=== PATIENT | male | born 1975 | race Caucasian/White ===

== ENCOUNTER → 2017-09-09 13:04 | Outpatient (CLI) | payer MEDICAID, SELFPAY ==
--- NOTE | 2017-09-09 13:07 | ECHOCS_ITS ---
Reason For Study: CHF Procedure This was a 2D Doppler, Color Flow transthoracic echocardiogram. The exam was of poor technical quality due to body habitus. The study was technically difficult. Contrast injection was performed. Exam performed in department. Left Ventricle Mildly dilated left ventricle. Moderately severe segmental systolic dysfunction (see wall motion). The estimated ejection fraction is 30 %. Transmitral doppler flow suggestive of impaired relaxation of left ventricle. Infero-Basal: Akinetic. Basal inferoseptal: Akinetic. Basal anteroseptal: Hypokinetic. Mid-Anterior : Hypokinetic. Mid-Lateral : Hypokinetic. Mid-Posterior: Hypokinetic. Mid -Inferior: Akinetic. Mid-inferoseptal : Hypokinetic. Mid-anteroseptal : Hypokinetic. Anterior [place] : Hypokinetic. Inferior [place] : Hypokinetic. Lateral [place] : Akinetic. Septal [place] : Akinetic. Right Ventricle Normal RV size. Normal systolic function. Atria The left atrium is mildly enlarged. Normal right atrium. No doppler evidence for ASD. Positive agitated saline contrast study for a late faint right to left interatrial shunt. Mitral Valve There is no mitral annular calcification. Normal mitral valve. Trivial mitral valve insufficiency. Tricuspid Valve Normal tricuspid valve. Trivial tricuspid valve insufficiency. Right ventricular systolic pressure estimated to be 26 mmHg. Aortic Valve Trisinus/trileaflet aortic valve. Normal aortic valve. Pulmonic Valve The pulmonic valve is not well visualized. Trivial pulmonic valve insufficiency. Great Vessels Normal sized aortic root. Pericardium/Pleural No pericardial effusion. Medication 20 gauge I.V. with prn adaptor inserted into right arm. Diluted definity 2ml given slow IV push to enhance endocardial definition. Performed a rapid injection of agitated mix of 9 cc saline and 1cc air to assess for atrial septal defect. MMode/2D Measurements & Calculations LVIDd: 5.1 cm IVSd: 1.2 cm LVOT diam: 2.0 cm LVIDs: 4.1 cm LVPWd: 1.3 cm LVOT area: 3.2 cm2 FS: 19.2 % Ao root diam: 3.2 cm LAV(MOD-bp): 46.1 ml LVAd ap4: 41.1 cm2 LA dimension: 4.4 cm LAV(MOD-bp) Indexed: 20.4 ml/m2 EDV(MOD-sp4): 166.4 ml LAV(MOD-sp2): 44.4 ml EDV(sp4-el): 169.8 ml LAV(MOD-sp4): 45.9 ml LVAs ap4: 34.0 cm2 ESV(MOD-sp4): 119.2 ml ESV(sp4-el): 123.1 ml EF(MOD-sp4): 28.3 % EF(sp4-el): 27.5 % SV(MOD-sp4): 47.1 ml SV(sp4-el): 46.6 ml LA A4 area: 17.1 cm2 RA A4 area: 11.7 cm2 Time Measurements MV dec time: 0.22 sec Doppler Measurements & Calculations MV E max artemio: 58.2 cm/sec Lat Peak E' Artemio: 8.1 cm/sec Med Peak E' Artemio: 4.9 cm/sec MV A max artemio: 86.2 cm/sec E/E' lat: 7.2 E/E' med: 11.9 MV E/A: 0.68 MV V2 max: 95.8 cm/sec MV P1/2t max artemio: 62.1 cm/sec Ao V2 max: 109.5 cm/sec MV max P.7 mmHg MV P1/2t: 92.4 msec Ao max P.8 mmHg MV V2 mean: 47.9 cm/sec MV dec slope: 196.8 cm/sec2 Ao V2 mean: 75.1 cm/sec MV mean P.1 mmHg MVA(P1/2t): 2.4 cm2 Ao mean P.5 mmHg MV V2 VTI: 20.8 cm Ao V2 VTI: 18.3 cm MVA(VTI): 1.9 cm2 SHIVAM(I,D): 2.2 cm2 SHIVAM(V,D): 2.2 cm2 LV V1 max: 75.5 cm/sec SV(LVOT): 39.4 ml PA V2 max: 95.3 cm/sec LV V1 max P.3 mmHg LV V1 mean P.0 mmHg LV V1 mean: 46.5 cm/sec LV V1 VTI: 12.4 cm TR max artemio: 240.5 cm/sec TR max P.1 mmHg Interpretation Summary The study was technically difficult. Contrast injection was performed. Mildly dilated left ventricle. Moderately severe segmental systolic dysfunction (see wall motion). The estimated ejection fraction is 30 %. The left atrium is mildly enlarged. Trivial mitral valve insufficiency. Trivial tricuspid valve insufficiency. Trivial pulmonic valve insufficiency. Right ventricular systolic pressure estimated to be 26 mmHg. Positive agitated saline contrast study for a late faint right to left interatrial shunt. Ordering Physician: Arnol Galloway Referring Physician: Arnol Galloway Performed By: Vijay Wright RCS
== END ==
PROVIDERS: Family Provider Family Medicine; PCP Family Medicine; Visit Provider Internal Medicine Cardiovascular Disease
DX: I50.22 Chronic systolic (congestive) heart failure (principal)
CPT/HCPCS: 93306; Q9957; A4216; C8929

== ENCOUNTER 2024-01-28 10:00 | Outpatient (RCR) | payer MEDICARE, MEDICAID, SELFPAY ==
[2024-01-13 09:21] VITALS: BP 133/75; PULSE 68; RESP 18; TEMP 35.7; BMI 33.0
--- NOTE | 2024-01-13 10:11 | HP.PCM_ITS ---
History of Present Illness Date of Service: 01/13/24 Progress of Wound: Patient presents today for follow-up on a right hallux amputation and left heel wound in setting of diabetic neuropathy and peripheral arterial disease. Patient had right hallux amputation left heel wound debridement via outside podiatry at [facility]. Patient presented to my office 1 week prior for follow-up. Right hallux amputation was noted to be healed at that time and sutures were aseptically removed. Patient is heel weightbearing in surgical shoe on the right and nonweightbearing on the left assisted by walker. Patient denies any fever chills nausea vomiting chest pain calf pain shortness of breath. Patient has IV antibiotics via PICC line. Today is patient's last dose. No other complaints at current. [facility] Medical History Old myocardial infarct Peripheral vascular occlusive disease Obesity PUD (peptic ulcer disease) Obstructive sleep apnea Nicotine dependence Left bundle branch block (LBBB) Chronic systolic (congestive) heart failure Natalya gangrene Essential (primary) hypertension Hyperlipidemia Type 2 diabetes mellitus Atherosclerosis of coronary artery without angina pectoris Ischemic cardiomyopathy Paroxysmal ventricular tachycardia Home Medications ?Medication ?Instructions ?Recorded ?Last Taken ?Type aspirin 81 mg tablet,delayed 81 mg PO DAILY 11/03/19 Unknown History release (Adult Aspirin Regimen) insulin NPH isoph U-100 human 100 25 unit subcut BID 03/14/23 Unknown History unit/mL subcutaneous suspension insulin regular human 100 unit/mL 8 unit subcut TID 03/14/23 Unknown History injection solution atorvastatin 10 mg tablet 10 mg PO QHS #30 tabs 03/17/23 Unknown Rx carvedilol 3.125 mg tablet 3.125 mg PO BID #60 tabs 03/17/23 Unknown Rx lisinopril 2.5 mg tablet 2.5 mg PO DAILY #30 tabs 03/17/23 Unknown Rx ascorbic acid (vitamin C) 500 mg 500 mg PO DAILY 01/13/24 Unknown History tablet,extended release (C Complex) cholecalciferol (vitamin D3) 125 125 mcg PO DAILY 01/13/24 Unknown History mcg (5,000 unit) tablet (Vitamin D3) furosemide 20 mg tablet (Lasix) 20 mg PO DAILY 01/13/24 Unknown History hydralazine 10 mg tablet 10 mg PO TID 01/13/24 Unknown History losartan 25 mg tablet (Cozaar) 25 mg PO DAILY 01/13/24 Unknown History metoprolol tartrate 25 mg tablet 25 mg PO DAILY 01/13/24 Unknown History Allergy/AdvReac Type Severity Reaction Status Date / Time spironolactone AdvReac hyperkalemi Verified 03/14/23 10:24 a Family History Mother Heart disease 50 CVA (cerebral vascular accident) Father Heart disease 60 Diabetes CVA (cerebral vascular accident) Hypertension Sister Heart disease 48 Diabetes Grandfather CVA (cerebral vascular accident) Hypertension Grandmother CVA (cerebral vascular accident) Surgical History Hx of foot surgery History of left heart catheterization (09/25/15) History of right heart catheterization (02/2016) History of nasal septoplasty H/O coronary artery bypass surgery (03/19/16) History of ileostomy History of incision and drainage Biventricular ICD (implantable cardioverter-defibrillator) in place (08/16/16) Social History Smoking Status: Former smoker alcohol intake: never substance use type: does not use caffeine: Yes (monster 1 per day) Type: carbonated beverages Number of servings: 3 ROS Constitutional Constitutional: Denies body ache(s), change in weight or fever(s) Eyes Eyes: Denies acute decrease in peripheral vision, blindness or change in eye color ENT HEENT: Denies abnormal hearing, bleeding gums or change in voice Cardiovascular Cardiovascular: Denies abdominal bloating, abdominal edema or bluish discoloration of hand/feet Respiratory/Chest Respiratory/Chest: Denies change in mental status, change in phlegm color or difficulty clearing secretions Gastrointestinal Gastrointestinal: Denies anorexia, belching or bloating Genitourinary Genitourinary: Denies abdominal discomfort, anuria or burning urination Musculoskeletal Musculoskeletal: Denies arthralgias, atrophy or back pain Integumentary Integumentary: Denies bleeding lesions, change in hair or change in pigmentation Vital Signs Vital Signs Vital Signs: 01/13/24 09:21 Temperature 96.2 F L Temperature Source Temporal Pulse Rate 68 Respiratory Rate 18 Blood Pressure 133/75 H Blood Pressure Mean 94 Blood Pressure Source Monitor Blood Pressure Position Semi-Fowlers Blood Pressure Location Left Arm Weight Weight: 101.605 kg Body Mass Index (BMI) 33.0 Physical Exam Narrative Vascular: Dorsalis pedis posterior tibial pulses diminished bilateral lower extremity. +1 pitting edema noted to bilateral lower extremity focused on perimalleolar region. Atrophic skin changes noted such as skin thinning, taut, shiny appearance. Absent digital hair growth noted bilaterally. Neurologic: Light touch protective sensation absent to bilateral feet. Dermatologic: Right hallux amputation site healed. Left heel wound remains full-thickness down to level of subcutaneous tissue with periwound callus formation. No acute signs of infection. Wound demonstrates clean granular base postdebridement. Pre and postdebridement measurements documented nursing notes. No evidence of deep probing or undermining at this time. Scant serosanguineous drainage noted. Musculoskeletal: No wound forming deformity noted. Muscular strength full to bilateral lower extremity compartments. No evidence DVT of bilateral lower extremity. Const alert and oriented x3 Debridement Note Debridement Note Post-Debridement Measurements and Additional Note: Post-Debridement Measurements/Treatment - Nurse 1 - General Ulcer Assessment Start: 01/13/24 09:21 Freq: Status: Active Protocol: WC.LOWEXTy Activity Type Activity Date Activity User E-sign Co-sign Detail Recorded Client Recorded Date Recorded By Document 01/13/24 09:21 RB wound 01/13/24 09:39 RB 01/13/24 09:21 - Today's Visit Information Type of service Follow-up Visit (Physician/CASE MANAGER SPECIALIST ) Arrival Mode Wheelchair Transfer Assistance Manual Patient Identification Verified (Name & Yes ) Height and Weight Height 5 ft 9 in Weight 101.605 kg Weight in Pounds 224.0 lbs Body Mass Index (BMI) 33.0 BMI Classification Obese BSA - Michelle 2.17 Vital Signs Temperature (97.8 F-99.1 F) 96.2 F L Temperature Source Temporal Pulse Rate (60-100) 68 Pulse Location Monitor Respiratory Rate (12-18) 18 Respiratory rate source Observation Blood Pressure (90/60-120/80) 133/75 H Blood Pressure Mean 94 Source Monitor Position Semi-Fowlers Blood Pressure Location Left Arm Pain Scale: 0-10 Numeric Is Patient Pain Free? Yes Lower Extremity Assessment/ Foot Assessment/ Toe Nail Assessment Right -Posterior Tibial Palpable No -Posterior Tibial Doppler Monophasic -Dorsalis Pedis Palpable No -Dorsalis Pedis Doppler Monophasic -Extremity Color Normal -Hair Growth on Legs Yes -Hair Growth on Toes No -Temperature of Extremity Cool -Capillary Refill Less than 3 Seconds -Dependent Rubor No -Blanched when Elevated No -Lipodermatosclerosis No -Other Deformity No -Prior Foot Ulcer No -Charcot Joint No -Prior Amputation Yes -Thick Yes -Discolored Yes -Deformed Yes -Improper Length & Hygeine No Left -Popliteal Doppler Monophasic -Posterior Tibial Palpable No -Posterior Tibial Doppler Monophasic -Dorsalis Pedis Palpable No -Extremity Color Normal -Hair Growth on Legs Yes -Hair Growth on Toes No -Temperature of Extremity Cool -Capillary Refill Less than 3 Seconds -Dependent Rubor No -Blanched when Elevated No -Lipodermatosclerosis No -Other Deformity No -Prior Foot Ulcer No -Charcot Joint No -Prior Amputation No -Thick Yes -Discolored Yes -Deformed Yes -Improper Length & Hygeine No Neuropathy Assessment Feet - Top Side and Bottom <Entered> (a) Communication Assessment Preferred language [place] Biztalk Consultant Required No Able to Read Yes Able to Write Yes Communication Tools None Caregiver Communication Skills No Impairment Impairment Right Hearing Abillity Normal Left Hearing Abillity Normal Visual Assistive Devices None Teaching Assessment Preferences Verbal,Written, Demonstration Barriers to Learning Unable to Comprehend Readiness To Learn Good Willingness to Engage in Self Management Med Activies Readiness to Engage in Self Management Med Activities Anxiety Level Calm Cooperation Cooperative Perception Coherent Interest in Health Problem Asks Questions Education Importance Acknowledges Need Does Patient Smoke tobacco or other No substances Smoking Status Former smoker Is Patient Diabetic Yes Functional Assessment Recent Decline in Ability to Perform Transferring Culture/Congregational/Construction Operations Manager Cultural/Congregational Needs that may affect No Treatment Plan Would you allow our hospital cable testers helper to No meet you for the purpose of spiritual/ emotional support? Construction Operations Manager to contact place of judaism No Teaching: Wound Center *Welcome to the Wound Center -Person Taught Patient -Teaching Method Discussion -Response to teaching Verbalize understanding (a) 1 - - throughout WC - Nurse 1 - General Ulcer Measurement Start: 01/13/24 09:21 Freq: Status: Active Protocol: Activity Type Activity Date Activity User E-sign Co-sign Detail Recorded Client Recorded Date Recorded By Document 06/11/24 09:21 RB wound 01/13/24 09:39 RB Document 01/13/24 09:52 RB wound 01/13/24 09:53 RB 01/13/24 01/13/24 09:21 09:52 Wound Center Nurse 1 1. L heel -Combined with other wound No -Current Size (cm) - Length 0.8 -Current Size (cm) - Width 0.5 -Current Size (cm) - Depth 0.4 -Total Square Cm 0.40 -Photo Taken Yes -Tunneling No -Undermining/Tunneling No -Circular Undermining No -Exudate Amt Medium -Exudate Type Serosanguineous -Wound Margin Thickened -Granulation Amt Large (67-100%) -Granulation Quality [place] -Slough/Fibrin Yes -Necrosis Amt Medium (34-66%) -Necrotic Tissue Type Adherent Slough -Structure Exposed N/A -Texture (Julia-wound Skin Appearance) Callus -Moisture (Julia-wound Skin Appearance) Assessed,Dry/ Scaly -Color (Julia-wound Skin Appearance) Assessed -Temperature (Julia-wound Skin No Abnormality Appearance) (Pt Warm) -Tenderness on Palpation (Julia-wound No Skin Appearance) -Ulcer Cleansing Wound Cleanser -Foul Odor after Cleansing No -Anesthetic Used 5% Lidocaine Gel -Wound Comment(s) right great toe amputation 3 weeks ago incsion well approximated and covered with betadine Lower Limb Edema Present Yes Right Calf (cm) 33.6 Right Ankle (cm) 21.8 Left Calf (cm) 32.2 Left Ankle (cm) 21.2 WC - Nurse 2 - General Ulcer CM Notes Start: 01/13/24 09:21 Freq: Status: Active Protocol: Activity Type Activity Date Activity User E-sign Co-sign Detail Recorded Client Recorded Date Recorded By Document 01/13/24 09:59 [id number] 01/13/24 10:04 01/13/24 09:59 Wound Center Nurse 2 -Time 10:00 -Correct Patient Yes -Correct Side, Site, Position Yes -Correct Procedure Yes -Procedure Performed Yes -Type of Procedure Debridement -Clinical Debridement Subcutaneous -Tissue Removed Subcutaneous -Post Debridement (cm) - Length 2.1 -Post Debridement (cm) - Width 1.0 -Post Debridement (cm) - Depth 0.2 -Total Square (Post) (cm) 2.10 -Area of Debridement (cm) - Length 2.1 -Area of Debridement (cm) - Width 1.0 -Total Square (Area) (cm) 2.10 -Tunneling No -Undermining/Tunneling No -Circular Undermining No -Wound/Ulcer Outcome Not Healed -Ulcer Cleansing Rinsed/ Irrigated with Saline -Foul Odor after Cleansing No -Bioengineered Tissue No -Bleeding Controlled with Pressure -Treatment Response Procedure Tolerated Well -Offloading Yes -Type of Offloading Surgical Shoe -Debridement - Subq, 1st 20sq cm Yes Pain Scale: 0-10 Numeric Is Patient Pain Free? Yes Assessment/Plan Assessment/Plan (1) Type 2 diabetes mellitus with diabetic polyneuropathy: CODE(S): E11.42 - Type 2 diabetes mellitus with diabetic polyneuropathy QUALIFIERS: Diabetes mellitus residential insulin use: with residential use Qualified Code(s): E11.42 - Type 2 diabetes mellitus with diabetic polyneuropathy; Z79.4 - exterminator (current) use of insulin PLAN: Exam performed Right hallux amputation remains healed Left heel wound improving, devoid of infection. Patient full weightbearing on right, nonweightbearing on left -patient assisted with walker and a knee sling to maintain nonweightbearing on left Left heel wound was debrided excisionally down to including level of subcutaneous tissue of all nonviable tissue using a tissue nipper. No anesthesia due to neuropathy. Hemostasis obtained with light compression. Pre and postdebridement measurements documented nursing notes. Patient tolerated procedure well. Arterial and venous studies ordered Will plan for total contact casting after arterial and venous studies performed Will consider advanced wound care grafting to left heel pending any delays in healing Patient will follow-up in 1 week Patient having PICC line removed after today?no additional antibiotics recommend ed per my perspective at this time. (2) Non-pressure chronic ulcer of other part of left foot with fat layer exposed: CODE(S): L97.522 - Non-pressure chronic ulcer of other part of left foot with fat layer exposed
[2024-01-27 09:10] VITALS: BP 147/80; PULSE 82; RESP 18; TEMP 36.4; BMI 33.0
--- NOTE | 2024-01-27 10:34 | PN.PCM_ITS ---
History of Present Illness Date of Service: 01/27/24 Progress of Wound: Patient presents today for follow-up on a right hallux amputation and left heel wound in setting of diabetic neuropathy and peripheral arterial disease. Patient had right hallux amputation left heel wound debridement via outside podiatry at [facility][1]. Patient presented to my office 1 week prior for follow-up. Right hallux amputation was noted to be healed at that time and sutures were aseptically removed. Patient is heel weightbearing in surgical shoe on the right and nonweightbearing on the left assisted by walker. Patient denies any fever chills nausea vomiting chest pain calf pain shortness of breath. Patient has IV antibiotics via PICC line. Today is patient's last dose. No other complaints at current. Objective Data Objective Data Vital Signs: Vital Signs Temp Pulse Resp BP 97.5 F L 82 18 147/80 H 01/27/24 09:10 01/27/24 09:10 01/27/24 09:10 01/27/24 09:10 Weight: 101.605 kg Body Mass Index (BMI) 33.0 Physical Exam Narrative Vascular: Dorsalis pedis posterior tibial pulses diminished bilateral lower extremity. +1 pitting edema noted to bilateral lower extremity focused on perimalleolar region. Atrophic skin changes noted such as skin thinning, taut, shiny appearance. Absent digital hair growth noted bilaterally. Neurologic: Light touch protective sensation absent to bilateral feet. Dermatologic: Right hallux amputation site healed. Left heel wound remains full-thickness down to level of subcutaneous tissue with periwound callus formation. No acute signs of infection. Wound demonstrates clean granular base postdebridement. Pre and postdebridement measurements documented nursing notes. No evidence of deep probing or undermining at this time. Scant serosanguineous drainage noted. Musculoskeletal: No wound forming deformity noted. Muscular strength full to bilateral lower extremity compartments. No evidence DVT of bilateral lower extremity. Const alert and oriented x3 Debridement Note Debridement Note Post-Debridement Measurements and Additional Note: Post-Debridement Measurements/Treatment WC - Nurse 1 - General Ulcer Assessment Start: 01/13/24 09:21 Freq: Status: Active Protocol: RONNY.LOWEXT Activity Type Activity Date Activity User E-sign Co-sign Detail Recorded Client Recorded Date Recorded By Document 01/13/24 09:21 RB wound 01/13/24 09:39 RB Document 01/27/24 09:10 DL [email or web address] 01/27/24 09:17 DL 01/13/24 01/27/24 09:21 09:10 WC - Today's Visit Information Type of service Follow-up Visit Follow-up Visit (Physician/HSE ADVISOR (Physician/HSE ADVISOR ) ) Arrival Mode Wheelchair Ambulatory, Walker Transfer Assistance Manual None Patient Identification Verified (Name & Yes Yes ) Patient Requires Transmission-Based No Precautions Finger Stick Blood Sugar(mg/dl) (if not checked indicated): Blood Sugar Stated by Patient Height and Weight Height 5 ft 9 in Weight 101.605 kg Weight in Pounds 224.0 lbs Body Mass Index (BMI) 33.0 33.0 BMI Classification Obese Obese BSA - Michelle 2.17 Vital Signs Temperature (97.8 F-99.1 F) 96.2 F L 97.5 F L Temperature Source Temporal Temporal Pulse Rate (60-100) 68 82 Pulse Location Monitor Monitor Respiratory Rate (12-18) 18 18 Respiratory rate source Observation Observation Blood Pressure (90/60-120/80) 133/75 H 147/80 H Blood Pressure Mean (mm Hg) 94 102 Source Monitor Monitor Position Semi-Fowlers Blood Pressure Location Left Arm History Since Last Visit- (Skip if this is Patient's initial visit) Have you changed medications since your No last visit? Any new allergies or adverse reactions No Had a fall/change in ADL's that may No increase risk of falls Signs or symptoms of abuse and/or No neglect since last visit Have you been in the hospital since your No last visit? Has dressing in place as prescribed Yes Has compression in place as prescribed Yes Has offloadiing in place as prescribed Yes Experienced any changes in pain level or No management Left Footwear Regular Shoe Right Footwear Regular Shoe Pain Scale: 0-10 Numeric Is Patient Pain Free? Yes Yes Lower Extremity Assessment/ Foot Assessment/ Toe Nail Assessment Right -Posterior Tibial Palpable No -Posterior Tibial Doppler Monophasic -Dorsalis Pedis Palpable No -Dorsalis Pedis Doppler Monophasic -Extremity Color Normal -Hair Growth on Legs Yes -Hair Growth on Toes No -Temperature of Extremity Cool -Capillary Refill Less than 3 Seconds -Dependent Rubor No -Blanched when Elevated No -Lipodermatosclerosis No -Other Deformity No -Prior Foot Ulcer No -Charcot Joint No -Prior Amputation Yes -Thick Yes -Discolored Yes -Deformed Yes -Improper Length & Hygeine No Left -Popliteal Doppler Monophasic -Posterior Tibial Palpable No -Posterior Tibial Doppler Monophasic -Dorsalis Pedis Palpable No -Extremity Color Normal -Hair Growth on Legs Yes -Hair Growth on Toes No -Temperature of Extremity Cool -Capillary Refill Less than 3 Seconds -Dependent Rubor No -Blanched when Elevated No -Lipodermatosclerosis No -Other Deformity No -Prior Foot Ulcer No -Charcot Joint No -Prior Amputation No -Thick Yes -Discolored Yes -Deformed Yes -Improper Length & Hygeine No Neuropathy Assessment Feet - Top Side and Bottom <Entered> (a) Communication Assessment Preferred language Sinhala Senior Writer Required No Able to Read Yes Able to Write Yes Communication Tools None Caregiver Communication Skills No Impairment Impairment Right Hearing Abillity Normal Left Hearing Abillity Normal Visual Assistive Devices None Teaching Assessment Preferences Verbal,Written, Demonstration Barriers to Learning Unable to Comprehend Readiness To Learn Good Willingness to Engage in Self Management Med Activies Readiness to Engage in Self Management Med Activities Anxiety Level Calm Cooperation Cooperative Perception Coherent Interest in Health Problem Asks Questions Education Importance Acknowledges Need Does Patient Smoke tobacco or other No substances Smoking Status Former smoker Is Patient Diabetic Yes Functional Assessment Recent Decline in Ability to Perform Transferring Culture/Latter-Day/Feeder/Folder Cultural/Latter-Day Needs that may affect No Treatment Plan Would you allow our hospital control chemist to No meet you for the purpose of spiritual/ emotional support? Feeder/Folder to contact place of yarsani No Teaching: Wound Center *Welcome to the Wound Center -Person Taught Patient -Teaching Method Discussion -Response to teaching Verbalize understanding (a) 1 - - throughout WC - Nurse 1 - General Ulcer Measurement Start: 01/13/24 09:21 Freq: Status: Active Protocol: Activity Type Activity Date Activity User E-sign Co-sign Detail Recorded Client Recorded Date Recorded By Document 01/13/24 09:21 RB wound 01/13/24 09:39 RB Document 01/13/24 09:52 RB wound 01/13/24 09:53 RB Document 01/27/24 09:10 DL [email or web address] 01/27/24 09:17 DL 01/13/24 01/13/24 01/27/24 09:21 09:52 09:10 Wound Center Nurse 1 1. L heel -Combined with other wound No -Current Size (cm) - Length 0.8 0.7 -Current Size (cm) - Width 0.5 0.6 -Current Size (cm) - Depth 0.4 0.5 -Total Square Cm 0.40 0.42 -Photo Taken Yes Yes -Tunneling No -Undermining/Tunneling No -Circular Undermining No -Exudate Amt Medium Medium -Exudate Type Serosanguineous Serosanguineous -Wound Margin Thickened Thickened & Rolled Under -Granulation Amt Large (67-100%) None Present (0 %) -Granulation Quality [place] -Slough/Fibrin Yes -Necrosis Amt Medium (34-66%) Large (67-100%) -Necrotic Tissue Type Adherent Slough Adherent Slough -Structure Exposed N/A -Texture (Julia-wound Skin Appearance) Callus Scarring -Moisture (Julia-wound Skin Appearance) Assessed,Dry/ Dry/Scaly Scaly -Color (Julia-wound Skin Appearance) Assessed No Abnormality -Temperature (Julia-wound Skin No Abnormality No Abnormality Appearance) (Pt Warm) (Pt Warm) -Tenderness on Palpation (Julia-wound No Skin Appearance) -Ulcer Cleansing Wound Cleanser Soap and Water -Foul Odor after Cleansing No No -Anesthetic Used 5% Lidocaine 5% Lidocaine Gel Gel -Wound Comment(s) right great toe amputation 3 weeks ago incsion well approximated and covered with betadine Lower Limb Edema Present Yes Right Calf (cm) 33.6 Right Ankle (cm) 21.8 Left Calf (cm) 32.2 31.2 Left Ankle (cm) 21.2 21.5 WC - Nurse 2 - General Ulcer CM Notes Start: 01/13/24 09:21 Freq: Status: Active Protocol: Activity Type Activity Date Activity User E-sign Co-sign Detail Recorded Client Recorded Date Recorded By Document 01/13/24 09:59 JF [id number] 01/13/24 10:04 JF Document 01/27/24 09:34 JF 0000 01/27/24 09:36 JF 01/13/24 01/27/24 09:59 09:34 Wound Center Nurse 2 1. L heel -Time 10:00 09:35 -Correct Patient Yes Yes -Correct Side, Site, Position Yes Yes -Correct Procedure Yes Yes -Procedure Performed Yes Yes -Type of Procedure Debridement Debridement -Clinical Debridement Subcutaneous Subcutaneous -Tissue Removed Subcutaneous Subcutaneous -Post Debridement (cm) - Length 2.1 0.8 -Post Debridement (cm) - Width 1.0 0.6 -Post Debridement (cm) - Depth 0.2 0.4 -Total Square (Post) (cm) 2.10 0.48 -Area of Debridement (cm) - Length 2.1 0.8 -Area of Debridement (cm) - Width 1.0 0.6 -Total Square (Area) (cm) 2.10 0.48 -Tunneling No No -Undermining/Tunneling No No -Circular Undermining No No -Wound/Ulcer Outcome Not Healed Not Healed -Ulcer Cleansing Rinsed/ Rinsed/ Irrigated with Irrigated with Saline Saline -Foul Odor after Cleansing No No -Bioengineered Tissue No No -Bleeding Controlled with Pressure Pressure -Treatment Response Procedure Procedure Tolerated Well Tolerated Well -Offloading Yes No -Type of Offloading Surgical Shoe -Debridement - Subq, 1st 20sq cm Yes Yes Pain Scale: 0-10 Numeric Is Patient Pain Free? Yes Yes - Nurse 3 - General Ulcer D/C NN Start: 01/13/24 09:21 Freq: Status: Active Protocol: Activity Type Activity Date Activity User E-sign Co-sign Detail Recorded Client Recorded Date Recorded By Document 01/27/24 09:49 DL [email or web address] 01/27/24 09:51 DL 01/27/24 09:49 Wound Care Center Nurse 3 1. L heel -Ulcer Cleansing Rinsed/ Irrigated with Saline -Foul Odor after Cleansing No -Primary Dressing Applied Silvercel -Primary Dressing Covered/Secured with Dry Gauze & Roll Gauze, Secured with Tape -Silvercel 1 Left -Other tubigrip Treatment Response Procedure Tolerated Well Pain Scale: 0-10 Numeric Is Patient Pain Free? Yes - Visit Discharge Discharge Condition Stable Ambulatory Status Ambulatory Transportation Private Auto Assessment/Plan Assessment/Plan (1) Type 2 diabetes mellitus with diabetic polyneuropathy: CODE(S): E11.42 - Type 2 diabetes mellitus with diabetic polyneuropathy QUALIFIERS: Diabetes mellitus group home insulin use: with technician terminal and repeater use Qualified Code(s): E11.42 - Type 2 diabetes mellitus with diabetic polyneuropathy; Z79.4 - equipment operator intermodal yard (current) use of insulin PLAN: Exam performed Right hallux amputation remains healed Left heel wound improving, devoid of infection. Patient full weightbearing on right, nonweightbearing on left -patient assisted with walker and a knee sling to maintain nonweightbearing on left Left heel wound was debrided excisionally down to including level of subcutaneous tissue of all nonviable tissue using a tissue nipper. No anesthes ia due to neuropathy. Hemostasis obtained with light compression. Pre and postdebridement measurements documented nursing notes. Patient tolerated procedure well. Arterial and venous studies ordered - still pending Will plan for total contact casting after arterial and venous studies performed Will consider advanced wound care grafting to left heel pending any delays in healing Patient will follow-up in 1 week (2) Non-pressure chronic ulcer of other part of left foot with fat layer exposed: CODE(S): L97.522 - Non-pressure chronic ulcer of other part of left foot with fat layer exposed
--- NOTE | 2024-01-28 10:17 | ART_ITS ---
Reason For Study: PVD / Wound Procedure A bilateral lower extremity continuous wave Doppler with analog waveform analysis,segmental pressures,and ankle brachial indexes without exercise. Left Segmental Pressures Left brachial= 131mmHg. Left thigh = 121mmHg. Left calf = 90mmHg. Left dorsalis pedis artery = 92mmHg. Left digit = 61 mmHg. The left dorsalis pedis waveforms are monophasic. Unable to acquire LT INTERIOR BLOCK WIRER waveform/pressure due to wounds and bandages. Right Segmental Pressures Right brachial= 130mmHg. Right thigh = 159mmHg. Right calf = 100mmHg. Right posterior tibial artery = 98mmHg. Right dorsalis pedis artery = 82mmHg. Unable to acquire RT Great Toe pressure/waveform due to prior amputation. The right posterior tibial artery waveforms are biphasic. The right dorsalis pedis waveforms are monophasic. Indices The right ankle brachial index by the posterior tibial artery is 0.75. The right ankle brachial index by the dorsalis pedis is 0.63. The left ankle brachial index by the dorsalis pedis is 0.70. The left digital-brachial index is 0.47. VL/Lower Ext Art Exam w/o Exercis Interpretation Summary Biphasic and monophasic Doppler waveforms are noted at ankle level on the right . Monophasic Doppler waveforms are noted at ankle level on the left. Pulse-volume recordings appear diminished at ankle level bilaterally, and at digital level on the left. Pulse-volume recordings we re not determined at digital level on the right due to amputations. Resting ankle-brachial indices a re moderately diminished bilaterally. The right digital-brachial index was not determined due to amputations. The left digital-brachial index is moderately diminished. There is evidence of moderately severe arterial occlusive disease in the lower extremities bilaterally. Ordering Physician: Jc Truong Referring Physician: Moe Odonnell Performed By: Nabil Mondragon RVT and Student
--- NOTE | 2024-01-28 10:17 | VDLE_ITS ---
Reason For Study: BLE Edema RIGHT LEFT CFV is compressible, spontaneous, phasic, CFV is compressible, spontaneous, phasic, competent and demonstrates normal competent, and demonstrates normal augmentation. augmentation. FV is compressible, spontaneous, phasic, FV is compressible, spontaneous, phasic, competent and demonstrates normal competent and demonstrates normal augmentation. augmentation. POP V is compressible, spontaneous, phasic, POP V is compressible, spontaneous, phasic, competent and demonstrates normal competent and demonstrates normal augmentation. augmentation. T/P Trunk is compressible. T/P Trunk is compressible. PTV is compressible. PTV is compressible. RT PerV is compressible. LT PerV is compressible. SFJ is INCOMPETENT and measures 0.48 cm. SFJ is competent and measures 0.47 cm. GSV proximal thigh measures 0.31 x 0.35 cm. Pt has HX of CABG. GSV Prox thigh to mid calf GSV at knee measures 0.21 x 0.30 cm. appears to have been harvested. Competent at GSV is competent throughout. mid and distal calf. SSV proximal calf is competent and measures SSV proximal calf is competent and measures 0.46 x 0.54 cm. 0.35 x 0.39 cm. Procedure Exam performed in department. This is a venous duplex using B-mode, color flow and spectral Doppler. The exam was diagnostic. Patient was scanned in reverse Trendelenburg position during reflux assessment. VL/Venous Duplex US - Salbador Extrem Interpretation Summary Deep veins of the lower extremities are bilaterally patent and compressible seg mentally. There is no evidence of deep vein thrombosis on either side. Valvular competence appears in tact within the proximal deep venous systems bilaterally. The right sapheno-femoral junction is incompetent . The left sapheno-femoral junction is competent . The right great saphenous vein joradn ears patent and compressible segmentally. The right great saphenous vein appears segmentally co mpetent. The left great saphenous vein appears to be absent in the thigh and proximal calf, but p atent and competent more distally. Small saphenous veins are patent and competent bilaterally. Ordering Physician: Jc Trunog Referring Physician: Moe Odonnell Performed By: Nabil Mondragon RVT and Student
== END 2024-02-01 23:59 | disposition home or self-care (01) ==
LOC: WC 10:00
PROVIDERS: PCP Family Medicine; Referring Provider Podiatrist; Visit Provider Podiatrist
DX: E11.622 Type 2 diabetes mellitus with other skin ulcer (principal); L97.422 Non-pressure chronic ulcer of left heel and midfoot with fat layer exposed; I11.0 Hypertensive heart disease with heart failure; I50.22 Chronic systolic (congestive) heart failure; E11.51 Type 2 diabetes mellitus with diabetic peripheral angiopathy without gangrene; E11.42 Type 2 diabetes mellitus with diabetic polyneuropathy; Z79.4 Long term (current) use of insulin; Z79.82 Long term (current) use of aspirin; E78.5 Hyperlipidemia, unspecified; Z87.891 Personal history of nicotine dependence; I25.10 Atherosclerotic heart disease of native coronary artery without angina pectoris; Z89.421 Acquired absence of other right toe(s); Z79.899 Other long term (current) drug therapy; L84 Corns and callosities; R60.0 Localized edema
CPT/HCPCS: 11042; 93923; 93970; 99214; G0463

== ENCOUNTER 2024-03-19 21:20 | Inpatient (IN) | payer SELFPAY ==
[2024-03-19 21:21] VITALS: BP 110/80; PULSE 121; RESP 35; TEMP 37.9; O2SAT 95
--- NOTE | 2024-03-19 22:07 | EX.ED.DYSGE1 ---
HPI History of Present Illness Chief Complaint: General Illness Informant: patient and spouse/S.O. Onset/Context/Timing Onset: Today Context: Sudden Onset Timing: Continuous Quality: Shaking chills Location: Generalized Worsened by: Nothing Relieved by: Nothing Narrative Narrative: Patient presents with shaking chills. Began today. Patient states it began rather suddenly. states that whenever he he gets chills, he has an infection. Patient states he felt shaky all over. Patient states nothing makes it better and nothing makes it worse. Patient did not take his temperature. Patient has not taken any Tylenol or ibuprofen. Patient admits to some nausea and vomiting. Patient admits to some shortness of breath but denies any cough. Patient does do some dark urine. Patient also admits to a headache. [facility] Medical History Old myocardial infarct Peripheral vascular occlusive disease Obesity PUD (peptic ulcer disease) Obstructive sleep apnea Nicotine dependence Left bundle branch block (LBBB) Chronic systolic (congestive) heart failure Natalya gangrene Essential (primary) hypertension Hyperlipidemia Type 2 diabetes mellitus Atherosclerosis of coronary artery without angina pectoris Ischemic cardiomyopathy Paroxysmal ventricular tachycardia Home Medications ?Medication ?Instructions ?Recorded ?Last Taken ?Type aspirin 81 mg tablet,delayed 81 mg PO DAILY 11/03/19 Unknown History release (Adult Aspirin Regimen) insulin NPH isoph U-100 human 100 25 unit subcut BID 03/14/23 Unknown History unit/mL subcutaneous suspension insulin regular human 100 unit/mL 8 unit subcut TID 03/14/23 Unknown History injection solution atorvastatin 10 mg tablet 10 mg PO QHS #30 tabs 03/17/23 Unknown Rx carvedilol 3.125 mg tablet 3.125 mg PO BID #60 tabs 03/17/23 Unknown Rx lisinopril 2.5 mg tablet 2.5 mg PO DAILY #30 tabs 03/17/23 Unknown Rx ascorbic acid (vitamin C) 500 mg 500 mg PO DAILY 01/13/24 Unknown History tablet,extended release (C Complex) cholecalciferol (vitamin D3) 125 125 mcg PO DAILY 01/13/24 Unknown History mcg (5,000 unit) tablet (Vitamin D3) furosemide 20 mg tablet (Lasix) 20 mg PO DAILY 01/13/24 Unknown History hydralazine 10 mg tablet 10 mg PO TID 01/13/24 Unknown History losartan 25 mg tablet (Cozaar) 25 mg PO DAILY 01/13/24 Unknown History metoprolol tartrate 25 mg tablet 25 mg PO DAILY 01/13/24 Unknown History Allergy/AdvReac Type Severity Reaction Status Date / Time spironolactone AdvReac hyperkalemi Verified 03/19/24 21:21 a Family History Mother Heart disease 50 CVA (cerebral vascular accident) Father Heart disease 60 Diabetes CVA (cerebral vascular accident) Hypertension Sister Heart disease 48 Diabetes Grandfather CVA (cerebral vascular accident) Hypertension Grandmother CVA (cerebral vascular accident) Surgical History Hx of foot surgery History of left heart catheterization (09/25/15) History of right heart catheterization (02/2016) History of nasal septoplasty H/O coronary artery bypass surgery (03/19/16) History of ileostomy History of incision and drainage Biventricular ICD (implantable cardioverter-defibrillator) in place (08/16/16) Social History Smoking Status: Former smoker alcohol intake: never substance use type: does not use caffeine: Yes (monster 1 per day) Type: carbonated beverages Number of servings: 3 ROS ROS ED Constitutional Constitutional ED: Reports chills and subjective; Denies fever(s) Eyes Eyes: Denies blurry vision or change in vision ENT ENT ED: Denies rhinorrhea or sore throat Cardiovascular Cardiovascular: Denies chest pain or palpitations Respiratory/Chest Respiratory/Chest: Reports dyspnea; Denies cough Gastrointestinal Gastrointestinal: Reports nausea and vomiting Genitourinary Genitourinary ED: Denies dysuria or hematuria Musculoskeletal Musculoskeletal: Denies back pain or neck pain Integumentary Denies abscess or rash Neurologic Neurologic: Reports headache(s); Denies weakness Allergic/Immunologic Allergic/Immunologic ED: Denies mouth swelling or urticaria EXAM Physical Exam Const Vital Signs: 03/19/24 21:21 03/19/24 22:23 03/19/24 22:28 Temperature 100.3 F H 100.3 F H Temperature Source Oral Oral Pulse Rate 121 H 112 H Respiratory Rate 35 H 18 Respiratory Pattern Tachypnea Blood Pressure 110/80 110/68 Blood Pressure Mean 90 82 Pulse Ox 95 93 Oxygen Delivery Method Room Air Nasal Cannula Oxygen Flow Rate (L/min) 2 03/19/24 23:00 03/20/24 00:00 03/20/24 00:42 Temperature 100.0 F H 98.7 F 98.5 F Temperature Source Oral Oral Pulse Rate 106 H 105 H 107 H Respiratory Rate 22 H 32 H 49 H Respiratory Pattern Blood Pressure 94/52 L 99/62 114/72 Blood Pressure Mean 66 74 86 Pulse Ox 95 96 96 Oxygen Delivery Method Nasal Cannula Nasal Cannula Oxygen Flow Rate (L/min) 2 2 Positive well nourished and well developed General Appearance ED: well developed and NAD HEENT Reports moist mucous membranes Neck supple and no JVD Resp normal respiratory effort Auscultation: diminished lung sounds diffuse Cardio regular rhythm Rate: tachycardic GI non-tender and non-distended Palpation: soft Extremity General Extremety ED: Negative for edema or tenderness General Extremity: Negative for edema Neuro oriented x3, CN's II-XII intact bilaterally and no sensory deficits noted Sensorium / Orientation: alert Motor Exam: strength 5/5 throughout Psych mental status grossly normal MDM MDM MDM Narrative Medical decision making narrative: Differential diagnosis includes pneumonia, sepsis, viral illness, urinary tract infection, gastroenteritis, DKA, and dehydration. CBC will be obtained to assess for leukocytosis and anemia. Comprehensive metabolic profile will be obtained to assess for hepatic function, renal function, and electrolyte abnormality. Urinalysis will be obtained to assess for urinary tract infection and hematuria. Blood culture will be obtained to assess for sepsis. Serum lactate will be obtained to assess for sepsis. Chest x-ray will be obtained to assess for pneumonia or pneumothorax. Lab Data Attestation: I reviewed the patient's lab results. Lab results narrative: CBC was reviewed. There is a leukocytosis of 17.8. There is an anemia with a hemoglobin 9.3 and hematocrit 28.7. This is decreased from previous result. Platelets were slightly elevated at 456. PT with INR and PTT were reviewed. Pro time was 18.4 and INR is 1.5. PTT was mildly elevated at 42.6. Comprehensive metabolic profile was reviewed. BUN was slightly elevated at 21 and creatinine was 1.42. Serum lactate was reviewed and was elevated at 2.7. Total bilirubin was slightly elevated at 1.1. Alkaline phosphatase was slightly elevated to 32. Urinalysis was reviewed. There is no evidence of urinary tract infection or hematuria. COVID-19 PCR was reviewed and was negative. Influenza PCR was reviewed and was negative for influenza A and influenza B. RSV PCR was reviewed and was negative. Labs: Laboratory Results - last 24 hr 03/19/24 03/19/24 22:55 23:00 WBC 17.8 H RBC 3.31 L Hgb 9.3 L Hct 28.7 L MCV 86.7 MCH 28.1 MCHC 32.4 RDW Std Deviation 47.2 H RDW Coeff of Fariba 15.0 H Plt Count 456 H MPV 9.6 Immature Gran % (Auto) 0.700 Neut % (Auto) 90.0 H Lymph % (Auto) 4.0 L [place] % (Auto) 4.9 Eos % (Auto) 0.1 Baso % (Auto) 0.3 Absolute Neuts (auto) 16.0 H Absolute Lymphs (auto) 0.71 L Nucleated RBC % 0 PT 18.4 H INR 1.5 APTT 42.6 H Sodium 133 L Potassium 3.9 Chloride 102 Carbon Dioxide 22.0 Anion Gap 9 BUN 21 H Creatinine 1.42 H Estim Creat Clear Calc 72.28 Est GFR (MDRD) Af Amer 69 Est GFR (MDRD) Non-Af 57 L BUN/Creatinine Ratio 14.8 Glucose 212 H Lactic Acid 2.7 H* Calcium 8.5 Total Bilirubin 1.10 H AST 53 H ALT 61 Alkaline Phosphatase 232 H Total Protein 7.9 Albumin 1.8 L Globulin 6.1 H Albumin/Globulin Ratio 0.3 L Urine Color [place] Urine Clarity Clear Urine pH 6.0 Ur Specific [place] 1.025 Urine Protein 100 H Urine Glucose (UA) Normal Urine Ketones Negative Urine Occult Blood 10 H Urine Nitrite Negative Urine Bilirubin 1 H Urine Urobilinogen 8 H Ur Leukocyte Esterase 25 H Urine RBC 0 SEEN Urine WBC 0-5 SEEN Ur Squamous Epith Cells 0 SEEN Urine Bacteria 2+ Urine Mucus 0 SEEN Radiography Chest X-Ray - ED: 2 View, Read by ED Physician, Read by Radiologist and Right Infiltrate Diagnostic Testing: Clinical Impression(s) from Imaging Studies Chest X-Ray 03/19/24 23:25 IMPRESSION: 1. Postop changes of prior CABG. 2. Borderline cardiomegaly without evidence of rosalio congestive failure. 3. Diffuse interstitial infiltrate/pneumonia at the RIGHT lung base. Sequelae of an atypical viral pneumonia is a consideration. No consolidation or effusion. Electronically Signed: Cedric Mendoza MD at 23:46 EDT , [place] and lateral chest x-ray was obtained. There are 2 views. On my independent interpretation, lung donahue show a right lower lobe infiltrate there is borderline cardiomegaly. Bony thorax is normal. Radiologist also interpreted the x-ray and agrees. EKG Initial EKG: Attestation: I personally reviewed and interpreted this EKG as follows: Interpretation: Sinus Tachycardia (123) and LBBB Comments: EKG was obtained. On my independent interpretation, it showed sinus tachycardia with a rate of 123. MO interval was normal at 128 ms. QRS interval is prolonged at 160 ms. QTc interval is 550 ms. [place] is normal. There is a left bundle branch block pattern noted. There are nonspecific ST-T wave changes. Management Discussion w/another healthcare provider: Hospitalist Additional Tests and Interventions Additional Tests or Interventions: Because of the anemia, stool for occult blood was obtained. Treatment and Re-Evaluation :: Patient was given IV fluids and Tylenol. Patient was feeling better on reevaluation. Patient was advised of his findings. Patient was advised of the need for admission to the hospital. Patient is agreeable with this. Patient was started on Rocephin and Zithromax. Case was discussed with the hospitalist. He will admit the patient to PCU. Patient understood and was agreeable with the plan. All questions were answered. Discharge Plan Triage Chief Complaint: General Illness ED Provider: Jasemet Armas Dx/Rx/DC Orders Clinical Impression: Pneumonia, Lactic acidosis, Sepsis, Diabetes mellitus, Left bundle branch block (LBBB) Prescriptions: No Action aspirin [Adult Aspirin Regimen] 81 mg tablet,delayed release (DR/EC) 81 mg PO DAILY insulin regular human 100 unit/mL solution 8 unit subcut TID insulin NPH isoph U-100 human 100 unit/mL suspension 25 unit subcut BID carvedilol 3.125 mg tablet 3.125 mg PO BID Qty: 60 3RF Rx Instructions: must administer with a meal/food lisinopril 2.5 mg tablet 2.5 mg PO DAILY Qty: 30 3RF atorvastatin 10 mg tablet 10 mg PO QHS Qty: 30 3RF furosemide [Lasix] 20 mg tablet 20 mg PO DAILY hydralazine 10 mg tablet 10 mg PO TID losartan [Cozaar] 25 mg tablet 25 mg PO DAILY metoprolol tartrate 25 mg tablet 25 mg PO DAILY ascorbic acid (vitamin C) [C Complex] 500 mg tablet extended release 500 mg PO DAILY cholecalciferol (vitamin D3) [Vitamin D3] 125 mcg (5,000 unit) tablet 125 mcg PO DAILY Primary Care Provider: Moe Odonnell Referrals: Moe Odonnell MD [Primary Care Provider] - Print Language: [place] Disposition Disposition: Acute Care Hospital [facility]
[2024-03-19 22:23] VITALS: BP 110/68; PULSE 112; RESP 18; TEMP 37.9; O2SAT 93
[2024-03-19 22:25] VITALS: BMI 29.5
--- NOTE | 2024-03-19 22:31 | EKG12_ITS ---
Test Reason : DYSRHYTHMIA Blood Pressure : / mmHG Vent. Rate : 123 BPM Atrial Rate : 123 BPM P-R Int : 128 ms QRS Dur : 160 ms QT Int : 354 ms P-R-T Axes : 079 056 238 degrees QTc Int : 506 ms Sinus tachycardia Possible Left atrial enlargement Left bundle branch block Abnormal ECG Confirmed by Yasir Manjarrez ([id number]), image editor JANNET SMITH ([id number]) on 03/22/2024 9:55:28 AM Referred By: [facility] Confirmed By:Yasir Manjarrez
[2024-03-19] MEDS: Acetaminophen 500 MG Tablet 1000 MG PO (22:51)
[2024-03-19] MEDS: 0.9% Normal Saline (1000mL) 1,000 ML 1000 ML IV (22:53)
[2024-03-19 23:00] VITALS: BP 94/52; PULSE 106; RESP 22; TEMP 37.8; O2SAT 95
[2024-03-19 23:07] LABS: Absolute Lymphocyte Count 0.71 X10^3/uL (0.83-4.51); Basophil# 0.05 X10^3/uL; Basophil% 0.3 % (0-1); Eosinophil# 0.02 X10^3/uL; Eosinophils% 0.1 % (0-5); Hematocrit 28.7 % (40-54); Hemoglobin 9.3 g/dL (13.0-16.5); Lymphocyte # 0.71 X10^3/ul (0.83-4.51); Mean Corp Hgb Conc 32.4 g/dL (32-36); Mean Corpuscular Hgb 28.1 pg (27.0-32.0); Mean Corpuscular Volume 86.7 fL (80-94); Mean Platelet Vol. 9.6 fl (6.2-12.0); Monocyte# 0.88 X10^3/uL; Monocyte% 4.9 % (0-10); NRBC Flagged by Analyzer 0 % (0-5); Neutrophil # 16.03 X10^3/uL (2.7-7.7); Platelet Count 456 K/mm3 (150-450); RBC Distribution Width SD 47.2 fl (35.1-43.9); Red Blood Count 3.31 M/mm3 (4.6-6.2); White Blood Count 17.8 K/mm3 (4.4-11.0)
[2024-03-19 23:12] LABS: Mucous, Urine 0 SEEN /hpf (<or=2+); Red Blood Cells-Urine 0 SEEN /hpf (0-5); Squamous Epithelial Cells - UA 0 SEEN /hpf (0-5)
[2024-03-19 23:16] LABS: Color, Urine Amber (Yellow); Glucose, Dipstick Normal (Normal); Ketone-Dipstick Negative (Negative); Leukocyte Esterase-Dipstick 25 /ul (Negative); Nitrite-Dipstick Negative (Negative); Occult Blood-Urine 10 /ul (Negative); Protein-Dipstick 100 mg/dl (Negative); Specific Gravity, Urine 1.025 (1.002-1.030); Urine Clarity Clear (Clear); Urine Urobilinogen 8 mg/dl (Normal)
[2024-03-19 23:18] LABS: Urine Bilirubin Dipstick 1 mg/dL (Negative)
[2024-03-19 23:23] LABS: International Normalized Ratio 1.5; Prothrombin Time (Protime)PT. 18.4 SECONDS (11.7-14.9)
[2024-03-19 23:24] LABS: Bacteria 2+ /hpf (None Seen); White Blood Cells 0-5 SEEN /hpf (0-5)
[2024-03-19 23:24] LABS: ALB/GLOB Ratio 0.3 RATIO (0.9-2.4); AST(SGOT) 53 U/L (15-37); Alanine Aminotransfer ALT/SGPT 61 U/L (16-61); Albumin, Serum 1.8 g/dL (3.2-5.0); Alkaline Phosphatase 232 U/L (45-117); Anion Gap 9 (5-15); BUN 21 mg/dL (7-18); BUN/Creat Ratio 14.8 RATIO (10-20); Calcium,Total 8.5 mg/dL (8.5-10.1); Chloride 102 mmol/L (98-107); Creatinine, Serum 1.42 mg/dL (0.70-1.30); EST Glomerular Filtration Rate 57 mL/min (>60); Est Glom Filt Rate - Afr Amer 69 mL/min (>60); Estimated Creatinine Clearance 72.28 ml/min; Globulin 6.1 g/dL (2.2-4.2); Glucose 212 mg/dL (74-106); Partial Thromboplast Time 42.6 Seconds (24.1-36.2); Potassium 3.9 mmol/L (3.5-5.1); Protein, Total 7.9 g/dL (6.4-8.2); Sodium Level 133 mmol/L (136-145)
--- NOTE | 2024-03-19 23:25 | RAD_ITS ---
INDICATION: Fever EXAMINATION/TECHNIQUE: X-RAY - XR Chest 2 Views COMPARISON: 06/02/2015 FINDINGS: LIFE-SUPPORT AND LINES: 1. Median sternotomy wires and vascular clips are present. There are monitoring leads projecting over the chest on LEFT. 2. No pneumothorax. HEART AND VESSELS: Cardiac silhouette is upper limit of normal, no congestive failure. LUNGS AND PLEURAL SPACES: Asymmetric interstitial prominence at the RIGHT lung base consistent with interstitial infiltrate. No airspace consolidation. No effusion. No pulmonary mass is noted. MEDIASTINUM AND HILAR REGIONS: No masses adenopathy noted. No areas of calcification. Visualized upper airway is normal in position. BONY ELEMENTS: No acute bony changes noted. RAD/Chest PA and Lateral IMPRESSION: 1. Postop changes of prior CABG. 2. Borderline cardiomegaly without evidence of rosalio congestive failure. 3. Diffuse interstitial infiltrate/pneumonia at the RIGHT lung base. Sequelae of an atypical viral pneumonia is a consideration. No consolidation or effusion. Electronically Signed: Cedric Mendoza MD at 23:46 EDT ,
[2024-03-19 23:34] LABS: Lactic Acid 2.7 mmol/L (0.4-1.9)
[2024-03-20] VITALS (22 sets, daily range): BP systolic 93–119; BP diastolic 47–105; PULSE 76–107; RESP 22–49; TEMP 36.4–37.1; O2SAT 93–100; BMI 29.2
[2024-03-20] MEDS: Azithromycin 500 MG in Dextrose 5%-Water (250mL Bag) 250 ML 250 MG IV (00:20)
[2024-03-20] MEDS: Ceftriaxone 2 GM in 0.9% Normal Saline (50mL MB+) 50 ML IV (00:20)
--- NOTE | 2024-03-20 00:52 | HP.PCM.HOS_ITS ---
[facility] - General General Date of Admission: 03/20/24 Date of Service: 03/20/24 Chief Complaint: Nausea, Vomiting, SOB and Shaking Chills. [facility] Narrative HARRISON GARCIA, is a 48 M with a past medical history of essential hypertension, hyperlipidemia, tobacco abuse, overweight; with BMI of 29.5 this admission, JAIDEN, DM-2; of unknown control, diabetic neuropathy, history of Left DFU, PVD, CAD; s/p OH and CABG x 3 (2016), chronic systolic CHF, ischemic cardiomyopathy, history of Biventricular AICD (2017), LBBB, history of Natalya's gangrene, history of nasal septoplasty, history of ileostomy; s/p revision, history of foot surgery and PUD who presents to [facility] ER complaining of nausea, vomiting, SOB and shaking chills. Mr. Garcia reports his symptoms began approximately 1 day prior to admission with the abrupt onset of shaking chills along with fatigue and malaise. He did not take his temperature at home but he was noted to be febrile at 101.3 ?F shortly after arrival. He denied taking any Tylenol, ibuprofen or other eyql-vwz-boyhwxo agents. He admits to shortness of breath, nausea and vomiting with bilious emesis along with tension type headache and darkened urine. He states nothing seems to make his symptoms better or worse but he does admit to similar episodes in the past that are indicative of severe infection so he decided to come in for further evaluation and treatment. In the ER he was noted to have x-ray evidence of Right lower lobe infiltrate consistent with a suspected aspiration pneumonia complicated by clinical signs of sepsis with leukocytosis of 17.8 K, lactic acidosis of 2.7 mmol/L, tachypnea of 35 breaths/min, tachycardia at 121 bpm and fever to 100.3 degrees Fahrenheit all present on admission along with acute respiratory insufficiency and he was then admitted to the PCU for treatment under the sepsis protocol for stay that is expected to extend beyond 2 midnights. [facility] Medical History Old myocardial infarct Peripheral vascular occlusive disease Obesity PUD (peptic ulcer disease) Obstructive sleep apnea Nicotine dependence Left bundle branch block (LBBB) Chronic systolic (congestive) heart failure Natalya gangrene Essential (primary) hypertension Hyperlipidemia Type 2 diabetes mellitus Atherosclerosis of coronary artery without angina pectoris Ischemic cardiomyopathy Paroxysmal ventricular tachycardia Home Medications ?Medication ?Instructions ?Recorded ?Last Taken ?Type aspirin 81 mg tablet,delayed 81 mg PO DAILY 11/03/19 Unknown History release (Adult Aspirin Regimen) insulin NPH isoph U-100 human 100 25 unit subcut BID 03/14/23 Unknown History unit/mL subcutaneous suspension insulin regular human 100 unit/mL 8 unit subcut TID 03/14/23 Unknown History injection solution atorvastatin 10 mg tablet 10 mg PO QHS #30 tabs 03/17/23 Unknown Rx carvedilol 3.125 mg tablet 3.125 mg PO BID #60 tabs 03/17/23 Unknown Rx lisinopril 2.5 mg tablet 2.5 mg PO DAILY #30 tabs 03/17/23 Unknown Rx ascorbic acid (vitamin C) 500 mg 500 mg PO DAILY 01/13/24 Unknown History tablet,extended release (C Complex) cholecalciferol (vitamin D3) 125 125 mcg PO DAILY 01/13/24 Unknown History mcg (5,000 unit) tablet (Vitamin D3) furosemide 20 mg tablet (Lasix) 20 mg PO DAILY 01/13/24 Unknown History hydralazine 10 mg tablet 10 mg PO TID 01/13/24 Unknown History losartan 25 mg tablet (Cozaar) 25 mg PO DAILY 01/13/24 Unknown History metoprolol tartrate 25 mg tablet 25 mg PO DAILY 01/13/24 Unknown History Allergy/AdvReac Type Severity Reaction Status Date / Time spironolactone AdvReac hyperkalemi Verified 03/19/24 21:21 a Family History Mother Heart disease 50 CVA (cerebral vascular accident) Father Heart disease 60 Diabetes CVA (cerebral vascular accident) Hypertension Sister Heart disease 48 Diabetes Grandfather CVA (cerebral vascular accident) Hypertension Grandmother CVA (cerebral vascular accident) Surgical History Hx of foot surgery History of left heart catheterization (09/25/15) History of right heart catheterization (02/2016) History of nasal septoplasty H/O coronary artery bypass surgery (03/19/16) History of ileostomy History of incision and drainage Biventricular ICD (implantable cardioverter-defibrillator) in place (08/16/16) Social History Smoking Status: Former smoker alcohol intake: never substance use type: does not use caffeine: Yes (monster 1 per day) Type: carbonated beverages Number of servings: 3 ROS ROS Narrative Review of systems: General: Patient has fever and chills but denies weight loss. HENT: Patient admits to generalized headache but he denies stuffy nose, denies sore throat EYES: Denies changes in vision or discharge from eyes. Resp: Patient admits to shortness of breath but denies cough. Cardiac: Denies chest pain, palpitations or heart racing. GI: Patient admits to nausea and bilious emesis but he denies abdominal pain, denies changes in bowel. : Patient admits to darkening of urine as per HPI. Extremity: Denies swelling Musculoskeletal: Feels somewhat generally weak and unwell but he denies arthralgias or myalgias. Neuro: Patient admits to headache but he denies paresthesias or focal neurologic deficits. Heme: Denies any bleeding or bruising Skin: Denies rashes Psychiatric: No complaints voiced related uncontrolled depression or anxiety. Endocrine: No polyuria, polydipsia or polyphagia. The rest of the 14 point ROS was negative except for positives in HPI. Vital Signs Vital Signs Vital Signs: 03/19/24 21:21 03/19/24 22:23 03/19/24 22:28 Temperature 100.3 F H 100.3 F H Temperature Source Oral Oral Pulse Rate 121 H 112 H Respiratory Rate 35 H 18 Respiratory Pattern Tachypnea Blood Pressure 110/80 110/68 Blood Pressure Mean 90 82 Pulse Ox 95 93 Oxygen Delivery Method Room Air Nasal Cannula Oxygen Flow Rate (L/min) 2 03/19/24 23:00 03/20/24 00:00 03/20/24 00:42 Temperature 100.0 F H 98.7 F 98.5 F Temperature Source Oral Oral Pulse Rate 106 H 105 H 107 H Respiratory Rate 22 H 32 H 49 H Respiratory Pattern Blood Pressure 94/52 L 99/62 114/72 Blood Pressure Mean 66 74 86 Pulse Ox 95 96 96 Oxygen Delivery Method Nasal Cannula Nasal Cannula Oxygen Flow Rate (L/min) 2 2 Weight Weight: 199 lb 8.293 oz Body Mass Index (BMI) 29.5 Physical Exam Const alert, oriented x3, no apparent distress and average body habitus Constitutional Narrative: Patient appears acutely ill. General Appearance: cooperative HEENT normocephalic, head/scalp atraumatic, hearing grossly normal bilaterally and moist oral mucous membranes Eyes PERRL and EOMs intact bilaterally Neck no lymphadenopathy and supple Resp Resp Narrative: Diminished breath sounds throughout Right >> Left. Cardio regular rate and regular rhythm GI normal to inspection, nondistended, normoactive bowel sounds, soft to palpation, non-tender and non-distended Extremity normal to inspection, full ROM and no clubbing, cyanosis or edema Skin Skin Narrative: Patient has no evidence of rash, abscess or jaundice. Neuro oriented x3, CN's II-XII intact bilaterally, moves all extremities and no focal motor deficits Sensorium / Orientation: awake, alert, oriented to person, oriented to place and oriented to time Speech: speech normal Psych affect normal Results Medical Records Data Attestation: I reviewed the patient's medical records Lab / Micro Data Attestation: I reviewed the patient's lab results. 03/19/24 22:55 03/19/24 22:55 Labs: Laboratory Results - last 24 hr 03/19/24 22:55: WBC 17.8 H, RBC 3.31 L, Hgb 9.3 L, Hct 28.7 L, MCV 86.7, MCH 28.1, MCHC 32.4, RDW Std Deviation 47.2 H, RDW Coeff of Fariba 15.0 H, Plt Count 456 H, MPV 9.6, Immature Gran % (Auto) 0.700, Neut % (Auto) 90.0 H, Lymph % (Auto) 4.0 L, Keith % (Auto) 4.9, Eos % (Auto) 0.1, Baso % (Auto) 0.3, Absolute Neuts (auto) 16.0 H, Absolute Lymphs (auto) 0.71 L, Nucleated RBC % 0, PT 18.4 H , INR 1.5, APTT 42.6 H, Sodium 133 L, Potassium 3.9, Chloride 102, Carbon Dioxide 22.0, Anion Gap 9, BUN 21 H, Creatinine 1.42 H, Estim Creat Clear Calc 72.28, Est GFR (MDRD) Af Amer 69, Est GFR (MDRD) Non-Af 57 L, BUN/Creatinine Ratio 14.8, Glucose 212 H, Lactic Acid 2.7 H*, Calcium 8.5, Total Bilirubin 1.10 H, AST 53 H, ALT 61, Alkaline Phosphatase 232 H, Total Protein 7.9, Albumin 1.8 L, Globulin 6.1 H, Albumin/Globulin Ratio 0.3 L 03/19/24 23:00: Urine Color [place], Urine Clarity Clear, Urine pH 6.0, Ur Specific [place] 1.025, Urine Protein 100 H, Urine Glucose (UA) Normal, Urine Ketones Negative, Urine Occult Blood 10 H, Urine Nitrite Negative, Urine Bilirubin 1 H, Urine Urobilinogen 8 H, Ur Leukocyte Esterase 25 H, Urine RBC 0 SEEN, Urine WBC 0-5 SEEN, Ur Squamous Epith Cells 0 SEEN, Urine Bacteria 2+, Urine Mucus 0 SEEN Micro: Microbiology 03/19/24 23:05 Mucosa - Nose SARS-CoV-2, Influenza & RSV (PCR) - Final Imaging Radiology Impression Chest X-Ray 03/19/24 23:25 IMPRESSION: 1. Postop changes of prior CABG. 2. Borderline cardiomegaly without evidence of rosalio congestive failure. 3. Diffuse interstitial infiltrate/pneumonia at the RIGHT lung base. Sequelae of an atypical viral pneumonia is a consideration. No consolidation or effusion. Electronically Signed: Cedric Mendoza MD at 23:46 EDT , Assessment & Plan Assessment/Plan (1) Sepsis: QUALIFIERS: Sepsis acute organ dysfunction status: with acute organ dysfunction Sepsis type: sepsis due to unspecified organism Severe sepsis acute organ dysfunction type: unspecified Severe sepsis shock status: w ithout septic shock Qualified Code(s): A41.9 - Sepsis, unspecified organism; R65.20 - Severe sepsis without septic shock (2) Pneumonia: QUALIFIERS: Laterality: right Lung location: lower lobe of lung Pneumonia type: due to unspecified organism Qualified Code(s): J18.9 - Pneumonia, unspecified organism (3) Lactic acidosis: (4) Respiratory insufficiency: (5) Nicotine dependence: QUALIFIERS: Nicotine product type: cigarettes Substance use status: in remission Qualified Code(s): F17.211 - Nicotine dependence, cigarettes, in remission (6) Type 2 diabetes mellitus with diabetic polyneuropathy: QUALIFIERS: Diabetes mellitus intermediate insulin use: with intermediate use Qualified Code(s): E11.42 - Type 2 diabetes mellitus with diabetic polyneuropathy; 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 Right lower lobe infiltrate consistent with a suspected aspiration pneumonia complicated by clinical signs of sepsis with leukocytosis of 17.8 K, lactic acidosis of 2.7 mmol/L, tachypnea of 35 breaths/min, tachycardia at 121 bpm and fever to 100.3 degrees Fahrenheit all present on admission - Admit to PCU for treatment under the sepsis protocol. Continue broad-spectrum antibiotics including agents to cover anaerobes and await culture and sensitivity data. Give Tylenol as needed [id number] (level 1-5/10) pain or fever. Give morphine IV as needed for severe (level 6-10/10) pain. 2. Acute respiratory insufficiency due to #1 - Wean supplemental oxygen as previous. 3. Tobacco abuse complicating #1 & #2- Tobacco cessation will be strongly encouraged with Nicotine patch offered to control cravings. 4. Essential hypertension - Hold scheduled antihypertensives until infection outlined #1 has been neutralized. Give IV hydralazine as needed for systolic blood pressure greater than 160 mmHg. 5. Hyperlipidemia - Resume statin. 6. Overweight; with BMI of 29.5 this admission plus JAIDEN - Weight loss will be recommended. Check TSH. Continue nocturnal CPAP. 7. DM-2; of unknown control with diabetic neuropathy - NPO for now. Check FSBS q. 6 hours plus SSI. Check HgbA1c. 8. History of Left DFU - Noted. 9. PVD - Stable. 10. CAD; s/p OH and CABG x 3 (2015) - Stable. 11. Chronic systolic CHF - Stable. 12. Ischemic cardiomyopathy - Noted. 13. History of Biventricular AICD (2017) - Noted. 14. LBBB - Noted. 15. History of Natalya's gangrene - Noted. 16. History of nasal septoplasty - Stable. 17. History of ileostomy; s/p revision - Noted. 18. History of foot surgery - Noted. 19. GI prophylaxis / known history of PUD - Patient on IV Protonix for nausea and vomiting. 20. DVT prophylaxis - Lovenox 40 mg sq daily plus SCD's. Total time: Approximately 75 minutes. Sepsis Attestation Sepsis Alert: Yes Sepsis Attestation: Agree w/Sepsis Date exam was performed: 03/20/24 Time exam was performed: 01:20 Possible Source of Sepsis: Pulmonary Sepsis Organ Dysfunction Criteria Present: Lactic Acid > 2 mmol/L Fluid Resuscitation Fluid resuscitation indicated?: Yes Fluid Resuscitation ordered: 30 ml/kg fluid bolus ordered Amount of fluid ordered: 3 Sepsis Note Date exam was performed: 03/20/24 Time exam was performed: 05:15 Sepsis Attestation: Sepsis re-evaluation was performed Response to fluids: Fluid responsive hypotension Charges/Coding Visit Charges Inpatient E&M: 02838 Init Hosp L3
[2024-03-20] MEDS: 0.9% Normal Saline (1000mL) 1,000 ML 999 ML IV ×3 (02:35→04:38)
[2024-03-20 02:36] LABS: Lactic Acid 1.7 mmol/L (0.4-1.9)
[2024-03-20 03:02] LABS: Reflex Lactate? Y
[2024-03-20 03:06] LABS: Base Excess -6 mmol/L (-2 to +2); Bicarbonate 18.3 mmol/L (22-26); Blood Gas Specimen Type ART; Mode Not entered; O2 Delivery Device Cannula; PO2 97 mmHG (75-100); SITE R Brach; SO2 98 % (95-99); Total Carbon Dioxide 19 mmol/L; pCO2 26.5 mmHg (35-45); pH 7.45 (7.35-7.45)
[2024-03-20 03:13] LABS: Bedside Glucose 241 mg/dL (74-106)
[2024-03-20] MEDS: Vancomycin HCl 2,000 MG in 0.9% Normal Saline (500mL Bag) 500 ML 250 MG IV (03:41)
[2024-03-20 04:07] LABS: Lactic Acid 1.9 mmol/L (0.4-1.9)
--- NOTE | 2024-03-20 04:23 | PCM.RX.CS ---
Consult Antibiotic Management Pharmacy has been consulted to manage selected antibiotic: Vancomycin Type of Intervention Type of Consult: New start Suspected Infection Suspected Infection: Sepsis and Pneumonia Labs Labs: Sodium 133 mmol/L (136-145) L 03/19/24 22:55 Potassium 3.9 mmol/L (3.5-5.1) 03/19/24 22:55 Chloride 102 mmol/L (98-107) 03/19/24 22:55 Carbon Dioxide 22.0 mmol/L (21.0-32.0) 03/19/24 22:55 Anion Gap 9 (5-15) 03/19/24 22:55 BUN 21 mg/dL (7-18) H 03/19/24 22:55 Creatinine 1.42 mg/dL (0.70-1.30) H 03/19/24 22:55 Est GFR (MDRD) Af Amer 69 mL/min (>60) 03/19/24 22:55 Est GFR (MDRD) Non-Af 57 mL/min (>60) L 03/19/24 22:55 BUN/Creatinine Ratio 14.8 RATIO (10-20) 03/19/24 22:55 Glucose 212 mg/dL (74-106) H 03/19/24 22:55 Microbiology Microbiology: Microbiology 03/20/24 00:40 Stool Stool Occult Blood (ELINA) - Final 03/19/24 23:05 Mucosa - Nose SARS-CoV-2, Influenza & RSV (PCR) - Final Dosing Weight Weight used for dosin.7 kg Estimated Creatinine Clearance Estimated Creatinine Clearance: 72 Goal Trough Goal Trough: 15-20 mcg/mL Pharmacy Plan for Drug Dosing Pharmacy Plan for Drug Dosing: Pharmacy Service will continue to monitor and adjust dosing as required. Follow-Up Labs Follow-Up Labs: Trough: Vancomycin Date/Time Labs Ordered Labs to be done on [date and time ordered]: 03/21/24 @1500
[2024-03-20] MEDS: Piperacil/Tazobactam 3.375 GM in 0.9% Normal Saline (50mL MB+) 50 ML IV ×3 (05:26→22:07)
--- NOTE | 2024-03-20 06:15 | RAD_ITS ---
STUDY: X-RAY CHEST REASON FOR EXAM: Male, 48 years old. Right lower lobe pneumonia TECHNIQUE: Frontal view of the chest COMPARISON: 03/19/2024 FINDINGS: There is mild patchy airspace opacity right lower lobe which is improved when compared with the prior exam. The lungs are otherwise clear. There are no pleural effusions. There is no pneumothorax. The heart is stable in size. Again noted are sternotomy wires. The visualized osseous structures are within normal limits. RAD/Chest 1 View (Portable) IMPRESSION: Mild patchy airspace opacities in the right lower lobe which are improved when compared with the prior exam. Electronically Signed: Jim Do MD at 7:38 EDT ,
[2024-03-20 08:39] LABS: Bedside Glucose 175 mg/dL (74-106)
--- NOTE | 2024-03-20 09:05 | CASEMGMT ---
SALIMA MARTINES Assessment: Face to Face with pt for initial transition planning/care coordination assessment. SALIMA MARTINES introduced self and role at [facility], pt voices understanding and consents to assessment. Pt is A&O x4 and answers all questions appropriately at this time. Care providers, pharmacy, and demographics verified/updated. Strata: 2 Admitting Dx: RLL PNA with sepsis and Resp. Insuffiency. PCP: [facility]ists: Denies Preferred Pharmacy: [facility] Insurance: Pt states has MCR A and B. Prescription Benefit: yes LNOK: [place] Living Arrangements: Pt lives with and sons in a mobile home with 3 steps to enter. ADLs: Pt states I at home with ADLs, needs some assistance with IADLs. Transportation: Pt reports drives him places. DME: [facility]/SNF: Denies using HHC, states previously went to [facility]. Pt would like to return home at time of DC. Pt provided with a verbal list of local DME companies, would like to use [employer] if requires oxygen at time of DC. Hospitalist reports will not DC tomorrow if still requiring O2. Pt states no concerns with going home at time of dc. Pt states no further concerns/needs. CM to follow. Advised pt to ask CM if any further question/concerns/needs arise, voices understanding. Pt Goal: Home Plan: Home, follow for O2 needs. Zeferino BORREGO CM
--- NOTE | 2024-03-20 09:24 | CASEMGMT ---
SW met with patient as he is listed as self pay. Patient was sleeping, but did wake up and willing to talk with SW. Patient appeared unkempt. Patient stated he is on disability for a heart condition. Patient also said he has Medicare A and B and he is not sure why it is not coming up in the system. Patient lives with his soon to be ex- and two sons 9 and 15. SW will continue to follow and assist with d/c needs as needed. Ema Rosario TILE DESIGNER MAITE
[2024-03-20] MEDS: Insulin Lispro 100 UNIT/ML INSULN.PEN SC ×3 (10:24→17:21)
[2024-03-20] MEDS: Aspirin E.C. 81 MG Tablet PO (10:24)
[2024-03-20] MEDS: Insulin NPH Human 100 UNITS/ML PEN 15 UNITS SC ×2 (10:25→17:21)
[2024-03-20] MEDS: Enoxaparin 40 MG/0.4 ML Syringe SC (10:26)
[2024-03-20] MEDS: Lactobacillis Acidophilus 1 CAP PO ×4 (10:26→22:16)
[2024-03-20] MEDS: guaiFENesin 1,200 MG Tablet 1200 MG PO ×2 (10:26→22:16)
[2024-03-20] MEDS: Ascorbic Acid 500 MG Tablet PO (10:27)
[2024-03-20] MEDS: Cholecalciferol (Vit D3) 125 MCG CAPSULE (5,000 UNITS) PO (10:27)
[2024-03-20 12:13] LABS: Bedside Glucose 249 mg/dL (74-106)
[2024-03-20] MEDS: 0.9% Normal Saline (1000mL) 1,000 ML 150 ML IV (12:21)
[2024-03-20] MEDS: Vancomycin HCl 1,250 MG in 0.9% Normal Saline (250mL Bag) 250 ML 167 MG IV (16:30)
--- NOTE | 2024-03-20 16:30 | PCM.HOSP.N ---
Hospitalist Note Patient was seen and examined today, his blood pressure has been low this morning, I elected to place him on IV fluids. Patient's pulse ox is low when he is asleep, he is currently on 2 L via nasal cannula. I will continue the patient's present antibiotics, blood culture grew out gram-positive cocci in clumps-it is unknown whether this is a contaminant. It appears in the past patient has had methicillin sensitive Staph aureus bacteremia, his ICD leads and pulse generator were removed in December of this year. Patient's fluid administration will be decreased due to his past history of decreased EF of 25% on an echocardiogram obtained in December of this year.
[2024-03-20 16:49] LABS: Bedside Glucose 210 mg/dL (74-106)
--- NOTE | 2024-03-20 18:48 | NURSING ---
Reviewed charting with Jolanta Calderón RN
[2024-03-20] MEDS: 0.9% Normal Saline (1000mL) 1,000 ML 75 ML IV (22:05)
[2024-03-20] MEDS: 0.9% Saline Lock 10 ML Syringe IV (22:13)
[2024-03-20] MEDS: Atorvastatin Calcium 10 MG Tablet PO (22:16)
[2024-03-20 22:41] LABS: Bedside Glucose 141 mg/dL (74-106)
[2024-03-21] VITALS (23 sets, daily range): BP systolic 100–129; BP diastolic 61–87; PULSE 86–105; RESP 22–32; TEMP 36.4–37.1; O2SAT 89–100
[2024-03-21] MEDS: 0.9% Saline Lock 10 ML Syringe IV ×5 (03:49→18:52)
[2024-03-21] MEDS: Vancomycin HCl 1,250 MG in 0.9% Normal Saline (250mL Bag) 250 ML 167 MG IV ×2 (03:50→16:10)
[2024-03-21] MEDS: Piperacil/Tazobactam 3.375 GM in 0.9% Normal Saline (50mL MB+) 50 ML IV ×3 (05:56→21:40)
[2024-03-21 08:23] LABS: Absolute Lymphocyte Count 1.34 X10^3/uL (0.83-4.51); Absolute Neutrophil Count 10.7 X10^3/uL (2.0-7.7); Basophil# 0.08 X10^3/uL; Basophil% 0.6 % (0-1); Eosinophil# 0.12 X10^3/uL; Eosinophils% 0.9 % (0-5); Hematocrit 25.5 % (40-54); Lymphocyte # 1.34 X10^3/ul (0.83-4.51); Lymphocyte % 10.4 % (19-41); Mean Corp Hgb Conc 31.4 g/dL (32-36); Mean Corpuscular Volume 89.2 fL (80-94); Mean Platelet Vol. 9.6 fl (6.2-12.0); Monocyte# 0.66 X10^3/uL; Monocyte% 5.1 % (0-10); NRBC Flagged by Analyzer 0 % (0-5); Neutrophil # 10.65 X10^3/uL (2.7-7.7); Neutrophil % 82.5 % (47-70); Platelet Count 428 K/mm3 (150-450); RBC Distribution Width CV 15.4 % (11.6-14.6); RBC Distribution Width SD 50.3 fl (35.1-43.9); Red Blood Count 2.86 M/mm3 (4.6-6.2); White Blood Count 12.9 K/mm3 (4.4-11.0)
[2024-03-21 08:43] LABS: Anion Gap 7 (5-15); BUN 19 mg/dL (7-18); BUN/Creat Ratio 17.3 RATIO (10-20); Calcium,Total 8.1 mg/dL (8.5-10.1); Chloride 112 mmol/L (98-107); EST Glomerular Filtration Rate 76 mL/min (>60); Est Glom Filt Rate - Afr Amer 92 mL/min (>60); Estimated Creatinine Clearance 92.93 ml/min; Glucose 131 mg/dL (74-106); Potassium 3.7 mmol/L (3.5-5.1); Sodium Level 136 mmol/L (136-145)
[2024-03-21] MEDS: Enoxaparin 40 MG/0.4 ML Syringe SC (08:45)
[2024-03-21 09:16] LABS: Bedside Glucose 122 mg/dL (74-106)
[2024-03-21] MEDS: Cholecalciferol (Vit D3) 125 MCG CAPSULE (5,000 UNITS) PO (11:42)
[2024-03-21] MEDS: guaiFENesin 1,200 MG Tablet 1200 MG PO ×2 (11:42→21:41)
[2024-03-21] MEDS: Aspirin E.C. 81 MG Tablet PO (11:42)
[2024-03-21] MEDS: Lactobacillis Acidophilus 1 CAP PO ×4 (11:42→21:40)
[2024-03-21] MEDS: Ascorbic Acid 500 MG Tablet PO (11:42)
[2024-03-21] MEDS: Insulin NPH Human 100 UNITS/ML PEN 15 UNITS SC ×2 (11:44→17:01)
[2024-03-21] MEDS: Acetaminophen 500 MG Tablet 1000 MG PO (11:48)
[2024-03-21] MEDS: 0.9% Normal Saline (1000mL) 1,000 ML 75 ML IV (11:52)
[2024-03-21 12:04] LABS: Bedside Glucose 162 mg/dL (74-106)
[2024-03-21] MEDS: Insulin Lispro 100 UNIT/ML INSULN.PEN SC ×2 (12:24→17:00)
--- NOTE | 2024-03-21 15:59 | PCM.RX.CS ---
Consult Antibiotic Management Pharmacy has been consulted to manage selected antibiotic: Vancomycin Type of Intervention Type of Consult: Follow-up Suspected Infection Suspected Infection: Sepsis and Pneumonia Prior Doses of Antibiotics Prior Doses of Antibiotics Received/Current Regimen: Vancomycin 1250 mg Q12H, last dose given 03/21/24 @ 0350 Labs Labs: Sodium 136 mmol/L (136-145) 03/21/24 08:10 Potassium 3.7 mmol/L (3.5-5.1) 03/21/24 08:10 Chloride 112 mmol/L (98-107) H 03/21/24 08:10 Carbon Dioxide 17.0 mmol/L (21.0-32.0) L 03/21/24 08:10 Anion Gap 7 (5-15) 03/21/24 08:10 BUN 19 mg/dL (7-18) H 03/21/24 08:10 Creatinine 1.10 mg/dL (0.70-1.30) 03/21/24 08:10 Est GFR (MDRD) Af Amer 92 mL/min (>60) 03/21/24 08:10 Est GFR (MDRD) Non-Af 76 mL/min (>60) 03/21/24 08:10 BUN/Creatinine Ratio 17.3 RATIO (10-20) 03/21/24 08:10 Glucose 131 mg/dL (74-106) H 03/21/24 08:10 Vancomycin Trough 19.0 ug/mL (5.0-15.0) H 03/21/24 14:58 Microbiology Microbiology: Microbiology 03/19/24 22:55 Blood Culture (Wb) - Left Forearm Bacteria Detection (PCR) - Final Staphylococcus aureus 03/19/24 22:55 Blood Culture (Wb) - Left Forearm Blood Culture - Preliminary Staphylococcus aureus 03/20/24 02:00 Blood Culture (Wb) - Right Hand Blood Culture - Preliminary 03/19/24 23:00 Urine, Clean Catch Legionella Antigen - Final 03/19/24 23:00 Urine, Clean Catch Streptococcus pneumoniae Antigen (M - Final 03/20/24 00:40 Stool Stool Occult Blood (ELINA) - Final 03/19/24 23:05 Mucosa - Nose SARS-CoV-2, Influenza & RSV (PCR) - Final Dosing Weight Weight used for dosin kg Estimated Creatinine Clearance Estimated Creatinine Clearance: ~72 Goal Trough Goal Trough: 15-20 mcg/mL Pharmacy Plan for Drug Dosing Pharmacy Plan for Drug Dosing: Vancomycin trough drawn 11 hours after previous dose = 19.0, continue current dosing, trough in 2 days. Pharmacy Service will continue to monitor and adjust dosing as required. Follow-Up Labs Follow-Up Labs: Trough: Vancomycin Date/Time Labs Ordered Labs to be done on [date and time ordered]: 03/23/24 @ 1500
--- NOTE | 2024-03-21 16:39 | PN.HOSP_ITS ---
Reason for Visit Reason for Visit: Diagnoses Sepsis, unspecified organism (03/20/24) Type 2 diabetes mellitus with diabetic polyneuropathy (03/20/24) Acidosis, unspecified (03/20/24) Nicotine dependence, unspecified, uncomplicated (03/20/24) Nicotine dependence, cigarettes, in remission (03/20/24) Pneumonia, unspecified organism (03/20/24) Other abnormalities of breathing (03/20/24) Severe sepsis without septic shock (03/20/24) long-term (current) use of insulin (03/20/24) Presence of aortocoronary bypass graft (03/20/24) Presence of automatic (implantable) cardiac defibrillator (03/20/24) Subjective Subjective Patient was seen and examined today, I did not remove the dressing from his left foot, I ask him who is taking care of his wound as an outpatient-he states he does not go to the wound clinic any longer due to problems with his insurance paying for the wound clinic. The wound care nurse will see the patient tomorrow and evaluate the wound, he may need to be seen by podiatry. Patient's blood culture preliminary result showed gram-positive cocci in clusters, since the patient has had MSSA bacteremia before, I strongly suspect he may have it again. I will have the patient undergo an echocardiogram tomorrow and to have infectious diseases see the patient. Objective Data Objective Data Vital Signs: Vital Signs Temp Pulse Resp BP Pulse Ox O2 Del Method O2 Flow Rate 98.8 F 95 30 H 104/67 100 Nasal Cannula 2 03/21/24 12:00 03/21/24 12:00 03/21/24 12:03/21/24 12:03/21/24 12:00 03/21/24 12:00 03/21/24 12:05 FiO2 2 03/20/24 05:25 Oxygen Flow Rate (L/min) 2 Oxygen Delivery Method Nasal Cannula Weight: 89.7 kg Body Mass Index (BMI) 29.2 Intake & Output: Intake and Output for Last 24 Hours 03/19/24 03/20/24 03/21/24 23:59 23:59 23:59 Intake Total 6970.0 / 6970.0 2024 Balance 6970.0 / 6970.0 2024 Lab / Micro Data 03/21/24 08:10 03/21/24 08:10 Labs: Laboratory Results - last 24 hr 03/20/24 16:32: POC Glucose 210 H 03/20/24 22:21: POC Glucose 141 H 03/21/24 08:10: WBC 12.9 H, RBC 2.86 L, Hgb 8.0 L, Hct 25.5 L, MCV 89.2, MCH 28.0, MCHC 31.4 L, RDW Std Deviation 50.3 H, RDW Coeff of Fariba 15.4 H, Plt Count 428, MPV 9.6, Immature Gran % (Auto) 0.500, Neut % (Auto) 82.5 H, Lymph % (Auto) 10.4 L, [place] % (Auto) 5.1, Eos % (Auto) 0.9, Baso % (Auto) 0.6, Absolute Neuts (auto) 10.7 H, Absolute Lymphs (auto) 1.34, Nucleated RBC % 0, Sodium 136, Potassium 3.7, Chloride 112 H, Carbon Dioxide 17.0 L, Anion Gap 7, BUN 19 H, Creatinine 1.10, Estim Creat Clear Calc 92.93, Est GFR (MDRD) Af Amer 92, Est GFR (MDRD) Non-Af 76, BUN/Creatinine Ratio 17.3, Glucose 131 H, Calcium 8.1 L 03/21/24 08:33: POC Glucose 122 H 03/21/24 11:40: POC Glucose 162 H 03/21/24 14:58: Vancomycin Trough 19.0 H Micro: Microbiology 03/19/24 22:55 Blood Culture (Wb) - Left Forearm Bacteria Detection (PCR) - Final Staphylococcus aureus 03/19/24 22:55 Blood Culture (Wb) - Left Forearm Blood Culture - Preliminary Staphylococcus aureus 03/20/24 02:00 Blood Culture (Wb) - Right Hand Blood Culture - Preliminary 03/19/24 23:00 Urine, Clean Catch Legionella Antigen - Final 03/19/24 23:00 Urine, Clean Catch Streptococcus pneumoniae Antigen (M - Final 03/20/24 00:40 Stool Stool Occult Blood (ELINA) - Final 03/19/24 23:05 Mucosa - Nose SARS-CoV-2, Influenza & RSV (PCR) - Final Physical Exam Const alert, oriented x3 and no apparent distress Constitutional Narrative: Patient appears much older than stated age General Appearance: cooperative and well developed Orientation / Consciousness: awake, oriented to person, oriented to place and oriented to time HEENT normocephalic, head/scalp atraumatic and moist oral mucous membranes Eyes PERRL, EOMs intact bilaterally and conjunctivae normal Neck supple, no JVD, thyroid normal and no carotid bruits General: trachea midline Resp normal respiratory effort, no retractions, no use of accessory muscles and clear to auscultation bilaterally Auscultation: Negative for rales, rhonchi or wheezes Cardio regular rate, regular rhythm, S1 normal heart sound, S2 normal heart sound, no murmurs, no rub and no gallops GI normal to inspection, nondistended, normoactive bowel sounds, soft to palpation, non-tender and non-distended Extremity Extremity Narrative: Patient has some lower leg pitting edema noted, left foot has a surgical dressing in place, this is not removed to inspect the area. Skin no rashes or lesions noted General Skin Exam: no breakdown Neuro oriented x3, CN's II-XII intact bilaterally, moves all extremities, no focal motor deficits and no sensory deficits noted Sensorium / Orientation: awake and alert Speech: speech normal Psych affect normal Assessment & Plan Assessment/Plan (1) Sepsis: QUALIFIERS: Sepsis type: sepsis due to unspecified organism S epsis acute organ dysfunction status: with acute organ dysfunction Severe sepsis acute organ dysfunction type: unspecified Severe sepsis shock status: w ithout septic shock Qualified Code(s): A41.9 - Sepsis, unspecified organism; R65.20 - Severe sepsis without septic shock PLAN: Plan 1. Sepsis-suspect secondary to staph bacteremia from pneumonia, will continue on present antibiotic coverage and have infectious disease to see the patient, echocardiogram will be ordered on the patient #2 hypoxia secondary to community-acquired pneumonia-pulse ox will be monitored #3 type 2 diabetes with diabetic neuropathy-blood sugars will be monitored, sliding scale insulin will be administered #4 ischemic cardiomyopathy-patient at one time had an ICD in place, this was removed in January of this year due to persistent bacteremia with MSSA. Patient's cardiac medications are being held due to relatively low blood pressure, I have decided to restart the patient's losartan. Patient was noncompliant with his outpatient medications-he told nursing he could not afford several of his medications. #5 hyperlipidemia-patient is currently on Lipitor #6 noncompliance with medical regimen-complicates care, management, recovery, and prognosis Total clinical time spent by myself addressing the patient's medical issues, reviewing all of his data, and collaborating with patient's care team: 35 minutes Charges/Coding Visit Charges Inpatient E&M: 52840 Subs Hosp L2
--- NOTE | 2024-03-21 16:47 | ECHOCS_ITS ---
Reason For Study: Endocarditis Procedure This was a 2D Doppler, Color Flow transthoracic echocardiogram. The study was technically difficult. Contrast injection was performed. Exam performed portable in patient room. Left Ventricle Mildly dilated left ventricle. The estimated ejection fraction is 15 %. There is evidence of diastolic dysfunction. There is severe global hypokinesis of the left ventricle. Right Ventricle Normal RV size. Normal systolic function. Atria The left atrium is moderately enlarged. The right atrium is mildly enlarged. No doppler evidence for ASD.
[2024-03-21 17:24] LABS: Bedside Glucose 173 mg/dL (74-106)
[2024-03-21 19:33] LABS: Magnesium 1.7 mg/dL (1.6-2.6)
[2024-03-21] MEDS: Atorvastatin Calcium 10 MG Tablet PO (21:41)
[2024-03-22] VITALS (14 sets, daily range): BP systolic 90–135; BP diastolic 48–85; PULSE 88–98; RESP 18–40; TEMP 36.6–37.1; O2SAT 97–100
[2024-03-22] MEDS: Vancomycin Trough/Random Due 1 LAB MC (04:30)
[2024-03-22] MEDS: Vancomycin HCl 1,250 MG in 0.9% Normal Saline (250mL Bag) 250 ML 167 MG IV ×2 (04:30→16:40)
[2024-03-22 06:05] LABS: Absolute Lymphocyte Count 1.29 X10^3/uL (0.83-4.51); Absolute Neutrophil Count 7.5 X10^3/uL (2.0-7.7); Basophil# 0.05 X10^3/uL; Basophil% 0.5 % (0-1); Eosinophil# 0.19 X10^3/uL; Hematocrit 22.6 % (40-54); Hemoglobin 6.9 g/dL (13.0-16.5); Lymphocyte # 1.29 X10^3/ul (0.83-4.51); Lymphocyte % 13.6 % (19-41); Mean Corp Hgb Conc 30.5 g/dL (32-36); Mean Corpuscular Hgb 28.2 pg (27.0-32.0); Mean Corpuscular Volume 92.2 fL (80-94); Mean Platelet Vol. 9.8 fl (6.2-12.0); Monocyte# 0.46 X10^3/uL; Monocyte% 4.8 % (0-10); NRBC Flagged by Analyzer 0.2 % (0-5); Neutrophil # 7.47 X10^3/uL (2.7-7.7); Neutrophil % 78.6 % (47-70); Platelet Count 408 K/mm3 (150-450); RBC Distribution Width CV 15.8 % (11.6-14.6); RBC Distribution Width SD 52.6 fl (35.1-43.9); Red Blood Count 2.45 M/mm3 (4.6-6.2); White Blood Count 9.5 K/mm3 (4.4-11.0)
[2024-03-22] MEDS: Piperacil/Tazobactam 3.375 GM in 0.9% Normal Saline (50mL MB+) 50 ML IV (06:19)
[2024-03-22 06:55] LABS: Anion Gap 6 (5-15); BUN 18 mg/dL (7-18); BUN/Creat Ratio 22.7 RATIO (10-20); Calcium,Total 6.4 mg/dL (8.5-10.1); Chloride 118 mmol/L (98-107); Creatinine, Serum 0.79 mg/dL (0.70-1.30); EST Glomerular Filtration Rate 112 mL/min (>60); Est Glom Filt Rate - Afr Amer 135 mL/min (>60); Glucose 98 mg/dL (74-106); Potassium 2.9 mmol/L (3.5-5.1); Sodium Level 140 mmol/L (136-145)
[2024-03-22] MEDS: Aspirin E.C. 81 MG Tablet PO (07:29)
[2024-03-22] MEDS: Lactobacillis Acidophilus 1 CAP PO ×3 (07:29→22:26)
[2024-03-22] MEDS: Enoxaparin 40 MG/0.4 ML Syringe SC (07:29)
[2024-03-22] MEDS: guaiFENesin 1,200 MG Tablet 1200 MG PO ×2 (07:30→22:26)
[2024-03-22] MEDS: Cholecalciferol (Vit D3) 125 MCG CAPSULE (5,000 UNITS) PO (07:30)
[2024-03-22] MEDS: Ascorbic Acid 500 MG Tablet PO (07:30)
[2024-03-22 08:01] LABS: Bedside Glucose 100 mg/dL (74-106)
--- NOTE | 2024-03-22 08:44 | PN.HOSP_ITS ---
Reason for Visit Reason for Visit: Diagnoses Sepsis, unspecified organism (03/20/24) Type 2 diabetes mellitus with diabetic polyneuropathy (03/20/24) Acidosis, unspecified (03/20/24) Nicotine dependence, unspecified, uncomplicated (03/20/24) Nicotine dependence, cigarettes, in remission (03/20/24) Pneumonia, unspecified organism (03/20/24) Other abnormalities of breathing (03/20/24) Severe sepsis without septic shock (03/20/24) [facility] (current) use of insulin (03/20/24) Presence of aortocoronary bypass graft (03/20/24) Presence of automatic (implantable) cardiac defibrillator (03/20/24) Subjective Subjective Patient with no acute events overnight per self and per nursing report. He does report feeling improved with less dyspnea since his initial presentation. Discussed worsened anemia with plan for evaluation of iron deficiency and PRBC administration to which as patient is amenable. Discussed his initial guaiac is negative but plan repeat to be cautious. Reviewed plan of care including concern for heel ulcer given macerated state with further evaluation and ongoing antibiotic therapy for pneumonia, elevated bilirubin and LFTs as well as electrolyte disturbances to which patient notes understanding. Patient denies fevers, chills, nausea, emesis, abdominal pain, chest pain. Objective Data Objective Data Vital Signs: Vital Signs Temp Pulse Resp BP Pulse Ox O2 Del Method O2 Flow Rate 98.7 F 89 18 104/69 97 Nasal Cannula 2 03/22/24 07:27 03/22/24 07:27 03/22/24 07:27 03/22/24 07:27 03/22/24 07:27 03/22/24 07:27 03/22/24 07:27 FiO2 2 03/20/24 05:25 Oxygen Flow Rate (L/min) 2 Oxygen Delivery Method Nasal Cannula Weight: 197 lb 12.074 oz Body Mass Index (BMI) 29.2 Intake & Output: Intake and Output for Last 24 Hours 03/20/24 03/21/24 03/22/24 23:59 23:59 23:59 Intake Total 6970.0 / 6970.0 3173.75 / 3173.75 325 / 325 Output Total 300 / 300 Balance 6970.0 / 6970.0 2873.75 / 2873.75 325 / 325 Lab / Micro Data 03/22/24 05:11 03/22/24 05:11 Labs: Laboratory Results - last 24 hr 03/20/24 02:00: Lactic Acid 1.7 03/21/24 08:10: Magnesium 1.7 03/21/24 08:33: POC Glucose 122 H 03/21/24 11:40: POC Glucose 162 H 03/21/24 14:58: Vancomycin Trough 19.0 H 03/21/24 16:59: POC Glucose 173 H 03/22/24 05:11: WBC 9.5, RBC 2.45 L, Hgb 6.9 L, Hct 22.6 L, MCV 92.2, MCH 28.2, MCHC 30.5 L, RDW Std Deviation 52.6 H, RDW Coeff of Fariba 15.8 H, Plt Count 408, MPV 9.8, Immature Gran % (Auto) 0.500, Neut % (Auto) 78.6 H, Lymph % (Auto) 13.6 L, [place] % (Auto) 4.8, Eos % (Auto) 2.0, Baso % (Auto) 0.5, Absolute Neuts (auto) 7.5, Absolute Lymphs (auto) 1.29, Nucleated RBC % 0.2, Sodium 140, Potassium 2.9 L, Chloride 118 H, Carbon Dioxide 16.0 L, Anion Gap 6, BUN 18, Creatinine 0.79, Estim Creat Clear Calc 129.40, Est GFR (MDRD) Af Amer 135, Est GFR (MDRD) Non-Af 112, BUN/Creatinine Ratio 22.7 H, Glucose 98, Calcium 6.4 L* 03/22/24 07:26: POC Glucose 100 Micro: Microbiology 03/20/24 02:00 Blood Culture (Wb) - Right Hand Blood Culture - Preliminary Staphylococcus aureus 03/19/24 22:55 Blood Culture (Wb) - Left Forearm Bacteria Detection (PCR) - Final Staphylococcus aureus 03/19/24 22:55 Blood Culture (Wb) - Left Forearm Blood Culture - Preliminary Staphylococcus aureus 03/19/24 23:00 Urine, Clean Catch Legionella Antigen - Final 03/19/24 23:00 Urine, Clean Catch Streptococcus pneumoniae Antigen (M - Final 03/20/24 00:40 Stool Stool Occult Blood (ELINA) - Final 03/19/24 23:05 Mucosa - Nose SARS-CoV-2, Influenza & RSV (PCR) - Final Physical Exam Narrative Physical Examination: General: Awake, alert, oriented x 3 and cooperative, laying in the PCU bed, fatigued, notes dyspnea is lessened, feeling somewhat improved. Skin: Normal color, normal turgor, no icterus, no cyanosis except occasional stage ecchymoses, significant left heel ulcer with significant region of macerated appearing tissue, undermining with no overt purulent drainage or periwound erythema but concern for possible osteomyelitis. HEENT: AT/NC, EOMI, PERRLA, MMM. Lungs: Diminished, greater bases, right greater than left, mildly increased respiratory rate but no distress, occasional rhonchi. Heart: Regular rate and rhythm; no gallop, rub audible. Abdomen: Soft, obese, NTTP, ND, normal BS. Extremities: No cyanosis, no marked clubbing, see skin Neurological: Patient awake, alert, oriented as no, cognitive function intact; pupils equally reactive to light and accommodation, cranial nerves gross normal, moving all 4 extremities, no focal deficits, strength moderately to severely globally decreased secondary to acute presentation. Psychiatric: Affect appears fatigued, no acute evidence of depressive or anxiety feelings. Assessment & Plan Assessment/Plan (1) MSSA bacteremia: (2) Pneumonia: QUALIFIERS: Pneumonia type: due to unspecified organism L aterality: right Lung location: lower lobe of lung Qualified Code(s): J18.9 - Pneumonia, unspecified organism (3) Non-pressure chronic ulcer of other part of left foot with fat layer exposed: PLAN: Plan The patient is a 48 y/o M w/ PMHx: HTN, HLD, Tobacco use, Obesity, JAIDEN, Diabetes mellitus type II with chronic neuropathy, Chronic L Diabetic foot wound w/ recent osteomyelitis with associated MSSA bacteremia and endocarditis 12/2023, HFrEF/Ischemic cardiomyopathy s/p biventricular AICD 2017 not compatible with MRI, CAD s/p IN/CABG x 3 2015, Hx Natalya's gangrene, GERD w/ PUD who presents to the [facility] ED on 03/22/24 with nausea, emesis, dyspnea, chills prompting ED evaluation. #1. 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, technically unable to label as acute sepsis (leukocytosis, lactic acidosis, tachypnea, tachycardia, fever with total bilirubin elevated 1.4 but still not consistent with sepsis given no end-organ damage associated with infectious presentation) thus ruled out:Admission 03/19/2024 blood cultures with Staphylococcus aureus with repeat 03/20/2024 blood culture 1 positive, Legionella and streptococcal antigens negative, SARS COVID/influenza/RSV negative, initially maintained on IV vancomycin and Zosyn, given culture results ID following and transition to IV vancomycin/cefazolin as well as oral Flagyl, continue PRN albuterol, encourage HOB, IS parameters, repeat blood culture requested, GUERLINE ordered, he will/wound culture/MRSA wound requested, plain from the left foot ordered, podiatry consulted as noted. #2. Chronic Diabetic L heel ulcer, possible Osteomyelitis: Wound RN consulted, ongoing dressing changes, plain film L heel pending per ID, given appearance with macerated tissue and suspected undermining Podiatry consultation requested and pending, offloading, currently maintained on IV vancomycin/cefazolin and oral Flagyl per ID direction. #3. Acute normocytic anemia, worsening, appears new chronicity with history of prior PUD of note: Admission hemoglobin 9.3, prior to this hemoglobin 01/13/2024 had been 13.4 which appears his baseline primarily, decreased 03/21/2020 4-8.0 and now 03/22/2024 hemoglobin 6.9, 2 unit PRBC ordered, iron panel obtained with iron 27, TIBC 97, iron saturation 27.8, ferritin 1417 more consistent with AOCD, guaiac obtained 03/20/2024 noted to be negative at that time, holding lovenox in the interim, place on PPI to be cautious. Repeat guiac requested to be thorough. Will cautiously continue baby aspirin, metoprolol as BP allows, statin therapy, low-dose lisinopril #4. Hyperbilirubinemia, Transaminitis, acute on chronic: Unclear specific etiology, 03/19/2024 T. bili 1.10, AST/LT 53/61, alk phos 232->03/22/2024 CMP with total bilirubin 1.40, D bilirubin 0.32, AST/LT 166/126, alk phos 145, will obtain liver ultrasound and hepatitis panel to be cautious. #5. Hypokalemia: Admission K+ 2.9, magnesium level requested, supplementation given, repeat level in AM. #6. Hypocalcemia, improved with corrected: Calcium 6.4, previous albumin significantly low however this is from 03/19/2024 and 1.8 at that time, corrected 8.16, will supplement with calcium gluconate and repeat CMP in a.m., hepatic profile requested now for albumin level. #7. HFrEF/Ischemic Cardiomyopathy: s/p biventricular AICD [facility], 03/21/2024 echocardiogram pending as noted above, prior ECHO 12/04/23 with LV normal size, LV systolic function severely decreased, EF 25?5%, regional wall motion abnormalities present, grade 1 LV diastolic dysfunction, RV not well-visualized, on limited views right ventricle grossly normal in size and systolic function, no significant valvular abnormalities. As noted planned 2 u PRBC administration, monitor for overload, will administer 20 mg IV x 1. Will cautiously continue baby aspirin, metoprolol, low-dose losartan, Lasix and hydralazine with BP parameters given initial presentation with lower normal BP. Case management consulted for assistance with medication cost. #8. CAD: Status post CABG x 3, given guaiac stool negative, cautiously continue baby aspirin, metoprolol, low-dose losartan. #9. Diabetes mellitus type II with chronic neuropathy: Hold oral home regimen, continue home insulin regimen as well as ISS scheduled with meals, ADA diet, accu checks w/ ISS. Encourage medication compliance. #10. Hypertension: Patient from records has been noncompliant with hypertensive regimen reporting that he does not believe he needs it although he is on some of this regimen secondary to underlying heart failure and CAD, will attempt to resume low-dose metoprolol and low-dose losartan as well as low-dose Lasix but continue to monitor blood pressure with hold parameters as needed. Will hold resumption of oral hydralazine. #11. Hyperlipidemia: We will continue patient on statin therapy. #12. GERD with history of peptic ulcer disease: Given presentation as noted above transition to IV Protonix. #13. Tobacco Abuse: Encouraged cessation, inpatient consultation per RT, NR if desired. #14. JAIDEN: noncompliant with PAP therapy. #15. DVT prophylaxis: Lovenox. Charges/Coding Visit Charges Inpatient E&M: 35897 Subs Hosp L3
[2024-03-22 09:14] LABS: AST(SGOT) 166 U/L (15-37); Alanine Aminotransfer ALT/SGPT 126 U/L (16-61); Albumin, Serum 1.2 g/dL (3.2-5.0); Alkaline Phosphatase 145 U/L (45-117); Bilirubin, Direct 0.32 mg/dL (0.00-0.30); Ferritin 1417 ng/mL (26-388); Iron 27 ug/dL (65-175); Iron Binding Capacity,Total 97 ug/dL (250-450); Magnesium 1.6 mg/dL (1.6-2.6); PERCENT IRON SATURATION 27.8 % (15.0-55.0); Protein, Total 5.2 g/dL (6.4-8.2)
[2024-03-22] MEDS: Calcium Gluconate IV 1 GM in 0.9% Normal Saline (100mL Bag) 100 ML IV (09:23)
[2024-03-22] MEDS: Potassium Chloride Oral Tablet 20 MEQ 60 MEQ PO (10:02)
[2024-03-22] MEDS: Pantoprazole Sodium 40 MG in 0.9% Normal Saline (100mL MB+) 100 ML 330 MG IV ×2 (10:33→22:21)
[2024-03-22 12:14] LABS: Bedside Glucose 138 mg/dL (74-106)
--- NOTE | 2024-03-22 12:59 | CT_ITS ---
EXAM: CT Foot W/O Contrast Injection LEFT HISTORY: Osteomyelitis Calcaneus TECHNIQUE: Routine protocol CT abdomen and pelvis. IV Contrast: None.. Oral contrast: None. RADIATION DOSAGE (If Supplied By Facility): CTDIvol = ( 15.35 ) mGy, DLP = ( 468.90 ) mGycm Individualized dose optimization techniques were used for this CT. COMPARISON: X-rays left foot earlier same day. LIMITATIONS: None. FINDINGS: Bones are osteopenic. Diffusely mottled appearance of the calcaneus with a lytic defect mid body with indistinct cortical margins and fragmentation, extends to the subtalar joint. There are numerous tiny densities within the subtalar joint. Smaller cortical defect and irregular lucency extends more posteriorly and plantar calcaneus. Overlying soft tissue swelling with a large soft tissue defect presumed ulcer at the plantar aspect with a fairly linear tract extending to the cortical defect. Abscess difficult to exclude without IV contrast. Ill-defined lucency in the adjacent talus medial/inferior aspect. Old fracture deformity of the fifth metatarsal. Arterial calcifications. No air in the soft tissues. CT/Extremity Lower without Contra IMPRESSION: Cortical disruption of the calcaneus is consistent with osteomyelitis. Fragmentation with extension into the subtalar joint question prior fracture versus fragmentation related to infection. Ill-defined lucency in the adjacent talus suggests secondary involvement. MRI may be helpful for further assessment. Electronically Signed: Ayleen Jeff MD at 20:06 EDT ,
[2024-03-22] MEDS: Cefazolin 2 GM in 0.9% Normal Saline (100mL Bag) 100 ML IV ×2 (13:36→22:21)
--- NOTE | 2024-03-22 13:42 | CON.PCM.ID_ITS ---
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 BiV-ICD extracted, but LV lead was capped and retained (not MRI compatitible per EP at [facility]). Now again with MSSA bacteremia per pcr with L foot as suspected source (vs possible pneumonia). Will repeat bcx, order GUERLINE, check heel wound cx, and get L foot xray. May need L foot CT. Will consult podiatry. DULCE MARIA resolved. Will narrow abx to vanc/cefazolin/flagyl for now. 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 Had L hallux partial amputation. Found to have endocarditis, and had device and partial lead extraction. Discharged with picc and 6 weeks iv cefazolin. Followed up with wound care, foot has been ok, some swelling, no pain, no drainage. Admitted here on vanc/zosyn, now bcx (+) mSSA per pcr. Feeling ok, temps better. Full ROS performed and neg except as noted above. No joint pain or back pain. [facility] Medical History Old myocardial infarct Peripheral vascular occlusive disease Obesity PUD (peptic ulcer disease) Obstructive sleep apnea Nicotine dependence Left bundle branch block (LBBB) Chronic systolic (congestive) heart failure Natalya gangrene Essential (primary) hypertension Hyperlipidemia Type 2 diabetes mellitus Atherosclerosis of coronary artery without angina pectoris Ischemic cardiomyopathy Paroxysmal ventricular tachycardia Home Medications ?Medication ?Instructions ?Recorded ?Last Taken ?Type aspirin 81 mg tablet,delayed 81 mg PO DAILY 11/03/19 Unknown History release (Adult Aspirin Regimen) insulin NPH isoph U-100 human 100 25 unit subcut BID blood sugar 03/14/23 Unknown History unit/mL subcutaneous suspension insulin regular human 100 unit/mL 8 unit subcut TID 03/14/23 Unknown History injection solution atorvastatin 10 mg tablet 10 mg PO QHS #30 tabs 03/17/23 Unknown Rx carvedilol 3.125 mg tablet 3.125 mg PO BID #60 tabs 03/17/23 Unknown Rx lisinopril 2.5 mg tablet 2.5 mg PO DAILY #30 tabs 03/17/23 Unknown Rx ascorbic acid (vitamin C) 500 mg 500 mg PO DAILY 01/13/24 Unknown History tablet,extended release (C Complex) cholecalciferol (vitamin D3) 125 125 mcg PO DAILY 01/13/24 Unknown History mcg (5,000 unit) tablet (Vitamin D3) furosemide 20 mg tablet (Lasix) 20 mg PO DAILY 01/13/24 Unknown History hydralazine 10 mg tablet 10 mg PO TID 01/13/24 Unknown History losartan 25 mg tablet (Cozaar) 25 mg PO DAILY 01/13/24 Unknown History metoprolol tartrate 25 mg tablet 25 mg PO DAILY 01/13/24 Unknown History Allergy/AdvReac Type Severity Reaction Status Date / Time spironolactone AdvReac hyperkalemi Verified 03/19/24 21:21 a Family History Mother Heart disease 50 CVA (cerebral vascular accident) Father Heart disease 60 Diabetes CVA (cerebral vascular accident) Hypertension Sister Heart disease 48 Diabetes Grandfather CVA (cerebral vascular accident) Hypertension Grandmother CVA (cerebral vascular accident) Surgical History (Updated 03/21/24 @ 07:27 by Renée Ramírez) Hx of foot surgery History of left heart catheterization (09/25/15) History of right heart catheterization (02/2016) History of nasal septoplasty H/O coronary artery bypass surgery (03/19/16) History of ileostomy History of incision and drainage Biventricular ICD (implantable cardioverter-defibrillator) in place (08/16/16) Social History Smoking Status: Former smoker alcohol intake: never substance use type: does not use caffeine: Yes (monster 1 per day) Type: carbonated beverages Number of servings: 3 Physical Exam Const alert, oriented x3 and no apparent distress General Appearance: cooperative HEENT normocephalic and head/scalp atraumatic Eyes PERRL and EOMs intact bilaterally Neck supple and No nodes Resp normal air movement and clear to auscultation bilaterally Cardio regular rate, regular rhythm and no murmurs GI soft to palpation, non-tender and non-distended Extremity General Extremity: edema Skin Skin Narrative: L heel with some maceration/slough Neuro CN's II-XII intact bilaterally Lab / Micro Data Attestation: I reviewed the patient's lab results. 03/22/24 05:11 03/22/24 05:11 Labs: Laboratory Results - last 24 hr 03/20/24 02:00: Lactic Acid 1.7 03/21/24 08:10: Magnesium 1.7 03/21/24 14:58: Vancomycin Trough 19.0 H 03/21/24 16:59: POC Glucose 173 H 03/22/24 05:11: WBC 9.5, RBC 2.45 L, Hgb 6.9 L, Hct 22.6 L, MCV 92.2, MCH 28.2, MCHC 30.5 L, RDW Std Deviation 52.6 H, RDW Coeff of Fariba 15.8 H, Plt Count 408, MPV 9.8, Immature Gran % (Auto) 0.500, Neut % (Auto) 78.6 H, Lymph % (Auto) 13.6 L, Bradford % (Auto) 4.8, Eos % (Auto) 2.0, Baso % (Auto) 0.5, Absolute Neuts (auto) 7.5, Absolute Lymphs (auto) 1.29, Nucleated RBC % 0.2, Sodium 140, Potassium 2.9 L, Chloride 118 H, Carbon Dioxide 16.0 L, Anion Gap 6, BUN 18, Creatinine 0.79, Estim Creat Clear Calc 129.40, Est GFR (MDRD) Af Amer 135, Est GFR (MDRD) Non-Af 112, BUN/Creatinine Ratio 22.7 H, Glucose 98, Calcium 6.4 L*, Magnesium 1.6, I kayla 27 L, TIBC 97 L, Iron Saturation 27.8, Ferritin 1417 H, Total Bilirubin 1.40 H, Direct Bilirubin 0.32 H, AST 166 H, ALT 126 H, Alkaline Phosphatase 145 H, T otal Protein 5.2 L, Albumin 1.2 L, Globulin 4.0 03/22/24 07:26: POC Glucose 100 03/22/24 09:05: Blood Type O NEGATIVE, Antibody Screen NEGATIVE, Crossmatch See Detail 03/22/24 11:56: POC Glucose 138 H Micro: Microbiology 03/19/24 22:55 Blood Culture (Wb) - Left Forearm Bacteria Detection (PCR) - Final Staphylococcus aureus 03/19/24 22:55 Blood Culture (Wb) - Left Forearm Blood Culture - Final Staphylococcus aureus 03/20/24 02:00 Blood Culture (Wb) - Right Hand Blood Culture - Preliminary Staphylococcus aureus
--- NOTE | 2024-03-22 14:05 | RAD_ITS ---
INDICATION: L heel ulcer EXAMINATION/TECHNIQUE: X-RAY - LEFT XR Foot Min 3 Views 3 VIEWS COMPARISON: Left foot CT same date FINDINGS: SOFT TISSUES: Focal skin defect in the plantar aspect of the hindfoot deep to the calcaneus. No gas formations. No radiopaque foreign body. BONES/JOINTS: No acute fracture. Chronic appearing deformity fifth metatarsal. End spaces anatomically maintained. Destructive loss of cortex of the posterior calcaneus involving the plantar aspect with large lucency in the body of the posterior calcaneus. RAD/Foot min 3 Views IMPRESSION: Findings consistent with hindfoot skin ulceration and adjacent osteomyelitis of the posterior calcaneus. Electronically Signed: Zen Davila MD at 18:22 EDT ,
[2024-03-22] MEDS: metroNIDAZOLE 500 MG Tablet PO ×2 (14:40→22:27)
--- NOTE | 2024-03-22 15:14 | WOUNDNOTE ---
wound photo: left heel
[2024-03-22 15:17] LABS: M R Staph aureus DNA By PCR Negative (Negative); Specimen Processing Control PASS; Staph aureus DNA By PCR POSITIVE (Negative)
[2024-03-22 15:18] LABS: Probe Check PASS
[2024-03-22 16:24] LABS: Hematocrit 33.7 % (40-54); Hemoglobin 10.4 g/dL (13.0-16.5)
[2024-03-22] MEDS: Furosemide 20 MG/2 ML VIAL IV (17:19)
[2024-03-22] MEDS: Magnesium Sulfate 2 GM in Dextrose 5%-Water (100mL Bag) 100 ML IV (17:19)
--- NOTE | 2024-03-22 17:57 | CON.PCM_ITS ---
Assessment & Plan Assessment/Plan (1) 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 of bone: (2) MSSA bacteremia: (3) Sepsis: QUALIFIERS: Sepsis acute organ dysfunction status: with acute organ dysfunction Sepsis type: sepsis due to unspecified organism Severe sepsis acute organ dysfunction type: unspecified Severe sepsis shock status: w ithout septic shock Qualified Code(s): A41.9 - Sepsis, unspecified organism; R65.20 - Severe sepsis without septic shock (4) Type 2 diabetes mellitus with diabetic polyneuropathy: QUALIFIERS: Diabetes mellitus prison insulin use: with director long term care use Qualified Code(s): E11.42 - Type 2 diabetes mellitus with diabetic polyneuropathy; Z79.4 - equipment operator intermodal yard (current) use of insulin (5) Type 2 diabetes mellitus with foot ulcer: (6) Nicotine dependence: QUALIFIERS: Nicotine product type: cigarettes Substance use status: in remission Qualified Code(s): F17.211 - Nicotine dependence, cigarettes, in remission PLAN: Plan Patient seen and evaluated h/o Left foot Osteo at [facility] with MSSA bacteremia with endocarditis 12/03/23. Now repeat MSSA bacteremia Left foot: There is an ulceration plantar central calcaneus with surrounding tissue maceration with some serosanguineous drainage. Previous malodor noted to the ulcerative site. No purulent drainage noted. There is exposure of bone of the calcaneus noted and ulceration does probe to bone. No visible abscess or palpable fluctuance noted. There is lower extremity soft tissue swelling about the hindfoot and ankle. WBC currently 9.5, Hbg 6.9; Hct 22.6; Albumin 1.2; Alk phos 145; AST 166; ALT 126. Blood cultures positive for staph aureus Staph aureus protein A PCR positive; MRSA PCR negative Currently on IV Vanco/cefazolin/Flagyl Radiographs obtained of the left foot 03/22/24 demonstrate soft tissue defect plantar heel in the area of concern with erosive changes of the plantar aspect of the calcaneus superior to the ulceration and posterior calcaneus near insertion of the Achilles tendon consistent with osteomyelitis. CT obtained for further evaluation and demonstrates ulceration plantar heel with direct tract to the Calcaneus aligning with erosive change seen on radiograph. Aslo noted is diffuse osteomyelitis of the Calcaneus with extension into the subtalar joint and possible extension into the Talus. Foot dressed with Betadine and dry sterile dressing. Change daily. Medicine currently following for medical management, they are greatly appreciated Infectious disease currently following for antibiotic management Vascular surgery consulted for likely calcaneal osteomyelitis with possible BKA of the left lower extremity. Wound nurse following for assistance in dressing changes. Discussed with patient at bedside today the nature of his condition with the exposed bone of the calcaneus and likely osteomyelitis seen on radiograph. Discussed with patient I will order CT for further evaluation and pending results that he may need to undergo BKA. Patient is understanding of the nature of his condition and the severity of his infection in addition to risk of continued health complications and possible loss of life. He is understanding that he may require BKA of the left lower extremity. Podiatry will follow and discuss CT results with patient. Jr. Marycruz [facility] [phone] HPI Consult Data Date of Consult: 03/23/24 HPI Narrative Reason for Consultation: Left heel ulceration HPI Narrative: HARRISON GARCIA, is a 48 M who presents with PMHx of DM type II with peripheral polyneuropathy, JAIDEN, HTN, hyperlipidemia, tobacco abuse, PVD, CAD s/p WI and CABG x 3 (2015), chronic systolic CHF, ischemic cardiomyopathy, and left heel ulceration presents to [facility] ER with nausea, vomiting, shortness of breath, chills and rigors. Upon presentation to the ED he was noted to be febrile 101.3 ?F. In the ED he did undergo chest x-ray with right lower lobe infiltrate consistent with suspected aspiration pneumonia. WBC 17.8, lactic acidosis 2.7. He is also noted to have maceration on the left heel which she was treated for previously at [facility] for osteomyelitis 12/03/2023. At that time records from [facility] state MSSA endocarditis secondary to left foot osteo and BiV-ICD was removed. While here at [facility] he was seen in consultation by infectious disease for his MSSA bacteremia with possible source of infection of left heel versus pneumonia. Podiatry was consulted for further evaluation of left heel ulceration. [facility] Medical History Old myocardial infarct Peripheral vascular occlusive disease Obesity PUD (peptic ulcer disease) Obstructive sleep apnea Nicotine dependence Left bundle branch block (LBBB) Chronic systolic (congestive) heart failure Natalya gangrene Essential (primary) hypertension Hyperlipidemia Type 2 diabetes mellitus Atherosclerosis of coronary artery without angina pectoris Ischemic cardiomyopathy Paroxysmal ventricular tachycardia Home Medications ?Medication ?Instructions ?Recorded ?Last Taken ?Type aspirin 81 mg tablet,delayed 81 mg PO DAILY 11/03/19 Unknown History release (Adult Aspirin Regimen) insulin NPH isoph U-100 human 100 25 unit subcut BID blood sugar 03/14/23 Unknown History unit/mL subcutaneous suspension insulin regular human 100 unit/mL 8 unit subcut TID 03/14/23 Unknown History injection solution atorvastatin 10 mg tablet 10 mg PO QHS #30 tabs 03/17/23 Unknown Rx carvedilol 3.125 mg tablet 3.125 mg PO BID #60 tabs 03/17/23 Unknown Rx lisinopril 2.5 mg tablet 2.5 mg PO DAILY #30 tabs 03/17/23 Unknown Rx ascorbic acid (vitamin C) 500 mg 500 mg PO DAILY 01/13/24 Unknown History tablet,extended release (C Complex) cholecalciferol (vitamin D3) 125 125 mcg PO DAILY 01/13/24 Unknown History mcg (5,000 unit) tablet (Vitamin D3) furosemide 20 mg tablet (Lasix) 20 mg PO DAILY 01/13/24 Unknown History hydralazine 10 mg tablet 10 mg PO TID 01/13/24 Unknown History losartan 25 mg tablet (Cozaar) 25 mg PO DAILY 01/13/24 Unknown History metoprolol tartrate 25 mg tablet 25 mg PO DAILY 01/13/24 Unknown History Allergy/AdvReac Type Severity Reaction Status Date / Time spironolactone AdvReac hyperkalemi Verified 03/19/24 21:21 a Family History Mother Heart disease 50 CVA (cerebral vascular accident) Father Heart disease 60 Diabetes CVA (cerebral vascular accident) Hypertension Sister Heart disease 48 Diabetes Grandfather CVA (cerebral vascular accident) Hypertension Grandmother CVA (cerebral vascular accident) Surgical History (Updated 03/21/24 @ 07:27 by Renée Ramírez) Hx of foot surgery History of left heart catheterization (09/25/15) History of right heart catheterization (02/2016) History of nasal septoplasty H/O coronary artery bypass surgery (03/19/16) History of ileostomy History of incision and drainage Biventricular ICD (implantable cardioverter-defibrillator) in place (08/16/16) Social History Smoking Status: Former smoker alcohol intake: never substance use type: does not use caffeine: Yes (monster 1 per day) Type: carbonated beverages Number of servings: 3 ROS Constitutional Constitutional: Reports chills; Denies fever(s) or headache(s) Eyes Eyes: Denies diplopia, erythema or loss of vision ENT HEENT: Denies dysphagia, rhinorrhea or sore throat Cardiovascular Cardiovascular: Denies chest pain, claudication or palpitations Respiratory/Chest Respiratory/Chest: Reports dyspnea and shortness of breath at rest; Denies cough Gastrointestinal Gastrointestinal: Reports nausea and vomiting; Denies abdominal pain, constipation or diarrhea Genitourinary Genitourinary: Denies dysuria, urinary hesitancy or urinary urgency Musculoskeletal Musculoskeletal: Denies joint pain, joint stiffness or joint swelling Integumentary Integumentary: Denies jaundice, lesions, pruritus or rash Neurologic Neurologic: Denies dizziness, numbness or seizures Psychiatric Psychiatric: Denies anxiety or depression Endocrine Endocrinology: Denies palpitations, polyphagia or polyuria Hematologic/Lymphatic Hematologic/Lymphatic: Denies easy bleeding or easy bruising Allergic/Immunologic Allergic/Immunologic: Denies wheezing Physical Exam Const alert, oriented x3 and no apparent distress General Appearance: cooperative HEENT normocephalic Eyes General Eye: normal appearance of both eyes Neck General: normal visual inspection Lymph Lymphatic: no lymphadenopathy noted and no lymphedema noted Resp Resp Narrative: Breath sounds are diminished bilateral lung Cardio regular rate and regular rhythm Extremity Extremity Narrative: Left lower extremity: Vascular: DP and PT pulses palpable with adequate capillary fill time to digits less than 5 seconds. Dermatologic: There is an ulceration plantar central calcaneus with surrounding tissue maceration with some serosanguineous drainage. Previous malodor noted to the ulcerative site. No purulent drainage noted. There is exposure of bone of the calcaneus noted and ulceration does probe to bone. No visible abscess or palpable fluctuance noted. There is lower extremity soft tissue swelling about the hindfoot and ankle. Musculoskeletal: Muscle strength is 5/5 and age-appropriate. Neurologic: Protective sensation to the foot is diminished consistent with diabetic peripheral polyneuropathy. Light sensation is also diminished. Gross sensation is intact. Skin no rashes or lesions noted, skin turgor normal and no jaundice Neuro moves all extremities Lab / Micro Data 03/23/24 04:45 03/23/24 04:45 Labs: Laboratory Results - last 24 hr 03/20/24 02:00: Lactic Acid 1.7 03/21/24 08:10: Magnesium 1.7 03/22/24 05:11: WBC 9.5, RBC 2.45 L, Hgb 6.9 L, Hct 22.6 L, MCV 92.2, MCH 28.2, MCHC 30.5 L, RDW Std Deviation 52.6 H, RDW Coeff of Fariba 15.8 H, Plt Count 408, MPV 9.8, Immature Gran % (Auto) 0.500, Neut % (Auto) 78.6 H, Lymph % (Auto) 13.6 L, Iron % (Auto) 4.8, Eos % (Auto) 2.0, Baso % (Auto) 0.5, Absolute Neuts (auto) 7.5, Absolute Lymphs (auto) 1.29, Nucleated RBC % 0.2, Sodium 140, Potassium 2.9 L, Chloride 118 H, Carbon Dioxide 16.0 L, Anion Gap 6, BUN 18, Creatinine 0.79, Estim Creat Clear Calc 129.40, Est GFR (MDRD) Af Amer 135, Est GFR (MDRD) Non-Af 112, BUN/Creatinine Ratio 22.7 H, Glucose 98, Calcium 6.4 L*, Magnesium 1.6, I kayla 27 L, TIBC 97 L, Iron Saturation 27.8, Ferritin 1417 H, Total Bilirubin 1.40 H, Direct Bilirubin 0.32 H, AST 166 H, ALT 126 H, Alkaline Phosphatase 145 H, T otal Protein 5.2 L, Albumin 1.2 L, Globulin 4.0 03/22/24 07:26: POC Glucose 100 03/22/24 09:05: Blood Type O NEGATIVE, Antibody Screen NEGATIVE, Crossmatch See Detail 03/22/24 11:56: POC Glucose 138 H 03/22/24 13:05: S.aureus Protein A PCR POSITIVE H, MRSA (PCR) Negative 03/22/24 15:20: Hgb 10.4 L, Hct 33.7 L Micro: Microbiology 03/22/24 13:10 Stool Stool Occult Blood (ELINA) - Final 03/19/24 22:55 Blood Culture (Wb) - Left Forearm Bacteria Detection (PCR) - Final Staphylococcus aureus 03/19/24 22:55 Blood Culture (Wb) - Left Forearm Blood Culture - Final Staphylococcus aureus 03/20/24 02:00 Blood Culture (Wb) - Right Hand Blood Culture - Preliminary Staphylococcus aureus
[2024-03-22] MEDS: Atorvastatin Calcium 10 MG Tablet PO (22:26)
[2024-03-23] VITALS (16 sets, daily range): BP systolic 86–131; BP diastolic 42–82; PULSE 65–93; RESP 18–39; TEMP 36.1–36.8; O2SAT 95–100
[2024-03-23] MEDS: Vancomycin HCl 1,250 MG in 0.9% Normal Saline (250mL Bag) 250 ML 167 MG IV (03:29)
[2024-03-23] MEDS: Cefazolin 2 GM in 0.9% Normal Saline (100mL Bag) 100 ML IV ×3 (05:27→20:59)
--- NOTE | 2024-03-23 06:00 | US_ITS ---
STUDY: ABDOMINAL ULTRASOUND - RIGHT UPPER QUADRANT REASON FOR VISIT: Male, 48 years old Elevated LFTs, bili TECHNIQUE: Ultrasound evaluation of the right upper quadrant was performed with real-time and static resendiz-scale imaging. TECHNICAL QUALITY: Adequate. COMPARISON: None. FINDINGS: Liver: The liver measures cm. There is normal echogenicity of the liver. The bile ducts are within normal limits. There is hepatic color flow. The direction of portal flow is hepatopetal. There is no demonstrated mass lesion. Gallbladder: Normal distended gallbladder. The gallbladder wall measures mm. There is a negative sonographic Cordero''s sign. There is no pericholecystic fluid. There are no gallstones. Common Bile Duct (C.B.D.): The common bile duct measures mm. Pancreas: Normal size of the head, body and tail of the pancreas. There is normal echogenicity of the pancreas. There is no demonstrated pancreatic mass or cyst. Right Kidney: Normal size of the right kidney. The right kidney measures cm. Normal renal cortex. The right cortex measures cm. There is no demonstrated renal mass or cyst. There is no right hydronephrosis. US/Liver IMPRESSION: Normal right upper quadrant ultrasound examination. Electronically Signed: Mazin Arnett MD at 16:00 EDT ,
[2024-03-23 06:34] LABS: Absolute Lymphocyte Count 1.81 X10^3/uL (0.83-4.51); Absolute Neutrophil Count 9.9 X10^3/uL (2.0-7.7); Basophil% 0.8 % (0-1); Eosinophil# 0.18 X10^3/uL; Eosinophils% 1.4 % (0-5); Hematocrit 31.3 % (40-54); Hemoglobin 9.9 g/dL (13.0-16.5); Lymphocyte # 1.81 X10^3/ul (0.83-4.51); Lymphocyte % 14.1 % (19-41); Mean Corp Hgb Conc 31.6 g/dL (32-36); Mean Corpuscular Hgb 28.3 pg (27.0-32.0); Mean Corpuscular Volume 89.4 fL (80-94); Monocyte# 0.75 X10^3/uL; Monocyte% 5.8 % (0-10); NRBC Flagged by Analyzer 0.8 % (0-5); Neutrophil # 9.91 X10^3/uL (2.7-7.7); Neutrophil % 77.2 % (47-70); Platelet Count 479 K/mm3 (150-450); RBC Distribution Width CV 16.3 % (11.6-14.6); RBC Distribution Width SD 51.8 fl (35.1-43.9); White Blood Count 12.8 K/mm3 (4.4-11.0)
[2024-03-23 06:58] LABS: ALB/GLOB Ratio 0.3 RATIO (0.9-2.4); AST(SGOT) 103 U/L (15-37); Alanine Aminotransfer ALT/SGPT 132 U/L (16-61); Albumin, Serum 1.6 g/dL (3.2-5.0); Alkaline Phosphatase 202 U/L (45-117); Anion Gap 7 (5-15); BUN 20 mg/dL (7-18); BUN/Creat Ratio 17.9 RATIO (10-20); Calcium,Total 8.2 mg/dL (8.5-10.1); Chloride 113 mmol/L (98-107); Creatinine, Serum 1.12 mg/dL (0.70-1.30); EST Glomerular Filtration Rate 75 mL/min (>60); Est Glom Filt Rate - Afr Amer 91 mL/min (>60); Estimated Creatinine Clearance 91.27 ml/min; Globulin 5.5 g/dL (2.2-4.2); Glucose 170 mg/dL (74-106); Potassium 4.4 mmol/L (3.5-5.1); Protein, Total 7.1 g/dL (6.4-8.2); Sodium Level 138 mmol/L (136-145)
--- NOTE | 2024-03-23 07:25 | PCM.PN.HOSP ---
Reason for Visit Reason for Visit: Diagnoses Sepsis, unspecified organism (03/20/24) Methicillin susceptible Staphylococcus aureus infection as the cause of diseases classified elsewhere (03/20/24) Type 2 diabetes mellitus with diabetic polyneuropathy (03/20/24) Acidosis, unspecified (03/20/24) Nicotine dependence, unspecified, uncomplicated (03/20/24) Nicotine dependence, cigarettes, in remission (03/20/24) Pneumonia, unspecified organism (03/20/24) Non-pressure chronic ulcer of other part of left foot with fat layer exposed (03/20/24) Other abnormalities of breathing (03/20/24) Severe sepsis without septic shock (03/20/24) Bacteremia (03/20/24) exterminator termite (current) use of insulin (03/20/24) Presence of aortocoronary bypass graft (03/20/24) Presence of automatic (implantable) cardiac defibrillator (03/20/24) Subjective Subjective Patient overnight with increased fatigue but no significant complaints and states he still feels as though his breathing is improving although transiently during the day he did complain of some mild dyspnea but improved with aerosol treatment. Unfortunately imaging and assessment of diabetic ulceration with need for intervention and per discussion over the day with podiatry given these findings necessity for BKA to which patient understands. Discussed that likely this diabetic wound is the source of his pneumonia as well as his recent issues with endocarditis. Patient does report some aching and dull throbbing to the foot. Patient denies fevers, chills, nausea, emesis, abdominal pain, chest pain. Objective Data Objective Data Vital Signs: Vital Signs Temp Pulse Resp BP Pulse Ox O2 Del Method O2 Flow Rate 97.0 F L 93 18 109/63 96 Nasal Cannula 2 03/23/24 05:30 03/23/24 05:30 03/23/24 05:30 03/23/24 05:30 03/23/24 05:30 03/23/24 05:30 03/23/24 05:30 FiO2 2 03/20/24 05:25 Oxygen Flow Rate (L/min) 2 Oxygen Delivery Method Nasal Cannula Weight: 197 lb 12.074 oz Body Mass Index (BMI) 29.2 Intake & Output: Intake and Output for Last 24 Hours 03/21/24 03/22/24 03/23/24 23:59 23:59 23:59 Intake Total 3173.75 / 3173.75 1306 / 1306 385 / 385 Output Total 300 / 300 300 / 300 Balance 2873.75 / 2873.75 1006 / 1006 385 / 385 Lab / Micro Data 03/23/24 04:45 03/23/24 04:45 Labs: Laboratory Results - last 24 hr 03/20/24 02:00: Lactic Acid 1.7 03/22/24 05:11: Magnesium 1.6, Iron 27 L, TIBC 97 L, Iron Saturation 27.8, Ferritin 1417 H, Total Bilirubin 1.40 H, Direct Bilirubin 0.32 H, AST 166 H, ALT 126 H, Alkaline Phosphatase 145 H, Total Protein 5.2 L, Albumin 1.2 L, Globulin 4.0 03/22/24 07:26: POC Glucose 100 03/22/24 09:05: Blood Type O NEGATIVE, Antibody Screen NEGATIVE, Crossmatch See Detail 03/22/24 11:56: POC Glucose 138 H 03/22/24 13:05: S.aureus Protein A PCR POSITIVE H, MRSA (PCR) Negative 03/22/24 15:20: Hgb 10.4 L, Hct 33.7 L 03/23/24 04:45: WBC 12.8 H, RBC 3.50 L, Hgb 9.9 L, Hct 31.3 L, MCV 89.4, MCH 28.3, MCHC 31.6 L, RDW Std Deviation 51.8 H, RDW Coeff of Fariba 16.3 H, Plt Count 479 H, MPV 10.0, Immature Gran % (Auto) 0.700, Neut % (Auto) 77.2 H, Lymph % (Auto) 14.1 L, [place] % (Auto) 5.8, Eos % (Auto) 1.4, Baso % (Auto) 0.8, Absolute Neuts (auto) 9.9 H, Absolute Lymphs (auto) 1.81, Nucleated RBC % 0.8, Sodium 138, Potassium 4.4, Chloride 113 H, Carbon Dioxide 18.0 L, Anion Gap 7, BUN 20 H, Creatinine 1.12, Estim Creat Clear Calc 91.27, Est GFR (MDRD) Af Amer 91, Est GFR (MDRD) Non-Af 75, BUN/Creatinine Ratio 17.9, Glucose 170 H, Calcium 8.2 L, Total Bilirubin 0.70, AST 103 H, ALT 132 H, Alkaline Phosphatase 202 H, Total Protein 7.1, Albumin 1.6 L, Globulin 5.5 H, Albumin/Globulin Ratio 0.3 L Micro: Microbiology 03/22/24 13:10 Stool Stool Occult Blood (ELINA) - Final 03/19/24 22:55 Blood Culture (Wb) - Left Forearm Bacteria Detection (PCR) - Final Staphylococcus aureus 03/19/24 22:55 Blood Culture (Wb) - Left Forearm Blood Culture - Final Staphylococcus aureus 03/20/24 02:00 Blood Culture (Wb) - Right Hand Blood Culture - Preliminary Staphylococcus aureus 03/19/24 23:00 Urine, Clean Catch Legionella Antigen - Final 03/19/24 23:00 Urine, Clean Catch Streptococcus pneumoniae Antigen (M - Final 03/20/24 00:40 Stool Stool Occult Blood (ELINA) - Final 03/19/24 23:05 Mucosa - Nose SARS-CoV-2, Influenza & RSV (PCR) - Final Radiography Diagnostic Testing: Radiology Impression Lower Extremity CT 03/22/24 12:59 IMPRESSION: Cortical disruption of the calcaneus is consistent with osteomyelitis. Fragmentation with extension into the subtalar joint question prior fracture versus fragmentation related to infection. Ill-defined lucency in the adjacent talus suggests secondary involvement. MRI may be helpful for further assessment. Electronically Signed: Ayleen Jeff MD at 20:06 EDT Reading Location ID and State: [address] [place] [address] Tel , Service support , ADDENDUM: 03/22/24 2220 IMPRESSION: undefined Physical Exam Narrative Physical Examination: General: Awake, alert, oriented x 3 and cooperative, laying on his side in PCU bed, fatigued and mildly disheveled appearing but in no acute distress. Skin: Normal color, normal turgor, no icterus, no cyanosis except occasional stage ecchymoses, significant left heel ulcer with significant region of macerated appearing tissue, undermining with no overt purulent drainage or periwound erythema with imaging consistent with osteomyelitis. HEENT: AT/NC, EOMI, PERRLA, moderately dry MM. Lungs: Diminished, greater bases, right greater than left, mildly increased respiratory rate but no distress, occasional rhonchi. Heart: Regular rate and rhythm; no gallop, rub audible. Abdomen: Soft, obese, NTTP, ND, mildly hyperactive BS. Extremities: No cyanosis, no marked clubbing, see skin Neurological: Patient awake, alert, oriented as no, cognitive function intact; pupils equally reactive to light and accommodation, cranial nerves gross normal, moving all 4 extremities, no focal deficits, strength moderately to severely globally decreased secondary to acute presentation. Psychiatric: Affect appears fatigued, ill-appearing, no acute evidence of depressive or anxiety feelings. Assessment & Plan Assessment/Plan (1) MSSA bacteremia: (2) Pneumonia: QUALIFIERS: Laterality: right Lung location: lower lobe of lung Pneumonia type: due to unspecified organism Qualified Code(s): J18.9 - Pneumonia, unspecified organism (3) Non-pressure chronic ulcer of other part of left foot with fat layer exposed: PLAN: Plan The patient is a 48 y/o M w/ PMHx: HTN, HLD, Tobacco use, Obesity, JAIDEN, Diabetes mellitus type II with chronic neuropathy, Chronic L Diabetic foot wound w/ recent osteomyelitis with associated MSSA bacteremia and endocarditis 12/2023, HFrEF/Ischemic cardiomyopathy s/p biventricular AICD 2017 not compatible with MRI, CAD s/p IN/CABG x 3 2015, Hx Natalya's gangrene, GERD w/ PUD who presents to the [facility] ED on 03/22/24 with nausea, emesis, dyspnea, chills prompting ED evaluation. #1. 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, technically unable to label as acute sepsis (leukocytosis, lactic acidosis, tachypnea, tachycardia, fever with total bilirubin elevated 1.4 but still not consistent with sepsis given no end-organ damage associated with infectious presentation) thus ruled out: Admission 03/19/2024 blood cultures with Staphylococcus aureus with repeat 03/20/2024 blood culture 1 positive, Legionella and streptococcal antigens negative, SARS COVID/influenza/RSV negative, initially maintained on IV vancomycin and Zosyn-->ID transition 03/22/24 to vancomycin/cefazolin as well as oral Flagyl given concurrent #2 as noted, continue PRN albuterol, encourage HOB, IS parameters, TTE without vegetations, follow-up 03/23/24 GUERLINE with EF 15%, trivial MVI, no definitive vegetation seen, left heel wound culture with Staphylococcus aureus, podiatry consulted and following as noted below with transition of intervention care to Plastic Surgery Dr. Rawls for possible BKA, awaiting family and patient decision and poor reconstructive candidate. #2. Left foot ulcerated plantar central calcaneus with tissue maceration with acute osteomyelitis: Wound RN consulted, ongoing dressing changes, given appearance with macerated tissue and suspected undermining Podiatry consultation obtained, CT left lower extremity with cortical disruption the calcaneus consistent with os mellitus with fragmentation with extension to the subtalar joint, ill-defined lucency in the adjacent talus suggesting secondary involvement, maintain offloading, currently maintained on IV vancomycin/cefazolin and oral Flagyl per ID direction, given poor reconstructive candidate decision for below the knee amputation with plastic surgery Dr. Rawls per podiatry recommendation with plan for family talk with surgery 03/24/2024 with likely definitive surgical needs following this. Once we assure bacteremia is resolved patient will require PICC line placement at ID discretion. #3. Acute normocytic anemia, worsening, appears new chronicity with history of prior PUD of note: Admission hemoglobin 9.3, prior to this hemoglobin 01/13/2024 had been 13.4 which appears his baseline primarily, decreased 03/21/2020 4-8.0 and now 03/22/2024 hemoglobin 6.9, 2 unit PRBC ordered, iron panel obtained with iron 27, TIBC 97, iron saturation 27.8, ferritin 1417 more consistent with AOCD, guaiac obtained 03/20/2024 noted to be negative at that time, place on PPI to be cautious. Repeat guiac requested to be thorough and again negative. Will cautiously continue baby aspirin, metoprolol as BP allows, statin therapy, low-dose lisinopril. If 03/24/24 Hgb remains stable plan to restart DVT prophylaxis. 03/23/24 Hgb 9.9. #4. Hyperbilirubinemia, Transaminitis, acute on chronic: Unclear specific etiology, 03/19/2024 T. bili 1.10, AST/LT 53/61, alk phos 232->03/22/2024 CMP with total bilirubin 1.40, D bilirubin 0.32, AST/LT 166/126, alk phos 145-->03/23/24 T. bili 0.70, AST/LT 103/132, alk phos 202, liver ultrasound with normal appearing liver and gallbladder, hepatitis panel ordered. #5. Hypokalemia: Admission K+ 2.9, magnesium level requested, supplementation given, 03/23/2024 potassium 4.4, resolved. #6. Hypocalcemia, improved with corrected: Calcium 6.4, previous albumin significantly low however this is from 03/19/2024 and 1.8 at that time, corrected 8.16, will supplement with calcium gluconate, 03/23/2024 calcium 8.2 although again previous corrected was low normal. #7. HFrEF/Ischemic Cardiomyopathy: s/p biventricular AICD [facility], 03/21/2024 echocardiogram pending as noted above, prior ECHO 12/04/23 with LV normal size, LV systolic function severely decreased, EF 25?5%, regional wall motion abnormalities present, grade 1 LV diastolic dysfunction, RV not well-visualized, on limited views right ventricle grossly normal in size and systolic function, no significant valvular abnormalities. As noted planned 2 u PRBC administration, monitor for overload, will administer 20 mg IV x 1. Will cautiously continue baby aspirin, metoprolol, low-dose losartan, Lasix and hydralazine with BP parameters given initial presentation with lower normal BP. Case management consulted for assistance with medication cost. Given operative intervention needs and notably low EF will request cardiology consultation for pre-operative clearance proactively. #8. CAD: Status post CABG x 3, given guaiac stool negative, cautiously continue baby aspirin, metoprolol, low-dose losartan. #9. Diabetes mellitus type II with chronic neuropathy: Hold oral home regimen, continue home insulin regimen as well as ISS scheduled with meals, ADA diet, accu checks w/ ISS. 03/23/2024 hgbA1c 6.1%. Encourage medication compliance. #10. Hypertension: Patient from records has been noncompliant with hypertensive regimen reporting that he does not believe he needs it although he is on some of this regimen secondary to underlying heart failure and CAD, will attempt to resume low-dose metoprolol and low-dose losartan as well as low-dose Lasix but continue to monitor blood pressure with hold parameters as needed. Will hold resumption of oral hydralazine. #11. Hyperlipidemia: We will continue patient on statin therapy. #12. GERD with history of peptic ulcer disease: PPI. #13. Tobacco Abuse: Encouraged cessation, inpatient consultation per RT, NR if desired. #14. JAIDEN: noncompliant with PAP therapy. #15. DVT prophylaxis: Initially placed on Lovenox however with worsened anemia this was temporarily held pending further anemia evaluation, if hemoglobin again remained stable 03/24/2024 would restart but will need to hold for operative intervention when timeline is known. Charges/Coding Visit Charges Inpatient E&M: 38706 Subs Hosp L3
--- NOTE | 2024-03-23 08:00 | ECHOTEE_ITS ---
Reason For Study: Endocarditis Medication GUERLINE probe 6VT-D (SN [id number]) passed without difficulty. No complications were noted. Cetacaine Topical Kaycee given X3 orally. Versed 1 mg given slow IVP. Fentanyl 50 mcg given slow IVP. Left Ventricle The estimated ejection fraction is 15 %. Mitral Valve There is no vegetation seen on the mitral valve. No significant mitral valve stenosis. Trivial mitral valve insufficiency. Tricuspid Valve No vegetations identified. There is no tricuspid stenosis. Mild tricuspid valve insufficiency. Aortic Valve Trisinus/trileaflet aortic valve. There is no aortic valvular vegetation. There is no aortic stenosis. No aortic valve insufficiency. Pulmonic Valve The pulmonic valve is not well visualized. ECHO/Echo Transesophageal (GUERLINE) Interpretation Summary The estimated ejection fraction is 15 %. Trivial mitral valve insufficiency. No definite vegetations seen Ordering Physician: Sarkis Durham Referring Physician: Moe Odonnell Performed By: Maryan Rojas, JOHNSON, RVT
--- NOTE | 2024-03-23 08:17 | EX.PCM.CON.S ---
Assessment & Plan Assessment/Plan (1) 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 of bone: (2) Type 2 diabetes mellitus with foot ulcer: PLAN: Plan His arterial study and physical exam findings were reviewed with Dr. Gordon. Expect that he has sufficient perfusion to expect to heal L BKA, though his diabetic status still puts him at risk of delayed healing despite adequate inflow. As Dr. Gordon is out of town, will consult plastic surgery Dr. Rawls for his consideration instead. All of this was discussed with the patient and his questions/concerns were addressed. HPI Consult Data Date of Consult: 03/23/24 HPI Narrative HPI Narrative: HARRISON GARCIA, is a 48 M who presented to the [facility] ER with nausea, vomiting, shortness of breath, chills, and fever. Found to be septic with evidence for right lower lobe infiltrate and was admitted for IV antibiotics and further management. Was also found to have left heel wound which probes to bone and XR suggestive of osteomyelitis. He had recent CT which also is consistent with osteomyelitis. He was seen by podiatry who given these results has recommended consideration of L BKA. He reports this heel wound has been present at least 6 months. It appears in December he was treated at [facility] for MSSA sepsis and endocarditis (requiring remocal of his BiV-ICD) related to L heel calcaneal osteo which was treated with a course of IV antibiotics. Following this, he briefly followed with the wound healing center in January and it seemed the wound was making positive progress but then he was lost to follow-up reportedly due to lack of adequate insurance coverage of wound care visits. He denies any prior vascular surgical interventions. He did have an arterial study in January which showed L RASHARD 0.7 and monophasic waveforms by DP; PT was not assessed due to wound bandages per study report. He is diabetic with last A1c 6.5 in December. He is a smoker. His medical history is otherwise significant for significant coronary artery disease status post CABG (2015), ischemic cardiomyopathy status post ICD insertion and removal as noted above, CHF. [facility] Medical History Old myocardial infarct Peripheral vascular occlusive disease Obesity PUD (peptic ulcer disease) Obstructive sleep apnea Nicotine dependence Left bundle branch block (LBBB) Chronic systolic (congestive) heart failure Natalya gangrene Essential (primary) hypertension Hyperlipidemia Type 2 diabetes mellitus Atherosclerosis of coronary artery without angina pectoris Ischemic cardiomyopathy Paroxysmal ventricular tachycardia Home Medications ?Medication ?Instructions ?Recorded ?Last Taken ?Type aspirin 81 mg tablet,delayed 81 mg PO DAILY 11/03/19 Unknown History release (Adult Aspirin Regimen) insulin NPH isoph U-100 human 100 25 unit subcut BID blood sugar 03/14/23 Unknown History unit/mL subcutaneous suspension insulin regular human 100 unit/mL 8 unit subcut TID 03/14/23 Unknown History injection solution atorvastatin 10 mg tablet 10 mg PO QHS #30 tabs 03/17/23 Unknown Rx carvedilol 3.125 mg tablet 3.125 mg PO BID #60 tabs 03/17/23 Unknown Rx lisinopril 2.5 mg tablet 2.5 mg PO DAILY #30 tabs 03/17/23 Unknown Rx ascorbic acid (vitamin C) 500 mg 500 mg PO DAILY 01/13/24 Unknown History tablet,extended release (C Complex) cholecalciferol (vitamin D3) 125 125 mcg PO DAILY 01/13/24 Unknown History mcg (5,000 unit) tablet (Vitamin D3) furosemide 20 mg tablet (Lasix) 20 mg PO DAILY 01/13/24 Unknown History hydralazine 10 mg tablet 10 mg PO TID 01/13/24 Unknown History losartan 25 mg tablet (Cozaar) 25 mg PO DAILY 01/13/24 Unknown History metoprolol tartrate 25 mg tablet 25 mg PO DAILY 01/13/24 Unknown History Allergy/AdvReac Type Severity Reaction Status Date / Time spironolactone AdvReac hyperkalemi Verified 03/19/24 21:21 a Family History Mother Heart disease 50 CVA (cerebral vascular accident) Father Heart disease 60 Diabetes CVA (cerebral vascular accident) Hypertension Sister Heart disease 48 Diabetes Grandfather CVA (cerebral vascular accident) Hypertension Grandmother CVA (cerebral vascular accident) Surgical History (Updated 03/21/24 @ 07:27 by Renée Ramírez) Hx of foot surgery History of left heart catheterization (09/25/15) History of right heart catheterization (02/2016) History of nasal septoplasty H/O coronary artery bypass surgery (03/19/16) History of ileostomy History of incision and drainage Biventricular ICD (implantable cardioverter-defibrillator) in place (08/16/16) Social History Smoking Status: Former smoker alcohol intake: never substance use type: does not use caffeine: Yes (monster 1 per day) Type: carbonated beverages Number of servings: 3 Physical Exam Const alert and oriented x3 General Appearance: cooperative HEENT head/scalp atraumatic, hearing grossly normal bilaterally, external ears normal and external nose normal Eyes General Eye: normal appearance of both eyes Neck General: normal visual inspection and trachea midline Resp normal respiratory effort, no retractions and no use of accessory muscles Effort and Inspection: able to speak in complete sentences Cardio regular rate and regular rhythm Extremity Extremity Narrative: L foot with dressings C/D/I. L popliteal pulse palpable with multiphasic doppler signal. Skin Wounds: wounds noted Wound Narrative: L heel wound, dressings not disturbed, pictures in chart reviewed Neuro oriented x3, CN's II-XII intact bilaterally, moves all extremities and no focal motor deficits Speech: speech normal Psych mental status grossly normal Appearance: grossly normal Attitude: calm Speech: normal speech Mood & Affect: euthymic mood Lab / Micro Data 03/23/24 04:45 03/23/24 04:45 Labs: Laboratory Results - last 24 hr 03/22/24 05:11: Magnesium 1.6, Iron 27 L, TIBC 97 L, Iron Saturation 27.8, Ferritin 1417 H, Total Bilirubin 1.40 H, Direct Bilirubin 0.32 H, AST 166 H, ALT 126 H, Alkaline Phosphatase 145 H, Total Protein 5.2 L, Albumin 1.2 L, Globulin 4.0 03/22/24 09:05: Blood Type O NEGATIVE, Antibody Screen NEGATIVE, Crossmatch See Detail 03/22/24 11:56: POC Glucose 138 H 03/22/24 13:05: S.aureus Protein A PCR POSITIVE H, MRSA (PCR) Negative 03/22/24 15:20: Hgb 10.4 L, Hct 33.7 L 03/23/24 04:45: WBC 12.8 H, RBC 3.50 L, Hgb 9.9 L, Hct 31.3 L, MCV 89.4, MCH 28.3, MCHC 31.6 L, RDW Std Deviation 51.8 H, RDW Coeff of Fariba 16.3 H, Plt Count 479 H, MPV 10.0, Immature Gran % (Auto) 0.700, Neut % (Auto) 77.2 H, Lymph % (Auto) 14.1 L, [place] % (Auto) 5.8, Eos % (Auto) 1.4, Baso % (Auto) 0.8, Absolute Neuts (auto) 9.9 H, Absolute Lymphs (auto) 1.81, Nucleated RBC % 0.8, Sodium 138, Potassium 4.4, Chloride 113 H, Carbon Dioxide 18.0 L, Anion Gap 7, BUN 20 H, Creatinine 1.12, Estim Creat Clear Calc 91.27, Est GFR (MDRD) Af Amer 91, Est GFR (MDRD) Non-Af 75, BUN/Creatinine Ratio 17.9, Glucose 170 H, Calcium 8.2 L, Total Bilirubin 0.70, AST 103 H, ALT 132 H, Alkaline Phosphatase 202 H, Total Protein 7.1, Albumin 1.6 L, Globulin 5.5 H, Albumin/Globulin Ratio 0.3 L Micro: Microbiology 03/22/24 13:05 Wound - Heel, Left Wound Culture - Preliminary Staphylococcus aureus 03/22/24 13:10 Stool Stool Occult Blood (ELINA) - Final 03/19/24 22:55 Blood Culture (Wb) - Left Forearm Bacteria Detection (PCR) - Final Staphylococcus aureus 03/19/24 22:55 Blood Culture (Wb) - Left Forearm Blood Culture - Final Staphylococcus aureus 03/20/24 02:00 Blood Culture (Wb) - Right Hand Blood Culture - Preliminary Staphylococcus aureus Imaging Radiology Impression Lower Extremity CT 03/22/24 12:59 IMPRESSION: Cortical disruption of the calcaneus is consistent with osteomyelitis. Fragmentation with extension into the subtalar joint question prior fracture versus fragmentation related to infection. Ill-defined lucency in the adjacent talus suggests secondary involvement. MRI may be helpful for further assessment. Electronically Signed: Ayleen Jeff MD at 20:06 EDT , ADDENDUM: 03/22/242219 IMPRESSION: undefined Charges/Coding Visit Charges Office Visits / Consults: 20419 IP Consult L2
[2024-03-23 08:24] LABS: Bedside Glucose 133 mg/dL (74-106)
--- NOTE | 2024-03-23 10:31 | EX.PCM.CON.S ---
Assessment & Plan Assessment/Plan (1) 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 of bone: PLAN: There is osteomyelitis diffusely in the left calcaneus (I reviewed imaging). The patient is a poor reconstructive candidate (need for multiple surgeries, DM, low protein, poor cardiovascular health). I will further discuss with vascular (need for angiogram, ect, to estimate what level of amputation he heal). I talked to him briefly today about reconstruction v. below knee amputation, BKA (I was consulted to perform a BKA). I do not think he is a good reconstructive candidate. He is going to bring his family by tomorrow for a meeting about his condition and possible need for BKA. I will discuss everything with him further once I have a definitive plan from the other surgical services. Continue wound care and IV antibiotics for now No need for acute surgical intervention as the wound is open/draining and no signs of ascending infection. If he should deteriorate in the mean time, please call me or another surgical team immediately. I talked to him for a little while about targeted muscle reinnervation and about wound healing problems from a BKA in a diabetic. We will talk more. I have ordered a pre-albumin and a fresh A1C. PLAN: Plan HPI Consult Data Date of Consult: 03/23/24 HPI Narrative Reason for Consultation: Left Lower Extremity Limb Salvage v Amputation HPI Narrative: HARRISON GARCIA is a 48 M who presents with PMHx of DM type II with peripheral polyneuropathy, JAIDEN, HTN, hyperlipidemia, tobacco abuse, PVD, CAD s/p AR and CABG x 3 (2015), chronic systolic CHF, ischemic cardiomyopathy, and left heel ulceration presents to [facility] ER with nausea, vomiting, shortness of breath, chills and rigors (admitted here at [facility] 2 days ago on 20 Mar 2024). He was noted to be febrile 101.3 ?F. In the ED he did undergo chest x-ray with right lower lobe infiltrate consistent with suspected aspiration pneumonia. WBC 17.8, lactic acidosis 2.7. He is currently on nasal cannula for oxygen. Of note, he also noted to have a diabetic foot wound on the left heel which she was treated previously at [facility] for osteomyelitis in December 2023. 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 While here at [facility] he was seen in consultation by infectious disease for his MSSA bacteremia with possible source of infection of left heel versus pneumonia. Podiatry was consulted for further evaluation of left heel ulceration. I spoke to the materials planner in person and he feels like the extent of the osteomyelitis (maybe even into the talus, definitely throughout the calcaneus) is a contraindication at this point to any further limb salvage (recommending BKA). As for imaging, plane films obtained of the left foot 03/22/24 demonstrated soft tissue defect plantar heel in the area of concern with erosive changes of the plantar aspect of the calcaneus superior to the ulceration and posterior calcaneus near insertion of the Achilles tendon consistent with osteomyelitis. The subsequent CT obtained for further evaluation and demonstrates ulceration plantar heel with direct tract to the Calcaneus aligning with erosive change seen on the radiograph. Aslo noted is diffuse osteomyelitis of the Calcaneus with extension into the subtalar joint and possible extension into the Talus. WBC currently 12K, Hgb 6.9; Hct 22.6; Albumin 1.2; Alk phos 145; AST 166; ALT 126. He has improved with IV antibiotics and supportive care for his pneumonia. Today on the floor, he denies any pain in his leg. Still some SOB. He is still vaping (quit smoking but now just nicotine vapes) A1c was 6.5 in December 2023 Of note, has remote Hx of Fornier's gangrene with a wound and with subsequent colostomy/diversion (which has since been reversed). He cannot obtain an MRI (hardware). He has had ABIs this year which demonstrated 0.7 at the left foot. He is with two children (he and is are currently). [facility] Medical History Old myocardial infarct Peripheral vascular occlusive disease Obesity PUD (peptic ulcer disease) Obstructive sleep apnea Nicotine dependence Left bundle branch block (LBBB) Chronic systolic (congestive) heart failure Natalya gangrene Essential (primary) hypertension Hyperlipidemia Type 2 diabetes mellitus Atherosclerosis of coronary artery without angina pectoris Ischemic cardiomyopathy Paroxysmal ventricular tachycardia Home Medications ?Medication ?Instructions ?Recorded ?Last Taken ?Type aspirin 81 mg tablet,delayed 81 mg PO DAILY 11/03/19 Unknown History release (Adult Aspirin Regimen) insulin NPH isoph U-100 human 100 25 unit subcut BID blood sugar 03/14/23 Unknown History unit/mL subcutaneous suspension insulin regular human 100 unit/mL 8 unit subcut TID 03/14/23 Unknown History injection solution atorvastatin 10 mg tablet 10 mg PO QHS #30 tabs 03/17/23 Unknown Rx carvedilol 3.125 mg tablet 3.125 mg PO BID #60 tabs 03/17/23 Unknown Rx lisinopril 2.5 mg tablet 2.5 mg PO DAILY #30 tabs 03/17/23 Unknown Rx ascorbic acid (vitamin C) 500 mg 500 mg PO DAILY 01/13/24 Unknown History tablet,extended release (C Complex) cholecalciferol (vitamin D3) 125 125 mcg PO DAILY 01/13/24 Unknown History mcg (5,000 unit) tablet (Vitamin D3) furosemide 20 mg tablet (Lasix) 20 mg PO DAILY 01/13/24 Unknown History hydralazine 10 mg tablet 10 mg PO TID 01/13/24 Unknown History losartan 25 mg tablet (Cozaar) 25 mg PO DAILY 01/13/24 Unknown History metoprolol tartrate 25 mg tablet 25 mg PO DAILY 01/13/24 Unknown History Allergy/AdvReac Type Severity Reaction Status Date / Time spironolactone AdvReac hyperkalemi Verified 03/19/24 21:21 a Family History Mother Heart disease 50 CVA (cerebral vascular accident) Father Heart disease 60 Diabetes CVA (cerebral vascular accident) Hypertension Sister Heart disease 48 Diabetes Grandfather CVA (cerebral vascular accident) Hypertension Grandmother CVA (cerebral vascular accident) Surgical History Hx of foot surgery History of left heart catheterization (09/25/15) History of right heart catheterization (02/2016) History of nasal septoplasty H/O coronary artery bypass surgery (03/19/16) History of ileostomy History of incision and drainage Biventricular ICD (implantable cardioverter-defibrillator) in place (08/16/16) Social History Smoking Status: Former smoker alcohol intake: never substance use type: does not use caffeine: Yes (monster 1 per day) Type: carbonated beverages Number of servings: 3 Physical Exam Narrative Patient with a diabetic foot ulcer, 3 x 2 cm on the plantar surface of the left posterior foot. There is minimal purulent drainage. No induration. No streaking erythema or crepitus in the foot or leg. The wound probes 6 cm proximally to soft, mushy bone. Const alert and oriented x3 HEENT normocephalic Eyes EOMs intact bilaterally Neck full ROM Resp Auscultation: rhonchi Cardio Rate: regular rate GI GI Narrative: Large ventral hernia (with old stoma scar on right abdomen). Inspection: abdominal distention Extremity Extremity Narrative: I could not palpate any foot pulses. I could palpate a left popliteal pulse (1+) and left femoral (2+) Nos sensation to light touch today on the bilateral foot up to about the mid calf. Lab / Micro Data 03/23/24 04:45 03/23/24 04:45 Labs: Laboratory Results - last 24 hr 03/22/24 09:05: Antibody Screen NEGATIVE, Crossmatch See Detail 03/22/24 11:56: POC Glucose 138 H 03/22/24 13:05: S.aureus Protein A PCR POSITIVE H, MRSA (PCR) Negative 03/22/24 15:20: Hgb 10.4 L, Hct 33.7 L 03/23/24 04:45: WBC 12.8 H, RBC 3.50 L, Hgb 9.9 L, Hct 31.3 L, MCV 89.4, MCH 28.3, MCHC 31.6 L, RDW Std Deviation 51.8 H, RDW Coeff of Fariba 16.3 H, Plt Count 479 H, MPV 10.0, Immature Gran % (Auto) 0.700, Neut % (Auto) 77.2 H, Lymph % (Auto) 14.1 L, [place] % (Auto) 5.8, Eos % (Auto) 1.4, Baso % (Auto) 0.8, Absolute Neuts (auto) 9.9 H, Absolute Lymphs (auto) 1.81, Nucleated RBC % 0.8, Sodium 138, Potassium 4.4, Chloride 113 H, Carbon Dioxide 18.0 L, Anion Gap 7, BUN 20 H, Creatinine 1.12, Estim Creat Clear Calc 91.27, Est GFR (MDRD) Af Amer 91, Est GFR (MDRD) Non-Af 75, BUN/Creatinine Ratio 17.9, Glucose 170 H, Calcium 8.2 L, Total Bilirubin 0.70, AST 103 H, ALT 132 H, Alkaline Phosphatase 202 H, Total Protein 7.1, Albumin 1.6 L, Globulin 5.5 H, Albumin/Globulin Ratio 0.3 L 03/23/24 08:01: POC Glucose 133 H Micro: Microbiology 03/20/24 02:00 Blood Culture (Wb) - Right Hand Blood Culture - Final Staphylococcus aureus 03/22/24 13:05 Wound - Heel, Left Wound Culture - Preliminary Staphylococcus aureus 03/22/24 13:10 Stool Stool Occult Blood (ELINA) - Final 03/19/24 22:55 Blood Culture (Wb) - Left Forearm Bacteria Detection (PCR) - Final Staphylococcus aureus 03/19/24 22:55 Blood Culture (Wb) - Left Forearm Blood Culture - Final Staphylococcus aureus Imaging Radiology Impression Lower Extremity CT 03/22/24 12:59 IMPRESSION: Cortical disruption of the calcaneus is consistent with osteomyelitis. Fragmentation with extension into the subtalar joint question prior fracture versus fragmentation related to infection. Ill-defined lucency in the adjacent talus suggests secondary involvement. MRI may be helpful for further assessment. Electronically Signed: Ayleen Jeff MD at 20:06 EDT , ADDENDUM: 03/22/24 2220 IMPRESSION: undefined Charges/Coding Visit Charges Office Visits / Consults: [id number] IP Consult L5
--- NOTE | 2024-03-23 10:44 | PN.ID_ITS ---
Physical Exam Narrative Feeling ok, no fever, no n/v/d. Foot mild soreness Const alert and no apparent distress General Appearance: cooperative Resp normal air movement and clear to auscultation bilaterally Cardio regular rate and regular rhythm GI soft to palpation, non-tender and non-distended Extremity General Extremity: edema Skin Skin Narrative: L foot wrapped ID ID: Route of nutrition/ use of supplements: [] Nutritional Intake: [] IV Site: [] Peraza Catheter: [] Assessment & Plan Assessment/Plan (1) Sepsis: QUALIFIERS: Sepsis type: sepsis due to unspecified organism Sepsis acute organ dysfunction status: with acute organ dysfunction Severe sepsis acute organ dysfunction type: unspecified Severe sepsis shock status: [facility] septic shock Qualified Code(s): A41.9 - Sepsis, unspecified organism; R65.20 - Severe sepsis without septic shock PLAN: Reviewed [facility] records; admitted 12/03/23 with MSSA endocarditis from L foot osteo. BiV-ICD extracted, but LV lead was capped and retained (not MRI compatitible per EP at [facility]). Now again with MSSA bacteremia per pcr with L foot as suspected source (vs possible pneumonia). Will repeat bcx. Staph aureus seen on heel wound cx. Echo report pending, will need GUERLINE if not done. Seen by podiatry and had L foot CT. DULCE MARIA resolved. Cont vanc/cefazolin/flagyl. Will follow (2) Type 2 diabetes mellitus with diabetic polyneuropathy: QUALIFIERS: Diabetes mellitus group home insulin use: with medical terminologist use Qualified Code(s): E11.42 - Type 2 diabetes mellitus with diabetic polyneuropathy; Z79.4 - terminal operator (current) use of insulin (3) MSSA bacteremia:
[2024-03-23] MEDS: 0.9% Saline Lock 10 ML Syringe IV ×2 (13:18→21:03)
[2024-03-23 13:24] LABS: Bedside Glucose 146 mg/dL (74-106)
[2024-03-23] MEDS: Lactobacillis Acidophilus 1 CAP PO ×3 (14:45→20:54)
[2024-03-23] MEDS: metroNIDAZOLE 500 MG Tablet PO ×2 (14:45→20:54)
[2024-03-23] MEDS: Furosemide 20 MG Tablet PO (14:45)
--- NOTE | 2024-03-23 15:33 | CASEMGMT ---
Social Work Per the admitting language teacher, pt does not have a living will nor health care POA and pt declined further information regarding advance directives at that time. Due to pt's refusal, SW did not revisit this topic with pt at this time. BARBRA Chew
[2024-03-23 15:47] LABS: Vancomycin, Trough Level 25.2 ug/mL (5.0-15.0)
--- NOTE | 2024-03-23 16:08 | PCM.RX.CS ---
Consult Antibiotic Management Pharmacy has been consulted to manage selected antibiotic: Vancomycin Type of Intervention Type of Consult: Follow-up Suspected Infection Suspected Infection: Sepsis Prior Doses of Antibiotics Prior Doses of Antibiotics Received/Current Regimen: 03/20/24/ @ 1630 03/21/24 @ 0350 03/22/24 @ 0430 03/22/24@ 1640 03/23/24 @ 0329 Labs Labs: Sodium 138 mmol/L (136-145) 03/23/24 04:45 Potassium 4.4 mmol/L (3.5-5.1) 03/23/24 04:45 Chloride 113 mmol/L (98-107) H 03/23/24 04:45 Carbon Dioxide 18.0 mmol/L (21.0-32.0) L 03/23/24 04:45 Anion Gap 7 (5-15) 03/23/24 04:45 BUN 20 mg/dL (7-18) H 03/23/24 04:45 Creatinine 1.12 mg/dL (0.70-1.30) 03/23/24 04:45 Est GFR (MDRD) Af Amer 91 mL/min (>60) 03/23/24 04:45 Est GFR (MDRD) Non-Af 75 mL/min (>60) 03/23/24 04:45 BUN/Creatinine Ratio 17.9 RATIO (10-20) 03/23/24 04:45 Glucose 170 mg/dL (74-106) H 03/23/24 04:45 Vancomycin Trough 25.2 ug/mL (5.0-15.0) H 03/23/24 15:00 Microbiology Microbiology: Microbiology 03/22/24 13:05 Wound - Heel, Left Gram Stain - Final 03/22/24 13:05 Wound - Heel, Left Wound Culture - Preliminary Staphylococcus aureus 03/20/24 02:00 Blood Culture (Wb) - Right Hand Blood Culture - Final Staphylococcus aureus 03/22/24 13:10 Stool Stool Occult Blood (ELINA) - Final 03/19/24 22:55 Blood Culture (Wb) - Left Forearm Bacteria Detection (PCR) - Final Staphylococcus aureus 03/19/24 22:55 Blood Culture (Wb) - Left Forearm Blood Culture - Final Staphylococcus aureus 03/19/24 23:00 Urine, Clean Catch Legionella Antigen - Final 03/19/24 23:00 Urine, Clean Catch Streptococcus pneumoniae Antigen (M - Final 03/20/24 00:40 Stool Stool Occult Blood (ELINA) - Final 03/19/24 23:05 Mucosa - Nose SARS-CoV-2, Influenza & RSV (PCR) - Final Dosing Weight Weight used for dosin.7 kg Estimated Creatinine Clearance Estimated Creatinine Clearance: 91 Pharmacy Plan for Drug Dosing Pharmacy Plan for Drug Dosing: Hold Vancomycin next dose. draw a random Vancomycin level @ 0600 on 03/24/24 Pharmacy Service will continue to monitor and adjust dosing as required. Date/Time Labs Ordered Labs to be done on [date and time ordered]: 03/27/24 @ 0600 Random Level
--- NOTE | 2024-03-23 16:14 | PN_ITS ---
Subjective Subjective Patient seen resting in bed this afternoon. States general soreness to the left foot. He states he is remaining nonweightbearing to the left foot. No further complaints. Objective Data Objective Data Vital Signs: Vital Signs Temp Pulse Resp BP Pulse Ox O2 Del Method O2 Flow Rate 98.1 F 91 33 H 116/71 98 Nasal Cannula 2 03/23/24 14:00 03/23/24 14:00 03/23/24 14:00 03/23/24 14:00 03/23/24 14:00 03/23/24 14:00 03/23/24 14:00 FiO2 2 03/20/24 05:25 Oxygen Flow Rate (L/min) 2 Oxygen Delivery Method Nasal Cannula Weight: 89.7 kg Body Mass Index (BMI) 29.2 Intake & Output: Intake and Output for Last 24 Hours 03/21/24 03/22/24 03/23/24 23:59 23:59 23:59 Intake Total 3173.75 / 3173.75 1306 / 1306 495 / 495 Output Total 300 / 300 300 / 300 Balance 2873.75 / 2873.75 1006 / 1006 495 / 495 Lab / Micro Data 03/23/24 04:45 03/23/24 04:45 Labs: Laboratory Results - last 24 hr 03/22/24 15:20: Hgb 10.4 L, Hct 33.7 L 03/23/24 04:45: WBC 12.8 H, RBC 3.50 L, Hgb 9.9 L, Hct 31.3 L, MCV 89.4, MCH 28.3, MCHC 31.6 L, RDW Std Deviation 51.8 H, RDW Coeff of Fariba 16.3 H, Plt Count 479 H, MPV 10.0, Immature Gran % (Auto) 0.700, Neut % (Auto) 77.2 H, Lymph % (Auto) 14.1 L, [place] % (Auto) 5.8, Eos % (Auto) 1.4, Baso % (Auto) 0.8, Absolute Neuts (auto) 9.9 H, Absolute Lymphs (auto) 1.81, Nucleated RBC % 0.8, Sodium 138, Potassium 4.4, Chloride 113 H, Carbon Dioxide 18.0 L, Anion Gap 7, BUN 20 H , Creatinine 1.12, Estim Creat Clear Calc 91.27, Est GFR (MDRD) Af Amer 91, Est GFR (MDRD) Non-Af 75, BUN/Creatinine Ratio 17.9, Glucose 170 H, Calcium 8.2 L, Total Bilirubin 0.70, AST 103 H, ALT 132 H, Alkaline Phosphatase 202 H, Total Protein 7.1, Albumin 1.6 L, Globulin 5.5 H, Albumin/Globulin Ratio 0.3 L 03/23/24 08:01: POC Glucose 133 H 03/23/24 12:56: POC Glucose 146 H 03/23/24 15:00: Vancomycin Trough 25.2 H Micro: Microbiology 03/22/24 13:05 Wound - Heel, Left Gram Stain - Final 03/22/24 13:05 Wound - Heel, Left Wound Culture - Preliminary Staphylococcus aureus 03/20/24 02:00 Blood Culture (Wb) - Right Hand Blood Culture - Final Staphylococcus aureus 03/22/24 13:10 Stool Stool Occult Blood (ELINA) - Final 03/19/24 22:55 Blood Culture (Wb) - Left Forearm Bacteria Detection (PCR) - Final Staphylococcus aureus 03/19/24 22:55 Blood Culture (Wb) - Left Forearm Blood Culture - Final Staphylococcus aureus 03/19/24 23:00 Urine, Clean Catch Legionella Antigen - Final 03/19/24 23:00 Urine, Clean Catch Streptococcus pneumoniae Antigen (M - Final 03/20/24 00:40 Stool Stool Occult Blood (ELINA) - Final 03/19/24 23:05 Mucosa - Nose SARS-CoV-2, Influenza & RSV (PCR) - Final Radiography Diagnostic Testing: Radiology Impression Echocardiogram 03/21/24 16:47 Interpretation Summary The estimated ejection fraction is 15 %. There is evidence of diastolic dysfunction. There is severe global hypokinesis of the left ventricle. The left atrium is moderately enlarged. The right atrium is mildly enlarged. Mild (1+) mitral valve insufficiency. Ordering Physician: Yosef Santillan Performed By: Brodwolf, Vijay, RCS Lower Extremity CT 03/22/24 12:59 IMPRESSION: Cortical disruption of the calcaneus is consistent with osteomyelitis. Fragmentation with extension into the subtalar joint question prior fracture versus fragmentation related to infection. Ill-defined lucency in the adjacent talus suggests secondary involvement. MRI may be helpful for further assessment. Electronically Signed: Ayleen Jeff MD at 20:06 EDT , ADDENDUM: 03/22/240 IMPRESSION: undefined Liver Ultrasound 03/23/24 06:00 IMPRESSION: Normal right upper quadrant ultrasound examination. Electronically Signed: Mazin Arnett MD at 16:00 EDT , Transesophageal Echocardiogram 03/23/24 08:00 Interpretation Summary The estimated ejection fraction is 15 %. Trivial mitral valve insufficiency. No definite vegetations seen Ordering Physician: Sarkis Durham Referring Physician: Moe Odonnell Performed By: Maryan Rojas, RONDACS, RVT Physical Exam Const alert, oriented x3 and no apparent distress General Appearance: cooperative HEENT normocephalic Eyes General Eye: normal appearance of both eyes Neck General: normal visual inspection Lymph Lymphatic: no lymphadenopathy noted and no lymphedema noted Resp Resp Narrative: Breath sounds are diminished bilateral lung Cardio regular rate and regular rhythm Extremity Extremity Narrative: Left lower extremity: Vascular: DP and PT pulses palpable with adequate capillary fill time to digits less than 5 seconds. Dermatologic: There is an ulceration plantar central calcaneus with surrounding tissue maceration with some serosanguineous drainage. Malodor noted to the ulcerative site. No purulent drainage noted. There is exposure of bone of the calcaneus noted and ulceration does probe to bone. No visible abscess or palpable fluctuance noted. There is lower extremity soft tissue swelling about the hindfoot and ankle. Musculoskeletal: Muscle strength is 5/5 and age-appropriate. Neurologic: Protective sensation to the foot is diminished consistent with diabetic peripheral polyneuropathy. Light sensation is also diminished. Gross sensation is intact. Skin no rashes or lesions noted, skin turgor normal and no jaundice Neuro moves all extremities Assessment & Plan Assessment/Plan (1) 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 of bone: (2) MSSA bacteremia: (3) Sepsis: QUALIFIERS: Sepsis acute organ dysfunction status: with acute organ dysfunction Sepsis type: sepsis due to unspecified organism Severe sepsis acute organ dysfunction type: unspecified Severe sepsis shock status: w ithout septic shock Qualified Code(s): A41.9 - Sepsis, unspecified organism; R65.20 - Severe sepsis without septic shock (4) Type 2 diabetes mellitus with diabetic polyneuropathy: QUALIFIERS: Diabetes mellitus predatory animal exterminator insulin use: with predatory animal exterminator use Qualified Code(s): E11.42 - Type 2 diabetes mellitus with diabetic polyneuropathy; Z79.4 - terminal carman (current) use of insulin (5) Type 2 diabetes mellitus with foot ulcer: (6) Nicotine dependence: QUALIFIERS: Nicotine product type: cigarettes Substance use status: in remission Qualified Code(s): F17.211 - Nicotine dependence, cigarettes, in remission PLAN: Plan Patient seen and evaluated h/o Left foot Osteo at [facility] with MSSA bacteremia with endocarditis 12/03/23. Now repeat MSSA bacteremia Left foot: There is an ulceration plantar central calcaneus with surrounding tissue maceration with some serosanguineous drainage. Previous malodor noted to the ulcerative site. No purulent drainage noted. There is exposure of bone of the calcaneus noted and ulceration does probe to bone. No visible abscess or palpable fluctuance noted. There is lower extremity soft tissue swelling about the hindfoot and ankle. WBC currently 12.8, Hbg 9.9; Hct 31.3; Albumin 1.2; Alk phos 145; AST 166; ALT 126. Blood cultures positive for staph aureus Staph aureus protein A PCR positive; MRSA PCR negative Currently on IV Vanco/cefazolin/Flagyl Radiographs obtained of the left foot 03/22/24 demonstrate soft tissue defect plantar heel in the area of concern with erosive changes of the plantar aspect of the calcaneus superior to the ulceration and posterior calcaneus near insertion of the Achilles tendon consistent with osteomyelitis. CT obtained for further evaluation and demonstrates ulceration plantar heel with direct tract to the Calcaneus aligning with erosive change seen on radiograph. Also noted is diffuse osteomyelitis of the Calcaneus with extension into the subtalar joint and extension into the Talus. Foot dressed with Betadine and dry sterile dressing. Change daily. Medicine currently following for medical management, they are greatly appreciated Infectious disease currently following for antibiotic management Vascular surgery seen patient and he has sufficient blood flow for healing of a BKA. Plastic surgery consulted for discussion of BKA with patient as foot is not salvageable. Wound nurse following for assistance in dressing changes. Discussed with patient at bedside the nature of his condition with the exposed bone of the calcaneus and confirmed osteomyelitis seen on radiograph. Discussed that CT was ordered for further evaluation which demonstrates osteomyelitis of the calcaneus with involvement of the subtalar joint and extension into the talus. Discussed with patient in detail the results of his CT scan and discussed with him from podiatric standpoint his foot is nonsalvageable and I am recommending BKA of the left lower extremity. Patient is understanding of the nature of his condition and the severity of his infection. He is understanding that his foot is not salvageable. He understands risks of continued health complications and possible loss of life from infection. He is understanding that he will require BKA of the left lower extremity. Podiatry to sign off. Please do not hesitate to reconsult for any other foot or ankle concerns. Jr. Marycruz ChenP.M. [facility] [phone]
[2024-03-23] MEDS: Albuterol 2.5 MG/3 ML VIAL.NEB. INHALATION (16:33)
[2024-03-23 16:54] LABS: Bedside Glucose 120 mg/dL (74-106)
[2024-03-23 17:17] LABS: Hemoglobin A1c 6.1 % (3.8-5.6)
[2024-03-23] MEDS: Insulin NPH Human 100 UNITS/ML PEN 15 UNITS SC (17:35)
[2024-03-23] MEDS: Insulin Lispro 100 UNIT/ML INSULN.PEN SC (17:35)
[2024-03-23] MEDS: Pantoprazole Sodium 40 MG Tablet PO (20:54)
[2024-03-23] MEDS: Atorvastatin Calcium 10 MG Tablet PO (20:54)
[2024-03-23] MEDS: guaiFENesin 1,200 MG Tablet 1200 MG PO (20:54)
[2024-03-23 21:22] LABS: Bedside Glucose 135 mg/dL (74-106)
[2024-03-24] VITALS (9 sets, daily range): BP systolic 98–115; BP diastolic 68–73; PULSE 78–85; RESP 18–35; TEMP 36.4–36.7; O2SAT 94–100
[2024-03-24] MEDS: 0.9% Saline Lock 10 ML Syringe IV ×2 (05:27→19:43)
[2024-03-24] MEDS: Cefazolin 2 GM in 0.9% Normal Saline (100mL Bag) 100 ML IV ×3 (05:27→22:51)
[2024-03-24] MEDS: metroNIDAZOLE 500 MG Tablet PO ×3 (05:27→22:47)
[2024-03-24 06:16] LABS: Absolute Lymphocyte Count 1.72 X10^3/uL (0.83-4.51); Absolute Neutrophil Count 8.6 X10^3/uL (2.0-7.7); Basophil# 0.09 X10^3/uL; Basophil% 0.8 % (0-1); Eosinophil# 0.22 X10^3/uL; Eosinophils% 1.9 % (0-5); Hematocrit 34.1 % (40-54); Hemoglobin 10.5 g/dL (13.0-16.5); Lymphocyte # 1.72 X10^3/ul (0.83-4.51); Mean Corp Hgb Conc 30.8 g/dL (32-36); Mean Corpuscular Hgb 28.4 pg (27.0-32.0); Mean Corpuscular Volume 92.2 fL (80-94); Mean Platelet Vol. 9.7 fl (6.2-12.0); Monocyte# 0.77 X10^3/uL; Monocyte% 6.7 % (0-10); NRBC Flagged by Analyzer 0.5 % (0-5); Neutrophil # 8.59 X10^3/uL (2.7-7.7); Neutrophil % 75.1 % (47-70); Platelet Count 422 K/mm3 (150-450); RBC Distribution Width CV 16.7 % (11.6-14.6); RBC Distribution Width SD 54.3 fl (35.1-43.9); White Blood Count 11.5 K/mm3 (4.4-11.0)
--- NOTE | 2024-03-24 06:44 | PN.HOSP_ITS ---
Reason for Visit Reason for Visit: Diagnoses Sepsis, unspecified organism (03/20/24) Methicillin susceptible Staphylococcus aureus infection as the cause of diseases classified elsewhere (03/20/24) Type 2 diabetes mellitus with diabetic polyneuropathy (03/20/24) Type 2 diabetes mellitus with foot ulcer (03/20/24) Acidosis, unspecified (03/20/24) Nicotine dependence, unspecified, uncomplicated (03/20/24) Nicotine dependence, cigarettes, in remission (03/20/24) Pneumonia, unspecified organism (03/20/24) Non-pressure chronic ulcer of other part of unspecified foot with unspecified severity (03/20/24) Non-pressure chronic ulcer of other part of left foot with fat layer exposed (03/20/24) 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 of bone (03/20/24) Other abnormalities of breathing (03/20/24) Severe sepsis without septic shock (03/20/24) Bacteremia (03/20/24) longterm (current) use of insulin (03/20/24) Presence of aortocoronary bypass graft (03/20/24) Presence of automatic (implantable) cardiac defibrillator (03/20/24) Subjective Subjective Patient with no acute events overnight per self and per nursing report. He did state some mild dyspnea sensation in the evening the day prior prompting nurses to replace oxygen however currently he has been weaned off and appears more comfortable. Discussed at length again decision for left lower extremity reconstructive versus BKA and agreed with surgery that he would be a poor candidate for any reconstructive concept which is likely to heal poorly thus encouraged patient to consider BKA. Patient notes coughing has subsided and denies any fevers or chills. Patient denies nausea, emesis, abdominal pain, chest pain or dyspnea. Objective Data Objective Data Vital Signs: Vital Signs Temp Pulse Resp BP Pulse Ox O2 Del Method O2 Flow Rate 98.1 F 85 31 H 104/72 98 Room Air 2 03/24/24 05:22 03/24/24 05:22 03/24/24 05:22 03/24/24 05:22 03/24/24 05:51 03/24/24 05:51 03/23/24 23:00 FiO2 2 03/20/24 05:25 Oxygen Flow Rate (L/min) 2 Oxygen Delivery Method Room Air Weight: 197 lb 12.074 oz Body Mass Index (BMI) 29.2 Intake & Output: Intake and Output for Last 24 Hours 03/22/24 03/23/24 03/24/24 23:59 23:59 23:59 Intake Total 1306 / 1306 1025 / 1025 Output Total 300 / 300 500 / 500 350 / 350 Balance 1006 / 1006 525 / 525 -350 / -350 Lab / Micro Data 03/24/24 06:06 03/24/24 06:06 Labs: Laboratory Results - last 24 hr 03/23/24 04:45: Sodium 138, Potassium 4.4, Chloride 113 H, Carbon Dioxide 18.0 L , Anion Gap 7, BUN 20 H, Creatinine 1.12, Estim Creat Clear Calc 91.27, Est GFR (MDRD) Af Amer 91, Est GFR (MDRD) Non-Af 75, BUN/Creatinine Ratio 17.9, Glucose 170 H, Hemoglobin A1c 6.1 H, Calcium 8.2 L, Total Bilirubin 0.70, AST 103 H, ALT 132 H, Alkaline Phosphatase 202 H, Total Protein 7.1, Albumin 1.6 L, Globulin 5.5 H, Albumin/Globulin Ratio 0.3 L 03/23/24 08:01: POC Glucose 133 H 03/23/24 12:56: POC Glucose 146 H 03/23/24 15:00: Vancomycin Trough 25.2 H 03/23/24 16:33: POC Glucose 120 H 03/23/24 20:57: POC Glucose 135 H 03/24/24 06:06: WBC 11.5 H, RBC 3.70 L, Hgb 10.5 L, Hct 34.1 L, MCV 92.2, MCH 28.4, MCHC 30.8 L, RDW Std Deviation 54.3 H, RDW Coeff of Fariba 16.7 H, Plt Count 422, MPV 9.7, Immature Gran % (Auto) 0.500, Neut % (Auto) 75.1 H, Lymph % (Auto) 15.0 L, Ripley % (Auto) 6.7, Eos % (Auto) 1.9, Baso % (Auto) 0.8, Absolute Neuts (auto) 8.6 H, Absolute Lymphs (auto) 1.72, Nucleated RBC % 0.5 Micro: Microbiology 03/22/24 13:05 Wound - Heel, Left Gram Stain - Final 03/22/24 13:05 Wound - Heel, Left Wound Culture - Preliminary Staphylococcus aureus 03/20/24 02:00 Blood Culture (Wb) - Right Hand Blood Culture - Final Staphylococcus aureus 03/22/24 13:10 Stool Stool Occult Blood (ELINA) - Final 03/19/24 22:55 Blood Culture (Wb) - Left Forearm Bacteria Detection (PCR) - Final Staphylococcus aureus 03/19/24 22:55 Blood Culture (Wb) - Left Forearm Blood Culture - Final Staphylococcus aureus 03/19/24 23:00 Urine, Clean Catch Legionella Antigen - Final 03/19/24 23:00 Urine, Clean Catch Streptococcus pneumoniae Antigen (M - Final 03/20/24 00:40 Stool Stool Occult Blood (ELINA) - Final 03/19/24 23:05 Mucosa - Nose SARS-CoV-2, Influenza & RSV (PCR) - Final Radiography Diagnostic Testing: Radiology Impression Echocardiogram 03/21/24 16:47 Interpretation Summary The estimated ejection fraction is 15 %. There is evidence of diastolic dysfunction. There is severe global hypokinesis of the left ventricle. The left atrium is moderately enlarged. The right atrium is mildly enlarged. Mild (1+) mitral valve insufficiency. Ordering Physician: Yosef Santillan Performed By: Vijay Wright RCS Lower Extremity CT 03/22/24 12:59 IMPRESSION: Cortical disruption of the calcaneus is consistent with osteomyelitis. Fragmentation with extension into the subtalar joint question prior fracture versus fragmentation related to infection. Ill-defined lucency in the adjacent talus suggests secondary involvement. MRI may be helpful for further assessment. Electronically Signed: Ayleen Jeff MD at 20:06 EDT , ADDENDUM: 03/22/24 2220 IMPRESSION: undefined ADDENDUM: 03/23/24 1721 IMPRESSION: undefined Foot X-Ray 03/22/24 14:05 IMPRESSION: Findings consistent with hindfoot skin ulceration and adjacent osteomyelitis of the posterior calcaneus. Electronically Signed: Zen Davila MD at 18:22 EDT , Liver Ultrasound 03/23/24 06:00 IMPRESSION: Normal right upper quadrant ultrasound examination. Electronically Signed: Mazin Arnett MD at 16:00 EDT , Transesophageal Echocardiogram 03/23/24 08:00 Interpretation Summary The estimated ejection fraction is 15 %. Trivial mitral valve insufficiency. No definite vegetations seen Ordering Physician: Sarkis Durham Referring Physician: Moe Odonnell Performed By: Maryan Rojas, JOHNSON, RVT Physical Exam Narrative Physical Examination: General: Awake, alert, oriented x 3 and cooperative, laying on his side in PCU bed, less fatigued than day prior, more interactive. Skin: Normal color, normal turgor, no icterus, no cyanosis except occasional stage ecchymoses, significant left heel ulcer with significant region of macerated appearing tissue, undermining with no overt purulent drainage or periwound erythema with imaging consistent with osteomyelitis per initial evaluation and ongoing Wound RN evaluation, currently dressing in place with no drainage, also noted small petechiae on the hands, elbow creases and somewhat on the thigh, not raised or markedly blanching. HEENT: AT/NC, EOMI, PERRLA, MMM. Lungs: Diminished, greater bases, right greater than left, improved since day prior, no current rhonchi, no wheezing or rales, improved effort. Heart: Regular rate and rhythm; no gallop, rub audible. Abdomen: Soft, obese, NTTP, ND, normal BS. Extremities: No cyanosis, no marked clubbing, see skin. Neurological: Patient awake, alert, oriented as no, cognitive function intact; pupils equally reactive to light and accommodation, cranial nerves gross normal, moving all 4 extremities, no focal deficits, strength moderately to severely globally decreased secondary to acute presentation. Psychiatric: Affect appears more interactive, less fatigue, no acute evidence of depressive or anxiety feelings. 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 #1. 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, technically unable to label as acute sepsis (leukocytosis, lactic acidosis, tachypnea, tachycardia, fever with total bilirubin elevated 1.4 but still not consistent with sepsis given no end-organ damage associated with infectious presentation) thus ruled out: Admission 03/19/2024 blood cultures with Staphylococcus aureus with repeat 03/20/2024 blood culture 1 positive, Legionella and streptococcal antigens negative, SARS COVID/influenza/RSV negative, initially maintained on IV vancomycin and Zosyn-->ID transition 03/22/24 to vancomycin/cefazolin as well as oral Flagyl given concurrent #2 as noted, continue PRN albuterol, encourage HOB, IS parameters, TTE without vegetations, follow-up 03/23/24 GUERLINE with EF 15%, trivial MVI, no definitive vegetation seen, left heel wound culture with Staphylococcus aureus, podiatry consulted and following as noted below with transition of intervention care to Plastic Surgery Dr. Rawls for possible BKA. 03/24/24 encouraged consideration of BKA given likelihood of a poor outcome with reconstructive attempts. 03/24/24 awaiting Cardiology consultation for pre- operative assessment. #2. Left foot ulcerated plantar central calcaneus with tissue maceration with acute osteomyelitis: Wound RN consulted, ongoing dressing changes, given appearance with macerated tissue and suspected undermining Podiatry consultation obtained, CT left lower extremity with cortical disruption the calcaneus consistent with os mellitus with fragmentation with extension to the subtalar joint, ill-defined lucency in the adjacent talus suggesting secondary involvement, maintain offloading, currently maintained on IV vancomycin/cefazolin and oral Flagyl per ID direction, given poor reconstructive candidate decision for below the knee amputation with plastic surgery Dr. Rawls consultation per podiatry recommendation as noted w/ recommended BKA, patient still deciding. Once we assure bacteremia is resolved patient will require PICC line placement at ID discretion. #3. Acute normocytic anemia, worsening, appears new chronicity with history of prior PUD of note: Admission hemoglobin 9.3, prior to this hemoglobin 01/13/2024 had been 13.4 which appears his baseline primarily, decreased 03/21/2020 4-8.0 and now 03/22/2024 hemoglobin 6.9, 2 unit PRBC ordered, iron panel obtained with iron 27, TIBC 97, iron saturation 27.8, ferritin 1417 more consistent with AOCD, guaiac obtained 03/20/2024 noted to be negative at that time, place on PPI to be cautious. Repeat guiac requested to be thorough and again negative. Will cautiously continue baby aspirin, metoprolol as BP allows, statin therapy, low- dose lisinopril. If 03/24/24 Hgb remains stable plan to restart DVT prophylaxis. 03/24/24 Hgb 10.5, stable. #4. Hyperbilirubinemia, Transaminitis, acute on chronic: Unclear specific etiology, 03/19/2024 T. bili 1.10, AST/LT 53/61, alk phos 232->03/22/2024 CMP with total bilirubin 1.40, D bilirubin 0.32, AST/LT 166/126, alk phos 145-->03/23/24 T. bili 0.70, AST/LT 103/132, alk phos 202-->03/24/24 T. bili 0.70, AST/ALT 80/77, alk phos 176, liver ultrasound with normal appearing liver and gallbladder, hepatitis panel ordered. #5. Petechial rash, unclear etiology: Patient with onset over the last 48 hours petechial rash to the hands, upper thighs as well as some irritation in the antecubital fossa although suspect this is in part secondary to tight blood pressure assessments in that region, possibly related to medication including antibiotic therapy, nonpainful, nonblanching and lessening in appearance 03/24/2024 compared to prior, continue to monitor but will certainly take any input for antibiotic change from ID per their discretion. #6. Hypokalemia: Admission K+ 2.9, magnesium level requested, supplementation given, 03/24/2024 potassium 4.3, resolved. #7. Hypocalcemia, improved with corrected: Calcium 6.4, previous albumin significantly low however this is from 03/19/2024 and 1.8 at that time, corrected 8.16, will supplement with calcium gluconate, 03/24/2024 calcium 8.4 although again previous corrected was low normal. #8. HFrEF/Ischemic Cardiomyopathy: s/p biventricular AICD [facility], 03/21/2024 echocardiogram pending as noted above, prior ECHO 12/04/23 with LV normal size, LV systolic function severely decreased, EF 25?5%, regional wall motion abnormalities present, grade 1 LV diastolic dysfunction, RV not well-visualized, on limited views right ventricle grossly normal in size and systolic function, no significant valvular abnormalities. As noted planned 2 u PRBC administration, monitor for overload, will administer 20 mg IV x 1. Will cautiously continue baby aspirin, metoprolol, low-dose losartan, Lasix and hydralazine with BP parameters given initial presentation with lower normal BP. Case management consulted for assistance with medication cost. Given operative intervention needs and notably low EF will request cardiology consultation for pre-operative clearance proactively. #9. CAD: Status post CABG x 3, given guaiac stool negative, cautiously continue baby aspirin, metoprolol, low-dose losartan. #10. Diabetes mellitus type II with chronic neuropathy: Hold oral home regimen, continue home insulin regimen as well as ISS scheduled with meals, ADA diet, accu checks w/ ISS. 03/23/2024 hgbA1c 6.1%. Encourage medication compliance. #11. Hypertension: Patient from records has been noncompliant with hypertensive regimen reporting that he does not believe he needs it although he is on some of this regimen secondary to underlying heart failure and CAD, will attempt to resume low-dose metoprolol and low-dose losartan as well as low-dose Lasix but continue to monitor blood pressure with hold parameters as needed. Will hold resumption of oral hydralazine. #12. Hyperlipidemia: We will continue patient on statin therapy. #13. GERD with history of peptic ulcer disease: PPI. #14. Tobacco Abuse: Encouraged cessation, inpatient consultation per RT, NR if desired. #15. JAIDEN: Noncompliant with PAP therapy, using oxygen q HS instead. #16. DVT prophylaxis: Initially placed on Lovenox however with worsened anemia this was temporarily held pending further anemia evaluation however given 03/24/2024 Hgb stable will restart chemoprophylactic lovenox. Charges/Coding Visit Charges Inpatient E&M: 83251 Subs Hosp L2
[2024-03-24 06:49] LABS: ALB/GLOB Ratio 0.3 RATIO (0.9-2.4); AST(SGOT) 80 U/L (15-37); Alanine Aminotransfer ALT/SGPT 77 U/L (16-61); Albumin, Serum 1.5 g/dL (3.2-5.0); Alkaline Phosphatase 176 U/L (45-117); Anion Gap 6 (5-15); BUN 18 mg/dL (7-18); BUN/Creat Ratio 17.5 RATIO (10-20); Calcium,Total 8.4 mg/dL (8.5-10.1); Chloride 113 mmol/L (98-107); Creatinine, Serum 1.03 mg/dL (0.70-1.30); EST Glomerular Filtration Rate 82 mL/min (>60); Est Glom Filt Rate - Afr Amer 100 mL/min (>60); Estimated Creatinine Clearance 99.25 ml/min; Globulin 5.7 g/dL (2.2-4.2); Glucose 104 mg/dL (74-106); Potassium 4.3 mmol/L (3.5-5.1); Protein, Total 7.2 g/dL (6.4-8.2); Sodium Level 137 mmol/L (136-145); Vancomycin, Random Level 15.9 ug/mL (0.0-15.0)
--- NOTE | 2024-03-24 07:30 | PCM.RX.CS ---
Consult Antibiotic Management Pharmacy has been consulted to manage selected antibiotic: Vancomycin Type of Intervention Type of Consult: Follow-up Suspected Infection Suspected Infection: Sepsis and Bacteremia Prior Doses of Antibiotics Prior Doses of Antibiotics Received/Current Regimen: currently no scheduled dose but the most recent dose before it was held due to a high trough was 1250mg IV q12h Labs Labs: Sodium 137 mmol/L (136-145) 03/24/24 06:06 Potassium 4.3 mmol/L (3.5-5.1) 03/24/24 06:06 Chloride 113 mmol/L (98-107) H 03/24/24 06:06 Carbon Dioxide 18.0 mmol/L (21.0-32.0) L 03/24/24 06:06 Anion Gap 6 (5-15) 03/24/24 06:06 BUN 18 mg/dL (7-18) 03/24/24 06:06 Creatinine 1.03 mg/dL (0.70-1.30) 03/24/24 06:06 Est GFR (MDRD) Af Amer 100 mL/min (>60) 03/24/24 06:06 Est GFR (MDRD) Non-Af 82 mL/min (>60) 03/24/24 06:06 BUN/Creatinine Ratio 17.5 RATIO (10-20) 03/24/24 06:06 Glucose 104 mg/dL (74-106) 03/24/24 06:06 Vancomycin Trough 25.2 ug/mL (5.0-15.0) H 03/23/24 15:00 Random Vancomycin 15.9 ug/mL (0.0-15.0) H 03/24/24 06:06 Microbiology Microbiology: Microbiology 03/22/24 13:05 Wound - Heel, Left Gram Stain - Final 03/22/24 13:05 Wound - Heel, Left Wound Culture - Preliminary Staphylococcus aureus 03/20/24 02:00 Blood Culture (Wb) - Right Hand Blood Culture - Final Staphylococcus aureus 03/22/24 13:10 Stool Stool Occult Blood (ELINA) - Final 03/19/24 22:55 Blood Culture (Wb) - Left Forearm Bacteria Detection (PCR) - Final Staphylococcus aureus 03/19/24 22:55 Blood Culture (Wb) - Left Forearm Blood Culture - Final Staphylococcus aureus 03/19/24 23:00 Urine, Clean Catch Legionella Antigen - Final 03/19/24 23:00 Urine, Clean Catch Streptococcus pneumoniae Antigen (M - Final 03/20/24 00:40 Stool Stool Occult Blood (ELINA) - Final 03/19/24 23:05 Mucosa - Nose SARS-CoV-2, Influenza & RSV (PCR) - Final Dosing Weight Weight used for dosin.7 kg Estimated Creatinine Clearance Estimated Creatinine Clearance: 99 ml/min Goal Trough Goal Trough: 15-20 mcg/mL Pharmacy Plan for Drug Dosing Pharmacy Plan for Drug Dosing: The vanc random level drawn at 06:06 today was 15.9. Can resume dosing since it is back below 20. Will resume at a newly calculated dose of 750mg q12h. Check a trough before the 4th dose. Pharmacy Service will continue to monitor and adjust dosing as required. Follow-Up Labs Follow-Up Labs: Trough: Vancomycin Date/Time Labs Ordered Labs to be done on [date and time ordered]: 03/25/24 19:30
[2024-03-24] MEDS: Vancomycin HCl 750 MG in 0.9% Normal Saline (250mL Bag) 250 ML 250 MG IV ×2 (09:02→19:43)
[2024-03-24] MEDS: guaiFENesin 1,200 MG Tablet 1200 MG PO ×2 (09:16→22:47)
[2024-03-24] MEDS: Furosemide 20 MG Tablet PO (09:16)
[2024-03-24] MEDS: Aspirin E.C. 81 MG Tablet PO (09:16)
[2024-03-24] MEDS: Lactobacillis Acidophilus 1 CAP PO ×4 (09:17→22:47)
[2024-03-24] MEDS: Ascorbic Acid 500 MG Tablet PO (09:17)
[2024-03-24] MEDS: Pantoprazole Sodium 40 MG Tablet PO ×2 (09:17→22:47)
[2024-03-24] MEDS: Cholecalciferol (Vit D3) 125 MCG CAPSULE (5,000 UNITS) PO (09:17)
[2024-03-24] MEDS: Insulin Lispro 100 UNIT/ML INSULN.PEN SC ×3 (09:20→17:34)
[2024-03-24] MEDS: Losartan Potassium 25 MG Tablet PO (09:29)
[2024-03-24] MEDS: Metoprolol Tartrate 25 MG Tablet PO (09:29)
--- NOTE | 2024-03-24 10:20 | CASEMGMT ---
JOAQUIM spoke with Anyi at [facility]. Patient was with them December 22 to January 13. Anyi said she verified his Medicare and it did term on 01-31. She was going to ask her billing office to see if they could tell why it was termed. JOAQUIM met with patient. SW explained that his Medicare did end 01-31. Patient said his premiums automatically come out of his Social Security checks. SW provided patient with a paper listing Medicare's number and wrote down fro him to ask why his insurance was canceled and what he needs to do to re-instate it. Patient verbalized understanding. SW will check back and if patient is having difficulties with this SW can assist patient with phone call. Ema Rosario RN [facility]
--- NOTE | 2024-03-24 10:55 | CASEMGMT ---
JOAQUIM spoke with Nurse Practitioner Carmelita Berry who works with Dr Rawls. Per Carmelita Rawls would like to meet with patient and his so both can hear the conversation regarding a below the knee amputation. Carmelita spoke with patient and he said his works until 4p so even if she could be on the phone for conversation that would be fine. JOAQUIM called patient's Zenobia and left her a voice mail requesting a return call. Ema ARORA
[2024-03-24 11:52] LABS: Bedside Glucose 167 mg/dL (74-106)
--- NOTE | 2024-03-24 13:40 | PCM.PN.ID ---
Physical Exam Narrative Feeling better, no fever, no n/v/d, BKA planned Const alert and no apparent distress Resp normal air movement and clear to auscultation bilaterally Cardio regular rate and regular rhythm Heart Sounds: click and murmur GI soft to palpation, non-tender and non-distended Skin Skin Narrative: L foot wrapped ID ID: Route of nutrition/ use of supplements: [] Nutritional Intake: [] IV Site: [] Peraza Catheter: [] Assessment & Plan Assessment/Plan (1) Sepsis: QUALIFIERS: Sepsis type: sepsis due to unspecified organism Sepsis acute organ dysfunction status: with acute organ dysfunction Severe sepsis acute organ dysfunction type: unspecified Severe sepsis shock status: without septic shock Qualified Code(s): A41.9 - Sepsis, unspecified organism; R65.20 - Severe sepsis without septic shock PLAN: Reviewed [facility] records; admitted 12/03/23 with MSSA endocarditis from L foot osteo. BiV-ICD extracted, but LV lead was capped and retained (not MRI compatitible per EP at [facility]). Now again with MSSA bacteremia per pcr with L foot as suspected source (vs possible pneumonia). Pending repeat bcx. MSSA and CoNS seen on heel wound cx. GUERLINE showed no veg. Seen by podiatry and had L foot CT. DULCE MARIA resolved. BKA planned. Cont vanc/cefazolin/flagyl. Will follow (2) Type 2 diabetes mellitus with diabetic polyneuropathy: QUALIFIERS: Diabetes mellitus remote computer terminal operator insulin use: with remote computer terminal operator use Qualified Code(s): E11.42 - Type 2 diabetes mellitus with diabetic polyneuropathy; Z79.4 - remote computer terminal operator (current) use of insulin (3) MSSA bacteremia:
[2024-03-24] MEDS: Insulin NPH Human 100 UNITS/ML PEN 15 UNITS SC ×2 (13:41→17:35)
[2024-03-24] MEDS: Menthol/Lanolin/Calamine/Znox 113 GM Tube 1 APPLIC TOPICAL (13:42)
--- NOTE | 2024-03-24 13:45 | PCM.PN.SRG ---
Subjective Subjective Patient resting in bed, states he has minimal discomfort. Objective Data Objective Data Vital Signs: Vital Signs Temp Pulse Resp BP Pulse Ox O2 Del Method O2 Flow Rate 97.8 F 84 18 111/72 95 Room Air 2 03/24/24 09:08 03/24/24 09:29 03/24/24 09:08 03/24/24 09:29 03/24/24 09:08 03/24/24 11:18 03/23/24 23:00 FiO2 2 03/20/24 05:25 Oxygen Flow Rate (L/min) 2 Oxygen Delivery Method Room Air Weight: 197 lb 12.074 oz Body Mass Index (BMI) 29.2 Intake & Output: Intake and Output for Last 24 Hours 03/22/24 03/23/24 03/24/24 23:59 23:59 23:59 Intake Total 1306 / 1306 1025 / 1025 375 / 375 Output Total 300 / 300 500 / 500 350 / 350 Balance 1006 / 1006 525 / 525 25 / 25 Lab / Micro Data Attestation: I reviewed the patient's lab results. 03/25/24 06:14 03/25/24 06:14 Labs: Laboratory Results - last 24 hr 03/23/24 04:45: Hemoglobin A1c 6.1 H 03/23/24 15:00: Vancomycin Trough 25.2 H 03/23/24 16:33: POC Glucose 120 H 03/23/24 20:57: POC Glucose 135 H 03/24/24 06:06: WBC 11.5 H, RBC 3.70 L, Hgb 10.5 L, Hct 34.1 L, MCV 92.2, MCH 28.4, MCHC 30.8 L, RDW Std Deviation 54.3 H, RDW Coeff of Fariba 16.7 H, Plt Count 422, MPV 9.7, Immature Gran % (Auto) 0.500, Neut % (Auto) 75.1 H, Lymph % (Auto) 15.0 L, [place] % (Auto) 6.7, Eos % (Auto) 1.9, Baso % (Auto) 0.8, Absolute Neuts (auto) 8.6 H, Absolute Lymphs (auto) 1.72, Nucleated RBC % 0.5, Sodium 137, Potassium 4.3, Chloride 113 H, Carbon Dioxide 18.0 L, Anion Gap 6, BUN 18, Creatinine 1.03, Estim Creat Clear Calc 99.25, Est GFR (MDRD) Af Amer 100, Est GFR (MDRD) Non-Af 82, BUN/Creatinine Ratio 17.5, Glucose 104, Calcium 8.4 L, Total Bilirubin 0.70, AST 80 H, ALT 77 H, Alkaline Phosphatase 176 H, Total Protein 7.2, Albumin 1.5 L, Globulin 5.7 H, Albumin/Globulin Ratio 0.3 L, Random Vancomycin 15.9 H 03/24/24 11:33: POC Glucose 167 H Micro: Microbiology 03/22/24 13:05 Wound - Heel, Left Gram Stain - Final 03/22/24 13:05 Wound - Heel, Left Wound Culture - Final Staphylococcus aureus Coag Negative Staph 03/20/24 02:00 Blood Culture (Wb) - Right Hand Blood Culture - Final Staphylococcus aureus 03/22/24 13:10 Stool Stool Occult Blood (ELINA) - Final 03/19/24 22:55 Blood Culture (Wb) - Left Forearm Bacteria Detection (PCR) - Final Staphylococcus aureus 03/19/24 22:55 Blood Culture (Wb) - Left Forearm Blood Culture - Final Staphylococcus aureus 03/19/24 23:00 Urine, Clean Catch Legionella Antigen - Final 03/19/24 23:00 Urine, Clean Catch Streptococcus pneumoniae Antigen (M - Final 03/20/24 00:40 Stool Stool Occult Blood (ELINA) - Final 03/19/24 23:05 Mucosa - Nose SARS-CoV-2, Influenza & RSV (PCR) - Final Radiography Diagnostic Testing: Radiology Impression Echocardiogram 03/21/24 16:47 Interpretation Summary The estimated ejection fraction is 15 %. There is evidence of diastolic dysfunction. There is severe global hypokinesis of the left ventricle. The left atrium is moderately enlarged. The right atrium is mildly enlarged. Mild (1+) mitral valve insufficiency. Ordering Physician: Yosef Santillan Performed By: Brodwolf, Vijay, RCS Lower Extremity CT 03/22/24 12:59 IMPRESSION: Cortical disruption of the calcaneus is consistent with osteomyelitis. Fragmentation with extension into the subtalar joint question prior fracture versus fragmentation related to infection. Ill-defined lucency in the adjacent talus suggests secondary involvement. MRI may be helpful for further assessment. Electronically Signed: Ayleen Jeff MD at 20:06 EDT , ADDENDUM: 03/22/24 2220 IMPRESSION: undefined ADDENDUM: 03/23/24 1721 IMPRESSION: undefined Foot X-Ray 03/22/24 14:05 IMPRESSION: Findings consistent with hindfoot skin ulceration and adjacent osteomyelitis of the posterior calcaneus. Electronically Signed: Zen Davila MD at 18:22 EDT , Liver Ultrasound 03/23/24 06:00 IMPRESSION: Normal right upper quadrant ultrasound examination. Electronically Signed: Mazin Arnett MD at 16:00 EDT , ADDENDUM: 03/24/24 1236 IMPRESSION: Hepatomegaly. Fatty infiltration of the liver. Multiple gallstones with diffuse gallbladder wall thickening. Moderate amount of right pleural effusion. Electronically Signed: Mazin Arnett MD at 12:29 EDT , Transesophageal Echocardiogram 03/23/24 08:00 Interpretation Summary The estimated ejection fraction is 15 %. Trivial mitral valve insufficiency. No definite vegetations seen Ordering Physician: Sarkis Durham Referring Physician: Moe Odonnell Performed By: Maryan Rojas, JOHNSON, RVT Physical Exam Const alert and no apparent distress General Appearance: cooperative Resp Effort and Inspection: able to speak in complete sentences and tachypneic Cardio regular rate Extremity Extremity Narrative: Left plantar foot ulcer less macerated today. Assessment & Plan Assessment/Plan (1) Type 2 diabetes mellitus with foot ulcer: (2) 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 of bone: PLAN: Plan X-ray and CT of left foot consistent with diffuse osteomyelitis of his left calcaneus. Lower Arterial study from 01/28/24 show the left RASHARD by dorsalis pedis is 0.70, Left digital-brachial index is 0.47. Monophasic Doppler waveforms are noted at the ankle level on the left. Vascular states that they suspect he has sufficient perfusion to heal a left BKA, although with his diabetic status, it puts him as risk of delayed healing despite adequate inflow. It has been discussed with patient about a possibility of BKA. He would like to have his involved with this discussion. She works until 4 pm and may need to have the discussion over the phone. I discussed with case management and social work about arranging a meeting for Dr. Rawls to discuss with the patient and his family later today (or tomorrow if not able to be done today) the probability of a BKA tentatively next week. They stated they would arrange a family meeting with Dr. Rawls. ID managing antibiotics of Vancomycin, Cefazolin and Flagyl for positive wound cultures from 03/22/24 of MSSA and Coag Negative Staph. Will continue closely monitor patient.
--- NOTE | 2024-03-24 14:16 | CON.PCM.CA_ITS ---
Assessment & Plan Assessment/Plan (1) Preoperative cardiovascular examination: PLAN: No further cardiac workup required prior to left below-knee amputation. Patient would be considered low to moderate risk for perioperative cardiac complications. Explained this to the patient in detail. (2) LV dysfunction: PLAN: Metoprolol could be switched to metoprolol succinate 25 mg p.o. daily. Continue losartan. Continue aspirin and statin. (3) H/O coronary artery bypass surgery: (4) Atherosclerosis of coronary artery without angina pectoris: QUALIFIERS: Coronary Disease-Associated Artery/Lesion type: torres martinez artery [place] vs. transplanted heart: torres martinez heart Qualified Code(s): I25.10 - Atherosclerotic heart disease of torres martinez coronary artery without angina pectoris HPI Consult Data Date of Consult: 03/24/24 HPI Narrative Reason for Consultation: Preoperative evaluation HPI Narrative: HARRISON GARCIA, is a 48 M with history of ischemic cardiomyopathy with EF this admission of 15%, status post CABG in 2015 (BERNAL to LAD, SVG to RPDA, SVG to ramus), history of medication noncompliance admitted with sepsis, bacteremia with left foot osteomyelitis being suspected source. In December 2023 patient was admitted with bacteremia and had a vegetation on his right atrial lead. His RV, RA leads were removed. His LV lead was epicardial and was capped. Patient is being considered for left BKA and cardiology consult was requested for preoperative evaluation. From a cardiac standpoint patient has remained stable. He has not had ischemic workup after his bypass surgery to his knowledge. Prior to bypass surgery he had chest pain which he has not had since bypass surgery. He states he walks within his trailer and also used to walk about a block and a half to drop his child at the [employer] stop. He denies any chest pain or shortness of breath at that time. [facility] Medical History Old myocardial infarct Peripheral vascular occlusive disease Obesity PUD (peptic ulcer disease) Obstructive sleep apnea Nicotine dependence Left bundle branch block (LBBB) Chronic systolic (congestive) heart failure Natalya gangrene Essential (primary) hypertension Hyperlipidemia Type 2 diabetes mellitus Atherosclerosis of coronary artery without angina pectoris Ischemic cardiomyopathy Paroxysmal ventricular tachycardia Home Medications ?Medication ?Instructions ?Recorded ?Last Taken ?Type aspirin 81 mg tablet,delayed 81 mg PO DAILY 11/03/19 Unknown History release (Adult Aspirin Regimen) insulin NPH isoph U-100 human 100 25 unit subcut BID blood sugar 03/14/23 Unknown History unit/mL subcutaneous suspension insulin regular human 100 unit/mL 8 unit subcut TID 03/14/23 Unknown History injection solution atorvastatin 10 mg tablet 10 mg PO QHS #30 tabs 03/17/23 Unknown Rx carvedilol 3.125 mg tablet 3.125 mg PO BID #60 tabs 03/17/23 Unknown Rx lisinopril 2.5 mg tablet 2.5 mg PO DAILY #30 tabs 03/17/23 Unknown Rx ascorbic acid (vitamin C) 500 mg 500 mg PO DAILY 01/13/24 Unknown History tablet,extended release (C Complex) cholecalciferol (vitamin D3) 125 125 mcg PO DAILY 01/13/24 Unknown History mcg (5,000 unit) tablet (Vitamin D3) furosemide 20 mg tablet (Lasix) 20 mg PO DAILY 01/13/24 Unknown History hydralazine 10 mg tablet 10 mg PO TID 01/13/24 Unknown History losartan 25 mg tablet (Cozaar) 25 mg PO DAILY 01/13/24 Unknown History metoprolol tartrate 25 mg tablet 25 mg PO DAILY 01/13/24 Unknown History Allergy/AdvReac Type Severity Reaction Status Date / Time spironolactone AdvReac hyperkalemi Verified 03/19/24 21:21 a Family History Mother Heart disease 50 CVA (cerebral vascular accident) Father Heart disease 60 Diabetes CVA (cerebral vascular accident) Hypertension Sister Heart disease 48 Diabetes Grandfather CVA (cerebral vascular accident) Hypertension Grandmother CVA (cerebral vascular accident) Surgical History Hx of foot surgery History of left heart catheterization (09/25/15) History of right heart catheterization (02/2016) History of nasal septoplasty H/O coronary artery bypass surgery (03/19/16) History of ileostomy History of incision and drainage Biventricular ICD (implantable cardioverter-defibrillator) in place (08/16/16) Social History Smoking Status: Former smoker alcohol intake: never substance use type: does not use caffeine: Yes (monster 1 per day) Type: carbonated beverages Number of servings: 3 Physical Exam Const alert HEENT normocephalic Eyes no scleral icterus Resp normal respiratory effort and clear to auscultation bilaterally Cardio regular rate Extremity Extremity Narrative: 1+ bilateral pitting edema Psych mental status grossly normal Risk Stratification Risk Stratification Applicable: No Charges/Coding Visit Charges Inpatient E&M: 76085 Init Hosp L2 Objective Data Vital Signs: Vital Signs Temp Pulse Resp BP Pulse Ox O2 Del Method O2 Flow Rate 97.7 F L 78 24 H 98/68 94 Room Air 2 03/24/24 13:46 03/24/24 13:46 03/24/24 13:46 03/24/24 13:46 03/24/24 13:57 03/24/24 13:57 03/23/24 23:00 FiO2 2 03/20/24 05:25 Oxygen Flow Rate (L/min) 2 Oxygen Delivery Method Room Air Weight: 197 lb 12.074 oz Body Mass Index (BMI) 29.2 Intake & Output: Intake and Output for Last 24 Hours 03/22/24 03/23/24 03/24/24 23:59 23:59 23:59 Intake Total 1306 / 1306 1025 / 1025 1225 / 1225 Output Total 300 / 300 500 / 500 1450 / 1450 Balance 1006 / 1006 525 / 525 -225 / -225 Lab / Micro Data 03/24/24 06:06 03/24/24 06:06 Labs: Laboratory Results - last 24 hr 03/23/24 04:45: Hemoglobin A1c 6.1 H 03/23/24 15:00: Vancomycin Trough 25.2 H 03/23/24 16:33: POC Glucose 120 H 03/23/24 20:57: POC Glucose 135 H 03/24/24 06:06: WBC 11.5 H, RBC 3.70 L, Hgb 10.5 L, Hct 34.1 L, MCV 92.2, MCH 28.4, MCHC 30.8 L, RDW Std Deviation 54.3 H, RDW Coeff of Fariba 16.7 H, Plt Count 422, MPV 9.7, Immature Gran % (Auto) 0.500, Neut % (Auto) 75.1 H, Lymph % (Auto) 15.0 L, [place] % (Auto) 6.7, Eos % (Auto) 1.9, Baso % (Auto) 0.8, Absolute Neuts (auto) 8.6 H, Absolute Lymphs (auto) 1.72, Nucleated RBC % 0.5, Sodium 137, Potassium 4.3, Chloride 113 H, Carbon Dioxide 18.0 L, Anion Gap 6, BUN 18, Creatinine 1.03, Estim Creat Clear Calc 99.25, Est GFR (MDRD) Af Amer 100, Est GFR (MDRD) Non-Af 82, BUN/Creatinine Ratio 17.5, Glucose 104, Calcium 8.4 L, Total Bilirubin 0.70, AST 80 H, ALT 77 H, Alkaline Phosphatase 176 H, Total Protein 7.2, Albumin 1.5 L, Globulin 5.7 H, Albumin/Globulin Ratio 0.3 L, Random Vancomycin 15.9 H 03/24/24 11:33: POC Glucose 167 H Micro: Microbiology 03/22/24 13:05 Wound - Heel, Left Gram Stain - Final 03/22/24 13:05 Wound - Heel, Left Wound Culture - Final Staphylococcus aureus Coag Negative Staph Cardiology Labs/Tests 03/23/24 04:45: Hemoglobin A1c 6.1 H 03/24/24 06:06: WBC 11.5 H, RBC 3.70 L, Hgb 10.5 L, Hct 34.1 L, MCV 92.2, MCH 28.4, MCHC 30.8 L, Plt Count 422, MPV 9.7, Immature Gran % (Auto) 0.500, Neut % (Auto) 75.1 H, Lymph % (Auto) 15.0 L, [place] % (Auto) 6.7, Eos % (Auto) 1.9, Baso % (Auto) 0.8, Absolute Neuts (auto) 8.6 H, Nucleated RBC % 0.5, Sodium 137, Potassium 4.3, Chloride 113 H, Carbon Dioxide 18.0 L, Anion Gap 6, BUN 18, Creatinine 1.03, Est GFR (MDRD) Af Amer 100, Est GFR (MDRD) Non-Af 82, BUN/Creatinine Ratio 17.5, Glucose 104, Calcium 8.4 L, Total Bilirubin 0.70 Rhythm: EKG: ECHO: Stress Test: Cardiac Cath: PCI: CT Surgery: Holter monitor: EPS: PPM: CXR: Chest CT Scan: Radiography Diagnostic Testing: Radiology Impression Echocardiogram 03/21/24 16:47 Interpretation Summary The estimated ejection fraction is 15 %. There is evidence of diastolic dysfunction. There is severe global hypokinesis of the left ventricle. The left atrium is moderately enlarged. The right atrium is mildly enlarged. Mild (1+) mitral valve insufficiency. Ordering Physician: Yosef Santillan Performed By: Vijay Wright RCS Lower Extremity CT 03/22/24 12:59 IMPRESSION: Cortical disruption of the calcaneus is consistent with osteomyelitis. Fragmentation with extension into the subtalar joint question prior fracture versus fragmentation related to infection. Ill-defined lucency in the adjacent talus suggests secondary involvement. MRI may be helpful for further assessment. Electronically Signed: Ayleen Jeff MD at 20:06 EDT , ADDENDUM: 03/22/24 2220 IMPRESSION: undefined ADDENDUM: 03/23/24 1721 IMPRESSION: undefined Foot X-Ray 03/22/24 14:05 IMPRESSION: Findings consistent with hindfoot skin ulceration and adjacent osteomyelitis of the posterior calcaneus. Electronically Signed: Zen Davila MD at 18:22 EDT , Liver Ultrasound 03/23/24 06:00 IMPRESSION: Normal right upper quadrant ultrasound examination. Electronically Signed: Mazin Arnett MD at 16:00 EDT , ADDENDUM: 03/24/24 1236 IMPRESSION: Hepatomegaly. Fatty infiltration of the liver. Multiple gallstones with diffuse gallbladder wall thickening. Moderate amount of right pleural effusion. Electronically Signed: Mazin Arnett MD at 12:29 EDT Reading Location ID and State: [facility] / [place] , Service support , Transesophageal Echocardiogram 03/23/24 08:00 Interpretation Summary The estimated ejection fraction is 15 %. Trivial mitral valve insufficiency. No definite vegetations seen Ordering Physician: Sarkis Durham Referring Physician: Moe Odonnell Performed By: Maryan Rojas, JOHNSON, RVT
[2024-03-24 14:17] LABS: Hepatitis B Surface Antibody Non-Reactive; Hepatitis B Surface Antigen Non-Reactive (Nonreactive); Hepatitis C Antibody Non-Reactive (Nonreactive)
--- NOTE | 2024-03-24 14:20 | CASEMGMT ---
SW was able to get through to Social Security. Apparently Social Security has been trying to communicate with patient for a disability review since July of last year. However, patient has not responded. Patient was sent a letter on December 14 that notified him his Social Security will be terminated. In order to do an expedited reinstatement he would have had to make contact with Social Security within 60 days of receiving the letter. The gentleman from [employer] e-mailed two documents that patient will need to complete and send to the local Social Security office. will assist patient with documents and check with patient's to see if she would be willing to get documents and drop them off at Social Security. Ema Rosario [employer] [place]
--- NOTE | 2024-03-24 14:31 | CASEMGMT ---
SW went to patient's room and he said he tried to call Medicare, but it was just busy. SW had patient try again while SW was in patient's room. Patient did get through and was told his Medicare was cancelled because Social Security is saying he is no longer entitled to disability. Patient will have to follow up with Social Security. Patient did not want to call Social Security at that time. SW will place a call to Social Security to see if there is anyway SW can assist patient with re-instating his disability. Ema Rosario [employer] [place]
--- NOTE | 2024-03-24 16:44 | CASEMGMT ---
JOAQUIM called patient's eZnobia. Zenobia stated she and patient are still living together, but their marriage is over. Zenobia said she cannot be patient's caregiver anymore. Zenobia is willing to talk with the doctor regarding his care as he is still the father of his children. Zenobia wants to make it clear she cannot care for patient anymore. JOAQUIM will notify physician. Ema ARORA
[2024-03-24 17:59] LABS: Bedside Glucose 175 mg/dL (74-106)
[2024-03-24] MEDS: Atorvastatin Calcium 10 MG Tablet PO (22:47)
[2024-03-24 23:13] LABS: Bedside Glucose 96 mg/dL (74-106)
[2024-03-25] VITALS (8 sets, daily range): BP systolic 94–125; BP diastolic 55–79; PULSE 75–94; RESP 20–36; TEMP 36.4–36.6; O2SAT 95–100
[2024-03-25 05:07] LABS: Prealbumin 5 mg/dL (12-34)
[2024-03-25] MEDS: 0.9% Saline Lock 10 ML Syringe IV ×2 (05:49→20:36)
[2024-03-25] MEDS: Enoxaparin 40 MG/0.4 ML Syringe SC (05:49)
[2024-03-25] MEDS: Cefazolin 2 GM in 0.9% Normal Saline (100mL Bag) 100 ML IV ×2 (05:49→22:06)
[2024-03-25] MEDS: metroNIDAZOLE 500 MG Tablet PO ×3 (05:49→22:06)
--- NOTE | 2024-03-25 06:25 | PCM.PN.HOSP ---
Reason for Visit Reason for Visit: Diagnoses Sepsis, unspecified organism (03/20/24) Methicillin susceptible Staphylococcus aureus infection as the cause of diseases classified elsewhere (03/20/24) Type 2 diabetes mellitus with diabetic polyneuropathy (03/20/24) Type 2 diabetes mellitus with foot ulcer (03/20/24) Acidosis, unspecified (03/20/24) Nicotine dependence, unspecified, uncomplicated (03/20/24) Nicotine dependence, cigarettes, in remission (03/20/24) Atherosclerotic heart disease of [place] coronary artery without angina pectoris (03/20/24) Heart disease, unspecified (03/20/24) Pneumonia, unspecified organism (03/20/24) Non-pressure chronic ulcer of other part of unspecified foot with unspecified severity (03/20/24) Non-pressure chronic ulcer of other part of left foot with fat layer exposed (03/20/24) 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 of bone (03/20/24) Other abnormalities of breathing (03/20/24) Severe sepsis without septic shock (03/20/24) Bacteremia (03/20/24) Encounter for preprocedural cardiovascular examination (03/20/24) director long term care (current) use of insulin (03/20/24) Presence of aortocoronary bypass graft (03/20/24) Presence of automatic (implantable) cardiac defibrillator (03/20/24) Subjective Subjective Patient with no acute events overnight per self and per nursing report. Patient notes she is breathing with greater ease and no coughing. Patient notes intermittent discomfort to the left lower extremity but this vacillates. No further increase of petechial rash which was discussed day prior with infectious disease in case possibility of medication but felt less likely with ongoing evaluation to which patient is amenable. Discussed again plan of care for upcoming vascular evaluation and definitive left lower extremity BKA to which patient is amenable. Patient denies fevers, chills, nausea, emesis, abdominal pain, chest pain or dyspnea. Objective Data Objective Data Vital Signs: Vital Signs Temp Pulse Resp BP Pulse Ox O2 Del Method O2 Flow Rate 97.8 F 83 24 H 115/73 96 Room Air 2 03/24/24 22:50 03/24/24 22:50 03/24/24 22:50 03/24/24 22:50 03/24/24 22:50 03/25/24 00:15 03/23/24 23:00 FiO2 2 03/20/24 05:25 Oxygen Flow Rate (L/min) 2 Oxygen Delivery Method Room Air Weight: 197 lb 12.074 oz Body Mass Index (BMI) 29.2 Intake & Output: Intake and Output for Last 24 Hours 03/23/24 03/24/24 03/25/24 23:59 23:59 23:59 Intake Total 1025 / 1025 2085 / 2085 Output Total 500 / 500 2575 / 2575 Balance 525 / 525 -490 / -490 Lab / Micro Data 03/25/24 06:14 03/25/24 06:14 Labs: Laboratory Results - last 24 hr 03/23/24 04:45: Prealbumin 5 L 03/24/24 06:06: Sodium 137, Potassium 4.3, Chloride 113 H, Carbon Dioxide 18.0 L, Anion Gap 6, BUN 18, Creatinine 1.03, Estim Creat Clear Calc 99.25, Est GFR (MDRD) Af Amer 100, Est GFR (MDRD) Non-Af 82, BUN/Creatinine Ratio 17.5, Glucose 104, Calcium 8.4 L, Total Bilirubin 0.70, AST 80 H, ALT 77 H, Alkaline Phosphatase 176 H, Total Protein 7.2, Albumin 1.5 L, Globulin 5.7 H, Albumin/Globulin Ratio 0.3 L, Random Vancomycin 15.9 H, Hep Bs Antigen Non-Reactive, Hep Bs Antibody Non-Reactive, Hepatitis C Antibody Non-Reactive 03/24/24 11:33: POC Glucose 167 H 03/24/24 17:33: POC Glucose 175 H 03/24/24 22:50: POC Glucose 96 Micro: Microbiology 03/22/24 13:17 Blood Culture (Wb) - Anticubital Right Blood Culture - Preliminary No growth in 48 hours. 03/22/24 13:05 Wound - Heel, Left Gram Stain - Final 03/22/24 13:05 Wound - Heel, Left Wound Culture - Final Staphylococcus aureus Coag Negative Staph 03/20/24 02:00 Blood Culture (Wb) - Right Hand Blood Culture - Final Staphylococcus aureus 03/22/24 13:10 Stool Stool Occult Blood (ELINA) - Final 03/19/24 22:55 Blood Culture (Wb) - Left Forearm Bacteria Detection (PCR) - Final Staphylococcus aureus 03/19/24 22:55 Blood Culture (Wb) - Left Forearm Blood Culture - Final Staphylococcus aureus 03/19/24 23:00 Urine, Clean Catch Legionella Antigen - Final 03/19/24 23:00 Urine, Clean Catch Streptococcus pneumoniae Antigen (M - Final 03/20/24 00:40 Stool Stool Occult Blood (ELINA) - Final 03/19/24 23:05 Mucosa - Nose SARS-CoV-2, Influenza & RSV (PCR) - Final Radiography Diagnostic Testing: Radiology Impression Liver Ultrasound 03/23/24 06:00 IMPRESSION: Normal right upper quadrant ultrasound examination. Electronically Signed: Mazin Arnett MD at 16:00 EDT , ADDENDUM: 03/24/24 1236 IMPRESSION: Hepatomegaly. Fatty infiltration of the liver. Multiple gallstones with diffuse gallbladder wall thickening. Moderate amount of right pleural effusion. Electronically Signed: Mazin Arnett MD at 12:29 EDT , Physical Exam Narrative Physical Examination: General: Awake, alert, oriented x 3 and cooperative, laying on his side in PCU bed, seated upright in bed, no acute distress. Skin: Normal color, normal turgor, no icterus, no cyanosis except occasional stage ecchymoses, significant left heel ulcer with significant region of macerated appearing tissue, undermining with no overt purulent drainage or periwound erythema with imaging consistent with osteomyelitis per initial evaluation and ongoing Wound RN evaluation, currently dressing in place with no drainage, also noted small petechiae on the hands, elbow creases as well as now on the backs of each arm, small amount on the right upper thigh but this is less with the rest including the torso clear. HEENT: AT/NC, EOMI, PERRLA, MMM. Lungs: Diminished, greater bases, right greater than left, appropriate effort, no current rhonchi, no wheezing or rales, improved effort. Heart: Regular rate and rhythm; no gallop, rub audible. Abdomen: Soft, obese, NTTP, ND, normal BS. Extremities: No cyanosis, no marked clubbing, see skin. Neurological: Patient awake, alert, oriented as no, cognitive function intact; pupils equally reactive to light and accommodation, cranial nerves gross normal, moving all 4 extremities, no focal deficits, strength moderately to severely globally decreased secondary to acute presentation. Psychiatric: Affect appears normal, no acute evidence of depressive or anxiety feelings. Assessment & Plan Assessment/Plan (1) MSSA bacteremia: (2) Pneumonia: QUALIFIERS: Laterality: right Lung location: lower lobe of lung Pneumonia type: due to unspecified organism Qualified Code(s): J18.9 - Pneumonia, unspecified organism (3) Non-pressure chronic ulcer of other part of left foot with fat layer exposed: PLAN: Plan The patient is a 48 y/o M w/ PMHx: HTN, HLD, Tobacco use, Obesity, JAIDEN, Diabetes mellitus type II with chronic neuropathy, Chronic L Diabetic foot wound w/ recent osteomyelitis with associated MSSA bacteremia and endocarditis 12/2023, HFrEF/Ischemic cardiomyopathy s/p biventricular AICD 2017 not compatible with MRI, CAD s/p LA/CABG x 3 2015, Hx Natalya's gangrene, GERD w/ PUD who presents to the [facility] ED on 03/22/24 with nausea, emesis, dyspnea, chills prompting ED evaluation. #1. 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, ws initially labeled as acute sepsis (leukocytosis, lactic acidosis, tachypnea, tachycardia, fever with total bilirubin elevated 1.4 but still not consistent with sepsis given no end-organ damage associated with infectious presentation), thus ruled out: Admission 03/19/2024 blood cultures with Staphylococcus aureus with repeat 03/20/2024 blood culture 1 positive, Legionella and streptococcal antigens negative, SARS COVID/influenza/RSV negative, initially maintained on IV vancomycin and Zosyn-->ID transition 03/22/24 to vancomycin/cefazolin as well as oral Flagyl given concurrent #2 as noted, continue PRN albuterol, encourage HOB, IS parameters, TTE without vegetations, follow-up 03/23/24 GUERLINE with EF 15%, trivial MVI, no definitive vegetation seen, left heel wound culture with Staphylococcus aureus, podiatry consulted and following as noted below with transition of intervention care to Plastic Surgery Dr. Rawls for possible BKA. Most recent repeat 03/22/2024 blood cultures now fortunately negative. 03/25/2024 PICC line placement requested. Definitive intervention as noted #2 as likely source for bacteremia and pneumonia. #2. Left foot ulcerated plantar central calcaneus with tissue maceration with acute osteomyelitis: Wound RN consulted, ongoing dressing changes, given appearance with macerated tissue and suspected undermining Podiatry consultation obtained, CT left lower extremity with cortical disruption the calcaneus consistent with os mellitus with fragmentation with extension to the subtalar joint, ill-defined lucency in the adjacent talus suggesting secondary involvement, maintain offloading, currently maintained on IV vancomycin/cefazolin and oral Flagyl per ID direction, given poor reconstructive candidate decision for below the knee amputation with plastic surgery Dr. Rawls consultation per podiatry recommendation as noted w/ recommended BKA. Discussed case with patient and plastic surgery with plan for upcoming evaluation possibly 03/29/[address] Gordon for lower extremity angiogram with runoff consideration prior to potential left BKA 03/31/2024. Most recent repeat blood culture 03/22/2024 with no growth, reviewed with infectious disease and given this we will place PICC line 03/25/2024. #3. Acute normocytic anemia, worsening, appears new chronicity with history of prior PUD of note: Admission hemoglobin 9.3, prior to this hemoglobin 01/13/2024 had been 13.4 which appears his baseline primarily, decreased 03/21/2020 4-8.0 and now 03/22/2024 hemoglobin 6.9, 2 unit PRBC ordered, iron panel obtained with iron 27, TIBC 97, iron saturation 27.8, ferritin 1417 more consistent with AOCD, guaiac obtained 03/20/2024 noted to be negative at that time, place on PPI to be cautious. Repeat guiac requested to be thorough and again negative. Will cautiously continue baby aspirin, metoprolol as BP allows, statin therapy, low-dose lisinopril. 03/25/2024 hemoglobin 10.1, stable. 03/25/2024 resumed chemoprophylaxis with Lovenox given stable hemoglobin. #4. Hyperbilirubinemia, Transaminitis, acute on chronic: Unclear specific etiology, 03/19/2024 T. bili 1.10, AST/LT 53/61, alk phos 232->03/22/2024 CMP with total bilirubin 1.40, D bilirubin 0.32, AST/LT 166/126, alk phos 145-->03/23/24 T. bili 0.70, AST/LT 103/132, alk phos 202--> 03/25/24 total bilirubin 0.30, AST/LT 43/39, alk phos 1 6, liver ultrasound with normal appearing liver and gallbladder, hepatitis panel ordered. #5. Petechial rash, unclear etiology: Patient with onset over the last 48 hours petechial rash to the hands, upper thighs as well as some irritation in the antecubital fossa although suspect this is in part secondary to tight blood pressure assessments in that region, possibly related to medication including antibiotic therapy, nonpainful, nonblanching and lessening in appearance 03/24/2024 compared to prior. Per review with infectious disease felt not typical of a drug rash with continued stable renal function and platelets, pending ANCA labs. #6. Hypokalemia: Admission K+ 2.9, magnesium level requested, supplementation given, 03/25/24 potassium 3.7. #7. Hypocalcemia, improved with corrected: Calcium 6.4, previous albumin significantly low however this is from 03/19/2024 and 1.8 at that time, corrected 8.16, will supplement with calcium gluconate, 03/25/2024 calcium 7.9, again corrected elevated above this. #8. HFrEF/Ischemic Cardiomyopathy: s/p biventricular AICD [facility], 03/21/2024 echocardiogram pending as noted above, prior ECHO 12/04/23 with LV normal size, LV systolic function severely decreased, EF 25?5%, regional wall motion abnormalities present, grade 1 LV diastolic dysfunction, RV not well-visualized, on limited views right ventricle grossly normal in size and systolic function, no significant valvular abnormalities. As noted planned 2 u PRBC administration, monitor for overload, will administer 20 mg IV x 1. Will cautiously continue baby aspirin, metoprolol, low-dose losartan, Lasix and hydralazine with BP parameters given initial presentation with lower normal BP. Case management consulted for assistance with medication cost. Cardiology evaluation 03/24/2024 with cardiac clearance for progression to OR for vascular intervention potential as well as planned left lower extremity BKA. #9. CAD: Status post CABG x 3, given guaiac stool negative, cautiously continue baby aspirin, metoprolol, low-dose losartan. #10. Diabetes mellitus type II with chronic neuropathy: Hold oral home regimen, continue home insulin regimen as well as ISS scheduled with meals, ADA diet, accu checks w/ ISS. 03/23/2024 hgbA1c 6.1%. Encourage medication compliance. #11. Hypertension: Patient from records has been noncompliant with hypertensive regimen reporting that he does not believe he needs it although he is on some of this regimen secondary to underlying heart failure and CAD, will attempt to resume low-dose metoprolol and low-dose losartan as well as low-dose Lasix but continue to monitor blood pressure with hold parameters as needed. Will hold resumption of oral hydralazine. #12. Hyperlipidemia: We will continue patient on statin therapy. #13. GERD with history of peptic ulcer disease: PPI. #14. Tobacco Abuse: Encouraged cessation, inpatient consultation per RT, NR if desired. #15. JAIDEN: Noncompliant with PAP therapy, using oxygen q HS instead. #16. DVT prophylaxis: Initially placed on Lovenox however with worsened anemia this was temporarily held pending further anemia evaluation however given 03/24/2024 Hgb stable, resumed chemoprophylactic Lovenox 03/25/2024. Charges/Coding Visit Charges Inpatient E&M: 81349 Subs Hosp L3
[2024-03-25 07:11] LABS: Absolute Lymphocyte Count 1.99 X10^3/uL (0.83-4.51); Absolute Neutrophil Count 9.3 X10^3/uL (2.0-7.7); Basophil# 0.09 X10^3/uL; Basophil% 0.7 % (0-1); Eosinophil# 0.34 X10^3/uL; Eosinophils% 2.7 % (0-5); Hematocrit 32.7 % (40-54); Hemoglobin 10.1 g/dL (13.0-16.5); Lymphocyte # 1.99 X10^3/ul (0.83-4.51); Lymphocyte % 15.6 % (19-41); Mean Corp Hgb Conc 30.9 g/dL (32-36); Mean Corpuscular Hgb 28.1 pg (27.0-32.0); Mean Corpuscular Volume 91.1 fL (80-94); Mean Platelet Vol. 10.1 fl (6.2-12.0); Monocyte# 0.92 X10^3/uL; Monocyte% 7.2 % (0-10); NRBC Flagged by Analyzer 0.4 % (0-5); Neutrophil # 9.33 X10^3/uL (2.7-7.7); Platelet Count 429 K/mm3 (150-450); RBC Distribution Width CV 17.2 % (11.6-14.6); RBC Distribution Width SD 53.1 fl (35.1-43.9); Red Blood Count 3.59 M/mm3 (4.6-6.2); White Blood Count 12.8 K/mm3 (4.4-11.0)
[2024-03-25 07:39] LABS: ALB/GLOB Ratio 0.3 RATIO (0.9-2.4); AST(SGOT) 43 U/L (15-37); Alanine Aminotransfer ALT/SGPT 39 U/L (16-61); Albumin, Serum 1.5 g/dL (3.2-5.0); Alkaline Phosphatase 160 U/L (45-117); Anion Gap 6 (5-15); BUN 16 mg/dL (7-18); BUN/Creat Ratio 17.3 RATIO (10-20); Calcium,Total 7.9 mg/dL (8.5-10.1); Chloride 113 mmol/L (98-107); Creatinine, Serum 0.93 mg/dL (0.70-1.30); EST Glomerular Filtration Rate 93 mL/min (>60); Est Glom Filt Rate - Afr Amer 113 mL/min (>60); Estimated Creatinine Clearance 109.92 ml/min; Globulin 5.4 g/dL (2.2-4.2); Glucose 102 mg/dL (74-106); Potassium 3.7 mmol/L (3.5-5.1); Protein, Total 6.9 g/dL (6.4-8.2); Sodium Level 138 mmol/L (136-145)
[2024-03-25] MEDS: Vancomycin HCl 750 MG in 0.9% Normal Saline (250mL Bag) 250 ML 250 MG IV ×2 (08:36→20:34)
[2024-03-25] MEDS: Ascorbic Acid 500 MG Tablet PO (08:42)
[2024-03-25] MEDS: Aspirin E.C. 81 MG Tablet PO (08:42)
[2024-03-25] MEDS: Furosemide 20 MG Tablet PO (08:42)
[2024-03-25] MEDS: Lactobacillis Acidophilus 1 CAP PO ×4 (08:42→22:05)
[2024-03-25] MEDS: Cholecalciferol (Vit D3) 125 MCG CAPSULE (5,000 UNITS) PO (08:42)
[2024-03-25] MEDS: Pantoprazole Sodium 40 MG Tablet PO ×2 (08:42→22:07)
[2024-03-25] MEDS: guaiFENesin 1,200 MG Tablet 1200 MG PO ×2 (08:42→22:06)
[2024-03-25] MEDS: Losartan Potassium 25 MG Tablet PO (08:43)
[2024-03-25] MEDS: Metoprolol Tartrate 25 MG Tablet PO (08:43)
[2024-03-25] MEDS: Insulin Lispro 100 UNIT/ML INSULN.PEN SC ×2 (08:44→17:30)
--- NOTE | 2024-03-25 11:00 | PN.ID_ITS ---
Physical Exam Narrative Feeling ok, no fever, no n/v/d. New rash, denies itching. Const alert and no apparent distress General Appearance: cooperative Resp normal air movement and clear to auscultation bilaterally Cardio regular rate and regular rhythm GI soft to palpation, non-tender and non-distended Skin Skin Narrative: New petechiae mostly over BUE, non tender, nonblanching, nonpruritic ID ID: Route of nutrition/ use of supplements: [] Nutritional Intake: [] IV Site: [] Peraza Catheter: [] Assessment & Plan Assessment/Plan (1) Sepsis: QUALIFIERS: Sepsis type: sepsis due to unspecified organism Sepsis acute organ dysfunction status: with acute organ dysfunction Severe sepsis acute organ dysfunction type: unspecified Severe sepsis shock status: without septic shock Qualified Code(s): A41.9 - Sepsis, unspecified organism; R65.20 - Severe sepsis without septic shock PLAN: Reviewed [facility] records; admitted 12/03/23 with MSSA endocarditis from L foot osteo. BiV-ICD extracted, but LV lead was capped and retained (not MRI compatitible per EP at [facility]). Now again with MSSA bacteremia per pcr with L foot as suspected source (vs possible pneumonia). Repeat bcx remains neg since 03/22. MSSA and CoNS seen on heel wound cx. GUERLINE showed no veg. Seen by podiatry and had L foot CT. DULCE MARIA resolved. BKA planned. Cont vanc/cefazolin/flagyl. New petechial rash on arms. No sign of change in renal function or thrombocytopenia. Not typical drug rash. Will check ANCA and monitor. Will follow (2) Type 2 diabetes mellitus with diabetic polyneuropathy: QUALIFIERS: Diabetes mellitus terminal operator insulin use: with residential use Qualified Code(s): E11.42 - Type 2 diabetes mellitus with diabetic polyneuropathy; Z79.4 - buttermaker helper (current) use of insulin (3) MSSA bacteremia:
--- NOTE | 2024-03-25 12:10 | CPS ---
RT called by nurse stating that the patient was requesting a breathing treatment. Tx taken to room and patient states he did not ask for a tx and he refused it. Tx not given.
[2024-03-25 12:53] LABS: Bedside Glucose 94 mg/dL (74-106)
[2024-03-25] MEDS: Menthol/Lanolin/Calamine/Znox 113 GM Tube 1 APPLIC TOPICAL ×2 (14:50→22:05)
--- NOTE | 2024-03-25 15:10 | CASEMGMT ---
SW assisted patient by completing forms that were emailed to SW from [employer]. SW went over papers with patient and explained the purpose. Patient signed the form. Patient said his will not take the papers to the Social Security office. SW will mail papers to the Social Security office. Lucretia from [employer] said she will re-visit patient since he no longer gets Social Security disability. Ema Rosario [employer]
[2024-03-25 17:15] LABS: Bedside Glucose 171 mg/dL (74-106)
[2024-03-25] MEDS: Insulin NPH Human 100 UNITS/ML PEN 15 UNITS SC (17:30)
--- NOTE | 2024-03-25 17:41 | PN_ITS ---
Progress Note I saw and examined the patient today and talked to him. He reports that he is feeling much better from a respiratory standpoint and able to breathe better. He says overall he feels less sick. He has had some time to think about the below-knee amputation and why we are recommending it (diffuse osteomyelitis throughout the foot into the ankle joint), and he is willing to proceed, but would like me to call his and discussed it with her (reports that she works until 4:30 so I need to call after 4:30). They are unfortunately going through divorce right now and she does not want to come to the hospital, but he would still like her updated. I will give her a call. I talked him about my concern for his vascular status and his ability to heal a BKA, and I wanted vascular to see if they needed to do any interventions to help him heal. He was in agreement with this as well. Physical Exam Narrative Persistent diabetic foot ulcer, 3 x 2 cm on the plantar surface of the left posterior foot. There is minimal serous drainage today. No induration. No streaking erythema or crepitus in the foot or leg. The wound probes 6 cm proximally to soft, mushy bone. Const alert and oriented x3 HEENT normocephalic Eyes EOMs intact bilaterally Neck full ROM Resp Auscultation: rhonchi Cardio Rate: regular rate GI GI Narrative: Large ventral hernia (with old stoma scar on right abdomen). Inspection: abdominal distention Extremity Extremity Narrative: I could not palpate any foot pulses. I had trouble feeling popliteal pulse today. I actually do not think I felt one. No sensation to light touch today on the bilateral foot up to about the mid calf. Assessment & Plan Assessment/Plan (1) Atherosclerosis of lower extremity with ulceration: PLAN: I talked to Dr. Gricelda Ware and Dr. Sarkis Durham today, the milling machine tender and the infectious disease physicians, respectively, who are also following Mr. Andrade. All three of us were in agreement that he is stabilized, and is no longer bacteremic from his wound or from the pneumonia. There is no acute infection at this point of his foot, rather there is a chronic infection with diffuse osteomyelitis throughout the calcaneus extending into the talus. Dr. Ware and Dr. Durham agree that it is safe to wait at this point for an amputation until vascular is involved and performs an angiogram to see if there is any possibility of improving blood flow for healing a BKA incision line. I would like the angiogram since there were abnormal ABIs earlier this summer, and I am concerned about his pulse exam (no palpable popliteal pulse). If he can be optimized from an inflow standpoint before I do the BKA, that would be ideal. I also talked the patient again today about targeted muscle reinnervation/RPNI, which are techniques to prevent neuroma formation and phantom limb pain. He was in agreement with this and would like this done if possible. I talked to vascular surgery about the angiogram, and he is being added to their schedule for Friday, 31 March 2024. I will make my definitive surgical plan shortly after that. If he decompensates or there is concern for ascending infection in the meantime, I could perform a temporizing guillotine amputation (I discussed this with the primary team), but I do not think this wound at the current time will cause him such imminent distress. Visit Charges Inpatient E&M: 96576 Subs Hosp L2
[2024-03-25 20:05] LABS: Vancomycin, Trough Level 16.1 ug/mL (5.0-15.0)
--- NOTE | 2024-03-25 20:17 | PCM.RX.CS ---
Consult Antibiotic Management Pharmacy has been consulted to manage selected antibiotic: Vancomycin Type of Intervention Type of Consult: Follow-up Suspected Infection Suspected Infection: Bacteremia Prior Doses of Antibiotics Prior Doses of Antibiotics Received/Current Regimen: Vancomycin 750 mg Q12H, last dose administered 03/25/24 @ 0836 Labs Labs: Sodium 138 mmol/L (136-145) 03/25/24 06:14 Potassium 3.7 mmol/L (3.5-5.1) 03/25/24 06:14 Chloride 113 mmol/L (98-107) H 03/25/24 06:14 Carbon Dioxide 19.0 mmol/L (21.0-32.0) L 03/25/24 06:14 Anion Gap 6 (5-15) 03/25/24 06:14 BUN 16 mg/dL (7-18) 03/25/24 06:14 Creatinine 0.93 mg/dL (0.70-1.30) 03/25/24 06:14 Est GFR (MDRD) Af Amer 113 mL/min (>60) 03/25/24 06:14 Est GFR (MDRD) Non-Af 93 mL/min (>60) 03/25/24 06:14 BUN/Creatinine Ratio 17.3 RATIO (10-20) 03/25/24 06:14 Glucose 102 mg/dL (74-106) 03/25/24 06:14 Vancomycin Trough 16.1 ug/mL (5.0-15.0) H 03/25/24 19:30 Random Vancomycin 15.9 ug/mL (0.0-15.0) H 03/24/24 06:06 Microbiology Microbiology: Microbiology 03/22/24 13:17 Blood Culture (Wb) - Anticubital Right Blood Culture - Preliminary No growth in 48 hours. 03/22/24 13:05 Wound - Heel, Left Gram Stain - Final 03/22/24 13:05 Wound - Heel, Left Wound Culture - Final Staphylococcus aureus Coag Negative Staph 03/20/24 02:00 Blood Culture (Wb) - Right Hand Blood Culture - Final Staphylococcus aureus 03/22/24 13:10 Stool Stool Occult Blood (ELINA) - Final 03/19/24 22:55 Blood Culture (Wb) - Left Forearm Bacteria Detection (PCR) - Final Staphylococcus aureus 03/19/24 22:55 Blood Culture (Wb) - Left Forearm Blood Culture - Final Staphylococcus aureus 03/19/24 23:00 Urine, Clean Catch Legionella Antigen - Final 03/19/24 23:00 Urine, Clean Catch Streptococcus pneumoniae Antigen (M - Final 03/20/24 00:40 Stool Stool Occult Blood (ELINA) - Final 03/19/24 23:05 Mucosa - Nose SARS-CoV-2, Influenza & RSV (PCR) - Final Dosing Weight Weight used for dosin kg Estimated Creatinine Clearance Estimated Creatinine Clearance: ~110 Goal Trough Goal Trough: 15-20 mcg/mL Pharmacy Plan for Drug Dosing Pharmacy Plan for Drug Dosing: Vancomycin trough = 16.1, continue vancomycin 750 mg Q12H, trough in 2 days. Pharmacy Service will continue to monitor and adjust dosing as required. Follow-Up Labs Follow-Up Labs: Trough: Vancomycin Date/Time Labs Ordered Labs to be done on [date and time ordered]: 03/27/24 @ 1930
[2024-03-25] MEDS: Vancomycin Trough/Random Due 1 LAB MC (20:37)
[2024-03-25] MEDS: Atorvastatin Calcium 10 MG Tablet PO (22:07)
[2024-03-26] VITALS (8 sets, daily range): BP systolic 97–127; BP diastolic 69–87; PULSE 80–91; RESP 18–28; TEMP 36.2–36.8; O2SAT 94–99
[2024-03-26] MEDS: Cefazolin 2 GM in 0.9% Normal Saline (100mL Bag) 100 ML IV ×3 (06:02→20:46)
[2024-03-26] MEDS: metroNIDAZOLE 500 MG Tablet PO ×3 (06:05→20:47)
[2024-03-26] MEDS: Enoxaparin 40 MG/0.4 ML Syringe SC (06:07)
--- NOTE | 2024-03-26 06:20 | PCM.PN.HOSP ---
Reason for Visit Reason for Visit: Diagnoses Sepsis, unspecified organism (03/20/24) Methicillin susceptible Staphylococcus aureus infection as the cause of diseases classified elsewhere (03/20/24) Type 2 diabetes mellitus with diabetic polyneuropathy (03/20/24) Type 2 diabetes mellitus with foot ulcer (03/20/24) Acidosis, unspecified (03/20/24) Nicotine dependence, unspecified, uncomplicated (03/20/24) Nicotine dependence, cigarettes, in remission (03/20/24) Atherosclerotic heart disease of [place] coronary artery without angina pectoris (03/20/24) Heart disease, unspecified (03/20/24) Atherosclerosis of [place] arteries of other extremities with ulceration (03/20/24) Pneumonia, unspecified organism (03/20/24) Non-pressure chronic ulcer of other part of unspecified foot with unspecified severity (03/20/24) Non-pressure chronic ulcer of other part of left foot with fat layer exposed (03/20/24) 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 of bone (03/20/24) Other abnormalities of breathing (03/20/24) Severe sepsis without septic shock (03/20/24) Bacteremia (03/20/24) Encounter for preprocedural cardiovascular examination (03/20/24) intermediate project manager (current) use of insulin (03/20/24) Presence of aortocoronary bypass graft (03/20/24) Presence of automatic (implantable) cardiac defibrillator (03/20/24) Subjective Subjective Patient overnight per his report no acute events however per discussion with nursing overnight staff they noted runs intermittently of very short bursts of ventricular tachycardia while patient was sleeping completely asymptomatic. Patient denies any marked pain to the extremities and following lengthy discussion agrees that upper extremity petechial rash does appear improved. Patient understands ongoing plan is for operative intervention with vascular surgery and plastic surgery this upcoming week to which she remains amenable. Patient denies fevers, chills, nausea, emesis, abdominal pain, chest pain or dyspnea. Objective Data Objective Data Vital Signs: Vital Signs Temp Pulse Resp BP Pulse Ox O2 Del Method O2 Flow Rate 98.2 F 88 24 H 105/69 97 Room Air 8 03/26/24 04:00 03/26/24 04:00 03/26/24 04:00 03/26/24 04:00 03/26/24 04:00 03/26/24 04:00 03/25/24 05:05 FiO2 2 03/20/24 05:25 Oxygen Flow Rate (L/min) 8 Oxygen Delivery Method Room Air Weight: 197 lb 12.074 oz Body Mass Index (BMI) 29.2 Intake & Output: Intake and Output for Last 24 Hours 03/24/24 03/25/24 03/26/24 23:59 23:59 23:59 Intake Total 2085 / 2085 1760 / 1880 120 / 120 Output Total 2575 / 2575 1500 / 1500 0 / 0 Balance -490 / -490 260 / 380 120 / 120 Lab / Micro Data 03/26/24 06:39 03/26/24 06:39 Labs: Laboratory Results - last 24 hr 03/25/24 06:14: WBC 12.8 H, RBC 3.59 L, Hgb 10.1 L, Hct 32.7 L, MCV 91.1, MCH 28.1, MCHC 30.9 L, RDW Std Deviation 53.1 H, RDW Coeff of Fariba 17.2 H, Plt Count 429, MPV 10.1, Immature Gran % (Auto) 0.800, Neut % (Auto) 73.0 H, Lymph % (Auto) 15.6 L, [place] % (Auto) 7.2, Eos % (Auto) 2.7, Baso % (Auto) 0.7, Absolute Neuts (auto) 9.3 H, Absolute Lymphs (auto) 1.99, Nucleated RBC % 0.4, Sodium 138, Potassium 3.7, Chloride 113 H, Carbon Dioxide 19.0 L, Anion Gap 6, BUN 16, Creatinine 0.93, Estim Creat Clear Calc 109.92, Est GFR (MDRD) Af Amer 113, Est GFR (MDRD) Non-Af 93, BUN/Creatinine Ratio 17.3, Glucose 102, Calcium 7.9 L, Total Bilirubin 0.30, AST 43 H, ALT 39, Alkaline Phosphatase 160 H, Total Protein 6.9, Albumin 1.5 L, Globulin 5.4 H, Albumin/Globulin Ratio 0.3 L 03/25/24 12:36: POC Glucose 94 03/25/24 16:57: POC Glucose 171 H 03/25/24 19:30: Vancomycin Trough 16.1 H Micro: Microbiology 03/22/24 13:17 Blood Culture (Wb) - Anticubital Right Blood Culture - Preliminary No growth in 48 hours. 03/22/24 13:05 Wound - Heel, Left Gram Stain - Final 03/22/24 13:05 Wound - Heel, Left Wound Culture - Final Staphylococcus aureus Coag Negative Staph 03/20/24 02:00 Blood Culture (Wb) - Right Hand Blood Culture - Final Staphylococcus aureus 03/22/24 13:10 Stool Stool Occult Blood (ELINA) - Final 03/19/24 22:55 Blood Culture (Wb) - Left Forearm Bacteria Detection (PCR) - Final Staphylococcus aureus 03/19/24 22:55 Blood Culture (Wb) - Left Forearm Blood Culture - Final Staphylococcus aureus 03/19/24 23:00 Urine, Clean Catch Legionella Antigen - Final 03/19/24 23:00 Urine, Clean Catch Streptococcus pneumoniae Antigen (M - Final 03/20/24 00:40 Stool Stool Occult Blood (ELINA) - Final 03/19/24 23:05 Mucosa - Nose SARS-CoV-2, Influenza & RSV (PCR) - Final Physical Exam Narrative Physical Examination: General: Awake, alert, oriented x 3 and cooperative, laying in the PCU bed, no complaints, denies any current pain. Skin: Normal color, normal turgor, no icterus, no cyanosis except occasional stage ecchymoses, significant left heel ulcer with significant region of macerated appearing tissue, undermining with no overt purulent drainage or periwound erythema with imaging consistent with osteomyelitis per initial evaluation and ongoing Wound RN evaluation, currently dressing in place with no drainage, petechia to the hands and the posterior aspects of each arm improved, some desquamation but less bright in appearance, torso remains clear. HEENT: AT/NC, EOMI, PERRLA, MMM. Lungs: Diminished, greater bases, right greater than left, appropriate effort, no current rhonchi, no wheezing or rales, improved effort. Heart: Regular rate and rhythm; no gallop, rub audible. Abdomen: Soft, obese, NTTP, ND, normal BS. Extremities: No cyanosis, no marked clubbing, see skin. Neurological: Patient awake, alert, oriented as no, cognitive function intact; pupils equally reactive to light and accommodation, cranial nerves gross normal, moving all 4 extremities, no focal deficits, strength moderately to severely globally decreased secondary to acute presentation. Psychiatric: Affect appears fatigued otherwise normal, no acute evidence of depressive or anxiety feelings. Assessment & Plan Assessment/Plan (1) MSSA bacteremia: (2) Pneumonia: QUALIFIERS: Laterality: right Lung location: lower lobe of lung Pneumonia type: due to unspecified organism Qualified Code(s): J18.9 - Pneumonia, unspecified organism (3) Non-pressure chronic ulcer of other part of left foot with fat layer exposed: PLAN: Plan The patient is a 48 y/o M w/ PMHx: HTN, HLD, Tobacco use, Obesity, JAIDEN, Diabetes mellitus type II with chronic neuropathy, Chronic L Diabetic foot wound w/ recent osteomyelitis with associated MSSA bacteremia and endocarditis 12/2023, HFrEF/Ischemic cardiomyopathy s/p biventricular AICD 2016 not compatible with MRI, CAD s/p MO/CABG x 3 2015, Hx Natalya's gangrene, GERD w/ PUD who presents to the [facility] ED on 03/22/24 with nausea, emesis, dyspnea, chills prompting ED evaluation. #1. 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, ws initially labeled as acute sepsis (leukocytosis, lactic acidosis, tachypnea, tachycardia, fever with total bilirubin elevated 1.4 but still not consistent with sepsis given no end-organ damage associated with infectious presentation), thus ruled out: Admission 03/19/2024 blood cultures with Staphylococcus aureus with repeat 03/20/2024 blood culture 1 positive, Legionella and streptococcal antigens negative, SARS COVID/influenza/RSV negative, initially maintained on IV vancomycin and Zosyn-->ID transition 03/22/24 to vancomycin/cefazolin as well as oral Flagyl given concurrent #2 as noted, continue PRN albuterol, encourage HOB, IS parameters, TTE without vegetations, follow-up 03/23/24 GUERLINE with EF 15%, trivial MVI, no definitive vegetation seen, left heel wound culture with Staphylococcus aureus, podiatry consulted and following as noted below with transition of intervention care to Plastic Surgery Dr. Rawls for possible BKA. Most recent repeat 03/22/2024 blood cultures negative. 03/25/2024 PICC line successful. Definitive intervention as noted #2 as likely source for bacteremia and pneumonia. #2. Left foot ulcerated plantar central calcaneus with tissue maceration with acute osteomyelitis: Wound RN consulted, ongoing dressing changes, given appearance with macerated tissue and suspected undermining Podiatry consultation obtained, CT left lower extremity with cortical disruption the calcaneus consistent with os mellitus with fragmentation with extension to the subtalar joint, ill-defined lucency in the adjacent talus suggesting secondary involvement, maintain offloading, currently maintained on IV vancomycin/cefazolin and oral Flagyl per ID direction, given poor reconstructive candidate decision for below the knee amputation with plastic surgery Dr. Rawls consultation per podiatry recommendation as noted w/ recommended BKA. Discussed case with patient and plastic surgery with plan for upcoming evaluation possibly 03/29/[address] Gordon for lower extremity angiogram with runoff consideration prior to potential left BKA 03/31/2024. Most recent repeat blood culture 03/22/2024 with no growth, reviewed with infectious disease. 03/25/24 PICC line successful. #3. Acute normocytic anemia, worsening, appears new chronicity with history of prior PUD of note: Admission hemoglobin 9.3, prior to this hemoglobin 01/13/2024 had been 13.4 which appears his baseline primarily, decreased 03/21/2020 4-8.0 and now 03/22/2024 hemoglobin 6.9, 2 unit PRBC ordered, iron panel obtained with iron 27, TIBC 97, iron saturation 27.8, ferritin 1417 more consistent with AOCD, guaiac obtained 03/20/2024 noted to be negative at that time, place on PPI to be cautious. Repeat guiac requested to be thorough and again negative. Will cautiously continue baby aspirin, metoprolol as BP allows, statin therapy, low-dose lisinopril. 03/26/2024 hemoglobin 10.0, stable. 03/25/2024 resumed chemoprophylaxis with Lovenox given stable hemoglobin. #4. Hyperbilirubinemia, Transaminitis, acute on chronic: Unclear specific etiology, 03/19/2024 T. bili 1.10, AST/LT 53/61, alk phos 232->03/22/2024 CMP with total bilirubin 1.40, D bilirubin 0.32, AST/LT 166/126, alk phos 145-->03/23/24 T. bili 0.70, AST/LT 103/132, alk phos 202--> 03/25/24 total bilirubin 0.30, AST/LT 43/39, alk phos 1 6, liver ultrasound with normal appearing liver and gallbladder, hepatitis panel ordered. #5. Petechial rash, unclear etiology: Patient with onset over the last 48 hours petechial rash to the hands, upper thighs as well as some irritation in the antecubital fossa although suspect this is in part secondary to tight blood pressure assessments in that region, possibly related to medication including antibiotic therapy, nonpainful, nonblanching and lessening in appearance 03/24/2024 compared to prior. Per review with infectious disease felt not typical of a drug rash with continued stable renal function and platelets, pending ANCA labs. 03/26/2024 improved appearance of upper extremities. #6. PSVT: 03/25/2024 overnight patient with episodes of short bursts of VT , BP on the lower normal side thus unable to initiate any increase in metoprolol regimen at this time but once improves will consider, magnesium 2.1, potassium 3.9, continue to monitor. Cardiology has been consulted therefore if any concerns arise will reinvolve them. #7. Hypokalemia: Admission K+ 2.9, magnesium level requested, supplementation given, 03/26/2024 potassium 3.9. #8. Hypocalcemia, improved with corrected: Calcium 6.4, previous albumin significantly low however this is from 03/19/2024 and 1.8 at that time, corrected 8.16, will supplement with calcium gluconate, 03/26/2024 calcium 8.1, again corrected elevated above this. #9. HFrEF/Ischemic Cardiomyopathy: s/p biventricular AICD [facility], 03/21/2024 echocardiogram pending as noted above, prior ECHO 12/04/23 with LV normal size, LV systolic function severely decreased, EF 25?5%, regional wall motion abnormalities present, grade 1 LV diastolic dysfunction, RV not well-visualized, on limited views right ventricle grossly normal in size and systolic function, no significant valvular abnormalities. As noted planned 2 u PRBC administration, monitor for overload, will administer 20 mg IV x 1. Will cautiously continue baby aspirin, metoprolol, low-dose losartan, Lasix and hydralazine with BP parameters given initial presentation with lower normal BP. Case management consulted for assistance with medication cost. Cardiology evaluation 03/24/2024 with cardiac clearance for progression to OR for vascular intervention potential as well as planned left lower extremity BKA. #10. CAD: Status post CABG x 3, given guaiac stool negative, cautiously continue baby aspirin, metoprolol, low-dose losartan. #11. Diabetes mellitus type II with chronic neuropathy: Hold oral home regimen, continue home insulin regimen as well as ISS scheduled with meals, ADA diet, accu checks w/ ISS. 03/23/2024 hgbA1c 6.1%. Encourage medication compliance. #12. Hypertension: Patient from records has been noncompliant with hypertensive regimen reporting that he does not believe he needs it although he is on some of this regimen secondary to underlying heart failure and CAD, will continue low-dose metoprolol and losartan as well as low-dose Lasix as BP allows but has been on the low end. Holding oral home hydralazine regimen. #13. Hyperlipidemia: We will continue patient on statin therapy. #14. GERD with history of peptic ulcer disease: PPI. #15. Tobacco Abuse: Encouraged cessation, inpatient consultation per RT, NR if desired. #16. JAIDEN: Noncompliant with PAP therapy, using oxygen q HS instead. #17. DVT prophylaxis: Lovenox. Initially held secondary to concern for anemia, hemoglobin stable as noted. Charges/Coding Visit Charges Inpatient E&M: 64687 Init Hosp L2
[2024-03-26 07:22] LABS: Absolute Lymphocyte Count 1.77 X10^3/uL (0.83-4.51); Absolute Neutrophil Count 7.7 X10^3/uL (2.0-7.7); Basophil# 0.13 X10^3/uL; Basophil% 1.2 % (0-1); Eosinophil# 0.22 X10^3/uL; Eosinophils% 2.1 % (0-5); Hematocrit 34.2 % (40-54); Lymphocyte # 1.77 X10^3/ul (0.83-4.51); Lymphocyte % 16.6 % (19-41); Mean Corp Hgb Conc 29.2 g/dL (32-36); Mean Corpuscular Hgb 29.2 pg (27.0-32.0); Mean Corpuscular Volume 99.7 fL (80-94); Mean Platelet Vol. 10.3 fl (6.2-12.0); Monocyte# 0.71 X10^3/uL; Monocyte% 6.7 % (0-10); NRBC Flagged by Analyzer 0 % (0-5); Neutrophil # 7.73 X10^3/uL (2.7-7.7); Neutrophil % 72.4 % (47-70); Platelet Count 334 K/mm3 (150-450); RBC Distribution Width CV 18.2 % (11.6-14.6); RBC Distribution Width SD 60.6 fl (35.1-43.9); Red Blood Count 3.43 M/mm3 (4.6-6.2); White Blood Count 10.7 K/mm3 (4.4-11.0)
--- NOTE | 2024-03-26 07:34 | PN.SURG_ITS ---
Subjective Subjective Patient was seen resting in bed this morning. He reports he feels okay. He is not having much discomfort in his foot. When asked about how he feels about potential BKA he states he understands it needs to be done. He denies having any further questions about that this morning. We discussed further vascular evaluation to confirm optimized inflow to reduce risk for delayed healing as much as possible, he acknowledges understanding of this and is willing to proceed. Any questions/concerns were addressed to his satisfaction. Objective Data Objective Data Vital Signs: Vital Signs Temp Pulse Resp BP Pulse Ox O2 Del Method O2 Flow Rate 98.2 F 82 24 H 97/72 96 Room Air 8 03/26/24 05:30 03/26/24 05:30 03/26/24 05:30 03/26/24 05:30 03/26/24 05:30 03/26/24 05:30 03/25/24 05:05 FiO2 2 03/20/24 05:25 Oxygen Flow Rate (L/min) 8 Oxygen Delivery Method Room Air Weight: 197 lb 12.074 oz Body Mass Index (BMI) 29.2 Intake & Output: Intake and Output for Last 24 Hours 03/24/24 03/25/24 03/26/24 23:59 23:59 23:59 Intake Total 2085 / 2085 1760 / 1880 290 / 290 Output Total 2575 / 2575 1500 / 1500 500 / 500 Balance -490 / -490 260 / 380 -210 / -210 Lab / Micro Data 03/25/24 06:14 03/25/24 06:14 Labs: Laboratory Results - last 24 hr 03/25/24 06:14: Sodium 138, Potassium 3.7, Chloride 113 H, Carbon Dioxide 19.0 L , Anion Gap 6, BUN 16, Creatinine 0.93, Estim Creat Clear Calc 109.92, Est GFR (MDRD) Af Amer 113, Est GFR (MDRD) Non-Af 93, BUN/Creatinine Ratio 17.3, Glucose 102, Calcium 7.9 L, Total Bilirubin 0.30, AST 43 H, ALT 39, Alkaline Phosphatase 160 H, Total Protein 6.9, Albumin 1.5 L, Globulin 5.4 H, Albumin/Globulin Ratio 0.3 L 03/25/24 12:36: POC Glucose 94 03/25/24 16:57: POC Glucose 171 H 03/25/24 19:30: Vancomycin Trough 16.1 H Micro: Microbiology 03/22/24 13:17 Blood Culture (Wb) - Anticubital Right Blood Culture - Preliminary No growth in 48 hours. 03/22/24 13:05 Wound - Heel, Left Gram Stain - Final 03/22/24 13:05 Wound - Heel, Left Wound Culture - Final Staphylococcus aureus Coag Negative Staph 03/20/24 02:00 Blood Culture (Wb) - Right Hand Blood Culture - Final Staphylococcus aureus 03/22/24 13:10 Stool Stool Occult Blood (ELINA) - Final 03/19/24 22:55 Blood Culture (Wb) - Left Forearm Bacteria Detection (PCR) - Final Staphylococcus aureus 03/19/24 22:55 Blood Culture (Wb) - Left Forearm Blood Culture - Final Staphylococcus aureus 03/19/24 23:00 Urine, Clean Catch Legionella Antigen - Final 03/19/24 23:00 Urine, Clean Catch Streptococcus pneumoniae Antigen (M - Final 03/20/24 00:40 Stool Stool Occult Blood (ELINA) - Final 03/19/24 23:05 Mucosa - Nose SARS-CoV-2, Influenza & RSV (PCR) - Final Physical Exam Const alert and oriented x3 General Appearance: cooperative HEENT head/scalp atraumatic, hearing grossly normal bilaterally, external ears normal and external nose normal Eyes General Eye: normal appearance of both eyes Neck General: normal visual inspection and trachea midline Resp normal respiratory effort, no retractions and no use of accessory muscles Effort and Inspection: able to speak in complete sentences Cardio regular rate and regular rhythm Peripheral Pulses: femoral pulses present Extremity Extremity Narrative: L foot with dressings C/D/I. L popliteal with multiphasic doppler signal. Skin Wounds: wounds noted Wound Narrative: L heel wound, dressings not disturbed, pictures in chart reviewed Neuro oriented x3, CN's II-XII intact bilaterally, moves all extremities and no focal motor deficits Speech: speech normal Psych mental status grossly normal Appearance: grossly normal Attitude: calm Speech: normal speech Mood & Affect: euthymic mood Assessment & Plan Assessment/Plan (1) 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 of bone: (2) Type 2 diabetes mellitus with foot ulcer: (3) Atherosclerosis of lower extremity with ulceration: PLAN: Plan Patient was discussed with plastic surgery. Given his significant vascular risk factors, will proceed with angiogram to further assess inflow and intervene as indicated to optimize prior to planned BKA. I discussed angiogram procedure details including risks, benefits, and recovery with the patient. He is agreeable to proceed. Plan is for angiogram in the director of cath lab on 03/31 tentatively around 1400. Okay to continue ASA 81mg daily. I also discussed with patient again that his diabetes and smoking can complicate healing; he is encouraged towards smoking cessation and good glycemic control will be important as well. Charges/Coding Visit Charges Inpatient E&M: 07484 Subs Hosp L2
[2024-03-26 08:21] LABS: ALB/GLOB Ratio 0.3 RATIO (0.9-2.4); AST(SGOT) 26 U/L (15-37); Alanine Aminotransfer ALT/SGPT 24 U/L (16-61); Albumin, Serum 1.5 g/dL (3.2-5.0); Alkaline Phosphatase 154 U/L (45-117); Anion Gap 7 (5-15); BUN 17 mg/dL (7-18); BUN/Creat Ratio 17.1 RATIO (10-20); Calcium,Total 8.1 mg/dL (8.5-10.1); Chloride 113 mmol/L (98-107); Creatinine, Serum 0.99 mg/dL (0.70-1.30); EST Glomerular Filtration Rate 86 mL/min (>60); Est Glom Filt Rate - Afr Amer 104 mL/min (>60); Estimated Creatinine Clearance 103.26 ml/min; Globulin 5.2 g/dL (2.2-4.2); Glucose 163 mg/dL (74-106); Potassium 3.9 mmol/L (3.5-5.1); Protein, Total 6.7 g/dL (6.4-8.2); Sodium Level 138 mmol/L (136-145)
[2024-03-26 08:35] LABS: Magnesium 2.1 mg/dL (1.6-2.6)
[2024-03-26 09:10] LABS: Phosphorus 2.7 mg/dL (2.5-4.9)
[2024-03-26] MEDS: Vancomycin HCl 750 MG in 0.9% Normal Saline (250mL Bag) 250 ML 250 MG IV ×2 (09:57→19:32)
[2024-03-26] MEDS: Insulin Lispro 100 UNIT/ML INSULN.PEN SC ×3 (10:05→17:20)
[2024-03-26] MEDS: Losartan Potassium 25 MG Tablet PO (10:05)
[2024-03-26] MEDS: Lactobacillis Acidophilus 1 CAP PO ×4 (10:05→20:47)
[2024-03-26] MEDS: Aspirin E.C. 81 MG Tablet PO (10:05)
[2024-03-26] MEDS: guaiFENesin 1,200 MG Tablet 1200 MG PO ×2 (10:06→20:47)
[2024-03-26] MEDS: Metoprolol Tartrate 25 MG Tablet PO (10:06)
[2024-03-26] MEDS: Ascorbic Acid 500 MG Tablet PO (10:06)
[2024-03-26] MEDS: Pantoprazole Sodium 40 MG Tablet PO ×2 (10:06→20:46)
[2024-03-26] MEDS: Furosemide 20 MG Tablet PO (10:06)
[2024-03-26] MEDS: Cholecalciferol (Vit D3) 125 MCG CAPSULE (5,000 UNITS) PO (10:06)
[2024-03-26] MEDS: Insulin NPH Human 100 UNITS/ML PEN 15 UNITS SC ×2 (13:03→17:20)
--- NOTE | 2024-03-26 13:18 | PCM.PN.ID ---
Physical Exam Narrative Feeling well, no fever, no n/v/d. Const alert and no apparent distress General Appearance: cooperative Resp normal air movement and clear to auscultation bilaterally Cardio regular rate and regular rhythm GI soft to palpation, non-tender and non-distended Skin Skin Narrative: foot wrapped, some rash ID ID: Route of nutrition/ use of supplements: [] Nutritional Intake: [] IV Site: [] Peraza Catheter: [] Assessment & Plan Assessment/Plan (1) Sepsis: QUALIFIERS: Sepsis type: sepsis due to unspecified organism Sepsis acute organ dysfunction status: with acute organ dysfunction Severe sepsis acute organ dysfunction type: unspecified Severe sepsis shock status: without septic shock Qualified Code(s): A41.9 - Sepsis, unspecified organism; R65.20 - Severe sepsis without septic shock PLAN: Reviewed [facility] records; admitted 12/03/23 with MSSA endocarditis from L foot osteo. BiV-ICD extracted, but LV lead was capped and retained (not MRI compatitible per EP at [facility]). Now again with MSSA bacteremia per pcr with L foot as suspected source (vs possible pneumonia). Repeat bcx remains neg since 03/22. MSSA and CoNS seen on heel wound cx. GUERLINE showed no veg. Seen by podiatry and had L foot CT. DULCE MARIA resolved. BKA planned. Cont vanc/cefazolin/flagyl. Some petechial rash on arms. No sign of change in renal function or thrombocytopenia. Not typical drug rash. Checking ANCA and monitor. Will follow (2) Type 2 diabetes mellitus with diabetic polyneuropathy: QUALIFIERS: Diabetes mellitus skilled nursing insulin use: with skilled nursing use Qualified Code(s): E11.42 - Type 2 diabetes mellitus with diabetic polyneuropathy; Z79.4 - terminal worker (current) use of insulin (3) MSSA bacteremia:
[2024-03-26 13:23] LABS: Bedside Glucose 166 mg/dL (74-106)
--- NOTE | 2024-03-26 13:23 | CASEMGMT ---
SW spoke with patient and let him know that the papers from Social Security have been completed and Social Work will mail them to the [place] Social Security office ([facility]). SW asked patient if he would like to review the papers and patient declined. Patient was in agreement with Social Work assisting with completion of papers and mailing them to [facility]. Patient also signed a release of information allowing Social Work to communicate with Social Security. Forms along with a letter were put in the mail at [facility]. Ema ARORA
[2024-03-26] MEDS: Menthol/Lanolin/Calamine/Znox 113 GM Tube 1 APPLIC TOPICAL ×2 (14:50→20:48)
--- NOTE | 2024-03-26 15:39 | CASEMGMT ---
Patient's pending case number for Medicaid is: [id number]. Ema ARORA
--- NOTE | 2024-03-26 16:23 | PN.SURG_ITS ---
Subjective Subjective Patient resting in bed. He denies any complaints at this time. Objective Data Objective Data Vital Signs: Vital Signs Temp Pulse Resp BP Pulse Ox O2 Del Method O2 Flow Rate 97.7 F L 81 22 H 114/77 99 Room Air 8 03/26/24 15:14 03/26/24 15:14 03/26/24 15:14 03/26/24 15:14 03/26/24 15:14 03/26/24 15:14 03/25/24 05:05 FiO2 2 03/20/24 05:25 Oxygen Flow Rate (L/min) 8 Oxygen Delivery Method Room Air Weight: 197 lb 12.074 oz Body Mass Index (BMI) 29.2 Intake & Output: Intake and Output for Last 24 Hours 03/24/24 03/25/24 03/26/24 23:59 23:59 23:59 Intake Total 2085 / 2085 1760 / 1880 805 / 805 Output Total 2575 / 2575 1500 / 1500 500 / 500 Balance -490 / -490 260 / 380 305 / 305 Lab / Micro Data Attestation: I reviewed the patient's lab results. 03/26/24 06:39 03/26/24 06:39 Labs: Laboratory Results - last 24 hr 03/25/24 16:57: POC Glucose 171 H 03/25/24 19:30: Vancomycin Trough 16.1 H 03/26/24 06:39: WBC 10.7, RBC 3.43 L, Hgb 10.0 L, Hct 34.2 L, MCV 99.7 H D, MCH 29.2, MCHC 29.2 L D, RDW Std Deviation 60.6 H, RDW Coeff of Fariba 18.2 H, Plt Count 334, MPV 10.3, Immature Gran % (Auto) 1.000 H, Neut % (Auto) 72.4 H, Lymph % (Auto) 16.6 L, [place] % (Auto) 6.7, Eos % (Auto) 2.1, Baso % (Auto) 1.2 H, Absolute Neuts (auto) 7.7, Absolute Lymphs (auto) 1.77, Nucleated RBC % 0, Sodium 138, Potassium 3.9, Chloride 113 H, Carbon Dioxide 18.0 L, Anion Gap 7, BUN 17, Creatinine 0.99, Estim Creat Clear Calc 103.26, Est GFR (MDRD) Af Amer 104, Est GFR (MDRD) Non-Af 86, BUN/Creatinine Ratio 17.1, Glucose 163 H, Calcium 8.1 L, Phosphorus 2.7, Magnesium 2.1, Total Bilirubin 0.40, AST 26, ALT 24, A lkaline Phosphatase 154 H, Total Protein 6.7, Albumin 1.5 L, Globulin 5.2 H, A lbumin/Globulin Ratio 0.3 L 03/26/24 13:01: POC Glucose 166 H Micro: Microbiology 03/22/24 13:17 Blood Culture (Wb) - Anticubital Right Blood Culture - Preliminary No growth in 48 hours. 03/22/24 13:05 Wound - Heel, Left Gram Stain - Final 03/22/24 13:05 Wound - Heel, Left Wound Culture - Final Staphylococcus aureus Coag Negative Staph 03/20/24 02:00 Blood Culture (Wb) - Right Hand Blood Culture - Final Staphylococcus aureus 03/22/24 13:10 Stool Stool Occult Blood (ELINA) - Final 03/19/24 22:55 Blood Culture (Wb) - Left Forearm Bacteria Detection (PCR) - Final Staphylococcus aureus 03/19/24 22:55 Blood Culture (Wb) - Left Forearm Blood Culture - Final Staphylococcus aureus 03/19/24 23:00 Urine, Clean Catch Legionella Antigen - Final 03/19/24 23:00 Urine, Clean Catch Streptococcus pneumoniae Antigen (M - Final 03/20/24 00:40 Stool Stool Occult Blood (ELINA) - Final 03/19/24 23:05 Mucosa - Nose SARS-CoV-2, Influenza & RSV (PCR) - Final Physical Exam Const alert and no apparent distress General Appearance: cooperative HEENT normocephalic Head and Scalp: atraumatic Eyes General Eye: normal appearance of both eyes Neck full ROM Resp clear to auscultation bilaterally Effort and Inspection: able to speak in complete sentences and tachypneic Cardio regular rate Back/Spine normal ROM Extremity Extremity Narrative: Skin Wound Narrative: Left heel ulcer with less maceration. Center of ulcer is nice beefy pink color. Dressing changed. Applied Betadine, topped with gauze and covered with ABD pad, secured with Kerlix gauze. Neuro oriented x3 and moves all extremities Psych thought process normal and cooperative Assessment & Plan Assessment/Plan (1) Type 2 diabetes mellitus with foot ulcer: (2) 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 of bone: PLAN: Plan Patient is stable. WBC 10.7 today. Left heel ulcer is much less macerated. I changed his dressing today. Used Betadine topped with gauze and covered with ABD, secured with Kerlix. There was yellow/fisher drainage on old kerlix that had drained completely through the dressing. He is scheduled for angiogram for next Friday. The tentative plan is to wait until after the angiogram unless worsening infection/decompensation. ID managing antibiotics of Vancomycin, Cefazolin and Flagyl for positive wound cultures from 03/22/24 of MSSA and Coag Negative Staph. Discussed smoking/vaping cessation since it can impact wound healing. Also diabetes can cause delayed wound healing. Charges/Coding Visit Charges Inpatient E&M: 43033 Subs Hosp L1
[2024-03-26] MEDS: 0.9% Saline Lock 10 ML Syringe IV ×2 (17:20→19:32)
[2024-03-26 17:53] LABS: Bedside Glucose 136 mg/dL (74-106)
[2024-03-26] MEDS: Atorvastatin Calcium 10 MG Tablet PO (20:47)
[2024-03-26 21:10] LABS: Bedside Glucose 104 mg/dL (74-106)
[2024-03-27] VITALS (7 sets, daily range): BP systolic 114–135; BP diastolic 65–91; PULSE 92–97; RESP 16–24; TEMP 36.6–36.8; O2SAT 94–99
[2024-03-27] MEDS: Cefazolin 2 GM in 0.9% Normal Saline (100mL Bag) 100 ML IV ×3 (06:27→23:38)
[2024-03-27] MEDS: Enoxaparin 40 MG/0.4 ML Syringe SC (06:28)
[2024-03-27] MEDS: metroNIDAZOLE 500 MG Tablet PO ×3 (06:28→21:39)
--- NOTE | 2024-03-27 06:56 | PN.HOSP_ITS ---
Reason for Visit Reason for Visit: Diagnoses Sepsis, unspecified organism (03/20/24) Methicillin susceptible Staphylococcus aureus infection as the cause of diseases classified elsewhere (03/20/24) Type 2 diabetes mellitus with diabetic polyneuropathy (03/20/24) Type 2 diabetes mellitus with foot ulcer (03/20/24) Acidosis, unspecified (03/20/24) Nicotine dependence, unspecified, uncomplicated (03/20/24) Nicotine dependence, cigarettes, in remission (03/20/24) Atherosclerotic heart disease of [place] coronary artery without angina pectoris (03/20/24) Heart disease, unspecified (03/20/24) Atherosclerosis of [place] arteries of other extremities with ulceration (03/20/24) Pneumonia, unspecified organism (03/20/24) Non-pressure chronic ulcer of other part of unspecified foot with unspecified severity (03/20/24) Non-pressure chronic ulcer of other part of left foot with fat layer exposed (03/20/24) 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 of bone (03/20/24) Other abnormalities of breathing (03/20/24) Severe sepsis without septic shock (03/20/24) Bacteremia (03/20/24) Encounter for preprocedural cardiovascular examination (03/20/24) intermediate accountant (current) use of insulin (03/20/24) Presence of aortocoronary bypass graft (03/20/24) Presence of automatic (implantable) cardiac defibrillator (03/20/24) Subjective Subjective Patient with no acute events overnight per self and per nursing report. He denies any current discomfort to his lower extremity. Agrees that his upper extremity petechial rash is significantly improved and resolving. Discussed plan of care and because of his social situation and lack of insurance patient is unable to safely be discharged to home to await surgical intervention this coming week and is not a candidate because of the situation for skilled facility thus patient is amenable to remaining for planned operative intervention with initially vascular intervention Friday and following this BKA with also plastic surgery involvement. Patient denies fevers, chills, nausea, emesis, abdominal pain, chest pain or dyspnea. Objective Data Objective Data Vital Signs: Vital Signs Temp Pulse Resp BP Pulse Ox O2 Del Method O2 Flow Rate 98.2 F 94 24 H 114/65 97 Room Air 8 03/27/24 03:00 03/27/24 03:00 03/27/24 03:00 03/27/24 03:00 03/26/24 20:44 03/27/24 04:00 03/25/24 05:05 FiO2 2 03/20/24 05:25 Oxygen Flow Rate (L/min) 8 Oxygen Delivery Method Room Air Weight: 197 lb 12.074 oz Body Mass Index (BMI) 29.2 Intake & Output: Intake and Output for Last 24 Hours 03/25/24 03/26/24 03/27/24 23:59 23:59 23:59 Intake Total 1760 / 1880 1790 / 2030 360 / 360 Output Total 1500 / 1500 500 / 1000 1250 / 1250 Balance 260 / 380 1290 / 1030 -890 / -890 Lab / Micro Data 03/27/24 06:30 03/27/24 06:30 Labs: Laboratory Results - last 24 hr 03/26/24 06:39: WBC 10.7, RBC 3.43 L, Hgb 10.0 L, Hct 34.2 L, MCV 99.7 H D, MCH 29.2, MCHC 29.2 L D, RDW Std Deviation 60.6 H, RDW Coeff of [place]iba 18.2 H, Plt Count 334, MPV 10.3, Immature Gran % (Auto) 1.000 H, Neut % (Auto) 72.4 H, Lymph % (Auto) 16.6 L, [place] % (Auto) 6.7, Eos % (Auto) 2.1, Baso % (Auto) 1.2 H, Absolute Neuts (auto) 7.7, Absolute Lymphs (auto) 1.77, Nucleated RBC % 0, Sodium 138, Potassium 3.9, Chloride 113 H, Carbon Dioxide 18.0 L, Anion Gap 7, BUN 17, Creatinine 0.99, Estim Creat Clear Calc 103.26, Est GFR (MDRD) Af Amer 104, Est GFR (MDRD) Non-Af 86, BUN/Creatinine Ratio 17.1, Glucose 163 H, Calcium 8.1 L, Phosphorus 2.7, Magnesium 2.1, Total Bilirubin 0.40, AST 26, ALT 24, A lkaline Phosphatase 154 H, Total Protein 6.7, Albumin 1.5 L, Globulin 5.2 H, A lbumin/Globulin Ratio 0.3 L 03/26/24 13:01: POC Glucose 166 H 03/26/24 17:18: POC Glucose 136 H 03/26/24 20:43: POC Glucose 104 Micro: Microbiology 03/22/24 13:17 Blood Culture (Wb) - Anticubital Right Blood Culture - Preliminary No growth in 48 hours. 03/22/24 13:05 Wound - Heel, Left Gram Stain - Final 03/22/24 13:05 Wound - Heel, Left Wound Culture - Final Staphylococcus aureus Coag Negative Staph 03/20/24 02:00 Blood Culture (Wb) - Right Hand Blood Culture - Final Staphylococcus aureus 03/22/24 13:10 Stool Stool Occult Blood (ELINA) - Final 03/19/24 22:55 Blood Culture (Wb) - Left Forearm Bacteria Detection (PCR) - Final Staphylococcus aureus 03/19/24 22:55 Blood Culture (Wb) - Left Forearm Blood Culture - Final Staphylococcus aureus 03/19/24 23:00 Urine, Clean Catch Legionella Antigen - Final 03/19/24 23:00 Urine, Clean Catch Streptococcus pneumoniae Antigen (M - Final 03/20/24 00:40 Stool Stool Occult Blood (ELINA) - Final 03/19/24 23:05 Mucosa - Nose SARS-CoV-2, Influenza & RSV (PCR) - Final Physical Exam Narrative Physical Examination: General: Awake, alert, oriented x 3 and cooperative, laying in the PCU bed, no current complaints, currently on room air. Skin: Normal color, normal turgor, no icterus, no cyanosis except occasional stage ecchymoses, significant left heel ulcer with significant region of macerated appearing tissue, undermining with no overt purulent drainage or periwound erythema with imaging consistent with osteomyelitis per initial evaluation and ongoing Wound RN evaluation, currently dressing in place with no drainage, upper extremity petechial rash continues to improve, appears to be resolving. HEENT: AT/NC, EOMI, PERRLA, MMM. Lungs: Diminished, greater bases, right greater than left, appropriate effort, no current rhonchi, no wheezing or rales, improved effort. Heart: Regular rate and rhythm; no gallop, rub audible. Abdomen: Soft, obese, NTTP, ND, normal BS. Extremities: No cyanosis, no marked clubbing, see skin. Neurological: Patient awake, alert, oriented as no, cognitive function intact; pupils equally reactive to light and accommodation, cranial nerves gross normal, moving all 4 extremities, no focal deficits, strength moderately to severely globally decreased secondary to acute presentation. Psychiatric: Affect appears mildly flat, no acute evidence of depressive or anxiety feelings. 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 #1. 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, ws initially labeled as acute sepsis (leukocytosis, lactic acidosis, tachypnea, tachycardia, fever with total bilirubin elevated 1.4 but still not consistent with sepsis given no end- organ damage associated with infectious presentation), thus ruled out: Admission 03/19/2024 blood cultures with Staphylococcus aureus with repeat 03/20/2024 blood culture 1 positive, Legionella and streptococcal antigens negative, SARS COVID/influenza/RSV negative, initially maintained on IV vancomycin and Zosyn-->ID transition 03/22/24 to vancomycin/cefazolin as well as oral Flagyl given concurrent #2 as noted, continue PRN albuterol, encourage HOB, IS parameters, TTE without vegetations, follow-up 03/23/24 GUERLINE with EF 15%, trivial MVI, no definitive vegetation seen, left heel wound culture with Staphylococcus aureus, podiatry consulted and following as noted below with transition of intervention care to Plastic Surgery Dr. Rawls for possible BKA. Most recent repeat 03/22/2024 blood cultures negative. 03/25/2024 PICC line successful. Definitive intervention as noted #2 as likely source for bacteremia and pneumonia. 03/27/24 discussed with case management/social work and patient is not a candidate for any transition to skilled facility to await surgical intervention given social situation with lack of insurance, as of now plan for intervention per vascular this upcoming Friday and following this intervention per plastics for BKA. #2. Left foot ulcerated plantar central calcaneus with tissue maceration with acute osteomyelitis: Wound RN consulted, ongoing dressing changes, given appearance with macerated tissue and suspected undermining Podiatry consultation obtained, CT left lower extremity with cortical disruption the calcaneus consistent with os mellitus with fragmentation with extension to the subtalar joint, ill-defined lucency in the adjacent talus suggesting secondary involvement, maintain offloading, currently maintained on IV vancomycin/cefazolin and oral Flagyl per ID direction, given poor reconstructive candidate decision for below the knee amputation with plastic surgery Dr. Rawls consultation per podiatry recommendation as noted w/ recommended BKA. Discussed case with patient and plastic surgery with plan for upcoming evaluation possibly 03/29/[address] Gordon for lower extremity angiogram with runoff consideration prior to potential left BKA 03/31/2024. Most recent repeat blood culture 03/22/2024 with no growth, reviewed with infectious disease. 03/25/24 PICC line successful. 03/27/24 discussed with case management/social work and patient is not a candidate for any transition to skilled facility to await surgical intervention given social situation with lack of insurance, as of now plan for intervention per vascular this upcoming Friday and following this intervention per plastics for BKA. #3. Acute normocytic anemia, worsening, appears new chronicity with history of prior PUD of note: Admission hemoglobin 9.3, prior to this hemoglobin 01/13/2024 had been 13.4 which appears his baseline primarily, decreased 03/21/2020 4-8.0 and now 03/22/2024 hemoglobin 6.9, 2 unit PRBC ordered, iron panel obtained with iron 27, TIBC 97, iron saturation 27.8, ferritin 1417 more consistent with AOCD, guaiac obtained 03/20/2024 noted to be negative at that time, place on PPI to be cautious. Repeat guiac requested to be thorough and again negative. Will cautiously continue baby aspirin, metoprolol as BP allows, statin therapy, low- dose lisinopril. 03/25/2024 resumed chemoprophylaxis with Lovenox given stable hemoglobin. 03/27/2024 hemoglobin 10.2, stable. #4. Hyperbilirubinemia, Transaminitis, acute on chronic: Unclear specific etiology, 03/19/2024 T. bili 1.10, AST/LT 53/61, alk phos 232->03/22/2024 CMP with total bilirubin 1.40, D bilirubin 0.32, AST/LT 166/126, alk phos 145-->03/23/24 T. bili 0.70, AST/LT 103/132, alk phos 202--> 03/27/24 total bilirubin 0.50, AST/LT 20/16, alk phos 130, liver ultrasound with normal appearing liver and gallbladder, hepatitis panel nonreactive. #5. Petechial rash, unclear etiology: Patient with onset over the last 48 hours petechial rash to the hands, upper thighs as well as some irritation in the antecubital fossa although suspect this is in part secondary to tight blood pressure assessments in that region, possibly related to medication including antibiotic therapy, nonpainful, nonblanching and lessening in appearance 03/24/2024 compared to prior. Per review with infectious disease felt not typical of a drug rash with continued stable renal function and platelets, pending ANCA labs. 03/26/2024 extremity started to improve and repeat evaluation 03/27/24 again resolving, low suspicion for vasculitis given this but unclear etiology still. #6. PSVT: 03/25/2024 overnight patient with episodes of short bursts of VT , BP on the lower normal side thus unable to initiate any increase in metoprolol regimen at this time but once improves will consider, magnesium 2.1, potassium 3.9, continue to monitor. Cardiology has been consulted therefore if any concerns arise will re-involve them. #7. Hypokalemia: Admission K+ 2.9, magnesium level requested, supplementation given, 03/27/2024 potassium 3.7. #8. Hypocalcemia, improved with corrected: Calcium 6.4, previous albumin significantly low however this is from 03/19/2024 and 1.8 at that time, corrected 8.16, will supplement with calcium gluconate, 03/27/2024 calcium 8.2, again corrected elevated above this. #9. HFrEF/Ischemic Cardiomyopathy: s/p biventricular AICD [facility], 03/21/2024 echocardiogram pending as noted above, prior ECHO 12/04/23 with LV normal size, LV systolic function severely decreased, EF 25?5%, regional wall motion abnormalities present, grade 1 LV diastolic dysfunction, RV not well-visualized, on limited views right ventricle grossly normal in size and systolic function, no significant valvular abnormalities. As noted planned 2 u PRBC administration, monitor for overload, will administer 20 mg IV x 1. Will cautiously continue baby aspirin, metoprolol, low-dose losartan, Lasix and hydralazine with BP parameters given initial presentation with lower normal BP. Case management consulted for assistance with medication cost. Cardiology evaluation 03/24/2024 with cardiac clearance for progression to OR for vascular intervention potential as well as planned left lower extremity BKA. #10. CAD: Status post CABG x 3, given guaiac stool negative, cautiously continue baby aspirin, metoprolol, low-dose losartan. #11. Diabetes mellitus type II with chronic neuropathy: Hold oral home regimen, continue home insulin regimen as well as ISS scheduled with meals, ADA diet, accu checks w/ ISS. 03/23/2024 hgbA1c 6.1%. Encourage medication compliance. #12. Hypertension: Patient from records has been noncompliant with hypertensive regimen reporting that he does not believe he needs it although he is on some of this regimen secondary to underlying heart failure and CAD, will continue low- dose metoprolol and losartan as well as low-dose Lasix as BP allows but has been on the low end. Holding oral home hydralazine regimen. #13. Hyperlipidemia: We will continue patient on statin therapy. #14. GERD with history of peptic ulcer disease: PPI. #15. Tobacco Abuse: Encouraged cessation, inpatient consultation per RT, NR if desired. #16. JAIDEN: Noncompliant with PAP therapy, using oxygen q HS instead. #17. DVT prophylaxis: Lovenox. Initially held secondary to concern for anemia, hemoglobin stable as noted with then eventual resumption. Charges/Coding Visit Charges Inpatient E&M: 37151 Subs Hosp L2
[2024-03-27 07:01] LABS: Absolute Lymphocyte Count 1.97 X10^3/uL (0.83-4.51); Absolute Neutrophil Count 6.8 X10^3/uL (2.0-7.7); Basophil# 0.07 X10^3/uL; Basophil% 0.7 % (0-1); Eosinophil# 0.36 X10^3/uL; Eosinophils% 3.7 % (0-5); Hematocrit 33.1 % (40-54); Hemoglobin 10.2 g/dL (13.0-16.5); Lymphocyte # 1.97 X10^3/ul (0.83-4.51); Mean Corp Hgb Conc 30.8 g/dL (32-36); Mean Corpuscular Hgb 28.4 pg (27.0-32.0); Mean Corpuscular Volume 92.2 fL (80-94); Mean Platelet Vol. 9.5 fl (6.2-12.0); Monocyte# 0.64 X10^3/uL; Monocyte% 6.5 % (0-10); NRBC Flagged by Analyzer 0 % (0-5); Neutrophil # 6.77 X10^3/uL (2.7-7.7); Neutrophil % 68.6 % (47-70); Platelet Count 383 K/mm3 (150-450); RBC Distribution Width CV 17.8 % (11.6-14.6); RBC Distribution Width SD 55.3 fl (35.1-43.9); Red Blood Count 3.59 M/mm3 (4.6-6.2); White Blood Count 9.9 K/mm3 (4.4-11.0)
[2024-03-27 08:26] LABS: ALB/GLOB Ratio 0.3 RATIO (0.9-2.4); AST(SGOT) 20 U/L (15-37); Alanine Aminotransfer ALT/SGPT 16 U/L (16-61); Albumin, Serum 1.6 g/dL (3.2-5.0); Alkaline Phosphatase 130 U/L (45-117); Anion Gap 7 (5-15); BUN 15 mg/dL (7-18); BUN/Creat Ratio 16.4 RATIO (10-20); Calcium,Total 8.2 mg/dL (8.5-10.1); Chloride 113 mmol/L (98-107); Creatinine, Serum 0.92 mg/dL (0.70-1.30); EST Glomerular Filtration Rate 94 mL/min (>60); Est Glom Filt Rate - Afr Amer 114 mL/min (>60); Estimated Creatinine Clearance 111.11 ml/min; Globulin 5.4 g/dL (2.2-4.2); Glucose 101 mg/dL (74-106); Potassium 3.7 mmol/L (3.5-5.1); Sodium Level 141 mmol/L (136-145)
[2024-03-27] MEDS: Pantoprazole Sodium 40 MG Tablet PO ×2 (09:15→21:38)
[2024-03-27] MEDS: Lactobacillis Acidophilus 1 CAP PO ×4 (09:15→21:38)
[2024-03-27] MEDS: Metoprolol Tartrate 25 MG Tablet PO (09:16)
[2024-03-27] MEDS: Aspirin E.C. 81 MG Tablet PO (09:17)
[2024-03-27] MEDS: Ascorbic Acid 500 MG Tablet PO (09:17)
[2024-03-27] MEDS: Losartan Potassium 25 MG Tablet PO (09:17)
[2024-03-27] MEDS: Cholecalciferol (Vit D3) 125 MCG CAPSULE (5,000 UNITS) PO (09:18)
[2024-03-27] MEDS: Furosemide 20 MG Tablet PO (09:19)
[2024-03-27] MEDS: guaiFENesin 1,200 MG Tablet 1200 MG PO ×2 (09:20→21:39)
[2024-03-27] MEDS: Vancomycin HCl 750 MG in 0.9% Normal Saline (250mL Bag) 250 ML 250 MG IV ×2 (09:24→20:34)
[2024-03-27 12:10] LABS: Bedside Glucose 157 mg/dL (74-106)
[2024-03-27] MEDS: Insulin Lispro 100 UNIT/ML INSULN.PEN SC ×2 (12:58→17:09)
[2024-03-27] MEDS: Insulin NPH Human 100 UNITS/ML PEN 15 UNITS SC ×2 (12:58→17:09)
[2024-03-27] MEDS: 0.9% Saline Lock 10 ML Syringe IV ×2 (14:27→20:30)
[2024-03-27] MEDS: Menthol/Lanolin/Calamine/Znox 113 GM Tube 1 APPLIC TOPICAL (14:27)
[2024-03-27] MEDS: 0.9% Normal Saline (250mL Bag) 250 ML 15 ML IV (14:34)
[2024-03-27 17:43] LABS: Bedside Glucose 133 mg/dL (74-106)
[2024-03-27] MEDS: Juven (unflavored) Packet 1 PACKET PO (17:56)
[2024-03-27 20:04] LABS: Vancomycin, Trough Level 17.5 ug/mL (5.0-15.0)
--- NOTE | 2024-03-27 20:18 | PCM.RX.CS ---
Consult Antibiotic Management Pharmacy has been consulted to manage selected antibiotic: Vancomycin Type of Intervention Type of Consult: Follow-up Labs Labs: Sodium 141 mmol/L (136-145) 03/27/24 06:30 Potassium 3.7 mmol/L (3.5-5.1) 03/27/24 06:30 Chloride 113 mmol/L (98-107) H 03/27/24 06:30 Carbon Dioxide 21.0 mmol/L (21.0-32.0) 03/27/24 06:30 Anion Gap 7 (5-15) 03/27/24 06:30 BUN 15 mg/dL (7-18) 03/27/24 06:30 Creatinine 0.92 mg/dL (0.70-1.30) 03/27/24 06:30 Est GFR (MDRD) Af Amer 114 mL/min (>60) 03/27/24 06:30 Est GFR (MDRD) Non-Af 94 mL/min (>60) 03/27/24 06:30 BUN/Creatinine Ratio 16.4 RATIO (10-20) 03/27/24 06:30 Glucose 101 mg/dL (74-106) 03/27/24 06:30 Vancomycin Trough 17.5 ug/mL (5.0-15.0) H 03/27/24 19:24 Random Vancomycin 15.9 ug/mL (0.0-15.0) H 03/24/24 06:06 Microbiology Microbiology: Microbiology 03/22/24 13:17 Blood Culture (Wb) - Anticubital Right Blood Culture - Final No growth in 5 days. 03/22/24 13:05 Wound - Heel, Left Gram Stain - Final 03/22/24 13:05 Wound - Heel, Left Wound Culture - Final Staphylococcus aureus Coag Negative Staph 03/20/24 02:00 Blood Culture (Wb) - Right Hand Blood Culture - Final Staphylococcus aureus 03/22/24 13:10 Stool Stool Occult Blood (ELINA) - Final 03/19/24 22:55 Blood Culture (Wb) - Left Forearm Bacteria Detection (PCR) - Final Staphylococcus aureus 03/19/24 22:55 Blood Culture (Wb) - Left Forearm Blood Culture - Final Staphylococcus aureus 03/19/24 23:00 Urine, Clean Catch Legionella Antigen - Final 03/19/24 23:00 Urine, Clean Catch Streptococcus pneumoniae Antigen (M - Final 03/20/24 00:40 Stool Stool Occult Blood (ELINA) - Final 03/19/24 23:05 Mucosa - Nose SARS-CoV-2, Influenza & RSV (PCR) - Final Pharmacy Plan for Drug Dosing Pharmacy Plan for Drug Dosing: Pharmacy Service will continue to monitor and adjust dosing as required. TROUGH 17.5, NO CHANGES FOLLOW UP TROUGH IN 2 DAYS Follow-Up Labs Follow-Up Labs: Trough: Vancomycin Date/Time Labs Ordered Labs to be done on [date and time ordered]: 03/29 @ 1930
[2024-03-27] MEDS: Atorvastatin Calcium 10 MG Tablet PO (21:38)
[2024-03-27 23:58] LABS: Bedside Glucose 113 mg/dL (74-106)
[2024-03-28] VITALS (8 sets, daily range): BP systolic 109–116; BP diastolic 68–83; PULSE 83–95; RESP 18–24; TEMP 36.3–36.8; O2SAT 94–99
[2024-03-28] MEDS: Cefazolin 2 GM in 0.9% Normal Saline (100mL Bag) 100 ML IV ×3 (05:19→23:03)
[2024-03-28] MEDS: metroNIDAZOLE 500 MG Tablet PO ×3 (05:20→21:19)
[2024-03-28] MEDS: Enoxaparin 40 MG/0.4 ML Syringe SC (05:20)
[2024-03-28 06:20] LABS: Absolute Lymphocyte Count 2.46 X10^3/uL (0.83-4.51); Absolute Neutrophil Count 6.4 X10^3/uL (2.0-7.7); Basophil# 0.08 X10^3/uL; Basophil% 0.8 % (0-1); Hematocrit 34.9 % (40-54); Hemoglobin 10.8 g/dL (13.0-16.5); Lymphocyte # 2.46 X10^3/ul (0.83-4.51); Lymphocyte % 24.7 % (19-41); Mean Corp Hgb Conc 30.9 g/dL (32-36); Mean Corpuscular Hgb 28.1 pg (27.0-32.0); Mean Corpuscular Volume 90.6 fL (80-94); Mean Platelet Vol. 9.7 fl (6.2-12.0); Monocyte# 0.61 X10^3/uL; Monocyte% 6.1 % (0-10); NRBC Flagged by Analyzer 0 % (0-5); Neutrophil # 6.44 X10^3/uL (2.7-7.7); Neutrophil % 64.9 % (47-70); Platelet Count 419 K/mm3 (150-450); RBC Distribution Width CV 18.2 % (11.6-14.6); Red Blood Count 3.85 M/mm3 (4.6-6.2); White Blood Count 9.9 K/mm3 (4.4-11.0)
--- NOTE | 2024-03-28 06:35 | PCM.PN.HOSP ---
Reason for Visit Reason for Visit: Diagnoses Sepsis, unspecified organism (03/20/24) Methicillin susceptible Staphylococcus aureus infection as the cause of diseases classified elsewhere (03/20/24) Type 2 diabetes mellitus with diabetic polyneuropathy (03/20/24) Type 2 diabetes mellitus with foot ulcer (03/20/24) Acidosis, unspecified (03/20/24) Nicotine dependence, unspecified, uncomplicated (03/20/24) Nicotine dependence, cigarettes, in remission (03/20/24) Atherosclerotic heart disease of [place] coronary artery without angina pectoris (03/20/24) Heart disease, unspecified (03/20/24) Atherosclerosis of [place] arteries of other extremities with ulceration (03/20/24) Pneumonia, unspecified organism (03/20/24) Non-pressure chronic ulcer of other part of unspecified foot with unspecified severity (03/20/24) Non-pressure chronic ulcer of other part of left foot with fat layer exposed (03/20/24) 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 of bone (03/20/24) Other abnormalities of breathing (03/20/24) Severe sepsis without septic shock (03/20/24) Bacteremia (03/20/24) Encounter for preprocedural cardiovascular examination (03/20/24) termite control representative (current) use of insulin (03/20/24) Presence of aortocoronary bypass graft (03/20/24) Presence of automatic (implantable) cardiac defibrillator (03/20/24) Subjective Subjective Patient with no acute events overnight per self and per nursing report. He denies any pain to his lower extremity. He notes breathing continues to remain resolved with no coughing. Discussed again plan of care for surgery/vascular evaluation on Friday of this coming week to which she is amenable and understands that unfortunately we cannot transition to him to a facility at this time because of social situation/uncertain situations. Patient denies fevers, chills, nausea, emesis, abdominal pain, chest pain or dyspnea. Objective Data Objective Data Vital Signs: Vital Signs Temp Pulse Resp BP Pulse Ox O2 Del Method O2 Flow Rate 98.3 F 93 20 H 116/76 94 Room Air 8 03/28/24 03:26 03/28/24 03:26 03/28/24 03:26 03/28/24 03:26 03/28/24 03:26 03/28/24 03:26 03/25/24 05:05 FiO2 2 03/20/24 05:25 Oxygen Flow Rate (L/min) 8 Oxygen Delivery Method Room Air Weight: 197 lb 12.074 oz Body Mass Index (BMI) 29.2 Intake & Output: Intake and Output for Last 24 Hours 03/26/24 03/27/24 03/28/24 23:59 23:59 23:59 Intake Total 1790 / 2030 1360 / 1360 110 / 110 Output Total 500 / 1000 2550 / 2550 Balance 1290 / 1030 -1190 / -1190 110 / 110 Lab / Micro Data 03/28/24 05:30 03/28/24 05:30 Labs: Laboratory Results - last 24 hr 03/27/24 06:30: WBC 9.9, RBC 3.59 L, Hgb 10.2 L, Hct 33.1 L, MCV 92.2 D, MCH 28.4, MCHC 30.8 L D, RDW Std Deviation 55.3 H, RDW Coeff of Fariba 17.8 H, Plt Count 383, MPV 9.5, Immature Gran % (Auto) 0.500, Neut % (Auto) 68.6, Lymph % (Auto) 20.0, [place] % (Auto) 6.5, Eos % (Auto) 3.7, Baso % (Auto) 0.7, Absolute Neuts (auto) 6.8, Absolute Lymphs (auto) 1.97, Nucleated RBC % 0, Sodium 141, Potassium 3.7, Chloride 113 H, Carbon Dioxide 21.0, Anion Gap 7, BUN 15, Creatinine 0.92, Estim Creat Clear Calc 111.11, Est GFR (MDRD) Af Amer 114, Est GFR (MDRD) Non-Af 94, BUN/Creatinine Ratio 16.4, Glucose 101, Calcium 8.2 L, Total Bilirubin 0.50, AST 20, ALT 16, Alkaline Phosphatase 130 H, Total Protein 7.0, Albumin 1.6 L, Globulin 5.4 H, Albumin/Globulin Ratio 0.3 L 03/27/24 11:48: POC Glucose 157 H 03/27/24 17:07: POC Glucose 133 H 03/27/24 19:24: Vancomycin Trough 17.5 H 03/27/24 21:42: POC Glucose 113 H 03/28/24 05:30: WBC 9.9, RBC 3.85 L, Hgb 10.8 L, Hct 34.9 L, MCV 90.6, MCH 28.1, MCHC 30.9 L, RDW Std Deviation 55.0 H, RDW Coeff of [place]iba 18.2 H, Plt Count 419, MPV 9.7, Immature Gran % (Auto) 0.500, Neut % (Auto) 64.9, Lymph % (Auto) 24.7, [place] % (Auto) 6.1, Eos % (Auto) 3.0, Baso % (Auto) 0.8, Absolute Neuts (auto) 6.4, Absolute Lymphs (auto) 2.46, Nucleated RBC % 0 Micro: Microbiology 03/22/24 13:17 Blood Culture (Wb) - Anticubital Right Blood Culture - Final No growth in 5 days. 03/22/24 13:05 Wound - Heel, Left Gram Stain - Final 03/22/24 13:05 Wound - Heel, Left Wound Culture - Final Staphylococcus aureus Coag Negative Staph 03/20/24 02:00 Blood Culture (Wb) - Right Hand Blood Culture - Final Staphylococcus aureus 03/22/24 13:10 Stool Stool Occult Blood (ELINA) - Final 03/19/24 22:55 Blood Culture (Wb) - Left Forearm Bacteria Detection (PCR) - Final Staphylococcus aureus 03/19/24 22:55 Blood Culture (Wb) - Left Forearm Blood Culture - Final Staphylococcus aureus 03/19/24 23:00 Urine, Clean Catch Legionella Antigen - Final 03/19/24 23:00 Urine, Clean Catch Streptococcus pneumoniae Antigen (M - Final 03/20/24 00:40 Stool Stool Occult Blood (ELINA) - Final 03/19/24 23:05 Mucosa - Nose SARS-CoV-2, Influenza & RSV (PCR) - Final Physical Exam Narrative Physical Examination: General: Awake, alert, oriented x 3 and cooperative, laying in the PCU bed, no current complaints, more fatigued appearing, currently on room air. Skin: Normal color, normal turgor, no icterus, no cyanosis except occasional stage ecchymoses, significant left heel ulcer with significant region of macerated appearing tissue, undermining with no overt purulent drainage or periwound erythema with imaging consistent with osteomyelitis per initial evaluation and ongoing Wound RN evaluation, currently dressing in place with no drainage, upper extremity petechial rash continues to improve, resolving. HEENT: AT/NC, EOMI, PERRLA, MMM. Lungs: Diminished, greater bases, right greater than left, appropriate effort, no current rhonchi, no wheezing or rales, improved effort. Heart: Regular rate and rhythm; no gallop, rub audible. Abdomen: Soft, obese, NTTP, ND, normal BS. Extremities: No cyanosis, no marked clubbing, see skin. Neurological: Patient awake, alert, oriented as no, cognitive function intact; pupils equally reactive to light and accommodation, cranial nerves gross normal, moving all 4 extremities, no focal deficits, strength moderately to severely globally decreased secondary to acute presentation. Psychiatric: Affect appears mildly fatigued this a.m., no acute evidence of depressive or anxiety feelings. 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 #1. 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, ws initially labeled as acute sepsis (leukocytosis, lactic acidosis, tachypnea, tachycardia, fever with total bilirubin elevated 1.4 but still not consistent with sepsis given no end-organ damage associated with infectious presentation), thus ruled out: Admission 03/19/2024 blood cultures with Staphylococcus aureus with repeat 03/20/2024 blood culture 1 positive, Legionella and streptococcal antigens negative, SARS COVID/influenza/RSV negative, initially maintained on IV vancomycin and Zosyn-->ID transition 03/22/24 to vancomycin/cefazolin as well as oral Flagyl given concurrent #2 as noted, continue PRN albuterol, encourage HOB, IS parameters, TTE without vegetations, follow-up 03/23/24 GUERLINE with EF 15%, trivial MVI, no definitive vegetation seen, left heel wound culture with Staphylococcus aureus, podiatry consulted and following as noted below with transition of intervention care to Plastic Surgery Dr. Rawls for possible BKA. Most recent repeat 03/22/2024 blood cultures negative. 03/25/2024 PICC line successful. Definitive intervention as noted #2 as likely source for bacteremia and pneumonia. 03/27/24 discussed with case management/social work and patient is not a candidate for any transition to skilled facility to await surgical intervention given social situation with lack of insurance, as of now plan for intervention per vascular this upcoming Friday and following this intervention per plastics for BKA. #2. Left foot ulcerated plantar central calcaneus with tissue maceration with acute osteomyelitis: Wound RN consulted, ongoing dressing changes, given appearance with macerated tissue and suspected undermining Podiatry consultation obtained, CT left lower extremity with cortical disruption the calcaneus consistent with os mellitus with fragmentation with extension to the subtalar joint, ill-defined lucency in the adjacent talus suggesting secondary involvement, maintain offloading, currently maintained on IV vancomycin/cefazolin and oral Flagyl per ID direction, given poor reconstructive candidate decision for below the knee amputation with plastic surgery Dr. Rawls consultation per podiatry recommendation as noted w/ recommended BKA. Discussed case with patient and plastic surgery with plan for upcoming evaluation possibly 03/29/[address] Gordon for lower extremity angiogram with runoff consideration prior to potential left BKA 03/31/2024. Most recent repeat blood culture 03/22/2024 with no growth, reviewed with infectious disease. 03/25/24 PICC line successful. 03/27/24 discussed with case management/social work and patient is not a candidate for any transition to skilled facility to await surgical intervention given social situation with lack of insurance, as of now plan for intervention per vascular this upcoming Friday and following this intervention per plastics for BKA. #3. Acute normocytic anemia, worsening, appears new chronicity with history of prior PUD of note: Admission hemoglobin 9.3, prior to this hemoglobin 01/13/2024 had been 13.4 which appears his baseline primarily, decreased 03/21/2020 4-8.0 and now 03/22/2024 hemoglobin 6.9, 2 unit PRBC ordered, iron panel obtained with iron 27, TIBC 97, iron saturation 27.8, ferritin 1417 more consistent with AOCD, guaiac obtained 03/20/2024 noted to be negative at that time, place on PPI to be cautious. Repeat guiac requested to be thorough and again negative. Will cautiously continue baby aspirin, metoprolol as BP allows, statin therapy, low-dose lisinopril. 03/25/2024 resumed chemoprophylaxis with Lovenox given stable hemoglobin. 03/28/2024 hemoglobin 10.8, stable. #4. Hyperbilirubinemia, Transaminitis, acute on chronic: Unclear specific etiology, 03/19/2024 T. bili 1.10, AST/LT 53/61, alk phos 232->03/22/2024 CMP with total bilirubin 1.40, D bilirubin 0.32, AST/LT 166/126, alk phos 145-->03/23/24 T. bili 0.70, AST/LT 103/132, alk phos 202--> 03/28/24 total bilirubin 0.50, AST/LT 21/11, alk phos 117, liver ultrasound with normal appearing liver and gallbladder, hepatitis panel nonreactive. #5. Petechial rash, unclear etiology: Patient with onset over the last 48 hours petechial rash to the hands, upper thighs as well as some irritation in the antecubital fossa although suspect this is in part secondary to tight blood pressure assessments in that region, possibly related to medication including antibiotic therapy, nonpainful, nonblanching and lessening in appearance 03/24/2024 compared to prior. Per review with infectious disease felt not typical of a drug rash with continued stable renal function and platelets, pending ANCA labs. 03/26/2024 extremity started to improve and repeat evaluation 03/27/24 again resolving, low suspicion for vasculitis given this but unclear etiology still. #6. PSVT: 03/25/2024 overnight patient with episodes of short bursts of VT , BP on the lower normal side thus unable to initiate any increase in metoprolol regimen at this time but once improves will consider, at that time additional labs included magnesium 2.1, potassium 3.9. Cardiology has been consulted therefore if any concerns arise will re-involve them. #7. Hypokalemia: Admission K+ 2.9, magnesium level requested, supplementation given, 03/28/24 potassium 3.7. #8. Hypocalcemia, improved with corrected: Calcium 6.4, previous albumin significantly low however this is from 03/19/2024 and 1.8 at that time, corrected 8.16, supplemented with calcium gluconate, 03/28/24 calcium 8.2, again corrected elevated above this. #9. HFrEF/Ischemic Cardiomyopathy: s/p biventricular AICD [facility], 03/21/2024 echocardiogram pending as noted above, prior ECHO 12/04/23 with LV normal size, LV systolic function severely decreased, EF 25?5%, regional wall motion abnormalities present, grade 1 LV diastolic dysfunction, RV not well-visualized, on limited views right ventricle grossly normal in size and systolic function, no significant valvular abnormalities. As noted planned 2 u PRBC administration, monitor for overload, will administer 20 mg IV x 1. Will cautiously continue baby aspirin, metoprolol, low-dose losartan, Lasix and hydralazine with BP parameters given initial presentation with lower normal BP. Case management consulted for assistance with medication cost. Cardiology evaluation 03/24/2024 with cardiac clearance for progression to OR for vascular intervention potential as well as planned left lower extremity BKA. #10. CAD: Status post CABG x 3, given guaiac stool negative, cautiously continue baby aspirin, metoprolol, low-dose losartan. #11. Diabetes mellitus type II with chronic neuropathy: Hold oral home regimen, continue home insulin regimen as well as ISS scheduled with meals, ADA diet, accu checks w/ ISS. 03/23/2024 hgbA1c 6.1%. Encourage medication compliance. #12. Hypertension: Patient from records has been noncompliant with hypertensive regimen reporting that he does not believe he needs it although he is on some of this regimen secondary to underlying heart failure and CAD, will continue low-dose metoprolol and losartan as well as low-dose Lasix as BP allows but has been on the low end. Holding oral home hydralazine regimen. #13. Hyperlipidemia: We will continue patient on statin therapy. #14. GERD with history of peptic ulcer disease: PPI. #15. Tobacco Abuse: Encouraged cessation, inpatient consultation per RT, NR if desired. #16. JAIDEN: Noncompliant with PAP therapy, using oxygen q HS instead. #17. DVT prophylaxis: Lovenox. Initially held secondary to concern for anemia, hemoglobin stable as noted with then eventual resumption. Charges/Coding Visit Charges Inpatient E&M: 50677 Subs Hosp L2
[2024-03-28 06:57] LABS: ALB/GLOB Ratio 0.3 RATIO (0.9-2.4); AST(SGOT) 21 U/L (15-37); Alanine Aminotransfer ALT/SGPT 11 U/L (16-61); Albumin, Serum 1.7 g/dL (3.2-5.0); Alkaline Phosphatase 117 U/L (45-117); Anion Gap 5 (5-15); BUN 18 mg/dL (7-18); Calcium,Total 8.2 mg/dL (8.5-10.1); Chloride 112 mmol/L (98-107); Creatinine, Serum 0.94 mg/dL (0.70-1.30); EST Glomerular Filtration Rate 91 mL/min (>60); Est Glom Filt Rate - Afr Amer 110 mL/min (>60); Estimated Creatinine Clearance 108.75 ml/min; Globulin 5.6 g/dL (2.2-4.2); Glucose 83 mg/dL (74-106); Potassium 3.7 mmol/L (3.5-5.1); Protein, Total 7.3 g/dL (6.4-8.2); Sodium Level 139 mmol/L (136-145)
[2024-03-28] MEDS: Aspirin E.C. 81 MG Tablet PO (08:07)
[2024-03-28] MEDS: Juven (unflavored) Packet 1 PACKET PO ×2 (08:07→18:08)
[2024-03-28 08:12] LABS: Bedside Glucose 79 mg/dL (74-106)
[2024-03-28] MEDS: Vancomycin HCl 750 MG in 0.9% Normal Saline (250mL Bag) 250 ML 250 MG IV ×2 (08:44→21:18)
[2024-03-28] MEDS: Lactobacillis Acidophilus 1 CAP PO ×4 (10:26→21:19)
[2024-03-28] MEDS: Metoprolol Tartrate 25 MG Tablet PO (10:26)
[2024-03-28] MEDS: guaiFENesin 1,200 MG Tablet 1200 MG PO ×2 (10:27→21:20)
[2024-03-28] MEDS: Pantoprazole Sodium 40 MG Tablet PO ×2 (10:27→21:20)
[2024-03-28] MEDS: Furosemide 20 MG Tablet PO (10:28)
[2024-03-28] MEDS: Cholecalciferol (Vit D3) 125 MCG CAPSULE (5,000 UNITS) PO (10:28)
[2024-03-28] MEDS: Losartan Potassium 25 MG Tablet PO (10:28)
[2024-03-28] MEDS: Ascorbic Acid 500 MG Tablet PO (10:29)
[2024-03-28 11:32] LABS: Bedside Glucose 110 mg/dL (74-106)
[2024-03-28 16:54] LABS: Bedside Glucose 173 mg/dL (74-106)
[2024-03-28] MEDS: Insulin NPH Human 100 UNITS/ML PEN 15 UNITS SC (18:06)
[2024-03-28] MEDS: Insulin Lispro 100 UNIT/ML INSULN.PEN SC (18:07)
[2024-03-28] MEDS: Atorvastatin Calcium 10 MG Tablet PO (21:20)
[2024-03-28 21:41] LABS: Bedside Glucose 184 mg/dL (74-106)
[2024-03-29] VITALS (7 sets, daily range): BP systolic 106–129; BP diastolic 69–93; PULSE 89–92; RESP 18–20; TEMP 36.3–36.5; O2SAT 95–99
[2024-03-29] MEDS: metroNIDAZOLE 500 MG Tablet PO ×3 (05:10→21:09)
[2024-03-29] MEDS: Enoxaparin 40 MG/0.4 ML Syringe SC (05:11)
[2024-03-29] MEDS: Cefazolin 2 GM in 0.9% Normal Saline (100mL Bag) 100 ML IV ×3 (05:14→23:14)
[2024-03-29 07:14] LABS: Absolute Lymphocyte Count 2.03 X10^3/uL (0.83-4.51); Absolute Neutrophil Count 7.1 X10^3/uL (2.0-7.7); Basophil# 0.07 X10^3/uL; Basophil% 0.7 % (0-1); Eosinophil# 0.21 X10^3/uL; Eosinophils% 2.1 % (0-5); Hematocrit 35.3 % (40-54); Hemoglobin 10.9 g/dL (13.0-16.5); Lymphocyte # 2.03 X10^3/ul (0.83-4.51); Lymphocyte % 20.4 % (19-41); Mean Corp Hgb Conc 30.9 g/dL (32-36); Mean Corpuscular Hgb 28.4 pg (27.0-32.0); Mean Corpuscular Volume 91.9 fL (80-94); Mean Platelet Vol. 9.9 fl (6.2-12.0); Monocyte# 0.55 X10^3/uL; Monocyte% 5.5 % (0-10); NRBC Flagged by Analyzer 0 % (0-5); Neutrophil # 7.06 X10^3/uL (2.7-7.7); Neutrophil % 70.8 % (47-70); Platelet Count 423 K/mm3 (150-450); RBC Distribution Width CV 18.1 % (11.6-14.6); Red Blood Count 3.84 M/mm3 (4.6-6.2)
[2024-03-29 07:59] LABS: ALB/GLOB Ratio 0.3 RATIO (0.9-2.4); AST(SGOT) 34 U/L (15-37); Alanine Aminotransfer ALT/SGPT 11 U/L (16-61); Albumin, Serum 1.6 g/dL (3.2-5.0); Alkaline Phosphatase 124 U/L (45-117); Anion Gap 6 (5-15); BUN 23 mg/dL (7-18); BUN/Creat Ratio 23.4 RATIO (10-20); Calcium,Total 8.4 mg/dL (8.5-10.1); Chloride 112 mmol/L (98-107); Creatinine, Serum 0.98 mg/dL (0.70-1.30); EST Glomerular Filtration Rate 87 mL/min (>60); Est Glom Filt Rate - Afr Amer 105 mL/min (>60); Estimated Creatinine Clearance 104.31 ml/min; Globulin 5.9 g/dL (2.2-4.2); Glucose 120 mg/dL (74-106); Potassium 4.1 mmol/L (3.5-5.1); Protein, Total 7.5 g/dL (6.4-8.2); Sodium Level 140 mmol/L (136-145)
[2024-03-29] MEDS: Aspirin E.C. 81 MG Tablet PO (09:00)
[2024-03-29] MEDS: Metoprolol Tartrate 25 MG Tablet PO (09:00)
[2024-03-29] MEDS: Juven (unflavored) Packet 1 PACKET PO (09:00)
[2024-03-29] MEDS: Lactobacillis Acidophilus 1 CAP PO ×4 (09:00→21:09)
[2024-03-29] MEDS: Cholecalciferol (Vit D3) 125 MCG CAPSULE (5,000 UNITS) PO (09:01)
[2024-03-29] MEDS: Pantoprazole Sodium 40 MG Tablet PO ×2 (09:01→21:09)
[2024-03-29] MEDS: Ascorbic Acid 500 MG Tablet PO (09:01)
[2024-03-29] MEDS: Losartan Potassium 25 MG Tablet PO (09:01)
[2024-03-29] MEDS: guaiFENesin 1,200 MG Tablet 1200 MG PO ×2 (09:01→21:09)
[2024-03-29] MEDS: Furosemide 20 MG Tablet PO (09:02)
[2024-03-29] MEDS: Vancomycin HCl 750 MG in 0.9% Normal Saline (250mL Bag) 250 ML 250 MG IV ×2 (09:03→21:01)
[2024-03-29 09:29] LABS: Bedside Glucose 113 mg/dL (74-106)
[2024-03-29 11:46] LABS: Bedside Glucose 149 mg/dL (74-106)
[2024-03-29] MEDS: Insulin Lispro 100 UNIT/ML INSULN.PEN SC ×2 (12:39→16:55)
[2024-03-29] MEDS: Insulin NPH Human 100 UNITS/ML PEN 15 UNITS SC ×2 (12:40→16:56)
[2024-03-29] MEDS: Menthol/Lanolin/Calamine/Znox 113 GM Tube 1 APPLIC TOPICAL (13:06)
--- NOTE | 2024-03-29 14:05 | CASEMGMT ---
SW met with patient. SW explained that SW will need to call his to see if she will be able to assist JFS with documentation they will need for his Medicaid. Patient verbalized understanding and was in agreement. SW explained to patient that he will be going to a residential on pending Medicaid. SW explained not all nursing facilities are willing to take patient's on pending Medicaid. SW provided patient with a list of?halfway facility providers including quality and resource use data and consistent with patient?s preferred geographic region, medical needs, and insurance network were provided from the [employer] Guide. SW asked patient to review the list so SW can work on making referrals. SW will check back with patient. Ema Rosario CLIENT LEADERAlice ARORA
--- NOTE | 2024-03-29 14:54 | WOUNDNOTE ---
wound photo: left heel
--- NOTE | 2024-03-29 16:22 | CASEMGMT ---
JOAQUIM called patient's [employer] and explained that [facility] has assisted patient in applying for Medicaid. SW asked Zenobia if she would be willing to help by getting [employer] the information they need for patient's Medicaid. Zenobia said she would do what she can. Zenobia said she does not have access to some things. SW thanked [employer] for her assistance. SW notified patient that SW spoke with [employer]. Ema ARORA
[2024-03-29 17:19] LABS: Bedside Glucose 104 mg/dL (74-106)
--- NOTE | 2024-03-29 17:37 | PN.HOSP_ITS ---
Subjective Subjective Doing well, no issues overnight Objective Data Objective Data Vital Signs: Vital Signs Temp Pulse Resp BP Pulse Ox O2 Del Method O2 Flow Rate 97.4 F L 91 18 122/93 H 99 Room Air 8 03/29/24 15:00 03/29/24 15:00 03/29/24 15:00 03/29/24 15:00 03/29/24 15:00 03/29/24 15:00 03/25/24 05:05 FiO2 2 03/20/24 05:25 Oxygen Flow Rate (L/min) 8 Oxygen Delivery Method Room Air Weight: 197 lb 12.074 oz Body Mass Index (BMI) 29.2 Intake & Output: Intake and Output for Last 24 Hours 03/28/24 03/29/24 03/30/24 03:59 03:59 03:59 Intake Total 1230 / 1230 1340 / 1340 1445 / 1445 Output Total 2050 / 2050 650 / 650 1350 / 1350 Balance -820 / -820 690 / 690 95 / 95 Lab / Micro Data 03/29/24 06:17 03/29/24 06:17 Labs: Laboratory Results - last 24 hr 03/28/24 21:22: POC Glucose 184 H 03/29/24 06:17: WBC 10.0, RBC 3.84 L, Hgb 10.9 L, Hct 35.3 L, MCV 91.9, MCH 28.4, MCHC 30.9 L, RDW Std Deviation 57.0 H, RDW Coeff of Fariba 18.1 H, Plt Count 423, MPV 9.9, Immature Gran % (Auto) 0.500, Neut % (Auto) 70.8 H, Lymph % (Auto) 20.4, Callahan % (Auto) 5.5, Eos % (Auto) 2.1, Baso % (Auto) 0.7, Absolute Neuts (auto) 7.1, Absolute Lymphs (auto) 2.03, Nucleated RBC % 0, Sodium 140, Potassium 4.1, Chloride 112 H, Carbon Dioxide 22.0, Anion Gap 6, BUN 23 H, Creatinine 0.98, Estim Creat Clear Calc 104.31, Est GFR (MDRD) Af Amer 105, Est GFR (MDRD) Non-Af 87, BUN/Creatinine Ratio 23.4 H, Glucose 120 H, Calcium 8.4 L, Total Bilirubin 0.50, AST 34, ALT 11 L, Alkaline Phosphatase 124 H, Total Protein 7.5, Albumin 1.6 L, Globulin 5.9 H, Albumin/Globulin Ratio 0.3 L 03/29/24 08:44: POC Glucose 113 H 03/29/24 11:27: POC Glucose 149 H 03/29/24 16:53: POC Glucose 104 Micro: Microbiology 03/22/24 13:17 Blood Culture (Wb) - Anticubital Right Blood Culture - Final No growth in 5 days. 03/22/24 13:05 Wound - Heel, Left Gram Stain - Final 03/22/24 13:05 Wound - Heel, Left Wound Culture - Final Staphylococcus aureus Coag Negative Staph 03/20/24 02:00 Blood Culture (Wb) - Right Hand Blood Culture - Final Staphylococcus aureus 03/22/24 13:10 Stool Stool Occult Blood (ELINA) - Final 03/19/24 22:55 Blood Culture (Wb) - Left Forearm Bacteria Detection (PCR) - Final Staphylococcus aureus 03/19/24 22:55 Blood Culture (Wb) - Left Forearm Blood Culture - Final Staphylococcus aureus 03/19/24 23:00 Urine, Clean Catch Legionella Antigen - Final 03/19/24 23:00 Urine, Clean Catch Streptococcus pneumoniae Antigen (M - Final 03/20/24 00:40 Stool Stool Occult Blood (ELINA) - Final 03/19/24 23:05 Mucosa - Nose SARS-CoV-2, Influenza & RSV (PCR) - Final Physical Exam Narrative General: Alert, Oriented x3, Cooperative, No apparent distress HEENT: Atraumatic, PERRLA, EOMI, Normocephalic Oral: Moist Mucosa Neck: Supple, No JVD Lungs: Diminished, Normal air movement, No rhonchi, No wheeze, No rales Cardiovascular: Regular rate, Regular Rhythm, Normal S1, Normal S2, No murmurs Abdomen: Soft, Non Tender, Non-Distended, No Hepato-splenomegaly Extremities: No edema, Capillary Refill Less than 3 Seconds Skin: Left lower extremity dressed and wrapped, clean dry and intact Musculoskeletal: No Tenderness to Palpation of Joints or Extremities Neurological: No focal neurological deficits, Motor Exam 5/5 strength throughout, Sensory exam intact to light touch and pain Psych/Mental Status: Normal Affect, Appropriate Assessment & Plan Assessment/Plan (1) MSSA bacteremia: (2) Pneumonia: QUALIFIERS: Pneumonia type: due to unspecified organism L aterality: right Lung location: lower lobe of lung Qualified Code(s): J18.9 - Pneumonia, unspecified organism (3) Non-pressure chronic ulcer of other part of left foot with fat layer exposed: PLAN: Plan #1. 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, ws initially labeled as acute sepsis (leukocytosis, lactic acidosis, tachypnea, tachycardia, fever with total bilirubin elevated 1.4 but still not consistent with sepsis given no end- organ damage associated with infectious presentation), thus ruled out: Admission 03/19/2024 blood cultures with Staphylococcus aureus with repeat 03/20/2024 blood culture 1 positive, Legionella and streptococcal antigens negative, SARS COVID/influenza/RSV negative, initially maintained on IV vancomycin and Zosyn-->ID transition 03/22/24 to vancomycin/cefazolin as well as oral Flagyl given concurrent #2 as noted, continue PRN albuterol, encourage HOB, IS parameters, TTE without vegetations, follow-up 03/23/24 GUERLINE with EF 15%, trivial MVI, no definitive vegetation seen, left heel wound culture with Staphylococcus aureus, podiatry consulted and following as noted below with transition of intervention care to Plastic Surgery Dr. Rawls for possible BKA. Most recent repeat 03/22/2024 blood cultures negative. 03/25/2024 PICC line successful. Definitive intervention as noted #2 as likely source for bacteremia and pneumonia. 03/27/24 discussed with case management/social work and patient is not a candidate for any transition to skilled facility to await surgical intervention given social situation with lack of insurance, as of now plan for intervention per vascular this upcoming Friday and following this intervention per plastics for BKA. 03/29/2024: Continue with antibiotics, appreciate infectious disease assistance #2. Left foot ulcerated plantar central calcaneus with tissue maceration with acute osteomyelitis: Wound RN consulted, ongoing dressing changes, given appearance with macerated tissue and suspected undermining Podiatry consultation obtained, CT left lower extremity with cortical disruption the calcaneus consistent with os mellitus with fragmentation with extension to the subtalar joint, ill-defined lucency in the adjacent talus suggesting secondary involvement, maintain offloading, currently maintained on IV vancomycin/cefazolin and oral Flagyl per ID direction, given poor reconstructive candidate decision for below the knee amputation with plastic surgery Dr. Rawls consultation per podiatry recommendation as noted w/ recommended BKA. Discussed case with patient and plastic surgery with plan for upcoming evaluation possibly 03/29/[address] Gordon for lower extremity angiogram with runoff consideration prior to potential left BKA 03/31/2024. Most recent repeat blood culture 03/22/2024 with no growth, reviewed with infectious disease. 03/25/24 PICC line successful. 03/27/24 discussed with case management/social work and patient is not a candidate for any transition to skilled facility to await surgical intervention given social situation with lack of insurance, as of now plan for intervention per vascular this upcoming Friday and following this intervention per plastics for BKA. 03/29/2024: Voiding surgical intervention on Friday and then will work on placement after his BKA #3. Acute normocytic anemia, worsening, appears new chronicity with history of prior PUD of note: Admission hemoglobin 9.3, prior to this hemoglobin 01/13/2024 had been 13.4 which appears his baseline primarily, decreased 03/21/2020 4-8.0 and now 03/22/2024 hemoglobin 6.9, 2 unit PRBC ordered, iron panel obtained with iron 27, TIBC 97, iron saturation 27.8, ferritin 1417 more consistent with AOCD, guaiac obtained 03/20/2024 noted to be negative at that time, place on PPI to be cautious. Repeat guiac requested to be thorough and again negative. Will cautiously continue baby aspirin, metoprolol as BP allows, statin therapy, low- dose lisinopril. 03/25/2024 resumed chemoprophylaxis with Lovenox given stable hemoglobin. 03/28/2024 hemoglobin 10.8, stable. 03/29/2024: Hemoglobin is stable at 10.9 #4. Hyperbilirubinemia, Transaminitis, acute on chronic: Unclear specific etiology, 03/19/2024 T. bili 1.10, AST/LT 53/61, alk phos 232->03/22/2024 CMP with total bilirubin 1.40, D bilirubin 0.32, AST/LT 166/126, alk phos 145-->03/23/24 T. bili 0.70, AST/LT 103/132, alk phos 202--> 03/28/24 total bilirubin 0.50, AST/LT 21/11, alk phos 117, liver ultrasound with normal appearing liver and gallbladder, hepatitis panel nonreactive. #5. Petechial rash, unclear etiology: Patient with onset over the last 48 hours petechial rash to the hands, upper thighs as well as some irritation in the antecubital fossa although suspect this is in part secondary to tight blood pressure assessments in that region, possibly related to medication including antibiotic therapy, nonpainful, nonblanching and lessening in appearance 03/24/2024 compared to prior. Per review with infectious disease felt not typical of a drug rash with continued stable renal function and platelets, pending ANCA labs. 03/26/2024 extremity started to improve and repeat evaluation 03/27/24 again resolving, low suspicion for vasculitis given this but unclear etiology still. #6. PSVT: 03/25/2024 overnight patient with episodes of short bursts of VT , BP on the lower normal side thus unable to initiate any increase in metoprolol regimen at this time but once improves will consider, at that time additional labs included magnesium 2.1, potassium 3.9. Cardiology has been consulted therefore if any concerns arise will re-involve them. #7. Hypokalemia: Admission K+ 2.9, magnesium level requested, supplementation given, 03/28/24 potassium 3.7. #8. Hypocalcemia, improved with corrected: Calcium 6.4, previous albumin significantly low however this is from 03/19/2024 and 1.8 at that time, corrected 8.16, supplemented with calcium gluconate, 03/28/24 calcium 8.2, again corrected elevated above this. #9. HFrEF/Ischemic Cardiomyopathy: s/p biventricular AICD [facility], 03/21/2024 echocardiogram pending as noted above, prior ECHO 12/04/23 with LV normal size, LV systolic function severely decreased, EF 25?5%, regional wall motion abnormalities present, grade 1 LV diastolic dysfunction, RV not well-visualized, on limited views right ventricle grossly normal in size and systolic function, no significant valvular abnormalities. As noted planned 2 u PRBC administration, monitor for overload, will administer 20 mg IV x 1. Will cautiously continue baby aspirin, metoprolol, low-dose losartan, Lasix and hydralazine with BP parameters given initial presentation with lower normal BP. Case management consulted for assistance with medication cost. Cardiology evaluation 03/24/2024 with cardiac clearance for progression to OR for vascular intervention potential as well as planned left lower extremity BKA. #10. CAD: Status post CABG x 3, given guaiac stool negative, cautiously continue baby aspirin, metoprolol, low-dose losartan. #11. Diabetes mellitus type II with chronic neuropathy: Hold oral home regimen, continue home insulin regimen as well as ISS scheduled with meals, ADA diet, accu checks w/ ISS. 03/23/2024 hgbA1c 6.1%. Encourage medication compliance. #12. Hypertension: Patient from records has been noncompliant with hypertensive regimen reporting that he does not believe he needs it although he is on some of this regimen secondary to underlying heart failure and CAD, will continue low- dose metoprolol and losartan as well as low-dose Lasix as BP allows but has been on the low end. Holding oral home hydralazine regimen. #13. Hyperlipidemia: We will continue patient on statin therapy. #14. GERD with history of peptic ulcer disease: PPI. #15. Tobacco Abuse: Encouraged cessation, inpatient consultation per RT, NR if desired. #16. JAIDEN: Noncompliant with PAP therapy, using oxygen q HS instead. DVT: Lovenox Charges/Coding Visit Charges Inpatient E&M: 33064 Subs Hosp L2
[2024-03-29 20:23] LABS: Vancomycin, Trough Level 17.7 ug/mL (5.0-15.0)
--- NOTE | 2024-03-29 20:52 | PCM.RX.CS ---
Consult Antibiotic Management Pharmacy has been consulted to manage selected antibiotic: Vancomycin Type of Intervention Type of Consult: Follow-up Suspected Infection Suspected Infection: Bacteremia Prior Doses of Antibiotics Prior Doses of Antibiotics Received/Current Regimen: Vancomycin 750 mg Q12H last dose 03/29/24 @ 0903 Labs Labs: Sodium 140 mmol/L (136-145) 03/29/24 06:17 Potassium 4.1 mmol/L (3.5-5.1) 03/29/24 06:17 Chloride 112 mmol/L (98-107) H 03/29/24 06:17 Carbon Dioxide 22.0 mmol/L (21.0-32.0) 03/29/24 06:17 Anion Gap 6 (5-15) 03/29/24 06:17 BUN 23 mg/dL (7-18) H 03/29/24 06:17 Creatinine 0.98 mg/dL (0.70-1.30) 03/29/24 06:17 Est GFR (MDRD) Af Amer 105 mL/min (>60) 03/29/24 06:17 Est GFR (MDRD) Non-Af 87 mL/min (>60) 03/29/24 06:17 BUN/Creatinine Ratio 23.4 RATIO (10-20) H 03/29/24 06:17 Glucose 120 mg/dL (74-106) H 03/29/24 06:17 Vancomycin Trough 17.7 ug/mL (5.0-15.0) H 03/29/24 19:45 Random Vancomycin 15.9 ug/mL (0.0-15.0) H 03/24/24 06:06 Microbiology Microbiology: Microbiology 03/22/24 13:17 Blood Culture (Wb) - Anticubital Right Blood Culture - Final No growth in 5 days. 03/22/24 13:05 Wound - Heel, Left Gram Stain - Final 03/22/24 13:05 Wound - Heel, Left Wound Culture - Final Staphylococcus aureus Coag Negative Staph 03/20/24 02:00 Blood Culture (Wb) - Right Hand Blood Culture - Final Staphylococcus aureus 03/22/24 13:10 Stool Stool Occult Blood (ELINA) - Final 03/19/24 22:55 Blood Culture (Wb) - Left Forearm Bacteria Detection (PCR) - Final Staphylococcus aureus 03/19/24 22:55 Blood Culture (Wb) - Left Forearm Blood Culture - Final Staphylococcus aureus 03/19/24 23:00 Urine, Clean Catch Legionella Antigen - Final 03/19/24 23:00 Urine, Clean Catch Streptococcus pneumoniae Antigen (M - Final 03/20/24 00:40 Stool Stool Occult Blood (ELINA) - Final 03/19/24 23:05 Mucosa - Nose SARS-CoV-2, Influenza & RSV (PCR) - Final Dosing Weight Weight used for dosin kg Estimated Creatinine Clearance Estimated Creatinine Clearance: ~104 Goal Trough Goal Trough: 15-20 mcg/mL Pharmacy Plan for Drug Dosing Pharmacy Plan for Drug Dosing: Vancomycin trough = 17.7, continue current dosing, trough in 4 days Pharmacy Service will continue to monitor and adjust dosing as required. Follow-Up Labs Follow-Up Labs: Trough: Vancomycin Date/Time Labs Ordered Labs to be done on [date and time ordered]: 04/02/24 @ 1930
[2024-03-29] MEDS: Vancomycin Trough/Random Due 1 LAB MC (20:59)
[2024-03-29] MEDS: Atorvastatin Calcium 10 MG Tablet PO (21:09)
[2024-03-30] VITALS (9 sets, daily range): BP systolic 120–130; BP diastolic 65–87; PULSE 78–92; RESP 18–24; TEMP 36.3–36.6; O2SAT 96–98
[2024-03-30] MEDS: metroNIDAZOLE 500 MG Tablet PO ×3 (05:58→21:58)
[2024-03-30] MEDS: Enoxaparin 40 MG/0.4 ML Syringe SC (05:59)
[2024-03-30] MEDS: Cefazolin 2 GM in 0.9% Normal Saline (100mL Bag) 100 ML IV ×3 (06:10→21:59)
[2024-03-30 08:11] LABS: Cytoplasmic Ab (C-ANCA) <1:20 titer (Neg:<1:20); Perinuclear Ab (P-ANCA) <1:20 titer (Neg:<1:20)
[2024-03-30] MEDS: Vancomycin HCl 750 MG in 0.9% Normal Saline (250mL Bag) 250 ML 250 MG IV ×2 (08:36→20:01)
[2024-03-30] MEDS: Juven (unflavored) Packet 1 PACKET PO (08:40)
[2024-03-30] MEDS: Lactobacillis Acidophilus 1 CAP PO ×4 (08:40→21:58)
[2024-03-30] MEDS: Cholecalciferol (Vit D3) 125 MCG CAPSULE (5,000 UNITS) PO (08:40)
[2024-03-30] MEDS: Metoprolol Tartrate 25 MG Tablet PO (08:40)
[2024-03-30] MEDS: Furosemide 20 MG Tablet PO (08:40)
[2024-03-30] MEDS: Ascorbic Acid 500 MG Tablet PO (08:44)
[2024-03-30] MEDS: Losartan Potassium 25 MG Tablet PO (08:44)
[2024-03-30] MEDS: guaiFENesin 1,200 MG Tablet 1200 MG PO ×2 (08:44→21:59)
[2024-03-30] MEDS: Aspirin E.C. 81 MG Tablet PO (08:44)
[2024-03-30] MEDS: Pantoprazole Sodium 40 MG Tablet PO ×2 (08:44→22:01)
[2024-03-30 08:52] LABS: Bedside Glucose 74 mg/dL (74-106)
--- NOTE | 2024-03-30 08:55 | PCM.PN.SRG ---
Subjective Subjective Patient seen and examined this morning. Discussed with him treatment plan (vascular angiogram tomorrow for evaluation of the left lower extremity, followed by plan for elective amputation to the left lower extremity). He reports that he's feeling well overall. I answered all of his questions today. Objective Data Objective Data Vital Signs: Vital Signs Temp Pulse Resp BP Pulse Ox O2 Del Method O2 Flow Rate 97.4 F L 78 18 130/74 H 96 Room Air 8 03/30/24 03:42 03/30/24 08:40 03/30/24 03:42 03/30/24 08:40 03/30/24 03:42 03/30/24 03:42 03/25/24 05:05 FiO2 2 03/20/24 05:25 Oxygen Flow Rate (L/min) 8 Oxygen Delivery Method Room Air Weight: 197 lb 12.074 oz Body Mass Index (BMI) 29.2 Intake & Output: Intake and Output for Last 24 Hours 03/28/24 03/29/24 03/30/24 23:59 23:59 23:59 Intake Total 1450 / 1450 2320 / 2320 230 / 230 Output Total 650 / 650 1750 / 1750 150 / 150 Balance 800 / 800 570 / 570 80 / 80 Lab / Micro Data 03/29/24 06:17 03/29/24 06:17 Labs: Laboratory Results - last 24 hr 03/25/24 06:14: c-ANCA Antibody <1:20, Atypical p-ANCA 1:320 H, p-ANCA Antibody <1:20 03/29/24 08:44: POC Glucose 113 H 03/29/24 11:27: POC Glucose 149 H 03/29/24 16:53: POC Glucose 104 03/29/24 19:45: Vancomycin Trough 17.7 H 03/30/24 08:33: POC Glucose 74 Micro: Microbiology 03/22/24 13:17 Blood Culture (Wb) - Anticubital Right Blood Culture - Final No growth in 5 days. 03/22/24 13:05 Wound - Heel, Left Gram Stain - Final 03/22/24 13:05 Wound - Heel, Left Wound Culture - Final Staphylococcus aureus Coag Negative Staph 03/20/24 02:00 Blood Culture (Wb) - Right Hand Blood Culture - Final Staphylococcus aureus 03/22/24 13:10 Stool Stool Occult Blood (ELINA) - Final 03/19/24 22:55 Blood Culture (Wb) - Left Forearm Bacteria Detection (PCR) - Final Staphylococcus aureus 03/19/24 22:55 Blood Culture (Wb) - Left Forearm Blood Culture - Final Staphylococcus aureus 03/19/24 23:00 Urine, Clean Catch Legionella Antigen - Final 03/19/24 23:00 Urine, Clean Catch Streptococcus pneumoniae Antigen (M - Final 03/20/24 00:40 Stool Stool Occult Blood (ELINA) - Final 03/19/24 23:05 Mucosa - Nose SARS-CoV-2, Influenza & RSV (PCR) - Final Physical Exam Narrative Persistent diabetic foot ulcer, 3 x 2 cm on the plantar surface of the left posterior foot. There is minimal serous drainage today. No induration. No streaking erythema or crepitus in the foot or leg. The wound probes 6 cm proximally to soft, mushy bone. Const alert and oriented x3 HEENT normocephalic Eyes EOMs intact bilaterally Neck full ROM Resp Auscultation: rhonchi Cardio Rate: regular rate GI GI Narrative: Large ventral hernia (with old stoma scar on right abdomen). Inspection: abdominal distention Extremity Extremity Narrative: I could not palpate any foot pulses. I had trouble feeling popliteal pulse today. I actually do not think I felt one. No sensation to light touch today on the bilateral foot up to about the mid calf. Assessment & Plan Assessment/Plan (1) Osteomyelitis: PLAN: His lower extremity has stabilized (chronic wound, minimal drainage and no ascending infection). His pneumonia has improved. Further counseling regarding surgery: Talked to Mr. Andrade again about treatment plan (see if we can improve blood flow/healing potential to the left lower extremity before BKA). He understands the risks of anesthesia, including heart attack, respiratory failure/inability to extubate, DVT/PE, and other potential complications leading to morbidity and mortality. We discussed these things again on rounds this morning. We discussed potential for regenerative peripheral nerve interface (RPNI) v targeted muscle reinnervation (TMR) to prevent phantom nerve pain and neuroma formation. We discussed how there is no guarantee that he will not develop these conditions,but that these techniques have been shown to improve chances of prevention. He is in agreement and would like to proceed. Plan: I will f/u with Dr. Gordon tomorrow following the angiogram. Tentative plans for BKA early next week Charges/Coding Visit Charges Inpatient E&M: 78287 Subs Hosp L1
--- NOTE | 2024-03-30 10:14 | PN.ID_ITS ---
Physical Exam Narrative Feeling ok, no fever, no n/v/d, foot doing ok Const alert and no apparent distress Resp normal air movement and clear to auscultation bilaterally Cardio regular rate and regular rhythm GI soft to palpation, non-tender and non-distended Skin Skin Narrative: foot wrapped ID ID: Route of nutrition/ use of supplements: [] Nutritional Intake: [] IV Site: [] Peraza Catheter: [] Assessment & Plan Assessment/Plan (1) Sepsis: QUALIFIERS: Sepsis type: sepsis due to unspecified organism Sepsis acute organ dysfunction status: with acute organ dysfunction Severe sepsis acute organ dysfunction type: unspecified Severe sepsis shock status: without septic shock Qualified Code(s): A41.9 - Sepsis, unspecified organism; R65.20 - Severe sepsis without septic shock PLAN: Reviewed [facility] records; admitted 12/03/23 with MSSA endocarditis from L foot osteo. BiV-ICD extracted, but LV lead was capped and retained (not MRI compatitible per EP at [facility]). Now again with MSSA bacteremia per pcr with L foot as suspected source (vs possible pneumonia). Repeat bcx remains neg since 03/22. MSSA and CoNS seen on heel wound cx. GUERLINE showed no veg. Seen by podiatry and had L foot CT. DULCE MARIA resolved. BKA planned. Cont vanc/cefazolin/flagyl. Will follow (2) Type 2 diabetes mellitus with diabetic polyneuropathy: QUALIFIERS: Diabetes mellitus marine oil terminal superintendent insulin use: with correction use Qualified Code(s): E11.42 - Type 2 diabetes mellitus with diabetic polyneuropathy; Z79.4 - extermination inspector (current) use of insulin (3) MSSA bacteremia:
--- NOTE | 2024-03-30 11:37 | CASEMGMT ---
Discharge Planning Referral sent via [facility] to [facility]. Bianca Mera DC Planning Asst.
--- NOTE | 2024-03-30 11:38 | CASEMGMT ---
Social Work Followed up with patient regarding SNF choices. Introduced to self and role. Patient acknowledges having a SNF list of options but that has not really looked at the list too much. Patient then spontaneously shared that has been to [facility] in the past, just a couple of months ago for about 3 weeks. Patient reports was happy with care received there and would be willing to go back to [facility]. Patient does have list of SNF options though, should patient change mind or there would be a need to look at additional choices. Updated Bianca, Discharge Planning Assistance of patient's identified preference. Plan: Anticipate SNF, referral will be send to [facility]. Will need to complete PASRR screen and Medicaid Level of Care once an accepting facility known. -PUJA Lozano
[2024-03-30 11:42] LABS: Bedside Glucose 113 mg/dL (74-106)
[2024-03-30] MEDS: Insulin Lispro 100 UNIT/ML INSULN.PEN SC ×2 (12:06→16:55)
[2024-03-30] MEDS: Insulin NPH Human 100 UNITS/ML PEN 15 UNITS SC ×2 (12:07→16:54)
--- NOTE | 2024-03-30 12:18 | CASEMGMT ---
Social Work SW spoke w/pt about history of mental illness to ensure PAS/RR is completed correctly. Pt states has no history of depression/anxiety/mental illness, has never been on medications and has never been hospitalized for psychiatric reasons. Also, [facility] wants to speak w/pt about his finances, pt states to call him rather than his . silviano Valenzuela/yoli professor of forest planning will let them know. HE Valle
--- NOTE | 2024-03-30 13:14 | PN.SURG_ITS ---
Subjective Subjective Patient was seen up to the bedside chair this afternoon. He has no complaints. We discussed plan for angiogram tomorrow, any questions/concerns were addressed. He remains agreeable to proceed. Objective Data Objective Data Vital Signs: Vital Signs Temp Pulse Resp BP Pulse Ox O2 Del Method O2 Flow Rate 97.8 F 78 18 130/74 H 98 Room Air 8 03/30/24 09:40 03/30/24 09:40 03/30/24 09:40 03/30/24 09:40 03/30/24 09:40 03/30/24 10:23 03/25/24 05:05 FiO2 2 03/20/24 05:25 Oxygen Flow Rate (L/min) 8 Oxygen Delivery Method Room Air Weight: 197 lb 12.074 oz Body Mass Index (BMI) 29.2 Intake & Output: Intake and Output for Last 24 Hours 03/28/24 03/29/24 03/30/24 23:59 23:59 23:59 Intake Total 1450 / 1450 2320 / 2320 735 / 735 Output Total 650 / 650 1750 / 1750 1000 / 1000 Balance 800 / 800 570 / 570 -265 / -265 Lab / Micro Data 03/29/24 06:17 03/29/24 06:17 Labs: Laboratory Results - last 24 hr 03/25/24 06:14: c-ANCA Antibody <1:20, Atypical p-ANCA 1:320 H, p-ANCA Antibody <1:20 03/29/24 16:53: POC Glucose 104 03/29/24 19:45: Vancomycin Trough 17.7 H 03/30/24 08:33: POC Glucose 74 03/30/24 11:24: POC Glucose 113 H Micro: Microbiology 03/22/24 13:17 Blood Culture (Wb) - Anticubital Right Blood Culture - Final No growth in 5 days. 03/22/24 13:05 Wound - Heel, Left Gram Stain - Final 03/22/24 13:05 Wound - Heel, Left Wound Culture - Final Staphylococcus aureus Coag Negative Staph 03/20/24 02:00 Blood Culture (Wb) - Right Hand Blood Culture - Final Staphylococcus aureus 03/22/24 13:10 Stool Stool Occult Blood (ELINA) - Final 03/19/24 22:55 Blood Culture (Wb) - Left Forearm Bacteria Detection (PCR) - Final Staphylococcus aureus 03/19/24 22:55 Blood Culture (Wb) - Left Forearm Blood Culture - Final Staphylococcus aureus 03/19/24 23:00 Urine, Clean Catch Legionella Antigen - Final 03/19/24 23:00 Urine, Clean Catch Streptococcus pneumoniae Antigen (M - Final 03/20/24 00:40 Stool Stool Occult Blood (ELINA) - Final 03/19/24 23:05 Mucosa - Nose SARS-CoV-2, Influenza & RSV (PCR) - Final Physical Exam Const alert and oriented x3 General Appearance: cooperative HEENT head/scalp atraumatic, hearing grossly normal bilaterally, external ears normal and external nose normal Eyes General Eye: normal appearance of both eyes Neck General: normal visual inspection and trachea midline Resp normal respiratory effort, no retractions and no use of accessory muscles Effort and Inspection: able to speak in complete sentences Cardio regular rate and regular rhythm Peripheral Pulses: femoral pulses present Extremity Extremity Narrative: L foot with dressings C/D/I. Skin Wounds: wounds noted Wound Narrative: L heel wound, dressings not disturbed, pictures in chart reviewed Neuro oriented x3, CN's II-XII intact bilaterally, moves all extremities and no focal motor deficits Speech: speech normal Psych mental status grossly normal Appearance: grossly normal Attitude: calm Speech: normal speech Mood & Affect: euthymic mood Assessment & Plan Assessment/Plan (1) 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 of bone: (2) Type 2 diabetes mellitus with foot ulcer: (3) Atherosclerosis of lower extremity with ulceration: PLAN: Plan Plan to proceed with angiogram as scheduled in the labor relations teacher tomorrow, planned for around 1400. NPO per protocol. Continue ASA. Charges/Coding Visit Charges Inpatient E&M: 92140 Subs Hosp L2
[2024-03-30] MEDS: Menthol/Lanolin/Calamine/Znox 113 GM Tube 1 APPLIC TOPICAL (14:18)
--- NOTE | 2024-03-30 15:00 | PN.HOSP_ITS ---
Subjective Subjective Doing well, no issues overnight Objective Data Objective Data Vital Signs: Vital Signs Temp Pulse Resp BP Pulse Ox O2 Del Method O2 Flow Rate 97.8 F 78 18 130/74 H 98 Room Air 8 03/30/24 09:40 03/30/24 09:40 03/30/24 09:40 03/30/24 09:40 03/30/24 09:40 03/30/24 10:23 03/25/24 05:05 FiO2 2 03/20/24 05:25 Oxygen Flow Rate (L/min) 8 Oxygen Delivery Method Room Air Weight: 197 lb 12.074 oz Body Mass Index (BMI) 29.2 Intake & Output: Intake and Output for Last 24 Hours 03/29/24 03/30/24 03/31/24 03:59 03:59 03:59 Intake Total 1340 / 1340 2320 / 2320 735 / 735 Output Total 650 / 650 1750 / 1750 1000 / 1000 Balance 690 / 690 570 / 570 -265 / -265 Lab / Micro Data 03/29/24 06:17 03/29/24 06:17 Labs: Laboratory Results - last 24 hr 03/25/24 06:14: c-ANCA Antibody <1:20, Atypical p-ANCA 1:320 H, p-ANCA Antibody <1:20 03/29/24 16:53: POC Glucose 104 03/29/24 19:45: Vancomycin Trough 17.7 H 03/30/24 08:33: POC Glucose 74 03/30/24 11:24: POC Glucose 113 H Micro: Microbiology 03/22/24 13:17 Blood Culture (Wb) - Anticubital Right Blood Culture - Final No growth in 5 days. 03/22/24 13:05 Wound - Heel, Left Gram Stain - Final 03/22/24 13:05 Wound - Heel, Left Wound Culture - Final Staphylococcus aureus Coag Negative Staph 03/20/24 02:00 Blood Culture (Wb) - Right Hand Blood Culture - Final Staphylococcus aureus 03/22/24 13:10 Stool Stool Occult Blood (ELINA) - Final 03/19/24 22:55 Blood Culture (Wb) - Left Forearm Bacteria Detection (PCR) - Final Staphylococcus aureus 03/19/24 22:55 Blood Culture (Wb) - Left Forearm Blood Culture - Final Staphylococcus aureus 03/19/24 23:00 Urine, Clean Catch Legionella Antigen - Final 03/19/24 23:00 Urine, Clean Catch Streptococcus pneumoniae Antigen (M - Final 03/20/24 00:40 Stool Stool Occult Blood (ELINA) - Final 03/19/24 23:05 Mucosa - Nose SARS-CoV-2, Influenza & RSV (PCR) - Final Physical Exam Narrative General: Alert, Oriented x3, Cooperative, No apparent distress HEENT: Atraumatic, PERRLA, EOMI, Normocephalic Oral: Moist Mucosa Neck: Supple, No JVD Lungs: Diminished, Normal air movement, No rhonchi, No wheeze, No rales Cardiovascular: Regular rate, Regular Rhythm, Normal S1, Normal S2, No murmurs Abdomen: Soft, Non Tender, Non-Distended, No Hepato-splenomegaly Extremities: No edema, Capillary Refill Less than 3 Seconds Skin: Left lower extremity dressed and wrapped, clean dry and intact Musculoskeletal: No Tenderness to Palpation of Joints or Extremities Neurological: No focal neurological deficits, Motor Exam 5/5 strength throughout, Sensory exam intact to light touch and pain Psych/Mental Status: Normal Affect, Appropriate Assessment & Plan Assessment/Plan (1) MSSA bacteremia: (2) Pneumonia: QUALIFIERS: Pneumonia type: due to unspecified organism L aterality: right Lung location: lower lobe of lung Qualified Code(s): J18.9 - Pneumonia, unspecified organism (3) Non-pressure chronic ulcer of other part of left foot with fat layer exposed: PLAN: Plan #1. 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, ws initially labeled as acute sepsis (leukocytosis, lactic acidosis, tachypnea, tachycardia, fever with total bilirubin elevated 1.4 but still not consistent with sepsis given no end- organ damage associated with infectious presentation), thus ruled out: Admission 03/19/2024 blood cultures with Staphylococcus aureus with repeat 03/20/2024 blood culture 1 positive, Legionella and streptococcal antigens negative, SARS COVID/influenza/RSV negative, initially maintained on IV vancomycin and Zosyn-->ID transition 03/22/24 to vancomycin/cefazolin as well as oral Flagyl given concurrent #2 as noted, continue PRN albuterol, encourage HOB, IS parameters, TTE without vegetations, follow-up 03/23/24 GUERLINE with EF 15%, trivial MVI, no definitive vegetation seen, left heel wound culture with Staphylococcus aureus, podiatry consulted and following as noted below with transition of intervention care to Plastic Surgery Dr. Rawls for possible BKA. Most recent repeat 03/22/2024 blood cultures negative. 03/25/2024 PICC line successful. Definitive intervention as noted #2 as likely source for bacteremia and pneumonia. 03/27/24 discussed with case management/social work and patient is not a candidate for any transition to skilled facility to await surgical intervention given social situation with lack of insurance, as of now plan for intervention per vascular this upcoming Friday and following this intervention per plastics for BKA. 03/29/2024: Continue with antibiotics, appreciate infectious disease assistance #2. Left foot ulcerated plantar central calcaneus with tissue maceration with acute osteomyelitis: Wound RN consulted, ongoing dressing changes, given appearance with macerated tissue and suspected undermining Podiatry consultation obtained, CT left lower extremity with cortical disruption the calcaneus consistent with os mellitus with fragmentation with extension to the subtalar joint, ill-defined lucency in the adjacent talus suggesting secondary involvement, maintain offloading, currently maintained on IV vancomycin/cefazolin and oral Flagyl per ID direction, given poor reconstructive candidate decision for below the knee amputation with plastic surgery Dr. Rawls consultation per podiatry recommendation as noted w/ recommended BKA. Discussed case with patient and plastic surgery with plan for upcoming evaluation possibly 03/29/[address] Gordon for lower extremity angiogram with runoff consideration prior to potential left BKA 03/31/2024. Most recent repeat blood culture 03/22/2024 with no growth, reviewed with infectious disease. 03/25/24 PICC line successful. 03/27/24 discussed with case management/social work and patient is not a candidate for any transition to skilled facility to await surgical intervention given social situation with lack of insurance, as of now plan for intervention per vascular this upcoming Friday and following this intervention per plastics for BKA. 03/29/2024: Awaiting surgical intervention on Friday and then will work on placement after his BKA 03/30/2024: Angiogram tomorrow #3. Acute normocytic anemia, worsening, appears new chronicity with history of prior PUD of note: Admission hemoglobin 9.3, prior to this hemoglobin 01/13/2024 had been 13.4 which appears his baseline primarily, decreased 03/21/2020 4-8.0 and now 03/22/2024 hemoglobin 6.9, 2 unit PRBC ordered, iron panel obtained with iron 27, TIBC 97, iron saturation 27.8, ferritin 1417 more consistent with AOCD, guaiac obtained 03/20/2024 noted to be negative at that time, place on PPI to be cautious. Repeat guiac requested to be thorough and again negative. Will cautiously continue baby aspirin, metoprolol as BP allows, statin therapy, low- dose lisinopril. 03/25/2024 resumed chemoprophylaxis with Lovenox given stable hemoglobin. 03/28/2024 hemoglobin 10.8, stable. 03/29/2024: Hemoglobin is stable at 10.9 #4. Hyperbilirubinemia, Transaminitis, acute on chronic: Unclear specific etiology, 03/19/2024 T. bili 1.10, AST/LT 53/61, alk phos 232->03/22/2024 CMP with total bilirubin 1.40, D bilirubin 0.32, AST/LT 166/126, alk phos 145-->03/23/24 T. bili 0.70, AST/LT 103/132, alk phos 202--> 03/28/24 total bilirubin 0.50, AST/LT 21/11, alk phos 117, liver ultrasound with normal appearing liver and gallbladder, hepatitis panel nonreactive. #5. Petechial rash, unclear etiology: Patient with onset over the last 48 hours petechial rash to the hands, upper thighs as well as some irritation in the antecubital fossa although suspect this is in part secondary to tight blood pressure assessments in that region, possibly related to medication including antibiotic therapy, nonpainful, nonblanching and lessening in appearance 03/24/2024 compared to prior. Per review with infectious disease felt not typical of a drug rash with continued stable renal function and platelets, pending ANCA labs. 03/26/2024 extremity started to improve and repeat evaluation 03/27/24 again resolving, low suspicion for vasculitis given this but unclear etiology still. #6. PSVT: 03/25/2024 overnight patient with episodes of short bursts of VT , BP on the lower normal side thus unable to initiate any increase in metoprolol regimen at this time but once improves will consider, at that time additional labs included magnesium 2.1, potassium 3.9. Cardiology has been consulted therefore if any concerns arise will re-involve them. #7. Hypokalemia: Admission K+ 2.9, magnesium level requested, supplementation given, 03/28/24 potassium 3.7. #8. Hypocalcemia, improved with corrected: Calcium 6.4, previous albumin significantly low however this is from 03/19/2024 and 1.8 at that time, corrected 8.16, supplemented with calcium gluconate, 03/28/24 calcium 8.2, again corrected elevated above this. #9. HFrEF/Ischemic Cardiomyopathy: s/p biventricular AICD [facility], 03/21/2024 echocardiogram pending as noted above, prior ECHO 12/04/23 with LV normal size, LV systolic function severely decreased, EF 25?5%, regional wall motion abnormalities present, grade 1 LV diastolic dysfunction, RV not well-visualized, on limited views right ventricle grossly normal in size and systolic function, no significant valvular abnormalities. As noted planned 2 u PRBC administration, monitor for overload, will administer 20 mg IV x 1. Will cautiously continue baby aspirin, metoprolol, low-dose losartan, Lasix and hydralazine with BP parameters given initial presentation with lower normal BP. Case management consulted for assistance with medication cost. Cardiology evaluation 03/24/2024 with cardiac clearance for progression to OR for vascular intervention potential as well as planned left lower extremity BKA. #10. CAD: Status post CABG x 3, given guaiac stool negative, cautiously continue baby aspirin, metoprolol, low-dose losartan. #11. Diabetes mellitus type II with chronic neuropathy: Hold oral home regimen, continue home insulin regimen as well as ISS scheduled with meals, ADA diet, accu checks w/ ISS. 03/23/2024 hgbA1c 6.1%. Encourage medication compliance. #12. Hypertension: Patient from records has been noncompliant with hypertensive regimen reporting that he does not believe he needs it although he is on some of this regimen secondary to underlying heart failure and CAD, will continue low- dose metoprolol and losartan as well as low-dose Lasix as BP allows but has been on the low end. Holding oral home hydralazine regimen. #13. Hyperlipidemia: We will continue patient on statin therapy. #14. GERD with history of peptic ulcer disease: PPI. #15. Tobacco Abuse: Encouraged cessation, inpatient consultation per RT, NR if desired. #16. JAIDEN: Noncompliant with PAP therapy, using oxygen q HS instead. DVT: Lovenox Charges/Coding Visit Charges Inpatient E&M: 84052 Subs Hosp L2
[2024-03-30 17:05] LABS: Bedside Glucose 99 mg/dL (74-106)
[2024-03-30] MEDS: Atorvastatin Calcium 10 MG Tablet PO (22:01)
[2024-03-30] MEDS: 0.9% Saline Lock 10 ML Syringe IV (22:06)
[2024-03-31] VITALS (16 sets, daily range): BP systolic 101–135; BP diastolic 54–94; PULSE 81–96; RESP 18–28; TEMP 36.4–36.8; O2SAT 94–100; BMI 29.2
[2024-03-31] MEDS: Cefazolin 2 GM in 0.9% Normal Saline (100mL Bag) 100 ML IV ×3 (06:31→21:47)
[2024-03-31] MEDS: metroNIDAZOLE 500 MG Tablet PO ×3 (06:33→21:46)
[2024-03-31 08:47] LABS: Absolute Lymphocyte Count 1.66 X10^3/uL (0.83-4.51); Absolute Neutrophil Count 5.9 X10^3/uL (2.0-7.7); Basophil# 0.08 X10^3/uL; Eosinophil# 0.12 X10^3/uL; Eosinophils% 1.4 % (0-5); Hematocrit 36.6 % (40-54); Hemoglobin 11.6 g/dL (13.0-16.5); Lymphocyte # 1.66 X10^3/ul (0.83-4.51); Lymphocyte % 19.9 % (19-41); Mean Corp Hgb Conc 31.7 g/dL (32-36); Mean Corpuscular Hgb 29.4 pg (27.0-32.0); Mean Corpuscular Volume 92.9 fL (80-94); Mean Platelet Vol. 9.5 fl (6.2-12.0); Monocyte# 0.53 X10^3/uL; Monocyte% 6.3 % (0-10); NRBC Flagged by Analyzer 0 % (0-5); Neutrophil # 5.94 X10^3/uL (2.7-7.7); Platelet Count 372 K/mm3 (150-450); RBC Distribution Width CV 18.6 % (11.6-14.6); RBC Distribution Width SD 58.3 fl (35.1-43.9); Red Blood Count 3.94 M/mm3 (4.6-6.2); White Blood Count 8.4 K/mm3 (4.4-11.0)
[2024-03-31] MEDS: Aspirin E.C. 81 MG Tablet PO (08:55)
[2024-03-31] MEDS: Losartan Potassium 25 MG Tablet PO (08:55)
[2024-03-31] MEDS: Metoprolol Tartrate 25 MG Tablet PO (08:55)
[2024-03-31] MEDS: 0.9% Saline Lock 10 ML Syringe IV ×4 (08:57→19:34)
[2024-03-31] MEDS: Vancomycin HCl 750 MG in 0.9% Normal Saline (250mL Bag) 250 ML 250 MG IV ×2 (09:04→19:33)
[2024-03-31 09:17] LABS: Anion Gap 6 (5-15); BUN 20 mg/dL (7-18); BUN/Creat Ratio 23.4 RATIO (10-20); Calcium,Total 8.2 mg/dL (8.5-10.1); Chloride 113 mmol/L (98-107); Creatinine, Serum 0.85 mg/dL (0.70-1.30); EST Glomerular Filtration Rate 102 mL/min (>60); Est Glom Filt Rate - Afr Amer 124 mL/min (>60); Estimated Creatinine Clearance 120.26 ml/min; Glucose 58 mg/dL (74-106); Potassium 3.5 mmol/L (3.5-5.1); Sodium Level 142 mmol/L (136-145)
--- NOTE | 2024-03-31 09:17 | CASEMGMT ---
[facility] said they would not be able to accept patient on pending Medicaid as he would be [place] which does not cover SNF stays. SW spoke with Lucretia from [facility] and patient's case is complicated due to the fact that patient should be eligible for Medicare, but he did not follow up with Social Security so he lost his disability and Medicare. Should patient qualify for [place] [facility] would have to process his Medicaid application as [place] as he cannot be denied a program he qualifies for. However, [facility] is looking into this further. JOAQUIM will continue to follow. Paperwork has been completed and sent to Social Security in an effort to reinstate his disability and Medicare. However, this process is likely to take awhile. Ema Rosario MSW [place]
[2024-03-31 09:29] LABS: Bedside Glucose 76 mg/dL (74-106)
[2024-03-31 12:31] LABS: Bedside Glucose 84 mg/dL (74-106)
--- NOTE | 2024-03-31 12:33 | PN.HOSP_ITS ---
Subjective Subjective Blood sugar was a little low this morning prior to surgery, he is n.p.o. Objective Data Objective Data Vital Signs: Vital Signs Temp Pulse Resp BP Pulse Ox O2 Del Method O2 Flow Rate 97.5 F L 81 18 106/82 H 99 Room Air 8 03/31/24 11:58 03/31/24 11:58 03/31/24 11:58 03/31/24 11:58 03/31/24 11:58 03/31/24 11:58 03/25/24 05:05 FiO2 2 03/20/24 05:25 Oxygen Flow Rate (L/min) 8 Oxygen Delivery Method Room Air Weight: 197 lb 12.074 oz Body Mass Index (BMI) 29.2 Intake & Output: Intake and Output for Last 24 Hours 03/30/24 03/31/24 04/01/24 03:59 03:59 03:59 Intake Total 2320 / 2320 1700 / 1700 435 / 435 Output Total 1750 / 1750 1450 / 1450 0 / 0 Balance 570 / 570 250 / 250 435 / 435 Lab / Micro Data 03/31/24 08:32 03/31/24 08:32 Labs: Laboratory Results - last 24 hr 03/30/24 16:47: POC Glucose 99 03/31/24 08:32: WBC 8.4, RBC 3.94 L, Hgb 11.6 L, Hct 36.6 L, MCV 92.9, MCH 29.4, MCHC 31.7 L, RDW Std Deviation 58.3 H, RDW Coeff of Fariba 18.6 H, Plt Count 372, MPV 9.5, Immature Gran % (Auto) 0.400, Neut % (Auto) 71.0 H, Lymph % (Auto) 19.9, [place] % (Auto) 6.3, Eos % (Auto) 1.4, Baso % (Auto) 1.0, Absolute Neuts (auto) 5.9, Absolute Lymphs (auto) 1.66, Nucleated RBC % 0, Sodium 142, Potassium 3.5, Chloride 113 H, Carbon Dioxide 23.0, Anion Gap 6, BUN 20 H, Creatinine 0.85, Estim Creat Clear Calc 120.26, Est GFR (MDRD) Af Amer 124, Est GFR (MDRD) Non-Af 102, BUN/Creatinine Ratio 23.4 H, Glucose 58 L, Calcium 8.2 L 03/31/24 09:09: POC Glucose 76 03/31/24 11:56: POC Glucose 84 Micro: Microbiology 03/22/24 13:17 Blood Culture (Wb) - Anticubital Right Blood Culture - Final No growth in 5 days. 03/22/24 13:05 Wound - Heel, Left Gram Stain - Final 03/22/24 13:05 Wound - Heel, Left Wound Culture - Final Staphylococcus aureus Coag Negative Staph 03/20/24 02:00 Blood Culture (Wb) - Right Hand Blood Culture - Final Staphylococcus aureus 03/22/24 13:10 Stool Stool Occult Blood (ELINA) - Final 03/19/24 22:55 Blood Culture (Wb) - Left Forearm Bacteria Detection (PCR) - Final Staphylococcus aureus 03/19/24 22:55 Blood Culture (Wb) - Left Forearm Blood Culture - Final Staphylococcus aureus 03/19/24 23:00 Urine, Clean Catch Legionella Antigen - Final 03/19/24 23:00 Urine, Clean Catch Streptococcus pneumoniae Antigen (M - Final 03/20/24 00:40 Stool Stool Occult Blood (ELINA) - Final 03/19/24 23:05 Mucosa - Nose SARS-CoV-2, Influenza & RSV (PCR) - Final Physical Exam Narrative General: Alert, Oriented x3, Cooperative, No apparent distress HEENT: Atraumatic, PERRLA, EOMI, Normocephalic Oral: Moist Mucosa Neck: Supple, No JVD Lungs: Diminished, Normal air movement, No rhonchi, No wheeze, No rales Cardiovascular: Regular rate, Regular Rhythm, Normal S1, Normal S2, No murmurs Abdomen: Soft, Non Tender, Non-Distended, No Hepato-splenomegaly Extremities: No edema, Capillary Refill Less than 3 Seconds Skin: Left lower extremity dressed and wrapped, clean dry and intact Musculoskeletal: No Tenderness to Palpation of Joints or Extremities Neurological: No focal neurological deficits, Motor Exam 5/5 strength throughout, Sensory exam intact to light touch and pain Psych/Mental Status: Normal Affect, Appropriate Assessment & Plan Assessment/Plan (1) MSSA bacteremia: (2) Pneumonia: QUALIFIERS: Pneumonia type: due to unspecified organism L aterality: right Lung location: lower lobe of lung Qualified Code(s): J18.9 - Pneumonia, unspecified organism (3) Non-pressure chronic ulcer of other part of left foot with fat layer exposed: PLAN: Plan #1. 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, ws initially labeled as acute sepsis (leukocytosis, lactic acidosis, tachypnea, tachycardia, fever with total bilirubin elevated 1.4 but still not consistent with sepsis given no end- organ damage associated with infectious presentation), thus ruled out: Admission 03/19/2024 blood cultures with Staphylococcus aureus with repeat 03/20/2024 blood culture 1 positive, Legionella and streptococcal antigens negative, SARS COVID/influenza/RSV negative, initially maintained on IV vancomycin and Zosyn-->ID transition 03/22/24 to vancomycin/cefazolin as well as oral Flagyl given concurrent #2 as noted, continue PRN albuterol, encourage HOB, IS parameters, TTE without vegetations, follow-up 03/23/24 GUERLINE with EF 15%, trivial MVI, no definitive vegetation seen, left heel wound culture with Staphylococcus aureus, podiatry consulted and following as noted below with transition of intervention care to Plastic Surgery Dr. Rawls for possible BKA. Most recent repeat 03/22/2024 blood cultures negative. 03/25/2024 PICC line successful. Definitive intervention as noted #2 as likely source for bacteremia and pneumonia. 03/27/24 discussed with case management/social work and patient is not a candidate for any transition to skilled facility to await surgical intervention given social situation with lack of insurance, as of now plan for intervention per vascular this upcoming Friday and following this intervention per plastics for BKA. 03/29/2024: Continue with antibiotics, appreciate infectious disease assistance #2. Left foot ulcerated plantar central calcaneus with tissue maceration with acute osteomyelitis: Wound RN consulted, ongoing dressing changes, given appearance with macerated tissue and suspected undermining Podiatry consultation obtained, CT left lower extremity with cortical disruption the calcaneus consistent with os mellitus with fragmentation with extension to the subtalar joint, ill-defined lucency in the adjacent talus suggesting secondary involvement, maintain offloading, currently maintained on IV vancomycin/cefazolin and oral Flagyl per ID direction, given poor reconstructive candidate decision for below the knee amputation with plastic surgery Dr. Rawls consultation per podiatry recommendation as noted w/ recommended BKA. Discussed case with patient and plastic surgery with plan for upcoming evaluation possibly 03/29/[address] Gordon for lower extremity angiogram with runoff consideration prior to potential left BKA 03/31/2024. Most recent repeat blood culture 03/22/2024 with no growth, reviewed with infectious disease. 03/25/24 PICC line successful. 03/27/24 discussed with case management/social work and patient is not a candidate for any transition to skilled facility to await surgical intervention given social situation with lack of insurance, as of now plan for intervention per vascular this upcoming Friday and following this intervention per plastics for BKA. 03/29/2024: Awaiting surgical intervention on Friday and then will work on placement after his BKA 03/30/2024: Angiogram tomorrow 03/31/2024: Angiogram today and then planned plastic surgery tomorrow per nursing staff #3. Acute normocytic anemia, worsening, appears new chronicity with history of prior PUD of note: Admission hemoglobin 9.3, prior to this hemoglobin 01/13/2024 had been 13.4 which appears his baseline primarily, decreased 03/21/2020 4-8.0 and now 03/22/2024 hemoglobin 6.9, 2 unit PRBC ordered, iron panel obtained with iron 27, TIBC 97, iron saturation 27.8, ferritin 1417 more consistent with AOCD, guaiac obtained 03/20/2024 noted to be negative at that time, place on PPI to be cautious. Repeat guiac requested to be thorough and again negative. Will cautiously continue baby aspirin, metoprolol as BP allows, statin therapy, low- dose lisinopril. 03/25/2024 resumed chemoprophylaxis with Lovenox given stable hemoglobin. 03/28/2024 hemoglobin 10.8, stable. 03/29/2024: Hemoglobin is stable at 10.9 #4. Hyperbilirubinemia, Transaminitis, acute on chronic: Unclear specific etiology, 03/19/2024 T. bili 1.10, AST/LT 53/61, alk phos 232->03/22/2024 CMP with total bilirubin 1.40, D bilirubin 0.32, AST/LT 166/126, alk phos 145-->03/23/24 T. bili 0.70, AST/LT 103/132, alk phos 202--> 03/28/24 total bilirubin 0.50, AST/LT 21/11, alk phos 117, liver ultrasound with normal appearing liver and gallbladder, hepatitis panel nonreactive. #5. Petechial rash, unclear etiology: Patient with onset over the last 48 hours petechial rash to the hands, upper thighs as well as some irritation in the antecubital fossa although suspect this is in part secondary to tight blood pressure assessments in that region, possibly related to medication including antibiotic therapy, nonpainful, nonblanching and lessening in appearance 03/24/2024 compared to prior. Per review with infectious disease felt not typical of a drug rash with continued stable renal function and platelets, pending ANCA labs. 03/26/2024 extremity started to improve and repeat evaluation 03/27/24 again resolving, low suspicion for vasculitis given this but unclear etiology still. #6. PSVT: 03/25/2024 overnight patient with episodes of short bursts of VT , BP on the lower normal side thus unable to initiate any increase in metoprolol regimen at this time but once improves will consider, at that time additional labs included magnesium 2.1, potassium 3.9. Cardiology has been consulted therefore if any concerns arise will re-involve them. #7. Hypokalemia: Admission K+ 2.9, magnesium level requested, supplementation given, 03/28/24 potassium 3.7. #8. Hypocalcemia, improved with corrected: Calcium 6.4, previous albumin significantly low however this is from 03/19/2024 and 1.8 at that time, corrected 8.16, supplemented with calcium gluconate, 03/28/24 calcium 8.2, again corrected elevated above this. #9. HFrEF/Ischemic Cardiomyopathy: s/p biventricular AICD [facility], 03/21/2024 echocardiogram pending as noted above, prior ECHO 12/04/23 with LV normal size, LV systolic function severely decreased, EF 25?5%, regional wall motion abnormalities present, grade 1 LV diastolic dysfunction, RV not well-visualized, on limited views right ventricle grossly normal in size and systolic function, no significant valvular abnormalities. As noted planned 2 u PRBC administration, monitor for overload, will administer 20 mg IV x 1. Will cautiously continue baby aspirin, metoprolol, low-dose losartan, Lasix and hydralazine with BP parameters given initial presentation with lower normal BP. Case management consulted for assistance with medication cost. Cardiology evaluation 03/24/2024 with cardiac clearance for progression to OR for vascular intervention potential as well as planned left lower extremity BKA. #10. CAD: Status post CABG x 3, given guaiac stool negative, cautiously continue baby aspirin, metoprolol, low-dose losartan. #11. Diabetes mellitus type II with chronic neuropathy: Hold oral home regimen, continue home insulin regimen as well as ISS scheduled with meals, ADA diet, accu checks w/ ISS. 03/23/2024 hgbA1c 6.1%. Encourage medication compliance. #12. Hypertension: Patient from records has been noncompliant with hypertensive regimen reporting that he does not believe he needs it although he is on some of this regimen secondary to underlying heart failure and CAD, will continue low- dose metoprolol and losartan as well as low-dose Lasix as BP allows but has been on the low end. Holding oral home hydralazine regimen. #13. Hyperlipidemia: We will continue patient on statin therapy. #14. GERD with history of peptic ulcer disease: PPI. #15. Tobacco Abuse: Encouraged cessation, inpatient consultation per RT, NR if desired. #16. JAIDEN: Noncompliant with PAP therapy, using oxygen q HS instead. DVT: Lovenox Charges/Coding Visit Charges Inpatient E&M: 04507 Subs Hosp L2
[2024-03-31] MEDS: Furosemide 20 MG Tablet PO (16:03)
--- NOTE | 2024-03-31 16:08 | OP.PCM_ITS ---
Report of Operation Date of Procedure: 03/31/24 Pre-Operative Diagnosis: Atherosclerosis with infected diabetic wound of the le ft heel Post-Operative Diagnosis: Same Surgery/Procedure Performed:: Abdominal aortogram and left lower extremity selective angiography Surgeon: Jasmeet Gordon Type of Anesthesia: Local and Sedation,Conscious Estimated Blood Loss (mL): 3 Description of Procedure: HPI: Patient is a 48-year-old male with multiple significant medical comorbidities who has a recurrent infection of the left heel wound that has been treated from multiple institutions with antibiotics and debridements. [facility] with [facility] illness and worsening clinical evaluation of the wound suggestive of recurring infectio n. He is not felt to be candidate for foot salvage and plan is for potential below the knee amputation. His noninvasive vascular studies suggest that he potentially has some SFA popliteal disease which may hinder his amputation healing so he is taken now for angiography with possible invention. Description of procedure: Upon obtaining form consent and verification correct patient procedure site patient taken to the [facility] he was positioned prepped and draped in usual fashion. Timeouts performed constipation managed with Versed and fentanyl. Skin overlying the right common femoral artery anesthetized with 1% lidocaine the vessel accessed under ultrasound guidance with micropuncture needle wire. This then exchanged for micropuncture sheath which injection iliofemoral angiograms performed revealing satisfactory positioning and no extravasation or dissection. Through the micropuncture sheath Bentson wire was advanced and the micropuncture sheath exchanged for a short 5 [place] sheath. Through the 5 [place] sheath and Omni Flush catheter was advanced and a digital subtraction abdominal aortogram pelvic angiograms performed. We then navigated to the contralateral iliac system with the Omni Flush catheter and Bentson wire advancing our catheter into the distal external iliac artery. This position sequential subtraction angiography was performed of the left lower extremity. Once satisfactory imaging was obtained and no lesions that appeared appropriate for treatment were identified the wire and catheter withdrawn and a minx closure device deployed followed by 2 minutes of manual pressure. The patient was then taken to the PCU for bedrest and ongoing medical care. Radiographic interpretation: Abdominal aorta normal caliber with no significant atherosclerosis or stenosis. Right common and external iliac arteries widely patent with no significant atherosclerosis or stenosis. Right internal iliac artery with diffuse atherosclerosis with moderate stenosis. Right common femoral artery patent with no significant atherosclerosis or stenosis. Right profundofemoral artery origin was diseased with irregular atherosclerosis. Left common and external iliac arteries widely patent no significant atherosclerosis or stenosis. Left common femoral artery widely patent no atherosclerosis or stenosis, with left profunda vessel patent only at the origin and then with what appeared to be either small caliber secondary branches or occluded vessel with collateralization of the profunda. Superficial femoral artery widely patent with no atherosclerosis or stenosis, proximal popliteal artery with mild focal stenosis of less than 50% with the remainder of the proximal and mid popliteal artery with no significant atherosclerosis or stenosis. The distal popliteal artery abruptly occluded essentially at its trifurcation with no significant contrast filling of the tibial vasculature. There were multiple significant collaterals in the proximal lower leg originating from the distal popliteal artery.
[2024-03-31] MEDS: Lactobacillis Acidophilus 1 CAP PO ×2 (16:11→21:46)
[2024-03-31 17:33] LABS: Bedside Glucose 88 mg/dL (74-106)
[2024-03-31 17:33] LABS: Bedside Glucose 67 mg/dL (74-106)
[2024-03-31] MEDS: Pantoprazole Sodium 40 MG Tablet PO (21:46)
[2024-03-31] MEDS: Atorvastatin Calcium 10 MG Tablet PO (21:46)
[2024-03-31] MEDS: guaiFENesin 1,200 MG Tablet 1200 MG PO (21:46)
[2024-04-01] VITALS (10 sets, daily range): BP systolic 104–135; BP diastolic 69–98; PULSE 90–95; RESP 17–36; TEMP 36.6–36.8; O2SAT 95–100
[2024-04-01 06:48] LABS: Absolute Lymphocyte Count 1.54 X10^3/uL (0.83-4.51); Absolute Neutrophil Count 6.6 X10^3/uL (2.0-7.7); Basophil# 0.11 X10^3/uL; Basophil% 1.2 % (0-1); Eosinophil# 0.09 X10^3/uL; Hematocrit 36.1 % (40-54); Hemoglobin 11.1 g/dL (13.0-16.5); Lymphocyte # 1.54 X10^3/ul (0.83-4.51); Lymphocyte % 17.2 % (19-41); Mean Corp Hgb Conc 30.7 g/dL (32-36); Mean Corpuscular Hgb 28.5 pg (27.0-32.0); Mean Corpuscular Volume 92.8 fL (80-94); Mean Platelet Vol. 9.4 fl (6.2-12.0); Monocyte# 0.61 X10^3/uL; Monocyte% 6.8 % (0-10); NRBC Flagged by Analyzer 0 % (0-5); Neutrophil # 6.55 X10^3/uL (2.7-7.7); Neutrophil % 73.4 % (47-70); Platelet Count 359 K/mm3 (150-450); RBC Distribution Width CV 18.9 % (11.6-14.6); RBC Distribution Width SD 60.2 fl (35.1-43.9); Red Blood Count 3.89 M/mm3 (4.6-6.2); White Blood Count 8.9 K/mm3 (4.4-11.0)
[2024-04-01] MEDS: Cefazolin 2 GM in 0.9% Normal Saline (100mL Bag) 100 ML IV ×3 (06:50→21:58)
[2024-04-01 07:30] LABS: Anion Gap 6 (5-15); BUN 18 mg/dL (7-18); BUN/Creat Ratio 18.2 RATIO (10-20); Calcium,Total 8.3 mg/dL (8.5-10.1); Chloride 112 mmol/L (98-107); Creatinine, Serum 0.99 mg/dL (0.70-1.30); EST Glomerular Filtration Rate 86 mL/min (>60); Est Glom Filt Rate - Afr Amer 104 mL/min (>60); Estimated Creatinine Clearance 103.26 ml/min; Glucose 153 mg/dL (74-106); Potassium 4.3 mmol/L (3.5-5.1); Sodium Level 140 mmol/L (136-145)
[2024-04-01] MEDS: Vancomycin HCl 750 MG in 0.9% Normal Saline (250mL Bag) 250 ML 250 MG IV ×2 (08:55→19:57)
[2024-04-01] MEDS: Aspirin E.C. 81 MG Tablet PO (10:48)
[2024-04-01] MEDS: Pantoprazole Sodium 40 MG Tablet PO ×2 (10:48→21:26)
[2024-04-01] MEDS: guaiFENesin 1,200 MG Tablet 1200 MG PO ×2 (10:49→21:26)
[2024-04-01] MEDS: Losartan Potassium 25 MG Tablet PO (10:49)
[2024-04-01] MEDS: Lactobacillis Acidophilus 1 CAP PO ×4 (10:49→21:26)
[2024-04-01] MEDS: Ascorbic Acid 500 MG Tablet PO (10:49)
[2024-04-01] MEDS: Metoprolol Tartrate 25 MG Tablet PO (10:50)
[2024-04-01] MEDS: Cholecalciferol (Vit D3) 125 MCG CAPSULE (5,000 UNITS) PO (10:52)
[2024-04-01] MEDS: Furosemide 20 MG Tablet PO (10:56)
[2024-04-01 11:16] LABS: Bedside Glucose 146 mg/dL (74-106)
--- NOTE | 2024-04-01 13:46 | PCM.PN.BLA ---
Progress Note I saw and examined the patient today. I talked him out of the results of Dr. Gordon's angiogram yesterday, and that the vascular service believes he can heal a below-knee amputation. He understands the risks and benefits of below-knee amputation and the possibility that it may still have wound healing problems. No fevers and chills today, feels better overall Physical Exam Narrative Left lower extremity seen and examined No drainage from the calcaneal wound today No signs of ascending infection, no erythema or crepitus. Wound is stable and infection is stable. Assessment & Plan Assessment/Plan (1) Osteomyelitis: PLAN: Plan for below-knee amputation left lower extremity with possible targeted muscle reinnervation (TMR) versus regenerative peripheral nerve interface (RPNI) on Friday, 06 April 2024, with plastic surgery. Visit Charges Inpatient E&M: 76203 Subs Hosp L2
[2024-04-01] MEDS: metroNIDAZOLE 500 MG Tablet PO ×2 (13:55→21:26)
[2024-04-01] MEDS: Insulin Lispro 100 UNIT/ML INSULN.PEN SC ×2 (13:56→17:18)
--- NOTE | 2024-04-01 13:57 | CHAPLAIN ---
Type of Pastoral Visit _x__ Initial Visit ___ Follow-up Visit ___ On-call Visit ___ General Patient Visit ___ Spiritual Assessment ___ Family Conference ___ Bereavement ___ Rapid Response ___ Code Blue ___ Other (describe below) Pastoral Care Referral From ___ Patient ___ Family _x__ Nurse ___ Physician ___ Investigator Fraud ___ [employer] ___ Other (describe below) Sacrament/Intervention _x__ Active listening ___ Anointing ___ Moravian ___ Bereavement ___ Communion ___ Adrianna exploration ___ _x__ Life review _x__ Prayer ___ Reconciliation ___ Sacrament of Sick ___ Supportive presence ___ Wedding ___ Other (describe below) Pastoral Comments RN contacted this direct care professional to request a visit to this room; patient has been in the hospital for several days and is waiting more days until his surgery; pt acknowledges these statements and that waiting is hard; pt also states and appears to have no concerns; pt states he is not bothered by needing to wait; pt does not reveal any further issues or problems at home; pt answers questions with little input; pt may have an indifferent attitude since he shows or speaks with little emotion
[2024-04-01] MEDS: Insulin NPH Human 100 UNITS/ML PEN 15 UNITS SC (14:47)
--- NOTE | 2024-04-01 15:41 | CASEMGMT ---
SW checked back with [facility] and they decided they would be able to take patient. SW will need to obtain a level of care from [facility] prior to patient's discharge to [facility]. Plan: d/c to [facility] when medically ready and SW receives level of care. Ema Rosario [facility]
--- NOTE | 2024-04-01 15:47 | PN.HOSP_ITS ---
Subjective Subjective Doing well, little bit depressed having been here for 12 days and having to wait a few more days for further surgery Objective Data Objective Data Vital Signs: Vital Signs Temp Pulse Resp BP Pulse Ox O2 Del Method O2 Flow Rate 97.8 F 93 17 110/70 95 Room Air 98 04/01/24 14:47 04/01/24 14:47 04/01/24 14:47 04/01/24 14:47 04/01/24 14:47 04/01/24 14:58 04/01/24 10:20 FiO2 2 03/20/24 05:25 Oxygen Flow Rate (L/min) 98 Oxygen Delivery Method Room Air Weight: 197 lb 12.074 oz Body Mass Index (BMI) 29.2 Intake & Output: Intake and Output for Last 24 Hours 03/31/24 04/01/24 04/02/24 03:59 03:59 03:59 Intake Total 1700 / 1700 1880 / 1880 785 / 785 Output Total 1450 / 1450 900 / 900 1075 / 1075 Balance 250 / 250 980 / 980 -290 / -290 Lab / Micro Data 04/01/24 06:40 04/01/24 06:40 Labs: Laboratory Results - last 24 hr 03/31/24 15:53: POC Glucose 67 L 03/31/24 16:22: POC Glucose 88 04/01/24 06:40: WBC 8.9, RBC 3.89 L, Hgb 11.1 L, Hct 36.1 L, MCV 92.8, MCH 28.5, MCHC 30.7 L, RDW Std Deviation 60.2 H, RDW Coeff of Fariba 18.9 H, Plt Count 359, MPV 9.4, Immature Gran % (Auto) 0.400, Neut % (Auto) 73.4 H, Lymph % (Auto) 17.2 L, [place] % (Auto) 6.8, Eos % (Auto) 1.0, Baso % (Auto) 1.2 H, Absolute Neuts (auto) 6.6, Absolute Lymphs (auto) 1.54, Nucleated RBC % 0, Sodium 140, Potassium 4.3, Chloride 112 H, Carbon Dioxide 22.0, Anion Gap 6, BUN 18, Creatinine 0.99, Estim Creat Clear Calc 103.26, Est GFR (MDRD) Af Amer 104, Est GFR (MDRD) Non-Af 86, BUN/Creatinine Ratio 18.2, Glucose 153 H, Calcium 8.3 L 04/01/24 10:59: POC Glucose 146 H Micro: Microbiology 03/22/24 13:17 Blood Culture (Wb) - Anticubital Right Blood Culture - Final No growth in 5 days. 03/22/24 13:05 Wound - Heel, Left Gram Stain - Final 03/22/24 13:05 Wound - Heel, Left Wound Culture - Final Staphylococcus aureus Coag Negative Staph 03/20/24 02:00 Blood Culture (Wb) - Right Hand Blood Culture - Final Staphylococcus aureus 03/22/24 13:10 Stool Stool Occult Blood (ELINA) - Final 03/19/24 22:55 Blood Culture (Wb) - Left Forearm Bacteria Detection (PCR) - Final Staphylococcus aureus 03/19/24 22:55 Blood Culture (Wb) - Left Forearm Blood Culture - Final Staphylococcus aureus 03/19/24 23:00 Urine, Clean Catch Legionella Antigen - Final 03/19/24 23:00 Urine, Clean Catch Streptococcus pneumoniae Antigen (M - Final 03/20/24 00:40 Stool Stool Occult Blood (ELINA) - Final 03/19/24 23:05 Mucosa - Nose SARS-CoV-2, Influenza & RSV (PCR) - Final Physical Exam Narrative General: Alert, Oriented x3, Cooperative, No apparent distress HEENT: Atraumatic, PERRLA, EOMI, Normocephalic Oral: Moist Mucosa Neck: Supple, No JVD Lungs: Diminished, Normal air movement, No rhonchi, No wheeze, No rales Cardiovascular: Regular rate, Regular Rhythm, Normal S1, Normal S2, No murmurs Abdomen: Soft, Non Tender, Non-Distended, No Hepato-splenomegaly Extremities: No edema, Capillary Refill Less than 3 Seconds Skin: Left lower extremity dressed and wrapped, clean dry and intact Musculoskeletal: No Tenderness to Palpation of Joints or Extremities Neurological: No focal neurological deficits, Motor Exam 5/5 strength throughout, Sensory exam intact to light touch and pain Psych/Mental Status: Normal Affect, Appropriate Assessment & Plan Assessment/Plan (1) MSSA bacteremia: (2) Pneumonia: QUALIFIERS: Pneumonia type: due to unspecified organism L aterality: right Lung location: lower lobe of lung Qualified Code(s): J18.9 - Pneumonia, unspecified organism (3) Non-pressure chronic ulcer of other part of left foot with fat layer exposed: PLAN: Plan #1. 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, ws initially labeled as acute sepsis (leukocytosis, lactic acidosis, tachypnea, tachycardia, fever with total bilirubin elevated 1.4 but still not consistent with sepsis given no end- organ damage associated with infectious presentation), thus ruled out: Admission 03/19/2024 blood cultures with Staphylococcus aureus with repeat 03/20/2024 blood culture 1 positive, Legionella and streptococcal antigens negative, SARS COVID/influenza/RSV negative, initially maintained on IV vancomycin and Zosyn-->ID transition 03/22/24 to vancomycin/cefazolin as well as oral Flagyl given concurrent #2 as noted, continue PRN albuterol, encourage HOB, IS parameters, TTE without vegetations, follow-up 03/23/24 GUERLINE with EF 15%, trivial MVI, no definitive vegetation seen, left heel wound culture with Staphylococcus aureus, podiatry consulted and following as noted below with transition of intervention care to Plastic Surgery Dr. Rawls for possible BKA. Most recent repeat 03/22/2024 blood cultures negative. 03/25/2024 PICC line successful. Definitive intervention as noted #2 as likely source for bacteremia and pneumonia. 03/27/24 discussed with case management/social work and patient is not a candidate for any transition to skilled facility to await surgical intervention given social situation with lack of insurance, as of now plan for intervention per vascular this upcoming Friday and following this intervention per plastics for BKA. 03/29/2024: Continue with antibiotics, appreciate infectious disease assistance #2. Left foot ulcerated plantar central calcaneus with tissue maceration with acute osteomyelitis: Wound RN consulted, ongoing dressing changes, given appearance with macerated tissue and suspected undermining Podiatry consultation obtained, CT left lower extremity with cortical disruption the calcaneus consistent with os mellitus with fragmentation with extension to the subtalar joint, ill-defined lucency in the adjacent talus suggesting secondary involvement, maintain offloading, currently maintained on IV vancomycin/cefazolin and oral Flagyl per ID direction, given poor reconstructive candidate decision for below the knee amputation with plastic surgery Dr. Rawls consultation per podiatry recommendation as noted w/ recommended BKA. Discussed case with patient and plastic surgery with plan for upcoming evaluation possibly 03/29/[address] Gordon for lower extremity angiogram with runoff consideration prior to potential left BKA 03/31/2024. Most recent repeat blood culture 03/22/2024 with no growth, reviewed with infectious disease. 03/25/24 PICC line successful. 03/27/24 discussed with case management/social work and patient is not a candidate for any transition to skilled facility to await surgical intervention given social situation with lack of insurance, as of now plan for intervention per vascular this upcoming Friday and following this intervention per plastics for BKA. 03/29/2024: Awaiting surgical intervention on Friday and then will work on placement after his BKA 03/30/2024: Angiogram tomorrow 03/31/2024: Angiogram today and then planned plastic surgery tomorrow per nursing staff 04/01/2024: No change, awaiting surgery for early next week #3. Acute normocytic anemia, worsening, appears new chronicity with history of prior PUD of note: Admission hemoglobin 9.3, prior to this hemoglobin 01/13/2024 had been 13.4 which appears his baseline primarily, decreased 03/21/2020 4-8.0 and now 03/22/2024 hemoglobin 6.9, 2 unit PRBC ordered, iron panel obtained with iron 27, TIBC 97, iron saturation 27.8, ferritin 1417 more consistent with AOCD, guaiac obtained 03/20/2024 noted to be negative at that time, place on PPI to be cautious. Repeat guiac requested to be thorough and again negative. Will cautiously continue baby aspirin, metoprolol as BP allows, statin therapy, low- dose lisinopril. 03/25/2024 resumed chemoprophylaxis with Lovenox given stable hemoglobin. 03/28/2024 hemoglobin 10.8, stable. 03/29/2024: Hemoglobin is stable at 10.9 #4. Hyperbilirubinemia, Transaminitis, acute on chronic: Unclear specific etiology, 03/19/2024 T. bili 1.10, AST/LT 53/61, alk phos 232->03/22/2024 CMP with total bilirubin 1.40, D bilirubin 0.32, AST/LT 166/126, alk phos 145-->03/23/24 T. bili 0.70, AST/LT 103/132, alk phos 202--> 03/28/24 total bilirubin 0.50, AST/LT 21/11, alk phos 117, liver ultrasound with normal appearing liver and gallbladder, hepatitis panel nonreactive. #5. Petechial rash, unclear etiology: Patient with onset over the last 48 hours petechial rash to the hands, upper thighs as well as some irritation in the antecubital fossa although suspect this is in part secondary to tight blood pressure assessments in that region, possibly related to medication including antibiotic therapy, nonpainful, nonblanching and lessening in appearance 03/24/2024 compared to prior. Per review with infectious disease felt not typical of a drug rash with continued stable renal function and platelets, pending ANCA labs. 03/26/2024 extremity started to improve and repeat evaluation 03/27/24 again resolving, low suspicion for vasculitis given this but unclear etiology still. #6. PSVT: 03/25/2024 overnight patient with episodes of short bursts of VT , BP on the lower normal side thus unable to initiate any increase in metoprolol regimen at this time but once improves will consider, at that time additional labs included magnesium 2.1, potassium 3.9. Cardiology has been consulted therefore if any concerns arise will re-involve them. #7. Hypokalemia: Admission K+ 2.9, magnesium level requested, supplementation given, 03/28/24 potassium 3.7. #8. Hypocalcemia, improved with corrected: Calcium 6.4, previous albumin significantly low however this is from 03/19/2024 and 1.8 at that time, corrected 8.16, supplemented with calcium gluconate, 03/28/24 calcium 8.2, again corrected elevated above this. #9. HFrEF/Ischemic Cardiomyopathy: s/p biventricular AICD [facility], 03/21/2024 echocardiogram pending as noted above, prior ECHO 12/04/23 with LV normal size, LV systolic function severely decreased, EF 25?5%, regional wall motion abnormalities present, grade 1 LV diastolic dysfunction, RV not well-visualized, on limited views right ventricle grossly normal in size and systolic function, no significant valvular abnormalities. As noted planned 2 u PRBC administration, monitor for overload, will administer 20 mg IV x 1. Will cautiously continue baby aspirin, metoprolol, low-dose losartan, Lasix and hydralazine with BP parameters given initial presentation with lower normal BP. Case management consulted for assistance with medication cost. Cardiology evaluation 03/24/2024 with cardiac clearance for progression to OR for vascular intervention potential as well as planned left lower extremity BKA. #10. CAD: Status post CABG x 3, given guaiac stool negative, cautiously continue baby aspirin, metoprolol, low-dose losartan. #11. Diabetes mellitus type II with chronic neuropathy: Hold oral home regimen, continue home insulin regimen as well as ISS scheduled with meals, ADA diet, accu checks w/ ISS. 03/23/2024 hgbA1c 6.1%. Encourage medication compliance. #12. Hypertension: Patient from records has been noncompliant with hypertensive regimen reporting that he does not believe he needs it although he is on some of this regimen secondary to underlying heart failure and CAD, will continue low- dose metoprolol and losartan as well as low-dose Lasix as BP allows but has been on the low end. Holding oral home hydralazine regimen. #13. Hyperlipidemia: We will continue patient on statin therapy. #14. GERD with history of peptic ulcer disease: PPI. #15. Tobacco Abuse: Encouraged cessation, inpatient consultation per RT, NR if desired. #16. JAIDEN: Noncompliant with PAP therapy, using oxygen q HS instead. DVT: Lovenox Charges/Coding Visit Charges Inpatient E&M: 55581 Subs Hosp L1
[2024-04-01 17:42] LABS: Bedside Glucose 174 mg/dL (74-106)
--- NOTE | 2024-04-01 18:11 | PCM.PN.SRG ---
Subjective Subjective Patient was seen resting comfortably in bed this afternoon. He denies any pain, swelling, drainage from the groin access site. We discussed that his angiogram revealed sufficient inflow to proceed with planned BKA. Objective Data Objective Data Vital Signs: Vital Signs Temp Pulse Resp BP Pulse Ox O2 Del Method O2 Flow Rate 97.8 F 93 17 110/70 95 Room Air 98 04/01/24 14:47 04/01/24 14:47 04/01/24 14:47 04/01/24 14:47 04/01/24 14:47 04/01/24 14:58 04/01/24 10:20 FiO2 2 03/20/24 05:25 Oxygen Flow Rate (L/min) 98 Oxygen Delivery Method Room Air Weight: 197 lb 12.074 oz Body Mass Index (BMI) 29.2 Intake & Output: Intake and Output for Last 24 Hours 03/30/24 03/31/24 04/01/24 23:59 23:59 23:59 Intake Total 1580 / 1700 1880 / 2000 905 / 905 Output Total 1450 / 1450 700 / 900 1275 / 1275 Balance 130 / 250 1180 / 1100 -370 / -370 Lab / Micro Data 04/01/24 06:40 04/01/24 06:40 Labs: Laboratory Results - last 24 hr 04/01/24 06:40: WBC 8.9, RBC 3.89 L, Hgb 11.1 L, Hct 36.1 L, MCV 92.8, MCH 28.5, MCHC 30.7 L, RDW Std Deviation 60.2 H, RDW Coeff of Fariba 18.9 H, Plt Count 359, MPV 9.4, Immature Gran % (Auto) 0.400, Neut % (Auto) 73.4 H, Lymph % (Auto) 17.2 L, [place] % (Auto) 6.8, Eos % (Auto) 1.0, Baso % (Auto) 1.2 H, Absolute Neuts (auto) 6.6, Absolute Lymphs (auto) 1.54, Nucleated RBC % 0, Sodium 140, Potassium 4.3, Chloride 112 H, Carbon Dioxide 22.0, Anion Gap 6, BUN 18, Creatinine 0.99, Estim Creat Clear Calc 103.26, Est GFR (MDRD) Af Amer 104, Est GFR (MDRD) Non-Af 86, BUN/Creatinine Ratio 18.2, Glucose 153 H, Calcium 8.3 L 04/01/24 10:59: POC Glucose 146 H 04/01/24 17:17: POC Glucose 174 H Micro: Microbiology 03/22/24 13:17 Blood Culture (Wb) - Anticubital Right Blood Culture - Final No growth in 5 days. 03/22/24 13:05 Wound - Heel, Left Gram Stain - Final 03/22/24 13:05 Wound - Heel, Left Wound Culture - Final Staphylococcus aureus Coag Negative Staph 03/20/24 02:00 Blood Culture (Wb) - Right Hand Blood Culture - Final Staphylococcus aureus 03/22/24 13:10 Stool Stool Occult Blood (ELINA) - Final 03/19/24 22:55 Blood Culture (Wb) - Left Forearm Bacteria Detection (PCR) - Final Staphylococcus aureus 03/19/24 22:55 Blood Culture (Wb) - Left Forearm Blood Culture - Final Staphylococcus aureus 03/19/24 23:00 Urine, Clean Catch Legionella Antigen - Final 03/19/24 23:00 Urine, Clean Catch Streptococcus pneumoniae Antigen (M - Final 03/20/24 00:40 Stool Stool Occult Blood (ELINA) - Final 03/19/24 23:05 Mucosa - Nose SARS-CoV-2, Influenza & RSV (PCR) - Final Physical Exam Const alert and oriented x3 General Appearance: cooperative HEENT head/scalp atraumatic, hearing grossly normal bilaterally, external ears normal and external nose normal Eyes General Eye: normal appearance of both eyes Neck General: normal visual inspection and trachea midline Resp normal respiratory effort, no retractions and no use of accessory muscles Effort and Inspection: able to speak in complete sentences Cardio regular rate and regular rhythm Peripheral Pulses: femoral pulses present Extremity Extremity Narrative: L foot with dressings C/D/I. Skin Wounds: wounds noted Wound Narrative: L heel wound, dressings not disturbed, pictures in chart reviewed Neuro oriented x3, CN's II-XII intact bilaterally, moves all extremities and no focal motor deficits Speech: speech normal Psych mental status grossly normal Appearance: grossly normal Attitude: calm Speech: normal speech Mood & Affect: euthymic mood Assessment & Plan Assessment/Plan (1) Atherosclerosis of lower extremity with ulceration: PLAN: Plan He underwent diagnostic angiogram on 03/31/24 which revealed sufficient inflow to reasonably expect to heal BKA. This was discussed with patient, his questions were addressed. BKA is planned for next week. Charges/Coding Visit Charges Inpatient E&M: 50582 Subs Hosp L1
[2024-04-01] MEDS: Atorvastatin Calcium 10 MG Tablet PO (21:26)
[2024-04-01] MEDS: 0.9% Saline Lock 10 ML Syringe IV (22:01)
[2024-04-02] VITALS (10 sets, daily range): BP systolic 111–129; BP diastolic 71–88; PULSE 86–95; RESP 20–36; TEMP 36.1–36.8; O2SAT 97–99
[2024-04-02] MEDS: Enoxaparin 40 MG/0.4 ML Syringe SC (06:08)
[2024-04-02] MEDS: Cefazolin 2 GM in 0.9% Normal Saline (100mL Bag) 100 ML IV ×3 (06:09→22:19)
[2024-04-02] MEDS: metroNIDAZOLE 500 MG Tablet PO ×3 (06:09→22:21)
[2024-04-02] MEDS: 0.9% Saline Lock 10 ML Syringe IV (08:19)
[2024-04-02] MEDS: Ondansetron 4 MG/2 ML Vial IV (08:19)
[2024-04-02] MEDS: Vancomycin HCl 750 MG in 0.9% Normal Saline (250mL Bag) 250 ML 250 MG IV (08:20)
[2024-04-02] MEDS: Ascorbic Acid 500 MG Tablet PO (10:44)
[2024-04-02] MEDS: guaiFENesin 1,200 MG Tablet 1200 MG PO ×2 (10:44→22:21)
[2024-04-02] MEDS: Pantoprazole Sodium 40 MG Tablet PO ×2 (10:45→22:21)
[2024-04-02] MEDS: Lactobacillis Acidophilus 1 CAP PO ×3 (10:45→22:22)
[2024-04-02] MEDS: Cholecalciferol (Vit D3) 125 MCG CAPSULE (5,000 UNITS) PO (10:45)
[2024-04-02] MEDS: Losartan Potassium 25 MG Tablet PO (10:45)
[2024-04-02] MEDS: Furosemide 20 MG Tablet PO (10:45)
[2024-04-02] MEDS: Metoprolol Tartrate 25 MG Tablet PO (10:45)
[2024-04-02] MEDS: Aspirin E.C. 81 MG Tablet PO (10:46)
[2024-04-02] MEDS: Albuterol 2.5 MG/3 ML VIAL.NEB. INHALATION (12:00)
[2024-04-02] MEDS: Insulin Lispro 100 UNIT/ML INSULN.PEN SC ×2 (12:09→17:07)
[2024-04-02] MEDS: Insulin NPH Human 100 UNITS/ML PEN 15 UNITS SC ×2 (12:09→17:08)
[2024-04-02 12:32] LABS: Bedside Glucose 213 mg/dL (74-106)
--- NOTE | 2024-04-02 15:44 | PCM.PN.HOSP ---
Subjective Subjective No issues overnight Objective Data Objective Data Vital Signs: Vital Signs Temp Pulse Resp BP Pulse Ox O2 Del Method O2 Flow Rate 98 F 86 20 H 129/81 H 98 Nasal Cannula 2 04/02/24 10:48 04/02/24 12:00 04/02/24 12:00 04/02/24 10:48 04/02/24 14:40 04/02/24 10:48 04/02/24 14:40 FiO2 2 03/20/24 05:25 Oxygen Flow Rate (L/min) 2 Oxygen Delivery Method Nasal Cannula Weight: 197 lb 12.074 oz Body Mass Index (BMI) 29.2 Intake & Output: Intake and Output for Last 24 Hours 04/01/24 04/02/24 04/03/24 03:59 03:59 03:59 Intake Total 1880 / 1880 1780 / 1780 1165 / 1165 Output Total 900 / 900 2024 / 2024 850 / 850 Balance 980 / 980 -245 / -245 315 / 315 Lab / Micro Data 04/01/24 06:40 04/01/24 06:40 Labs: Laboratory Results - last 24 hr 04/01/24 17:17: POC Glucose 174 H 04/02/24 12:08: POC Glucose 213 H Micro: Microbiology 03/22/24 13:17 Blood Culture (Wb) - Anticubital Right Blood Culture - Final No growth in 5 days. 03/22/24 13:05 Wound - Heel, Left Gram Stain - Final 03/22/24 13:05 Wound - Heel, Left Wound Culture - Final Staphylococcus aureus Coag Negative Staph 03/20/24 02:00 Blood Culture (Wb) - Right Hand Blood Culture - Final Staphylococcus aureus 03/22/24 13:10 Stool Stool Occult Blood (ELINA) - Final 03/19/24 22:55 Blood Culture (Wb) - Left Forearm Bacteria Detection (PCR) - Final Staphylococcus aureus 03/19/24 22:55 Blood Culture (Wb) - Left Forearm Blood Culture - Final Staphylococcus aureus 03/19/24 23:00 Urine, Clean Catch Legionella Antigen - Final 03/19/24 23:00 Urine, Clean Catch Streptococcus pneumoniae Antigen (M - Final 03/20/24 00:40 Stool Stool Occult Blood (ELINA) - Final 03/19/24 23:05 Mucosa - Nose SARS-CoV-2, Influenza & RSV (PCR) - Final Physical Exam Narrative General: Alert, Oriented x3, Cooperative, No apparent distress HEENT: Atraumatic, PERRLA, EOMI, Normocephalic Oral: Moist Mucosa Neck: Supple, No JVD Lungs: Diminished, Normal air movement, No rhonchi, No wheeze, No rales Cardiovascular: Regular rate, Regular Rhythm, Normal S1, Normal S2, No murmurs Abdomen: Soft, Non Tender, Non-Distended, No Hepato-splenomegaly Extremities: No edema, Capillary Refill Less than 3 Seconds Skin: Left lower extremity dressed and wrapped, clean dry and intact Musculoskeletal: No Tenderness to Palpation of Joints or Extremities Neurological: No focal neurological deficits, Motor Exam 5/5 strength throughout, Sensory exam intact to light touch and pain Psych/Mental Status: Normal Affect, Appropriate Assessment & Plan Assessment/Plan (1) MSSA bacteremia: (2) Pneumonia: QUALIFIERS: Pneumonia type: due to unspecified organism Laterality: right Lung location: lower lobe of lung Qualified Code(s): J18.9 - Pneumonia, unspecified organism (3) Non-pressure chronic ulcer of other part of left foot with fat layer exposed: PLAN: Plan #1. 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, ws initially labeled as acute sepsis (leukocytosis, lactic acidosis, tachypnea, tachycardia, fever with total bilirubin elevated 1.4 but still not consistent with sepsis given no end-organ damage associated with infectious presentation), thus ruled out: Admission 03/19/2024 blood cultures with Staphylococcus aureus with repeat 03/20/2024 blood culture 1 positive, Legionella and streptococcal antigens negative, SARS COVID/influenza/RSV negative, initially maintained on IV vancomycin and Zosyn-->ID transition 03/22/24 to vancomycin/cefazolin as well as oral Flagyl given concurrent #2 as noted, continue PRN albuterol, encourage HOB, IS parameters, TTE without vegetations, follow-up 03/23/24 GUERLINE with EF 15%, trivial MVI, no definitive vegetation seen, left heel wound culture with Staphylococcus aureus, podiatry consulted and following as noted below with transition of intervention care to Plastic Surgery Dr. Rawls for possible BKA. Most recent repeat 03/22/2024 blood cultures negative. 03/25/2024 PICC line successful. Definitive intervention as noted #2 as likely source for bacteremia and pneumonia. 03/27/24 discussed with case management/social work and patient is not a candidate for any transition to skilled facility to await surgical intervention given social situation with lack of insurance, as of now plan for intervention per vascular this upcoming Friday and following this intervention per plastics for BKA. 03/29/2024: Continue with antibiotics, appreciate infectious disease assistance #2. Left foot ulcerated plantar central calcaneus with tissue maceration with acute osteomyelitis: Wound RN consulted, ongoing dressing changes, given appearance with macerated tissue and suspected undermining Podiatry consultation obtained, CT left lower extremity with cortical disruption the calcaneus consistent with os mellitus with fragmentation with extension to the subtalar joint, ill-defined lucency in the adjacent talus suggesting secondary involvement, maintain offloading, currently maintained on IV vancomycin/cefazolin and oral Flagyl per ID direction, given poor reconstructive candidate decision for below the knee amputation with plastic surgery Dr. Rawls consultation per podiatry recommendation as noted w/ recommended BKA. Discussed case with patient and plastic surgery with plan for upcoming evaluation possibly 03/29/[address] Gordon for lower extremity angiogram with runoff consideration prior to potential left BKA 03/31/2024. Most recent repeat blood culture 03/22/2024 with no growth, reviewed with infectious disease. 03/25/24 PICC line successful. 03/27/24 discussed with case management/social work and patient is not a candidate for any transition to skilled facility to await surgical intervention given social situation with lack of insurance, as of now plan for intervention per vascular this upcoming Friday and following this intervention per plastics for BKA. 03/29/2024: Awaiting surgical intervention on Friday and then will work on placement after his BKA 03/30/2024: Angiogram tomorrow 03/31/2024: Angiogram today and then planned plastic surgery tomorrow per nursing staff 04/01/2024: No change, awaiting surgery for early next week 04/02/2024: No change #3. Acute normocytic anemia, worsening, appears new chronicity with history of prior PUD of note: Admission hemoglobin 9.3, prior to this hemoglobin 01/13/2024 had been 13.4 which appears his baseline primarily, decreased 03/21/2020 4-8.0 and now 03/22/2024 hemoglobin 6.9, 2 unit PRBC ordered, iron panel obtained with iron 27, TIBC 97, iron saturation 27.8, ferritin 1417 more consistent with AOCD, guaiac obtained 03/20/2024 noted to be negative at that time, place on PPI to be cautious. Repeat guiac requested to be thorough and again negative. Will cautiously continue baby aspirin, metoprolol as BP allows, statin therapy, low-dose lisinopril. 03/25/2024 resumed chemoprophylaxis with Lovenox given stable hemoglobin. 03/28/2024 hemoglobin 10.8, stable. 03/29/2024: Hemoglobin is stable at 10.9 #4. Hyperbilirubinemia, Transaminitis, acute on chronic: Unclear specific etiology, 03/19/2024 T. bili 1.10, AST/LT 53/61, alk phos 232->03/22/2024 CMP with total bilirubin 1.40, D bilirubin 0.32, AST/LT 166/126, alk phos 145-->03/23/24 T. bili 0.70, AST/LT 103/132, alk phos 202--> 03/28/24 total bilirubin 0.50, AST/LT 21/11, alk phos 117, liver ultrasound with normal appearing liver and gallbladder, hepatitis panel nonreactive. #5. Petechial rash, unclear etiology: Patient with onset over the last 48 hours petechial rash to the hands, upper thighs as well as some irritation in the antecubital fossa although suspect this is in part secondary to tight blood pressure assessments in that region, possibly related to medication including antibiotic therapy, nonpainful, nonblanching and lessening in appearance 03/24/2024 compared to prior. Per review with infectious disease felt not typical of a drug rash with continued stable renal function and platelets, pending ANCA labs. 03/26/2024 extremity started to improve and repeat evaluation 03/27/24 again resolving, low suspicion for vasculitis given this but unclear etiology still. #6. PSVT: 03/25/2024 overnight patient with episodes of short bursts of VT , BP on the lower normal side thus unable to initiate any increase in metoprolol regimen at this time but once improves will consider, at that time additional labs included magnesium 2.1, potassium 3.9. Cardiology has been consulted therefore if any concerns arise will re-involve them. #7. Hypokalemia: Admission K+ 2.9, magnesium level requested, supplementation given, 03/28/24 potassium 3.7. #8. Hypocalcemia, improved with corrected: Calcium 6.4, previous albumin significantly low however this is from 03/19/2024 and 1.8 at that time, corrected 8.16, supplemented with calcium gluconate, 03/28/24 calcium 8.2, again corrected elevated above this. #9. HFrEF/Ischemic Cardiomyopathy: s/p biventricular AICD [facility], 03/21/2024 echocardiogram pending as noted above, prior ECHO 12/04/23 with LV normal size, LV systolic function severely decreased, EF 25?5%, regional wall motion abnormalities present, grade 1 LV diastolic dysfunction, RV not well-visualized, on limited views right ventricle grossly normal in size and systolic function, no significant valvular abnormalities. As noted planned 2 u PRBC administration, monitor for overload, will administer 20 mg IV x 1. Will cautiously continue baby aspirin, metoprolol, low-dose losartan, Lasix and hydralazine with BP parameters given initial presentation with lower normal BP. Case management consulted for assistance with medication cost. Cardiology evaluation 03/24/2024 with cardiac clearance for progression to OR for vascular intervention potential as well as planned left lower extremity BKA. #10. CAD: Status post CABG x 3, given guaiac stool negative, cautiously continue baby aspirin, metoprolol, low-dose losartan. #11. Diabetes mellitus type II with chronic neuropathy: Hold oral home regimen, continue home insulin regimen as well as ISS scheduled with meals, ADA diet, accu checks w/ ISS. 03/23/2024 hgbA1c 6.1%. Encourage medication compliance. #12. Hypertension: Patient from records has been noncompliant with hypertensive regimen reporting that he does not believe he needs it although he is on some of this regimen secondary to underlying heart failure and CAD, will continue low-dose metoprolol and losartan as well as low-dose Lasix as BP allows but has been on the low end. Holding oral home hydralazine regimen. #13. Hyperlipidemia: We will continue patient on statin therapy. #14. GERD with history of peptic ulcer disease: PPI. #15. Tobacco Abuse: Encouraged cessation, inpatient consultation per RT, NR if desired. #16. JAIDEN: Noncompliant with PAP therapy, using oxygen q HS instead. DVT: Lovenox Charges/Coding Visit Charges Inpatient E&M: 75097 Subs Hosp L1
[2024-04-02 17:19] LABS: Bedside Glucose 197 mg/dL (74-106)
[2024-04-02 19:55] LABS: Vancomycin, Trough Level 20.4 ug/mL (5.0-15.0)
--- NOTE | 2024-04-02 20:09 | PCM.RX.CS ---
Consult Antibiotic Management Pharmacy has been consulted to manage selected antibiotic: Vancomycin Type of Intervention Type of Consult: Follow-up Prior Doses of Antibiotics Prior Doses of Antibiotics Received/Current Regimen: currently on 750mg IV q12h Labs Labs: Sodium 140 mmol/L (136-145) 04/01/24 06:40 Potassium 4.3 mmol/L (3.5-5.1) 04/01/24 06:40 Chloride 112 mmol/L (98-107) H 04/01/24 06:40 Carbon Dioxide 22.0 mmol/L (21.0-32.0) 04/01/24 06:40 Anion Gap 6 (5-15) 04/01/24 06:40 BUN 18 mg/dL (7-18) 04/01/24 06:40 Creatinine 0.99 mg/dL (0.70-1.30) 04/01/24 06:40 Est GFR (MDRD) Af Amer 104 mL/min (>60) 04/01/24 06:40 Est GFR (MDRD) Non-Af 86 mL/min (>60) 04/01/24 06:40 BUN/Creatinine Ratio 18.2 RATIO (10-20) 04/01/24 06:40 Glucose 153 mg/dL (74-106) H 04/01/24 06:40 Vancomycin Trough 20.4 ug/mL (5.0-15.0) H 04/02/24 19:08 Random Vancomycin 15.9 ug/mL (0.0-15.0) H 03/24/24 06:06 Microbiology Microbiology: Microbiology 03/22/24 13:17 Blood Culture (Wb) - Anticubital Right Blood Culture - Final No growth in 5 days. 03/22/24 13:05 Wound - Heel, Left Gram Stain - Final 03/22/24 13:05 Wound - Heel, Left Wound Culture - Final Staphylococcus aureus Coag Negative Staph 03/20/24 02:00 Blood Culture (Wb) - Right Hand Blood Culture - Final Staphylococcus aureus 03/22/24 13:10 Stool Stool Occult Blood (ELINA) - Final 03/19/24 22:55 Blood Culture (Wb) - Left Forearm Bacteria Detection (PCR) - Final Staphylococcus aureus 03/19/24 22:55 Blood Culture (Wb) - Left Forearm Blood Culture - Final Staphylococcus aureus 03/19/24 23:00 Urine, Clean Catch Legionella Antigen - Final 03/19/24 23:00 Urine, Clean Catch Streptococcus pneumoniae Antigen (M - Final 03/20/24 00:40 Stool Stool Occult Blood (ELINA) - Final 03/19/24 23:05 Mucosa - Nose SARS-CoV-2, Influenza & RSV (PCR) - Final Dosing Weight Weight used for dosin.7 kg Estimated Creatinine Clearance Estimated Creatinine Clearance: 103ml/min Goal Trough Goal Trough: 15-20 mcg/mL Pharmacy Plan for Drug Dosing Pharmacy Plan for Drug Dosing: The vanc trough drawn at 19:08 (approx 11 hours after the previous dose) was 20.4. It may have been below 20 if drawn closer to the 12-hr tiffanie but, nevertheless, the trough has been creeping up each time it has been drawn with the current dose so since it is hovering around that 20 tiffanie, will decrease next dose to 500mg q12h. Will wait a few more hours to start it tonight (start at midnight). Repeat a trough before the 4th dose. Pharmacy Service will continue to monitor and adjust dosing as required. Follow-Up Labs Follow-Up Labs: Trough: Vancomycin Date/Time Labs Ordered Labs to be done on [date and time ordered]: 04/04/24 11:30
[2024-04-02] MEDS: Atorvastatin Calcium 10 MG Tablet PO (22:24)
[2024-04-03] VITALS (8 sets, daily range): BP systolic 94–120; BP diastolic 59–91; PULSE 83–91; RESP 16–24; TEMP 36.1–36.5; O2SAT 93–99
[2024-04-03] MEDS: Vancomycin IV 500 MG/100 ML BAG 100 MG IV ×3 (00:26→23:21)
[2024-04-03] MEDS: Cefazolin 2 GM in 0.9% Normal Saline (100mL Bag) 100 ML IV ×3 (05:15→21:11)
[2024-04-03] MEDS: Enoxaparin 40 MG/0.4 ML Syringe SC (05:18)
[2024-04-03] MEDS: metroNIDAZOLE 500 MG Tablet PO ×3 (05:18→21:11)
[2024-04-03 06:17] LABS: Absolute Lymphocyte Count 1.96 X10^3/uL (0.83-4.51); Absolute Neutrophil Count 4.9 X10^3/uL (2.0-7.7); Basophil# 0.11 X10^3/uL; Basophil% 1.5 % (0-1); Eosinophil# 0.15 X10^3/uL; Hematocrit 38.8 % (40-54); Hemoglobin 11.3 g/dL (13.0-16.5); Lymphocyte # 1.96 X10^3/ul (0.83-4.51); Lymphocyte % 25.9 % (19-41); Mean Corp Hgb Conc 29.1 g/dL (32-36); Mean Corpuscular Hgb 28.5 pg (27.0-32.0); Mean Platelet Vol. 9.4 fl (6.2-12.0); Monocyte# 0.48 X10^3/uL; Monocyte% 6.3 % (0-10); NRBC Flagged by Analyzer 0 % (0-5); Neutrophil # 4.86 X10^3/uL (2.7-7.7); POSITIVE COUNT YES; POSITIVE MORPHOLOGY YES; Platelet Count 276 K/mm3 (150-450); RBC Distribution Width CV 19.4 % (11.6-14.6); RBC Distribution Width SD 66.3 fl (35.1-43.9); Red Blood Count 3.96 M/mm3 (4.6-6.2); White Blood Count 7.6 K/mm3 (4.4-11.0)
[2024-04-03 06:32] LABS: Differential Indicated SCAN CRITERIA MET
[2024-04-03 07:07] LABS: Anion Gap 5 (5-15); BUN 21 mg/dL (7-18); BUN/Creat Ratio 20.4 RATIO (10-20); Calcium,Total 8.1 mg/dL (8.5-10.1); Chloride 114 mmol/L (98-107); Creatinine, Serum 1.03 mg/dL (0.70-1.30); EST Glomerular Filtration Rate 82 mL/min (>60); Est Glom Filt Rate - Afr Amer 100 mL/min (>60); Estimated Creatinine Clearance 99.25 ml/min; Glucose 70 mg/dL (74-106); Potassium 4.7 mmol/L (3.5-5.1); Sodium Level 137 mmol/L (136-145)
[2024-04-03 07:14] LABS: Anisocytosis 1+
[2024-04-03 07:16] LABS: Platelet Estimate ADEQUATE (ADEQ); Platelet Morphology CLUMPED
[2024-04-03] MEDS: Cholecalciferol (Vit D3) 125 MCG CAPSULE (5,000 UNITS) PO (09:16)
[2024-04-03] MEDS: Lactobacillis Acidophilus 1 CAP PO ×4 (09:16→21:11)
[2024-04-03] MEDS: Pantoprazole Sodium 40 MG Tablet PO ×2 (09:16→21:12)
[2024-04-03] MEDS: Metoprolol Tartrate 25 MG Tablet PO (09:16)
[2024-04-03] MEDS: guaiFENesin 1,200 MG Tablet 1200 MG PO ×2 (09:16→21:11)
[2024-04-03] MEDS: Ascorbic Acid 500 MG Tablet PO (09:16)
[2024-04-03] MEDS: Aspirin E.C. 81 MG Tablet PO (09:16)
[2024-04-03] MEDS: Furosemide 20 MG Tablet PO (09:16)
[2024-04-03] MEDS: Losartan Potassium 25 MG Tablet PO (09:16)
[2024-04-03 09:37] LABS: Bedside Glucose 67 mg/dL (74-106)
[2024-04-03 09:37] LABS: Bedside Glucose 89 mg/dL (74-106)
--- NOTE | 2024-04-03 10:21 | NURSING ---
Late entry- fingerstick glucose 67. Gave 120 ml apple juice, which pt drank. Recheck of fingerstick glucose was 89.
--- NOTE | 2024-04-03 11:38 | PN.HOSP_ITS ---
Subjective Subjective No change no issues Objective Data Objective Data Vital Signs: Vital Signs Temp Pulse Resp BP Pulse Ox O2 Del Method O2 Flow Rate 97.7 F L 88 17 120/91 H 97 Nasal Cannula 2 04/03/24 07:55 04/03/24 09:16 04/03/24 07:55 04/03/24 09:16 04/03/24 08:17 04/03/24 08:17 04/03/24 08:17 FiO2 2 03/20/24 05:25 Oxygen Flow Rate (L/min) 2 Oxygen Delivery Method Nasal Cannula Weight: 197 lb 12.074 oz Body Mass Index (BMI) 29.2 Intake & Output: Intake and Output for Last 24 Hours 04/02/24 04/03/24 04/04/24 03:59 03:59 03:59 Intake Total 1780 / 1780 2049 / 2049 110 / 110 Output Total 2024 / 2024 1950 / 1950 50 / 50 Balance -245 / -245 100 / 100 60 / 60 Lab / Micro Data 04/03/24 06:08 04/03/24 06:08 Labs: Laboratory Results - last 24 hr 04/02/24 12:08: POC Glucose 213 H 04/02/24 16:56: POC Glucose 197 H 04/02/24 19:08: Vancomycin Trough 20.4 H 04/03/24 06:08: WBC 7.6, RBC 3.96 L, Hgb 11.3 L, Hct 38.8 L, MCV 98.0 H D, MCH 28.5, MCHC 29.1 L D, RDW Std Deviation 66.3 H, RDW Coeff of Fariba 19.4 H, Plt Count 276, MPV 9.4, Immature Gran % (Auto) 0.300, Neut % (Auto) 64.0, Lymph % (Auto) 25.9, Carter % (Auto) 6.3, Eos % (Auto) 2.0, Baso % (Auto) 1.5 H, Absolute Neuts (auto) 4.9, Absolute Lymphs (auto) 1.96, Nucleated RBC % 0, Platelet Estimate ADEQUATE, Plt Morphology Comment CLUMPED, Anisocytosis 1+, Sodium 137, Potassium 4.7, Chloride 114 H, Carbon Dioxide 18.0 L, Anion Gap 5, BUN 21 H, Creatinine 1.03, Estim Creat Clear Calc 99.25, Est GFR (MDRD) Af Amer 100, Est GFR (MDRD) Non-Af 82, BUN/Creatinine Ratio 20.4 H, Glucose 70 L, Calcium 8.1 L 04/03/24 08:02: POC Glucose 67 L 04/03/24 09:09: POC Glucose 89 Micro: Microbiology 03/22/24 13:17 Blood Culture (Wb) - Anticubital Right Blood Culture - Final No growth in 5 days. 03/22/24 13:05 Wound - Heel, Left Gram Stain - Final 03/22/24 13:05 Wound - Heel, Left Wound Culture - Final Staphylococcus aureus Coag Negative Staph 03/20/24 02:00 Blood Culture (Wb) - Right Hand Blood Culture - Final Staphylococcus aureus 03/22/24 13:10 Stool Stool Occult Blood (ELINA) - Final 03/19/24 22:55 Blood Culture (Wb) - Left Forearm Bacteria Detection (PCR) - Final Staphylococcus aureus 03/19/24 22:55 Blood Culture (Wb) - Left Forearm Blood Culture - Final Staphylococcus aureus 03/19/24 23:00 Urine, Clean Catch Legionella Antigen - Final 03/19/24 23:00 Urine, Clean Catch Streptococcus pneumoniae Antigen (M - Final 03/20/24 00:40 Stool Stool Occult Blood (ELINA) - Final 03/19/24 23:05 Mucosa - Nose SARS-CoV-2, Influenza & RSV (PCR) - Final Physical Exam Narrative General: Alert, Oriented x3, Cooperative, No apparent distress HEENT: Atraumatic, PERRLA, EOMI, Normocephalic Oral: Moist Mucosa Neck: Supple, No JVD Lungs: Diminished, Normal air movement, No rhonchi, No wheeze, No rales Cardiovascular: Regular rate, Regular Rhythm, Normal S1, Normal S2, No murmurs Abdomen: Soft, Non Tender, Non-Distended, No Hepato-splenomegaly Extremities: No edema, Capillary Refill Less than 3 Seconds Skin: Left lower extremity dressed and wrapped, clean dry and intact Musculoskeletal: No Tenderness to Palpation of Joints or Extremities Neurological: No focal neurological deficits, Motor Exam 5/5 strength throughout, Sensory exam intact to light touch and pain Psych/Mental Status: Normal Affect, Appropriate Assessment & Plan Assessment/Plan (1) MSSA bacteremia: (2) Pneumonia: QUALIFIERS: Pneumonia type: due to unspecified organism L aterality: right Lung location: lower lobe of lung Qualified Code(s): J18.9 - Pneumonia, unspecified organism (3) Non-pressure chronic ulcer of other part of left foot with fat layer exposed: PLAN: Plan #1. 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, ws initially labeled as acute sepsis (leukocytosis, lactic acidosis, tachypnea, tachycardia, fever with total bilirubin elevated 1.4 but still not consistent with sepsis given no end- organ damage associated with infectious presentation), thus ruled out: Admission 03/19/2024 blood cultures with Staphylococcus aureus with repeat 03/20/2024 blood culture 1 positive, Legionella and streptococcal antigens negative, SARS COVID/influenza/RSV negative, initially maintained on IV vancomycin and Zosyn-->ID transition 03/22/24 to vancomycin/cefazolin as well as oral Flagyl given concurrent #2 as noted, continue PRN albuterol, encourage HOB, IS parameters, TTE without vegetations, follow-up 03/23/24 GUERLINE with EF 15%, trivial MVI, no definitive vegetation seen, left heel wound culture with Staphylococcus aureus, podiatry consulted and following as noted below with transition of intervention care to Plastic Surgery Dr. Rawls for possible BKA. Most recent repeat 03/22/2024 blood cultures negative. 03/25/2024 PICC line successful. Definitive intervention as noted #2 as likely source for bacteremia and pneumonia. 03/27/24 discussed with case management/social work and patient is not a candidate for any transition to skilled facility to await surgical intervention given social situation with lack of insurance, as of now plan for intervention per vascular this upcoming Friday and following this intervention per plastics for BKA. 03/29/2024: Continue with antibiotics, appreciate infectious disease assistance #2. Left foot ulcerated plantar central calcaneus with tissue maceration with acute osteomyelitis: Wound RN consulted, ongoing dressing changes, given appearance with macerated tissue and suspected undermining Podiatry consultation obtained, CT left lower extremity with cortical disruption the calcaneus consistent with os mellitus with fragmentation with extension to the subtalar joint, ill-defined lucency in the adjacent talus suggesting secondary involvement, maintain offloading, currently maintained on IV vancomycin/cefazolin and oral Flagyl per ID direction, given poor reconstructive candidate decision for below the knee amputation with plastic surgery Dr. Rawls consultation per podiatry recommendation as noted w/ recommended BKA. Discussed case with patient and plastic surgery with plan for upcoming evaluation possibly 03/29/[address] Gordon for lower extremity angiogram with runoff consideration prior to potential left BKA 03/31/2024. Most recent repeat blood culture 03/22/2024 with no growth, reviewed with infectious disease. 03/25/24 PICC line successful. 03/27/24 discussed with case management/social work and patient is not a candidate for any transition to skilled facility to await surgical intervention given social situation with lack of insurance, as of now plan for intervention per vascular this upcoming Friday and following this intervention per plastics for BKA. 03/29/2024: Awaiting surgical intervention on Friday and then will work on placement after his BKA 03/30/2024: Angiogram tomorrow 03/31/2024: Angiogram today and then planned plastic surgery tomorrow per nursing staff 04/01/2024: No change, awaiting surgery for early next week 04/02/2024: No change 04/03/2024: No change #3. Acute normocytic anemia, worsening, appears new chronicity with history of prior PUD of note: Admission hemoglobin 9.3, prior to this hemoglobin 01/13/2024 had been 13.4 which appears his baseline primarily, decreased 03/21/2020 4-8.0 and now 03/22/2024 hemoglobin 6.9, 2 unit PRBC ordered, iron panel obtained with iron 27, TIBC 97, iron saturation 27.8, ferritin 1417 more consistent with AOCD, guaiac obtained 03/20/2024 noted to be negative at that time, place on PPI to be cautious. Repeat guiac requested to be thorough and again negative. Will cautiously continue baby aspirin, metoprolol as BP allows, statin therapy, low- dose lisinopril. 03/25/2024 resumed chemoprophylaxis with Lovenox given stable hemoglobin. 03/28/2024 hemoglobin 10.8, stable. 03/29/2024: Hemoglobin is stable at 10.9 #4. Hyperbilirubinemia, Transaminitis, acute on chronic: Unclear specific etiology, 03/19/2024 T. bili 1.10, AST/LT 53/61, alk phos 232->03/22/2024 CMP with total bilirubin 1.40, D bilirubin 0.32, AST/LT 166/126, alk phos 145-->03/23/24 T. bili 0.70, AST/LT 103/132, alk phos 202--> 03/28/24 total bilirubin 0.50, AST/LT 21/11, alk phos 117, liver ultrasound with normal appearing liver and gallbladder, hepatitis panel nonreactive. #5. Petechial rash, unclear etiology: Patient with onset over the last 48 hours petechial rash to the hands, upper thighs as well as some irritation in the antecubital fossa although suspect this is in part secondary to tight blood pressure assessments in that region, possibly related to medication including antibiotic therapy, nonpainful, nonblanching and lessening in appearance 03/24/2024 compared to prior. Per review with infectious disease felt not typical of a drug rash with continued stable renal function and platelets, pending ANCA labs. 03/26/2024 extremity started to improve and repeat evaluation 03/27/24 again resolving, low suspicion for vasculitis given this but unclear etiology still. #6. PSVT: 03/25/2024 overnight patient with episodes of short bursts of VT , BP on the lower normal side thus unable to initiate any increase in metoprolol regimen at this time but once improves will consider, at that time additional labs included magnesium 2.1, potassium 3.9. Cardiology has been consulted therefore if any concerns arise will re-involve them. #7. Hypokalemia: Admission K+ 2.9, magnesium level requested, supplementation given, 03/28/24 potassium 3.7. #8. Hypocalcemia, improved with corrected: Calcium 6.4, previous albumin significantly low however this is from 03/19/2024 and 1.8 at that time, corrected 8.16, supplemented with calcium gluconate, 03/28/24 calcium 8.2, again corrected elevated above this. #9. HFrEF/Ischemic Cardiomyopathy: s/p biventricular AICD [facility], 03/21/2024 echocardiogram pending as noted above, prior ECHO 12/04/23 with LV normal size, LV systolic function severely decreased, EF 25?5%, regional wall motion abnormalities present, grade 1 LV diastolic dysfunction, RV not well-visualized, on limited views right ventricle grossly normal in size and systolic function, no significant valvular abnormalities. As noted planned 2 u PRBC administration, monitor for overload, will administer 20 mg IV x 1. Will cautiously continue baby aspirin, metoprolol, low-dose losartan, Lasix and hydralazine with BP parameters given initial presentation with lower normal BP. Case management consulted for assistance with medication cost. Cardiology evaluation 03/24/2024 with cardiac clearance for progression to OR for vascular intervention potential as well as planned left lower extremity BKA. #10. CAD: Status post CABG x 3, given guaiac stool negative, cautiously continue baby aspirin, metoprolol, low-dose losartan. #11. Diabetes mellitus type II with chronic neuropathy: Hold oral home regimen, continue home insulin regimen as well as ISS scheduled with meals, ADA diet, accu checks w/ ISS. 03/23/2024 hgbA1c 6.1%. Encourage medication compliance. #12. Hypertension: Patient from records has been noncompliant with hypertensive regimen reporting that he does not believe he needs it although he is on some of this regimen secondary to underlying heart failure and CAD, will continue low- dose metoprolol and losartan as well as low-dose Lasix as BP allows but has been on the low end. Holding oral home hydralazine regimen. #13. Hyperlipidemia: We will continue patient on statin therapy. #14. GERD with history of peptic ulcer disease: PPI. #15. Tobacco Abuse: Encouraged cessation, inpatient consultation per RT, NR if desired. #16. JAIDEN: Noncompliant with PAP therapy, using oxygen q HS instead. DVT: Lovenox Charges/Coding Visit Charges Inpatient E&M: 09552 Subs Hosp L1
[2024-04-03] MEDS: Insulin NPH Human 100 UNITS/ML PEN 15 UNITS SC ×2 (12:05→16:39)
[2024-04-03] MEDS: Insulin Lispro 100 UNIT/ML INSULN.PEN SC ×2 (12:06→16:39)
[2024-04-03 12:25] LABS: Bedside Glucose 102 mg/dL (74-106)
[2024-04-03] MEDS: 0.9% Normal Saline (250mL Bag) 250 ML 15 ML IV (14:01)
[2024-04-03] MEDS: 0.9% Saline Lock 10 ML Syringe IV (14:04)
[2024-04-03 16:59] LABS: Bedside Glucose 111 mg/dL (74-106)
[2024-04-03] MEDS: Atorvastatin Calcium 10 MG Tablet PO (21:11)
[2024-04-04 03:19] VITALS: BP 115/87; PULSE 79; RESP 17; TEMP 36.3; O2SAT 95
[2024-04-04] MEDS: Cefazolin 2 GM in 0.9% Normal Saline (100mL Bag) 100 ML IV ×3 (05:28→21:11)
[2024-04-04] MEDS: metroNIDAZOLE 500 MG Tablet PO ×3 (05:29→21:10)
[2024-04-04] MEDS: Enoxaparin 40 MG/0.4 ML Syringe SC (05:29)
--- NOTE | 2024-04-04 08:13 | NURSING ---
Addendum entered by Casi See 04/04/24 08:36: Fingerstick glucose 83. Breakfast delivered and pt sat up in bed with tray in front of him Original Note: 7am fingerstick glucose check 60; gave 4oz apple juice. Rechecked fingerstick glucose after 15mins, 57. Given 4oz orange juice. Rechecked fingerstick after 15mins, 67. Provided another 4oz apple juice. Will recheck fingerstick in [address] Ayers made aware of decreased glucose.
[2024-04-04 08:21] LABS: Bedside Glucose 60 mg/dL (74-106)
[2024-04-04 08:22] LABS: Bedside Glucose 67 mg/dL (74-106)
[2024-04-04 08:22] LABS: Bedside Glucose 57 mg/dL (74-106)
[2024-04-04 08:44] LABS: Bedside Glucose 83 mg/dL (74-106)
[2024-04-04 09:43] VITALS: BP 107/77; PULSE 96; RESP 20; TEMP 36.4; O2SAT 100
[2024-04-04] MEDS: guaiFENesin 1,200 MG Tablet 1200 MG PO ×2 (09:49→21:11)
[2024-04-04] MEDS: Cholecalciferol (Vit D3) 125 MCG CAPSULE (5,000 UNITS) PO (09:49)
[2024-04-04] MEDS: Ascorbic Acid 500 MG Tablet PO (09:49)
[2024-04-04] MEDS: Lactobacillis Acidophilus 1 CAP PO ×4 (09:49→21:11)
[2024-04-04] MEDS: Pantoprazole Sodium 40 MG Tablet PO ×2 (09:49→21:10)
[2024-04-04] MEDS: Aspirin E.C. 81 MG Tablet PO (09:49)
[2024-04-04] MEDS: Insulin NPH Human 100 UNITS/ML PEN 15 UNITS SC ×2 (11:33→17:02)
[2024-04-04] MEDS: Insulin Lispro 100 UNIT/ML INSULN.PEN SC ×2 (11:34→17:02)
[2024-04-04 11:53] LABS: Bedside Glucose 113 mg/dL (74-106)
[2024-04-04 12:15] LABS: Vancomycin, Trough Level 15.6 ug/mL (5.0-15.0)
--- NOTE | 2024-04-04 12:17 | PN.HOSP_ITS ---
Subjective Subjective Doing well, no issues overnight seems to be feeling a little bit better mentally today Objective Data Objective Data Vital Signs: Vital Signs Temp Pulse Resp BP Pulse Ox O2 Del Method O2 Flow Rate 97.5 F L 96 20 H 107/77 100 Room Air 2 04/04/24 09:43 04/04/24 09:43 04/04/24 09:43 04/04/24 09:43 04/04/24 09:43 04/04/24 09:43 04/04/24 08:16 FiO2 2 03/20/24 05:25 Oxygen Flow Rate (L/min) 2 Oxygen Delivery Method Room Air Weight: 197 lb 12.074 oz Body Mass Index (BMI) 29.2 Intake & Output: Intake and Output for Last 24 Hours 04/03/24 04/04/24 04/05/24 03:59 03:59 03:59 Intake Total 2049 / 2049 1530.25 / 1530.25 359.75 / 359.75 Output Total 1950 / 1950 950 / 950 100 / 100 Balance 100 / 100 580.25 / 580.25 259.75 / 259.75 Lab / Micro Data 04/03/24 06:08 04/03/24 06:08 Labs: Laboratory Results - last 24 hr 04/03/24 12:00: POC Glucose 102 04/03/24 16:38: POC Glucose 111 H 04/04/24 07:25: POC Glucose 60 L 04/04/24 07:44: POC Glucose 57 L 04/04/24 08:04: POC Glucose 67 L 04/04/24 08:26: POC Glucose 83 04/04/24 11:31: Vancomycin Trough 15.6 H, POC Glucose 113 H Micro: Microbiology 03/22/24 13:17 Blood Culture (Wb) - Anticubital Right Blood Culture - Final No growth in 5 days. 03/22/24 13:05 Wound - Heel, Left Gram Stain - Final 03/22/24 13:05 Wound - Heel, Left Wound Culture - Final Staphylococcus aureus Coag Negative Staph 03/20/24 02:00 Blood Culture (Wb) - Right Hand Blood Culture - Final Staphylococcus aureus 03/22/24 13:10 Stool Stool Occult Blood (ELINA) - Final 03/19/24 22:55 Blood Culture (Wb) - Left Forearm Bacteria Detection (PCR) - Final Staphylococcus aureus 03/19/24 22:55 Blood Culture (Wb) - Left Forearm Blood Culture - Final Staphylococcus aureus 03/19/24 23:00 Urine, Clean Catch Legionella Antigen - Final 03/19/24 23:00 Urine, Clean Catch Streptococcus pneumoniae Antigen (M - Final 03/20/24 00:40 Stool Stool Occult Blood (ELINA) - Final 03/19/24 23:05 Mucosa - Nose SARS-CoV-2, Influenza & RSV (PCR) - Final Physical Exam Narrative General: Alert, Oriented x3, Cooperative, No apparent distress HEENT: Atraumatic, PERRLA, EOMI, Normocephalic Oral: Moist Mucosa Neck: Supple, No JVD Lungs: Diminished, Normal air movement, No rhonchi, No wheeze, No rales Cardiovascular: Regular rate, Regular Rhythm, Normal S1, Normal S2, No murmurs Abdomen: Soft, Non Tender, Non-Distended, No Hepato-splenomegaly Extremities: No edema, Capillary Refill Less than 3 Seconds Skin: Left lower extremity dressed and wrapped, clean dry and intact Musculoskeletal: No Tenderness to Palpation of Joints or Extremities Neurological: No focal neurological deficits, Motor Exam 5/5 strength throughout, Sensory exam intact to light touch and pain Psych/Mental Status: Normal Affect, Appropriate Assessment & Plan Assessment/Plan (1) MSSA bacteremia: (2) Pneumonia: QUALIFIERS: Pneumonia type: due to unspecified organism L aterality: right Lung location: lower lobe of lung Qualified Code(s): J18.9 - Pneumonia, unspecified organism (3) Non-pressure chronic ulcer of other part of left foot with fat layer exposed: PLAN: Plan #1. 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, ws initially labeled as acute sepsis (leukocytosis, lactic acidosis, tachypnea, tachycardia, fever with total bilirubin elevated 1.4 but still not consistent with sepsis given no end- organ damage associated with infectious presentation), thus ruled out: Admission 03/19/2024 blood cultures with Staphylococcus aureus with repeat 03/20/2024 blood culture 1 positive, Legionella and streptococcal antigens negative, SARS COVID/influenza/RSV negative, initially maintained on IV vancomycin and Zosyn-->ID transition 03/22/24 to vancomycin/cefazolin as well as oral Flagyl given concurrent #2 as noted, continue PRN albuterol, encourage HOB, IS parameters, TTE without vegetations, follow-up 03/23/24 GUERLINE with EF 15%, trivial MVI, no definitive vegetation seen, left heel wound culture with Staphylococcus aureus, podiatry consulted and following as noted below with transition of intervention care to Plastic Surgery Dr. Rawls for possible BKA. Most recent repeat 03/22/2024 blood cultures negative. 03/25/2024 PICC line successful. Definitive intervention as noted #2 as likely source for bacteremia and pneumonia. 03/27/24 discussed with case management/social work and patient is not a candidate for any transition to skilled facility to await surgical intervention given social situation with lack of insurance, as of now plan for intervention per vascular this upcoming Friday and following this intervention per plastics for BKA. 03/29/2024: Continue with antibiotics, appreciate infectious disease assistance #2. Left foot ulcerated plantar central calcaneus with tissue maceration with acute osteomyelitis: Wound RN consulted, ongoing dressing changes, given appearance with macerated tissue and suspected undermining Podiatry consultation obtained, CT left lower extremity with cortical disruption the calcaneus consistent with os mellitus with fragmentation with extension to the subtalar joint, ill-defined lucency in the adjacent talus suggesting secondary involvement, maintain offloading, currently maintained on IV vancomycin/cefazolin and oral Flagyl per ID direction, given poor reconstructive candidate decision for below the knee amputation with plastic surgery Dr. Rawls consultation per podiatry recommendation as noted w/ recommended BKA. Discussed case with patient and plastic surgery with plan for upcoming evaluation possibly 03/29/[address] Gordon for lower extremity angiogram with runoff consideration prior to potential left BKA 03/31/2024. Most recent repeat blood culture 03/22/2024 with no growth, reviewed with infectious disease. 03/25/24 PICC line successful. 03/27/24 discussed with case management/social work and patient is not a candidate for any transition to skilled facility to await surgical intervention given social situation with lack of insurance, as of now plan for intervention per vascular this upcoming Friday and following this intervention per plastics for BKA. 03/29/2024: Awaiting surgical intervention on Friday and then will work on placement after his BKA 03/30/2024: Angiogram tomorrow 03/31/2024: Angiogram today and then planned plastic surgery tomorrow per nursing staff 04/01/2024: No change, awaiting surgery for early next week 04/02/2024: No change 04/03/2024: No change 04/04/2024: No change awaiting surgery #3. Acute normocytic anemia, worsening, appears new chronicity with history of prior PUD of note: Admission hemoglobin 9.3, prior to this hemoglobin 01/13/2024 had been 13.4 which appears his baseline primarily, decreased 03/21/2020 4-8.0 and now 03/22/2024 hemoglobin 6.9, 2 unit PRBC ordered, iron panel obtained with iron 27, TIBC 97, iron saturation 27.8, ferritin 1417 more consistent with AOCD, guaiac obtained 03/20/2024 noted to be negative at that time, place on PPI to be cautious. Repeat guiac requested to be thorough and again negative. Will cautiously continue baby aspirin, metoprolol as BP allows, statin therapy, low- dose lisinopril. 03/25/2024 resumed chemoprophylaxis with Lovenox given stable hemoglobin. 03/28/2024 hemoglobin 10.8, stable. 03/29/2024: Hemoglobin is stable at 10.9 #4. Hyperbilirubinemia, Transaminitis, acute on chronic: Unclear specific etiology, 03/19/2024 T. bili 1.10, AST/LT 53/61, alk phos 232->03/22/2024 CMP with total bilirubin 1.40, D bilirubin 0.32, AST/LT 166/126, alk phos 145-->03/23/24 T. bili 0.70, AST/LT 103/132, alk phos 202--> 03/28/24 total bilirubin 0.50, AST/LT 21/11, alk phos 117, liver ultrasound with normal appearing liver and gallbladder, hepatitis panel nonreactive. #5. Petechial rash, unclear etiology: Patient with onset over the last 48 hours petechial rash to the hands, upper thighs as well as some irritation in the antecubital fossa although suspect this is in part secondary to tight blood pressure assessments in that region, possibly related to medication including antibiotic therapy, nonpainful, nonblanching and lessening in appearance 03/24/2024 compared to prior. Per review with infectious disease felt not typical of a drug rash with continued stable renal function and platelets, pending ANCA labs. 03/26/2024 extremity started to improve and repeat evaluation 03/27/24 again resolving, low suspicion for vasculitis given this but unclear etiology still. #6. PSVT: 03/25/2024 overnight patient with episodes of short bursts of VT , BP on the lower normal side thus unable to initiate any increase in metoprolol regimen at this time but once improves will consider, at that time additional labs included magnesium 2.1, potassium 3.9. Cardiology has been consulted therefore if any concerns arise will re-involve them. #7. Hypokalemia: Admission K+ 2.9, magnesium level requested, supplementation given, 03/28/24 potassium 3.7. #8. Hypocalcemia, improved with corrected: Calcium 6.4, previous albumin significantly low however this is from 03/19/2024 and 1.8 at that time, corrected 8.16, supplemented with calcium gluconate, 03/28/24 calcium 8.2, again corrected elevated above this. #9. HFrEF/Ischemic Cardiomyopathy: s/p biventricular AICD [facility], 03/21/2024 echocardiogram pending as noted above, prior ECHO 12/04/23 with LV normal size, LV systolic function severely decreased, EF 25?5%, regional wall motion abnormalities present, grade 1 LV diastolic dysfunction, RV not well-visualized, on limited views right ventricle grossly normal in size and systolic function, no significant valvular abnormalities. As noted planned 2 u PRBC administration, monitor for overload, will administer 20 mg IV x 1. Will cautiously continue baby aspirin, metoprolol, low-dose losartan, Lasix and hydralazine with BP parameters given initial presentation with lower normal BP. Case management consulted for assistance with medication cost. Cardiology evaluation 03/24/2024 with cardiac clearance for progression to OR for vascular intervention potential as well as planned left lower extremity BKA. #10. CAD: Status post CABG x 3, given guaiac stool negative, cautiously continue baby aspirin, metoprolol, low-dose losartan. #11. Diabetes mellitus type II with chronic neuropathy: Hold oral home regimen, continue home insulin regimen as well as ISS scheduled with meals, ADA diet, accu checks w/ ISS. 03/23/2024 hgbA1c 6.1%. Encourage medication compliance. #12. Hypertension: Patient from records has been noncompliant with hypertensive regimen reporting that he does not believe he needs it although he is on some of this regimen secondary to underlying heart failure and CAD, will continue low- dose metoprolol and losartan as well as low-dose Lasix as BP allows but has been on the low end. Holding oral home hydralazine regimen. #13. Hyperlipidemia: We will continue patient on statin therapy. #14. GERD with history of peptic ulcer disease: PPI. #15. Tobacco Abuse: Encouraged cessation, inpatient consultation per RT, NR if desired. #16. JAIDEN: Noncompliant with PAP therapy, using oxygen q HS instead. DVT: Lovenox Charges/Coding Visit Charges Inpatient E&M: 67621 Subs Hosp L1
--- NOTE | 2024-04-04 12:54 | PCM.RX.CS ---
Consult Antibiotic Management Pharmacy has been consulted to manage selected antibiotic: Vancomycin Type of Intervention Type of Consult: Follow-up Labs Labs: Sodium 137 mmol/L (136-145) 04/03/24 06:08 Potassium 4.7 mmol/L (3.5-5.1) 04/03/24 06:08 Chloride 114 mmol/L (98-107) H 04/03/24 06:08 Carbon Dioxide 18.0 mmol/L (21.0-32.0) L 04/03/24 06:08 Anion Gap 5 (5-15) 04/03/24 06:08 BUN 21 mg/dL (7-18) H 04/03/24 06:08 Creatinine 1.03 mg/dL (0.70-1.30) 04/03/24 06:08 Est GFR (MDRD) Af Amer 100 mL/min (>60) 04/03/24 06:08 Est GFR (MDRD) Non-Af 82 mL/min (>60) 04/03/24 06:08 BUN/Creatinine Ratio 20.4 RATIO (10-20) H 04/03/24 06:08 Glucose 70 mg/dL (74-106) L 04/03/24 06:08 Vancomycin Trough 15.6 ug/mL (5.0-15.0) H 04/04/24 11:31 Random Vancomycin 15.9 ug/mL (0.0-15.0) H 03/24/24 06:06 Microbiology Microbiology: Microbiology 03/22/24 13:17 Blood Culture (Wb) - Anticubital Right Blood Culture - Final No growth in 5 days. 03/22/24 13:05 Wound - Heel, Left Gram Stain - Final 03/22/24 13:05 Wound - Heel, Left Wound Culture - Final Staphylococcus aureus Coag Negative Staph 03/20/24 02:00 Blood Culture (Wb) - Right Hand Blood Culture - Final Staphylococcus aureus 03/22/24 13:10 Stool Stool Occult Blood (ELINA) - Final 03/19/24 22:55 Blood Culture (Wb) - Left Forearm Bacteria Detection (PCR) - Final Staphylococcus aureus 03/19/24 22:55 Blood Culture (Wb) - Left Forearm Blood Culture - Final Staphylococcus aureus 03/19/24 23:00 Urine, Clean Catch Legionella Antigen - Final 03/19/24 23:00 Urine, Clean Catch Streptococcus pneumoniae Antigen (M - Final 03/20/24 00:40 Stool Stool Occult Blood (ELINA) - Final 03/19/24 23:05 Mucosa - Nose SARS-CoV-2, Influenza & RSV (PCR) - Final Pharmacy Plan for Drug Dosing Pharmacy Plan for Drug Dosing: VANCOMYCIN LEVEL RECEIVED Current Vancomycin Dose: 500mg IV Q12hr Number of Doses Received: 3 (of current regimen) Vancomycin Level: 15.6 Hours Since Last Dose: 12hr Renal Function: 1.03 Renal Function Trend: stable Lab/Micro: Cx growing staph Vancomycin Plan/Comments: Patient had a trough drawn which resulted in a value of 15.6 (goal 15-20). Patient is within therapeutic goal for vancomycin. Will continue 500mg IV Q12hr and recheck a trough in 2 days to assess dosing at that time. Pending Level: 04/06/24 @1130 Pharmacy Service will continue to monitor and adjust dosing as required.
[2024-04-04] MEDS: 0.9% Normal Saline (250mL Bag) 250 ML 15 ML IV (13:07)
[2024-04-04] MEDS: Vancomycin IV 500 MG/100 ML BAG 100 MG IV (13:08)
[2024-04-04] MEDS: 0.9% Saline Lock 10 ML Syringe IV ×2 (13:11→21:16)
[2024-04-04 14:49] VITALS: BP 111/82; PULSE 91; RESP 20; TEMP 36.4; O2SAT 93
[2024-04-04 17:24] LABS: Bedside Glucose 161 mg/dL (74-106)
[2024-04-04 21:04] VITALS: BP 131/93; PULSE 98; RESP 22; TEMP 36.6; O2SAT 94
[2024-04-04] MEDS: Atorvastatin Calcium 10 MG Tablet PO (21:11)
[2024-04-05] VITALS (7 sets, daily range): BP systolic 116–135; BP diastolic 82–90; PULSE 85–97; RESP 18–20; TEMP 35.9–36.6; O2SAT 94–98; BMI 29.2
[2024-04-05] MEDS: Vancomycin IV 500 MG/100 ML BAG 100 MG IV ×2 (01:50→12:26)
[2024-04-05] MEDS: Enoxaparin 40 MG/0.4 ML Syringe SC (05:32)
[2024-04-05] MEDS: Cefazolin 2 GM in 0.9% Normal Saline (100mL Bag) 100 ML IV ×3 (05:32→21:16)
[2024-04-05] MEDS: metroNIDAZOLE 500 MG Tablet PO ×3 (05:34→21:10)
[2024-04-05 05:41] LABS: Absolute Lymphocyte Count 1.43 X10^3/uL (0.83-4.51); Absolute Neutrophil Count 5.5 X10^3/uL (2.0-7.7); Basophil# 0.08 X10^3/uL; Eosinophil# 0.16 X10^3/uL; Eosinophils% 2.1 % (0-5); Hematocrit 39.2 % (40-54); Hemoglobin 11.8 g/dL (13.0-16.5); Lymphocyte # 1.43 X10^3/ul (0.83-4.51); Lymphocyte % 18.7 % (19-41); Mean Corp Hgb Conc 30.1 g/dL (32-36); Mean Corpuscular Hgb 28.6 pg (27.0-32.0); Mean Corpuscular Volume 94.9 fL (80-94); Mean Platelet Vol. 9.6 fl (6.2-12.0); Monocyte% 6.5 % (0-10); NRBC Flagged by Analyzer 0 % (0-5); Neutrophil # 5.45 X10^3/uL (2.7-7.7); Neutrophil % 71.2 % (47-70); POSITIVE MORPHOLOGY YES; Platelet Count 341 K/mm3 (150-450); RBC Distribution Width CV 19.9 % (11.6-14.6); Red Blood Count 4.13 M/mm3 (4.6-6.2); White Blood Count 7.7 K/mm3 (4.4-11.0)
[2024-04-05 05:56] LABS: Differential Indicated SCAN CRITERIA MET
[2024-04-05 06:23] LABS: ALB/GLOB Ratio 0.3 RATIO (0.9-2.4); AST(SGOT) 37 U/L (15-37); Alanine Aminotransfer ALT/SGPT < 6 U/L (16-61); Albumin, Serum 1.8 g/dL (3.2-5.0); Alkaline Phosphatase 127 U/L (45-117); Anion Gap 6 (5-15); BUN 16 mg/dL (7-18); Calcium,Total 8.1 mg/dL (8.5-10.1); Chloride 110 mmol/L (98-107); EST Glomerular Filtration Rate 85 mL/min (>60); Est Glom Filt Rate - Afr Amer 103 mL/min (>60); Estimated Creatinine Clearance 102.23 ml/min; Globulin 5.6 g/dL (2.2-4.2); Glucose 83 mg/dL (74-106); Potassium 4.3 mmol/L (3.5-5.1); Protein, Total 7.4 g/dL (6.4-8.2); Sodium Level 139 mmol/L (136-145)
[2024-04-05 07:06] LABS: Anisocytosis 2+
[2024-04-05 07:47] LABS: Bedside Glucose 81 mg/dL (74-106)
--- NOTE | 2024-04-05 08:10 | PCM.PN.HOSP ---
Reason for Visit Reason for Visit: Diagnoses Sepsis, unspecified organism (03/20/24) Methicillin susceptible Staphylococcus aureus infection as the cause of diseases classified elsewhere (03/20/24) Type 2 diabetes mellitus with diabetic polyneuropathy (03/20/24) Type 2 diabetes mellitus with foot ulcer (03/20/24) Acidosis, unspecified (03/20/24) Nicotine dependence, unspecified, uncomplicated (03/20/24) Nicotine dependence, cigarettes, in remission (03/20/24) Atherosclerotic heart disease of [place] coronary artery without angina pectoris (03/20/24) Heart disease, unspecified (03/20/24) Atherosclerosis of [place] arteries of other extremities with ulceration (03/20/24) Pneumonia, unspecified organism (03/20/24) Non-pressure chronic ulcer of other part of unspecified foot with unspecified severity (03/20/24) Non-pressure chronic ulcer of other part of left foot with fat layer exposed (03/20/24) 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 of bone (03/20/24) Osteomyelitis, unspecified (03/20/24) Other abnormalities of breathing (03/20/24) Severe sepsis without septic shock (03/20/24) Bacteremia (03/20/24) Encounter for preprocedural cardiovascular examination (03/20/24) custodial (current) use of insulin (03/20/24) Presence of aortocoronary bypass graft (03/20/24) Presence of automatic (implantable) cardiac defibrillator (03/20/24) Objective Data Objective Data Vital Signs: Vital Signs Temp Pulse Resp BP Pulse Ox O2 Del Method O2 Flow Rate 97.8 F 97 18 135/90 H 95 Room Air 2 04/05/24 03:48 04/05/24 03:48 04/05/24 03:48 04/05/24 03:48 04/05/24 07:06 04/05/24 07:25 04/04/24 08:16 FiO2 2 03/20/24 05:25 Oxygen Flow Rate (L/min) 2 Oxygen Delivery Method Room Air Weight: 197 lb 12.074 oz Body Mass Index (BMI) 29.2 Intake & Output: Intake and Output for Last 24 Hours 04/03/24 04/04/24 04/05/24 23:59 23:59 23:59 Intake Total 1530.25 / 1530.25 1802.50 / 1802.50 210 / 210 Output Total 950 / 950 850 / 850 350 / 350 Balance 580.25 / 580.25 952.50 / 952.50 -140 / -140 Lab / Micro Data 04/05/24 04:46 04/05/24 04:46 Labs: Laboratory Results - last 24 hr 04/04/24 07:25: POC Glucose 60 L 04/04/24 07:44: POC Glucose 57 L 04/04/24 08:04: POC Glucose 67 L 04/04/24 08:26: POC Glucose 83 04/04/24 11:31: Vancomycin Trough 15.6 H, POC Glucose 113 H 04/04/24 17:01: POC Glucose 161 H 04/05/24 04:46: WBC 7.7, RBC 4.13 L, Hgb 11.8 L, Hct 39.2 L, MCV 94.9 H, MCH 28.6, MCHC 30.1 L, RDW Std Deviation 66.0 H, RDW Coeff of Fariba 19.9 H, Plt Count 341, MPV 9.6, Immature Gran % (Auto) 0.500, Neut % (Auto) 71.2 H, Lymph % (Auto) 18.7 L, [place] % (Auto) 6.5, Eos % (Auto) 2.1, Baso % (Auto) 1.0, Absolute Neuts (auto) 5.5, Absolute Lymphs (auto) 1.43, Nucleated RBC % 0, Anisocytosis 2+, Sodium 139, Potassium 4.3, Chloride 110 H, Carbon Dioxide 23.0, Anion Gap 6, BUN 16, Creatinine 1.00, Estim Creat Clear Calc 102.23, Est GFR (MDRD) Af Amer 103, Est GFR (MDRD) Non-Af 85, BUN/Creatinine Ratio 16.0, Glucose 83, Calcium 8.1 L, Total Bilirubin 0.60, AST 37, ALT < 6 L, Alkaline Phosphatase 127 H, Total Protein 7.4, Albumin 1.8 L, Globulin 5.6 H, Albumin/Globulin Ratio 0.3 L 04/05/24 07:27: POC Glucose 81 Micro: Microbiology 03/22/24 13:17 Blood Culture (Wb) - Anticubital Right Blood Culture - Final No growth in 5 days. 03/22/24 13:05 Wound - Heel, Left Gram Stain - Final 03/22/24 13:05 Wound - Heel, Left Wound Culture - Final Staphylococcus aureus Coag Negative Staph 03/20/24 02:00 Blood Culture (Wb) - Right Hand Blood Culture - Final Staphylococcus aureus 03/22/24 13:10 Stool Stool Occult Blood (ELINA) - Final 03/19/24 22:55 Blood Culture (Wb) - Left Forearm Bacteria Detection (PCR) - Final Staphylococcus aureus 03/19/24 22:55 Blood Culture (Wb) - Left Forearm Blood Culture - Final Staphylococcus aureus 03/19/24 23:00 Urine, Clean Catch Legionella Antigen - Final 03/19/24 23:00 Urine, Clean Catch Streptococcus pneumoniae Antigen (M - Final 03/20/24 00:40 Stool Stool Occult Blood (ELINA) - Final 03/19/24 23:05 Mucosa - Nose SARS-CoV-2, Influenza & RSV (PCR) - Final Assessment & Plan Assessment/Plan (1) MSSA bacteremia: (2) Pneumonia: QUALIFIERS: Laterality: right Lung location: lower lobe of lung Pneumonia type: due to unspecified organism Qualified Code(s): J18.9 - Pneumonia, unspecified organism (3) Non-pressure chronic ulcer of other part of left foot with fat layer exposed: PLAN: Plan #1. Acute Hypoxia secondary to Acute RLL Pneumonia presumed Staphylococcus aureus with concurrent Staphylococcus aureus bacteremia and also left diabetic foot ulcer TTE without vegetations, follow-up 03/23/24 GUERLINE with EF 15%, trivial MVI, no definitive vegetation seen, 03/22/2024 blood cultures negative. 03/25/2024 PICC line successful. 9/2: Shortness of breath is much better. #2. 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 Rawls consultation per podiatry recommendation as noted w/ recommended BKA. Discussed case with patient and plastic surgery with plan for upcoming evaluation possibly 03/29/[address] Gordon for lower extremity angiogram with runoff consideration prior to potential left BKA 03/31/2024. Most recent repeat blood culture 03/22/2024 with no growth, reviewed with infectious disease. 03/25/24 PICC line successful. 03/27/24 discussed with case management/social work and patient is not a candidate for any transition to skilled facility to await surgical intervention given social situation with lack of insurance, as of now plan for intervention per vascular this upcoming Friday and following this intervention per plastics for BKA. 04/05: Wound culture shows Staph aureus 3+, MSSA. Coagulase-negative staph 2+. IV cefazolin and Flagyl. Discussed with the plastic surgeon Dr. Stafford. Plan for taking him for left BKA. N.p.o. past midnight #3. Acute normocytic anemia, worsening, appears new chronicity with history of prior PUD of note: Admission hemoglobin 9.3, prior to this hemoglobin 01/13/2024 had been 13.4 which appears his baseline primarily, decreased 03/21/2020 4-8.0 and now 03/22/2024 hemoglobin 6.9, 2 unit PRBC ordered, iron panel obtained with iron 27, TIBC 97, iron saturation 27.8, ferritin 1417 more consistent with AOCD, guaiac obtained 03/20/2024 noted to be negative at that time, place on PPI to be cautious. Repeat guiac requested to be thorough and again negative. Will cautiously continue baby aspirin, metoprolol as BP allows, statin therapy, low-dose lisinopril. 03/25/2024 resumed chemoprophylaxis with Lovenox given stable hemoglobin. 03/28/2024 hemoglobin 10.8, stable. 03/29/2024: Hemoglobin is stable at 10.9 04/05: H&H 11.8/39%. Platelet count 341,000. Type and crossmatch ordered by plastic surgeon. Probably will not need PRBC transfusion. #4. Hyperbilirubinemia, Transaminitis, acute on chronic: Unclear specific etiology, 03/19/2024 T. bili 1.10, AST/LT 53/61, alk phos 232->03/22/2024 CMP with total bilirubin 1.40, D bilirubin 0.32, AST/LT 166/126, alk phos 145-->03/23/24 T. bili 0.70, AST/LT 103/132, alk phos 202--> 03/28/24 total bilirubin 0.50, AST/LT 21/11, alk phos 117, liver ultrasound with normal appearing liver and gallbladder, hepatitis panel nonreactive. #5. Petechial rash, unclear etiology: Patient with onset over the last 48 hours petechial rash to the hands, upper thighs as well as some irritation in the antecubital fossa although suspect this is in part secondary to tight blood pressure assessments in that region, possibly related to medication including antibiotic therapy, nonpainful, nonblanching and lessening in appearance 03/24/2024 compared to prior. Per review with infectious disease felt not typical of a drug rash with continued stable renal function and platelets, pending ANCA labs. 03/26/2024 extremity started to improve and repeat evaluation 03/27/24 again resolving, low suspicion for vasculitis given this but unclear etiology still. #6. PSVT: 03/25/2024 overnight patient with episodes of short bursts of VT , BP on the lower normal side thus unable to initiate any increase in metoprolol regimen at this time but once improves will consider, at that time additional labs included magnesium 2.1, potassium 3.9. Cardiology has been consulted therefore if any concerns arise will re-involve them. #7. Hypokalemia: Admission K+ 2.9, magnesium level requested, supplementation given, 03/28/24 potassium 3.7. 9/2: Hypokalemia resolved. #8. Hypocalcemia, improved with corrected: Calcium 6.4, previous albumin significantly low however this is from 03/19/2024 and 1.8 at that time, corrected 8.16, supplemented with calcium gluconate, 03/28/24 calcium 8.2, again corrected elevated above this. #9. HFrEF/Ischemic Cardiomyopathy: s/p biventricular AICD [place], 03/21/2024 echocardiogram pending as noted above, prior ECHO 12/04/23 with LV normal size, LV systolic function severely decreased, EF 25?5%, regional wall motion abnormalities present, grade 1 LV diastolic dysfunction, RV not well-visualized, on limited views right ventricle grossly normal in size and systolic function, no significant valvular abnormalities. As noted planned 2 u PRBC administration, monitor for overload, will administer 20 mg IV x 1. Will cautiously continue baby aspirin, metoprolol, low-dose losartan, Lasix and hydralazine with BP parameters given initial presentation with lower normal BP. Case management consulted for assistance with medication cost. Cardiology evaluation 03/24/2024 with cardiac clearance for progression to OR for vascular intervention potential as well as planned left lower extremity BKA. #10. CAD: Status post CABG x 3, given guaiac stool negative, cautiously continue baby aspirin, metoprolol, low-dose losartan. #11. Diabetes mellitus type II with chronic neuropathy: Hold oral home regimen, continue home insulin regimen as well as ISS scheduled with meals, ADA diet, accu checks w/ ISS. 03/23/2024 hgbA1c 6.1%. Encourage medication compliance. #12. Hypertension: Patient from records has been noncompliant with hypertensive regimen reporting that he does not believe he needs it although he is on some of this regimen secondary to underlying heart failure and CAD, will continue low-dose metoprolol and losartan as well as low-dose Lasix as BP allows but has been on the low end. Holding oral home hydralazine regimen. #13. Hyperlipidemia: We will continue patient on statin therapy. #14. GERD with history of peptic ulcer disease: PPI. #15. Tobacco Abuse: Encouraged cessation, inpatient consultation per RT, NR if desired. #16. JAIDEN: Noncompliant with PAP therapy, using oxygen q HS instead. DVT: Lovenox Charges/Coding Visit Charges Inpatient E&M: 92803 Subs Hosp L2
[2024-04-05] MEDS: Furosemide 20 MG Tablet PO (09:07)
[2024-04-05] MEDS: Cholecalciferol (Vit D3) 125 MCG CAPSULE (5,000 UNITS) PO (09:07)
[2024-04-05] MEDS: Metoprolol Tartrate 25 MG Tablet PO (09:07)
[2024-04-05] MEDS: Aspirin E.C. 81 MG Tablet PO (09:07)
[2024-04-05] MEDS: Lactobacillis Acidophilus 1 CAP PO ×3 (09:07→21:11)
[2024-04-05] MEDS: Pantoprazole Sodium 40 MG Tablet PO ×2 (09:07→21:13)
[2024-04-05] MEDS: Losartan Potassium 25 MG Tablet PO (09:07)
[2024-04-05] MEDS: guaiFENesin 1,200 MG Tablet 1200 MG PO ×2 (09:07→21:13)
[2024-04-05] MEDS: Ascorbic Acid 500 MG Tablet PO (09:07)
--- NOTE | 2024-04-05 09:38 | PN.SURG_ITS ---
Subjective Subjective HARRISON GARCIA is a 48 M who presents with PMHx of DM type II with peripheral polyneuropathy, JAIDEN, HTN, hyperlipidemia, tobacco abuse, PVD, CAD s/p VA and CABG x 3 (2015), chronic systolic CHF, ischemic cardiomyopathy, and left heel ulceration presents to [facility] ER with nausea, vomiting, shortness of breath, chills and rigors (admitted here at [facility] 2 days ago on 20 Mar 2024). He was noted to be febrile 101.3 ?F. In the ED he did undergo chest x-ray with right lower lobe infiltrate consistent with suspected aspiration pneumonia. WBC 17.8, lactic acidosis 2.7. He is currently on nasal cannula for oxygen. Of note, he also noted to have a diabetic foot wound on the left heel which she was treated previously at [facility] for osteomyelitis in December 2023. At that time records from [facility] state MSSA endocarditis secondary to left foot osteo and BiV-ICD was removed. While here at [facility] he was seen in consultation by infectious disease for his MSSA bacteremia with possible source of infection of left heel versus pneumonia. Podiatry was consulted for further evaluation of left heel ulceration. I spoke to the township supervisor in person and he feels like the extent of the osteomyelitis (maybe even into the talus, definitely throughout the calcaneus) is a contraindication at this point to any further limb salvage (recommending BKA). As for imaging, plane films obtained of the left foot 03/22/24 demonstrated soft tissue defect plantar heel in the area of concern with erosive changes of the plantar aspect of the calcaneus superior to the ulceration and posterior calcaneus near insertion of the Achilles tendon consistent with osteomyelitis. The subsequent CT obtained for further evaluation and demonstrates ulceration plantar heel with direct tract to the Calcaneus aligning with erosive change seen on the radiograph. Aslo noted is diffuse osteomyelitis of the Calcaneus with extension into the subtalar joint and possible extension into the Talus. WBC currently 12K, Hgb 6.9; Hct 22.6; Albumin 1.2; Alk phos 145; AST 166; ALT 126. He has improved with IV antibiotics and supportive care for his pneumonia. Today on the floor, he denies any pain in his leg. Still some SOB. He is still vaping (quit smoking but now just nicotine vapes) A1c was 6.5 in December 2023 Of note, has remote Hx of Fornier's gangrene with a wound and with subsequent colostomy/diversion (which has since been reversed). He cannot obtain an MRI (hardware). He has had ABIs this year which demonstrated 0.7 at the left foot. He is with two children (he and is are currently). CURRENT ENCOUNTER, 05 Apr 2024: Doing well from a respiratory standpoint, no SOB. Increasing protein intake. Discussed no nicotine and high protein diet/nutrition today. Objective Data Objective Data LEFT LOWER EXTREMITY CT SCAN FROM 22 March 2024 LEFT LOWER EXTREMITY EXAMINATION: [ ] Vital Signs: Vital Signs Temp Pulse Resp BP Pulse Ox O2 Del Method O2 Flow Rate 97 F L 94 18 135/84 H 97 Room Air 2 04/05/24 09:00 04/05/24 09:07 04/05/24 09:00 04/05/24 09:00 04/05/24 09:00 04/05/24 09:00 04/04/24 08:16 FiO2 2 03/20/24 05:25 Oxygen Flow Rate (L/min) 2 Oxygen Delivery Method Room Air Weight: 197 lb 12.074 oz Body Mass Index (BMI) 29.2 Intake & Output: Intake and Output for Last 24 Hours 04/03/24 04/04/24 04/05/24 23:59 23:59 23:59 Intake Total 1530.25 / 1530.25 1802.50 / 1802.50 210 / 210 Output Total 950 / 950 850 / 850 350 / 350 Balance 580.25 / 580.25 952.50 / 952.50 -140 / -140 Lab / Micro Data 04/05/24 04:46 04/05/24 04:46 Labs: Laboratory Results - last 24 hr 04/04/24 11:31: Vancomycin Trough 15.6 H, POC Glucose 113 H 04/04/24 17:01: POC Glucose 161 H 04/05/24 04:46: WBC 7.7, RBC 4.13 L, Hgb 11.8 L, Hct 39.2 L, MCV 94.9 H, MCH 28.6, MCHC 30.1 L, RDW Std Deviation 66.0 H, RDW Coeff of Fariba 19.9 H, Plt Count 341, MPV 9.6, Immature Gran % (Auto) 0.500, Neut % (Auto) 71.2 H, Lymph % (Auto) 18.7 L, Ray % (Auto) 6.5, Eos % (Auto) 2.1, Baso % (Auto) 1.0, Absolute Neuts (auto) 5.5, Absolute Lymphs (auto) 1.43, Nucleated RBC % 0, Anisocytosis 2+, Sodium 139, Potassium 4.3, Chloride 110 H, Carbon Dioxide 23.0, Anion Gap 6, BUN 16, Creatinine 1.00, Estim Creat Clear Calc 102.23, Est GFR (MDRD) Af Amer 103, Est GFR (MDRD) Non-Af 85, BUN/Creatinine Ratio 16.0, Glucose 83, Calcium 8.1 L, Magnesium 2.0, Total Bilirubin 0.60, AST 37, ALT < 6 L, Alkaline Phosphatase 127 H, Total Protein 7.4, Albumin 1.8 L, Globulin 5.6 H, Albumin/Globulin Ratio 0.3 L 04/05/24 07:27: POC Glucose 81 Micro: Microbiology 03/22/24 13:17 Blood Culture (Wb) - Anticubital Right Blood Culture - Final No growth in 5 days. 03/22/24 13:05 Wound - Heel, Left Gram Stain - Final 03/22/24 13:05 Wound - Heel, Left Wound Culture - Final Staphylococcus aureus Coag Negative Staph 03/20/24 02:00 Blood Culture (Wb) - Right Hand Blood Culture - Final Staphylococcus aureus 03/22/24 13:10 Stool Stool Occult Blood (ELINA) - Final 03/19/24 22:55 Blood Culture (Wb) - Left Forearm Bacteria Detection (PCR) - Final Staphylococcus aureus 03/19/24 22:55 Blood Culture (Wb) - Left Forearm Blood Culture - Final Staphylococcus aureus 03/19/24 23:00 Urine, Clean Catch Legionella Antigen - Final 03/19/24 23:00 Urine, Clean Catch Streptococcus pneumoniae Antigen (M - Final 03/20/24 00:40 Stool Stool Occult Blood (ELINA) - Final 03/19/24 23:05 Mucosa - Nose SARS-CoV-2, Influenza & RSV (PCR) - Final Assessment & Plan Assessment/Plan (1) Osteomyelitis: PLAN: Plan Patient has a LEFT diabetic foot wound with severe osteomyelitis through the calcaneus and into the talus. I talked to primary medicine team physician today, and they're in agreement with plan (cleared for surgery tomorrow with plastic surgery for left lower extremity amputation with possible TMR/RPNI). Reasoning for amputation includes my assessment of the left foot, which demonstrates a wound on the plantar surface that probes to necrotic bone with evidence of osteomyelitis on imaging throughout the calcaneus and into the talus. Patient is also a smoker (currently using a vape pen) and a diabetic/has peripheral vascular disease. Further clinical reasoning supporting a BKA of the left lower extremity includes the following: CT from 22 Mar 2024 of the LEFT lower extremity demonstrated the following: Diffusely mottled appearance of the calcaneus with a lytic defect mid body with indistinct cortical margins and fragmentation, extends to the subtalar joint. There are numerous tiny densities within the subtalar joint. Smaller cortical defect and irregular lucency extends more posteriorly and plantar calcaneus. From Podiatry Note: h/o Left foot Osteo at [facility] with MSSA bacteremia with endocarditis 12/03/23. Now repeat MSSA bacteremia Left foot: There is an ulceration plantar central calcaneus with surrounding tissue maceration with some serosanguineous drainage. Previous malodor noted to the ulcerative site. No purulent drainage noted. There is exposure of bone of the calcaneus noted and ulceration does probe to bone. No visible abscess or palpable fluctuance noted. There is lower extremity soft tissue swelling about the hindfoot and ankle. Discussed with patient at bedside the nature of his condition with the exposed bone of the calcaneus and confirmed osteomyelitis seen on radiograph. Discussed that CT was ordered for further evaluation which demonstrates osteomyelitis of the calcaneus with involvement of the subtalar joint and extension into the talus. Discussed with patient in detail the results of his CT scan and discussed with him from podiatric standpoint his foot is nonsalvageable and I am recommending BKA of the left lower extremity. Patient is understanding of the nature of his condition and the severity of his infection. He is understanding that his foot is not salvageable. He understands risks of continued health complications and possible loss of life from infection. He is understanding that he will require BKA of the left lower extremity. Of note, should be able to heal BKA based on the following (I discussed personally with vascular surgeon, Dr. Gordon): Angiogram on 31 March 2024 performed by vascular demonstrated the following: (LEFT) Superficial femoral artery widely patent with no atherosclerosis or stenosis, proximal popliteal artery with mild focal stenosis of less than 50% with the remainder of the proximal and mid popliteal artery with no significant atherosclerosis or stenosis. The distal popliteal artery abruptly occluded essentially at its trifurcation with no significant contrast filling of the tibial vasculature. There were multiple significant collaterals in the proximal lower leg originating from the distal popliteal artery. -They think he has adequate inflow to heal a left lower extremity BKA. DISCUSSION ON 05 Apr 2024: I talked to the patient again today about below knee amputation, LEFT SIDE. He understands the extent of his osteomyelitis/diabetic foot ulcer, and how it is now in the ankle joint and he is not a good candidate for foot/limb salvage with the extent of his osteomyelitis, as well as his comorbidities. He understands the affects of smoking/nicotine on wound healing (I discussed this with him). He understands the risks of wound healing problems at the BKA stump. He understands the plans for TMR/RPNI and why we are doing it (prevent phantom limb pain (PLP) and residual limb pain (RLP)/prevent painful neuroma formation). He understands the risks of anesthesia to his heart/respiratory system, as well as the risks of bleeding, infection, pain, failure to obtain desired result/heal the BKA and need for higher amputation. I called his and updated her too. Patient and understand post-operative plan of getting the stump healed with eventual fitting for prostheses (8 weeks post-operatively is a good goal for initial fitting). I marked his LEFT lower extremity for amputation. He signed consent for left lower extremity amputation. -type and screen (Hgb 11.8) -Nutrition consult for increased protein intake for healing. -NPO at midnight Charges/Coding Visit Charges Inpatient E&M: 66969 Subs Hosp L2
[2024-04-05 11:53] LABS: Bedside Glucose 99 mg/dL (74-106)
[2024-04-05] MEDS: 0.9% Saline Lock 10 ML Syringe IV ×2 (12:27→15:04)
[2024-04-05] MEDS: Insulin NPH Human 100 UNITS/ML PEN 15 UNITS SC ×2 (13:23→17:56)
[2024-04-05] MEDS: Insulin Lispro 100 UNIT/ML INSULN.PEN SC ×2 (13:24→17:56)
[2024-04-05 16:51] LABS: Bedside Glucose 136 mg/dL (74-106)
[2024-04-05] MEDS: Menthol/Lanolin/Calamine/Znox 113 GM Tube 1 APPLIC TOPICAL (21:11)
[2024-04-05] MEDS: Atorvastatin Calcium 10 MG Tablet PO (21:12)
[2024-04-06] VITALS (17 sets, daily range): BP systolic 93–138; BP diastolic 73–102; PULSE 74–99; RESP 16–39; TEMP 35.9–36.6; O2SAT 94–100
[2024-04-06] MEDS: Vancomycin IV 500 MG/100 ML BAG 100 MG IV (00:05)
[2024-04-06] MEDS: metroNIDAZOLE 500 MG Tablet PO ×3 (05:29→21:45)
[2024-04-06] MEDS: Menthol/Lanolin/Calamine/Znox 113 GM Tube 1 APPLIC TOPICAL ×2 (05:29→21:46)
[2024-04-06] MEDS: Cefazolin 2 GM in 0.9% Normal Saline (100mL Bag) 100 ML IV ×3 (05:29→21:44)
--- NOTE | 2024-04-06 05:55 | EKG12_ITS ---
Test Reason : PRE OP Blood Pressure : / mmHG Vent. Rate : 089 BPM Atrial Rate : 089 BPM P-R Int : 166 ms QRS Dur : 168 ms QT Int : 448 ms P-R-T Axes : 087 085 263 degrees QTc Int : 545 ms Sinus rhythm with occasional Premature ventricular complexes Left bundle branch block Abnormal ECG When compared with ECG of 19-MAR-2024 21:29, Premature ventricular complexes are now Present T wave inversion less evident in Inferior leads Confirmed by GUSTAVO SCHULTZ, ELEAZAR ([id number]), graphics editor CLAUDIA PHILIPPE ([id number]) on 04/06/2024 10:34:02 AM Referred By: Confirmed By:ELEAZAR CHEN MD
[2024-04-06 07:14] LABS: Bedside Glucose 45 mg/dL (74-106)
[2024-04-06 07:15] LABS: Bedside Glucose 46 mg/dL (74-106)
--- NOTE | 2024-04-06 08:54 | HP.PCM_ITS ---
[facility] Date of Admission: 03/20/24 Chief Complaint: Nausea, Vomiting, SOB and Shaking Chills. [facility] Narrative HARRISON GARCIA is a 48 M who presents with PMHx of DM type II with peripheral polyneuropathy, JAIDEN, HTN, hyperlipidemia, tobacco abuse, PVD, CAD s/p CO and CABG x 3 (2015), chronic systolic CHF, ischemic cardiomyopathy, and left heel ulceration presents to [facility] ER with nausea, vomiting, shortness of breath, chills and rigors (admitted here at [facility] 2 days ago on 20 Mar 2024). He was noted to be febrile 101.3 ?F. In the ED he did undergo chest x-ray with right lower lobe infiltrate consistent with suspected aspiration pneumonia. WBC 17.8, lactic acidosis 2.7. He is currently on nasal cannula for oxygen. Of note, he also noted to have a diabetic foot wound on the left heel which she was treated previously at [facility] for osteomyelitis in December 2023. 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 While here at [facility] he was seen in consultation by infectious disease for his MSSA bacteremia with possible source of infection of left heel versus pneumonia. Podiatry was consulted for further evaluation of left heel ulceration. I spoke to the wheel alignment mechanic in person and he feels like the extent of the osteomyelitis (maybe even into the talus, definitely throughout the calcaneus) is a contraindication at this point to any further limb salvage (recommending BKA). As for imaging, plane films obtained of the left foot 03/22/24 demonstrated soft tissue defect plantar heel in the area of concern with erosive changes of the plantar aspect of the calcaneus superior to the ulceration and posterior calcaneus near insertion of the Achilles tendon consistent with osteomyelitis. The subsequent CT obtained for further evaluation and demonstrates ulceration plantar heel with direct tract to the Calcaneus aligning with erosive change seen on the radiograph. Aslo noted is diffuse osteomyelitis of the Calcaneus with extension into the subtalar joint and possible extension into the Talus. WBC currently 12K, Hgb 6.9; Hct 22.6; Albumin 1.2; Alk phos 145; AST 166; ALT 126. He has improved with IV antibiotics and supportive care for his pneumonia. Today on the floor, he denies any pain in his leg. Still some SOB. He is still vaping (quit smoking but now just nicotine vapes) A1c was 6.5 in December 2023 Of note, has remote Hx of Fornier's gangrene with a wound and with subsequent colostomy/diversion (which has since been reversed). He cannot obtain an MRI (hardware). He has had ABIs this year which demonstrated 0.7 at the left foot. He is with two children (he and is are currently). Current Encounter (DATE OF SURGERY H&P UPDATE): I saw and examined the patient this morning in pre-operative holding. We discussed risks and benefits of today's surgery and they would like to proceed. NO CHANGE in health history since last seen and evaluated. Ready to proceed with surgery. COUNT INCLUDES THE [facility] Medical History Old myocardial infarct Peripheral vascular occlusive disease Obesity PUD (peptic ulcer disease) Obstructive sleep apnea Nicotine dependence Left bundle branch block (LBBB) Chronic systolic (congestive) heart failure Natalya gangrene Essential (primary) hypertension Hyperlipidemia Type 2 diabetes mellitus Atherosclerosis of coronary artery without angina pectoris Ischemic cardiomyopathy Paroxysmal ventricular tachycardia Home Medications ?Medication ?Instructions ?Recorded ?Last Taken ?Type aspirin 81 mg tablet,delayed 81 mg PO DAILY 11/03/19 Unknown History release (Adult Aspirin Regimen) insulin NPH isoph U-100 human 100 25 unit subcut BID blood sugar 03/14/23 Unknown History unit/mL subcutaneous suspension insulin regular human 100 unit/mL 8 unit subcut TID 03/14/23 Unknown History injection solution atorvastatin 10 mg tablet 10 mg PO QHS #30 tabs 03/17/23 Unknown Rx carvedilol 3.125 mg tablet 3.125 mg PO BID #60 tabs 03/17/23 Unknown Rx lisinopril 2.5 mg tablet 2.5 mg PO DAILY #30 tabs 03/17/23 Unknown Rx ascorbic acid (vitamin C) 500 mg 500 mg PO DAILY 01/13/24 Unknown History tablet,extended release (C Complex) cholecalciferol (vitamin D3) 125 125 mcg PO DAILY 01/13/24 Unknown History mcg (5,000 unit) tablet (Vitamin D3) furosemide 20 mg tablet (Lasix) 20 mg PO DAILY 01/13/24 Unknown History hydralazine 10 mg tablet 10 mg PO TID 01/13/24 Unknown History losartan 25 mg tablet (Cozaar) 25 mg PO DAILY 01/13/24 Unknown History metoprolol tartrate 25 mg tablet 25 mg PO DAILY 01/13/24 Unknown History Allergy/AdvReac Type Severity Reaction Status Date / Time spironolactone AdvReac hyperkalemi Verified 03/19/24 21:21 a Family History Mother Heart disease 50 CVA (cerebral vascular accident) Father Heart disease 60 Diabetes CVA (cerebral vascular accident) Hypertension Sister Heart disease 48 Diabetes Grandfather CVA (cerebral vascular accident) Hypertension Grandmother CVA (cerebral vascular accident) Surgical History Hx of foot surgery History of left heart catheterization (09/25/15) History of right heart catheterization (02/2016) History of nasal septoplasty H/O coronary artery bypass surgery (03/19/16) History of ileostomy History of incision and drainage Biventricular ICD (implantable cardioverter-defibrillator) in place (08/16/16) Social History Smoking Status: Former smoker alcohol intake: never substance use type: does not use caffeine: Yes (monster 1 per day) Type: carbonated beverages Number of servings: 3 Vital Signs Vital Signs Vital Signs: 04/05/24 09:00 04/05/24 09:07 04/05/24 15:00 Temperature 97 F L Temperature Source Temporal Pulse Rate 94 94 Pulse Strength Respiratory Rate 18 Respiratory Effort Normal Non-Labored Respiratory Depth Normal Respiratory Pattern Normal Blood Pressure 135/84 H Blood Pressure Mean 101 Blood Pressure Source Blood Pressure Position Blood Pressure Location Pulse Ox 97 Oxygen Delivery Method Room Air Room Air 04/05/24 15:00 04/05/24 21:00 04/05/24 22:00 Temperature 96.6 F L 97.4 F L Temperature Source Temporal Oral Pulse Rate 85 96 Pulse Strength Weak (1+) Respiratory Rate 20 H 20 H Respiratory Effort Respiratory Depth Respiratory Pattern Blood Pressure 116/82 H 120/88 H Blood Pressure Mean 93 98 Blood Pressure Source Monitor Monitor Blood Pressure Position Left Lateral Semi-Fowlers Blood Pressure Location Left Arm Left Arm Pulse Ox 98 97 Oxygen Delivery Method Room Air Room Air 04/05/24 22:00 04/06/24 02:15 04/06/24 02:15 Temperature 97.8 F Temperature Source Oral Pulse Rate 96 92 Pulse Strength Respiratory Rate 17 Respiratory Effort Normal Normal Non-Labored Respiratory Depth Shallow Normal Respiratory Pattern Tachypnea Normal Blood Pressure 132/102 H Blood Pressure Mean 112 Blood Pressure Source Monitor Blood Pressure Position Semi-Fowlers Blood Pressure Location Left Arm Pulse Ox 95 Oxygen Delivery Method Room Air Room Air Room Air 04/06/24 08:15 Temperature 97.9 F Temperature Source Oral Pulse Rate 89 Pulse Strength Respiratory Rate 16 Respiratory Effort Respiratory Depth Respiratory Pattern Blood Pressure 129/99 H Blood Pressure Mean 109 Blood Pressure Source Monitor Blood Pressure Position Semi-Fowlers Blood Pressure Location Left Arm Pulse Ox 99 Oxygen Delivery Method Room Air Weight Weight: 197 lb 12.074 oz Body Mass Index (BMI) 29.2 Physical Exam Narrative LEFT LOWER EXTREMITY Marked for amputation. Draining sinus (purulence) coming from calcaneal wound with soft bone at the base. Results Lab / Micro Data 04/06/24 10:00 04/05/24 04:46 Labs: Laboratory Results - last 24 hr 03/31/24 08:26: POC Glucose 45 L 03/31/24 08:28: POC Glucose 46 L 04/05/24 11:20: Blood Type O NEGATIVE, Antibody Screen NEGATIVE 04/05/24 11:33: POC Glucose 99 04/05/24 16:26: POC Glucose 136 H Assessment & Plan Assessment/Plan (1) Osteomyelitis: PLAN: Plan Patient has a LEFT diabetic foot wound with severe osteomyelitis through the calcaneus and into the talus. I talked to primary medicine team physician today, and they're in agreement with plan (cleared for surgery today with plastic surgery for left lower extremity amputation with possible TMR/RPNI). Reasoning for amputation includes my assessment of the left foot, which demonstrates a wound on the plantar surface that probes to necrotic bone with evidence of osteomyelitis on imaging throughout the calcaneus and into the talus (based on CT imaging - Unable to obtain MRI because of cardiac hardware). Patient is also a smoker (currently using a vape pen) and a diabetic/has peripheral vascular disease. Further clinical reasoning supporting a BKA of the left lower extremity includes the following: CT from 22 Mar 2024 of the LEFT lower extremity demonstrated the following: Diffusely mottled appearance of the calcaneus with a lytic defect mid body with indistinct cortical margins and fragmentation, extends to the subtalar joint. There are numerous tiny densities within the subtalar joint. Smaller cortical defect and irregular lucency extends more posteriorly and plantar calcaneus. From Podiatry Note: h/o Left foot Osteo at [facility] with MSSA bacteremia with endocarditis 12/03/23. Now repeat MSSA bacteremia Left foot: There is an ulceration plantar central calcaneus with surrounding tissue maceration with some serosanguineous drainage. Previous malodor noted to the ulcerative site. No purulent drainage noted. There is exposure of bone of the calcaneus noted and ulceration does probe to bone. No visible abscess or palpable fluctuance noted. There is lower extremity soft tissue swelling about the hindfoot and ankle. Discussed with patient at bedside the nature of his condition with the exposed bone of the calcaneus and confirmed osteomyelitis seen on radiograph. Discussed that CT was ordered for further evaluation which demonstrates osteomyelitis of the calcaneus with involvement of the subtalar joint and extension into the talus. Discussed with patient in detail the results of his CT scan and discussed with him from podiatric standpoint his foot is nonsalvageable and I am recommending BKA of the left lower extremity. Patient is understanding of the nature of his condition and the severity of his infection. He is understanding that his foot is not salvageable. He understands risks of continued health complications and possible loss of life from infection. He is understanding that he will require BKA of the left lower extremity. Of note, should be able to heal BKA based on the following (I discussed personally with vascular surgeon, Dr. Gordon): Angiogram on 31 March 2024 performed by vascular demonstrated the following: (LEFT) Superficial femoral artery widely patent with no atherosclerosis or stenosis, proximal popliteal artery with mild focal stenosis of less than 50% with the remainder of the proximal and mid popliteal artery with no significant atherosclerosis or stenosis. The distal popliteal artery abruptly occluded essentially at its trifurcation with no significant contrast filling of the tibial vasculature. There were multiple significant collaterals in the proximal lower leg originating from the distal popliteal artery. -They think he has adequate inflow to heal a left lower extremity BKA. DISCUSSION ON 05 Apr 2024: I talked to the patient again today about below knee amputation, LEFT SIDE. He understands the extent of his osteomyelitis/diabetic foot ulcer, and how it is now in the ankle joint and he is not a good candidate for foot/limb salvage with the extent of his osteomyelitis, as well as his comorbidities. He understands the affects of smoking/nicotine on wound healing (I discussed this with him). He understands the risks of wound healing problems at the BKA stump. He understands the plans for TMR/RPNI and why we are doing it (prevent phantom limb pain (PLP) and residual limb pain (RLP)/prevent painful neuroma formation). He understands the risks of anesthesia to his heart/respiratory system, as well as the risks of bleeding, infection, pain, failure to obtain desired result/heal the BKA and need for higher amputation. I called his and updated her too. Patient and understand post-operative plan of getting the stump healed with eventual fitting for prostheses (8 weeks post-operatively is a good goal for initial fitting). INTERVAL H&P PLAN, DATE OF SURGERY: We will proceed with surgery today. I talked to the anesthesia team. Given his comorbidities, they are concerned about additional time in the OR. I talked to them about communicating directly during the case together and making sure he is doing well enough to continue with any additional nerve surgery. Given these concerns and risks for prolonged anesthesia, I will likely plan for a quicker surgery (Below Knee Amputation with Regenerative Peripheral Nerve Interface (RPNI), rather than Targeted Muscle Re-innervation) given risks of mortality from prolonged surgery. If the patient is unstable, we will perform traction neurectomies rather than RPNI to further shorten OR time. I talked to the patient about this and he is in agreement with the plan. He understands the risks and benefits of surgery, including the risks of from anesthesia. Charges/Coding Visit Charges Inpatient E&M: 27104 Subs Hosp L1
--- NOTE | 2024-04-06 09:14 | OP.PCM_ITS ---
Operative Report Surgery/Procedure Date: 06 April 2024 Incision/Procedure Start Time: [ ] Incision Close/Procedure End Time: [ ] PATIENT: Edd Andrade PRE-OPERATIVE DIAGNOSIS: Left foot osteomyelitis of the calcaneus, extending into the subtalar joint POST-OPERATIVE DIAGNOSIS: Same PROCEDURE PERFORMED: 1) [ ] Lower Extremity Below Knee Amputation (BKA), i.e., Transtibial Amputation, CPT Code: 75764 2) [ ] Regenerative Peripheral Nerve Interface (RPNI), CPT Codes: 91634 (muscle harvest for tissue graft) and 12904 (implantation of nerve into muscle) 3) [ ] Regenerative Peripheral Nerve Interface (RPNI), CPT Codes: 14974 (muscle harvest for tissue graft) and 60267 (implantation of nerve into muscle) 4) [ ] Regenerative Peripheral Nerve Interface (RPNI), CPT Codes: 49049 (muscle harvest for tissue graft) and 15230 (implantation of nerve into muscle) 5) [ ] Regenerative Peripheral Nerve Interface (RPNI), CPT Codes: 88553 (muscle harvest for tissue graft) and 84274 (implantation of nerve into muscle) OPERATIVE FINDINGS: During intraoperative discussion with anesthesia, additional time from TMR was inappropriate given status of the patient. The decision was made to perform quick RPNI procedure for management of the cutaneous nerves. INDICATIONS: Edd Andrade is a 48-year-old male with past medical history of diabetes, vasculopathy, congestive heart failure, and severe left foot osteomyelitis and foot wound recently leading to sepsis and hospital admission who presents today for left lower extremity below-knee amputation. The decision for amputation was made by multidisciplinary team including podiatry, vascular surgery, and plastic surgery. After angiogram, vascular surgery recommended that the patient could heal a BKA. The risks and benefits were discussed with the patient and they were in agreement with proceeding to surgery. I marked the limb with the patient in preop holding and they were in agreement that we were removing the correct leg. We discussed in particular bleeding, infection, wound problems with need for repeat surgeries (possible limb shortening), and phantom limb pain/neuroma pain/residual limb pain (and no guarantees that interventions on the nerves will prevent these problems). OPERATIVE DETAILS: [ ] Patient was correctly identified in preoperative holding and taken back to the operating room where a timeout was performed. They were administered general anesthesia and prepped and the left leg was prepped and draped in sterile fashion with a stockinette placed over the foot. Care was taken to pad all bony prominences and protect the peripheral nerves for safe surgery. A sterile tourniquet was applied on the leg above the knee. An Esmarch was used and the tourniquet was placed at 250 mmHg. Anterior and posterior skin incisions were outlined with a marking pen. The anterior skin incision was placed 16 cm distal to the tibial tuberosity, and it extended medially and laterally towards the edges of the gastrocnemius muscle. The skin excision was extended distally on either side parallel to the tibia for 15 cm, creating a posterior skin flap over the superficial posterior compartment. Skin and subcutaneous tissues were incised down to fascia. The greater and short saphenous veins on the medial and posterior aspects of the leg, respectively, were ligated and divided. The fascia and the muscles were then divided with electrocautery at the same level of the anterior skin incision. The muscles in the anterior and lateral compartment were divided, exposing the anterior tibial vessels and the peroneal vessels for ligation and division (2-0 silk stick ties). The deep and superficial peroneal nerves were identified and tagged. The interosseous membrane was then incised, and the tibial periosteum was incised circumferentially with electrocautery 1 cm proximal to the skin and muscle division. Using periosteal elevator, the tibial periosteum was stripped proximally for 2 cm. The tibia was then transected with a sagittal saw team centimeters proximal to the skin incision with an anterior bevel. The fibula was then exposed and dissected circumferentially with the periosteal elevator and transected with the sagittal saw 2 cm proximal to the tibial division. The deep and superficial posterior compartments were then leaving the soleus and gastrocnemius attached to the posterior skin flap. The deep posterior compartment was carefully transected with care taken to suture ligate the posterior tibial artery and identify and tag the tibial nerve. At this point the rest of the skin incision was made and the amputation completed with a 10 blade scalpel and Bovie electrocautery, transecting the soleus and gastrocnemius obliquely at the same level as the posterior flap distal edge. Bleeding soleus veins and other muscle bleeders were managed with Bovie electrocautery. Attention was then turned to the nerves. The saphenous [ ] and sural [ ] nerves had also been identified and tagged during the skin incision [ ]. The tibial and peroneal nerves had also been identified and tagged. Several small muscle grafts from the long axis of the tibialis posterior muscle in line with the fibers were created with sharp dissection using scissors. These grafts measured 1 x 3 cm and were 0.5 cm thick. The above nerves were inserted into the middle of the muscle using a 6-0 Prolene suture. The muscle grafts were then wrapped around the stump with a 4- 0 Vicryl suture, and the nerves were implanted deep within the BKA (at the base of the wound) so as not to rest in a pressure location and be posterior to the bony prominences. [ ] At this point sharp bony edges were filed with a rasp, eliminating any bony prominences over the anterior aspect of the tibia. The tourniquet was let down and further hemostasis was obtained with Bovie electrocautery. A drain was placed (15 Burmese Tristan drain) and the fascia of the anterior and posterior muscle flaps were approximated with interrupted 0 PDS [id number] sutures. The skin was approximated with 3-0 PDS deep dermal sutures followed by garland. A wound VAC over the incision was placed with care taken to place nonadherent petroleum gauze as an interface. Kerlix and an Dewey wrap was applied. The patient was placed in a knee immobilizer to keep the knee straight. The patient tolerated the procedure well. All counts were correct at the end of the case. They were taken to the PACU in stable condition. EBL: [ ] Anesthesia: [ ] IV fluids: [ ] Urine output: [ ] Tourniquet time: [ ] POST-OPERATIVE PLAN: [ ]
[2024-04-06 10:08] LABS: Absolute Neutrophil Count 4.5 X10^3/uL (2.0-7.7); Basophil# 0.08 X10^3/uL; Basophil% 1.2 % (0-1); Eosinophil# 0.08 X10^3/uL; Eosinophils% 1.2 % (0-5); Hemoglobin 11.6 g/dL (13.0-16.5); Lymphocyte % 23.6 % (19-41); Mean Corp Hgb Conc 30.5 g/dL (32-36); Mean Corpuscular Hgb 28.7 pg (27.0-32.0); Mean Corpuscular Volume 94.1 fL (80-94); Mean Platelet Vol. 9.2 fl (6.2-12.0); Monocyte# 0.47 X10^3/uL; Monocyte% 6.9 % (0-10); NRBC Flagged by Analyzer 0 % (0-5); Neutrophil # 4.54 X10^3/uL (2.7-7.7); Neutrophil % 66.8 % (47-70); POSITIVE MORPHOLOGY YES; Platelet Count 291 K/mm3 (150-450); RBC Distribution Width CV 20.3 % (11.6-14.6); RBC Distribution Width SD 67.6 fl (35.1-43.9); Red Blood Count 4.04 M/mm3 (4.6-6.2); White Blood Count 6.8 K/mm3 (4.4-11.0)
[2024-04-06 10:16] LABS: Differential Indicated SCAN CRITERIA MET
--- NOTE | 2024-04-06 10:42 | CASEMGMT ---
Discharge Planning Updates sent to [facility] via [employer]. Bianca Mera DC Planning Asst.
[2024-04-06 10:50] LABS: Differential Comment SCANNED
[2024-04-06] MEDS: 0.9% Normal Saline (1000mL) 1,000 ML 15 ML IV (11:13)
--- NOTE | 2024-04-06 11:17 | PRE.ANES_ITS ---
ASA Classification* ASA Classification ASA Classification: 4 Assessment & Plan Anesthesia* Anesthesia Assessment Anesthesia Assessment: Discussed sedation and/or anesthesia options, risks, benefits, and alternatives with patient/parents/legal guardian/POA. Questions invited. The patient/parents/legal guardian/POA seems to understand and agrees to proceed with anesthesia plan. Reviewed the physical assessment, medical history, allergy history and patient home medications list prior to surgery/procedure/anesthetic and documented any changes. Performed airway and anesthesia risk assessments. Anesthesia Type Anesthesia Type: General (Patient would also get an a-line for closer blood pressure monitoring.) and Block (Patient is consented for a femoral block postoperatively. This will only be done if the patient has pain. Currently the patient feels no pain whatsoever in his left lower extremity.) History Source History Obtained from:: Patient and Chart Anesthesia Focused Assessment* Temperature: 97.9 F Pulse Rate: 89 Blood Pressure: 129/99 Respiratory Rate: 16 Pulse Ox: 99 Oxygen Delivery Method: Room Air Fraction of Inspired Oxygen (FIO2): 2 Airway Assessment Mouth opens: >3 cm Mallampati Score: III Teeth Condition: Intact Neck Range of motion (ROM): Full ROM Focused Labs Anesthesia Preop lab: CBC WBC 6.8 K/mm3 (4.4-11.0) 04/06/24 10:00 RBC 4.04 M/mm3 (4.6-6.2) L 04/06/24 10:00 Hgb 11.6 g/dL (13.0-16.5) L 04/06/24 10:00 Hct 38.0 % (40-54) L 04/06/24 10:00 Plt Count 291 K/mm3 (150-450) 04/06/24 10:00 CHEMISTRY Potassium 4.3 mmol/L (3.5-5.1) 04/05/24 04:46 Sodium 139 mmol/L (136-145) 04/05/24 04:46 Magnesium 2.0 mg/dL (1.6-2.6) 04/05/24 04:46 Phosphorus 2.7 mg/dL (2.5-4.9) 03/26/24 06:39 BUN 16 mg/dL (7-18) 04/05/24 04:46 Creatinine 1.00 mg/dL (0.70-1.30) 04/05/24 04:46 Glucose 83 mg/dL (74-106) 04/05/24 04:46 POC Glucose 136 mg/dL (74-106) H 04/05/24 16:26 TSH 3.57 uIU/mL (0.358-3.74) 12/24/23 05:10 COAG PT 18.4 SECONDS (11.7-14.9) H 03/19/24 22:55 Pre-Assessment Diagnosis/Proposed Procedure Planned Operative Procedure(s): Left below the knee amputation. Possible targeted muscle reinnervation versus regenerative peripheral nerve interface. Anesthesia History Anesthesia History - instructor psychiatric aide: Anesthesia History - instructor psychiatric aide Hx Hospitalization Any Problems With Anesthesia No 03/31/24 12:12 Cholinesterase deficiency No 03/31/24 12:12 You/Your Family Experience No 03/31/24 12:12 fever (hyperthermia) with Relationship Recent Exposure to Contagious No 03/31/24 12:12 Disease Does patient have nerve No 04/05/24 22:12 stimulator Patient instructed to have device shut off --Does patient have Pacemaker No 04/05/24 22:12 or ICD? When Was Last Pacemaker Check QUESTION #4 FULL TEXT: You/Your Family Experience fever (hyperthermia) with Anesthesia Last Oral Intake Last Oral intake: Last Oral Intake NPO since 00:00 04/05/24 22:12 Meds taken in AM with sips of Yes 04/05/24 22:12 water? Meds patient instructed to flagyl 04/05/24 22:12 take am of surgery PONV PONV - instructor psychiatric aide: PONV - instructor psychiatric aide Female HX of Motion Sickness HX of N/V After Surgery Non-Smoker Duration of Surgery greater than 60 minutes Number of Risk Factors PONV Score Height & Weight Height & Weight: Anesthesia: Height & Weight Height 5 ft 8.9 in 04/05/24 22:12 Weight: 89.7 kg 04/05/24 22:12 Body Mass Index (BMI) 29.2 04/05/24 22:12 Respiratory Assessment Respiratory Assessment - instructor psychiatric aide: Respiratory Tract Infection Hx - instructor psychiatric aide Hx Respiratory Tract Infection No 03/31/24 12:12 STOP Sleep Apnea STOP Sleep Apnea - instructor psychiatric aide: STOP Sleep Apnea - instructor psychiatric aide Hx Hypertension No 03/21/24 12:05 Hx Sleep Apnea Yes 03/20/24 02:18 CPAP Yes 03/20/24 02:18 BIPAP No 03/20/24 02:18 Do you snore loudly (louder than talking or can be heard Do you often feel tired/ fatigued/ sleepy during daytime? Has anyone observed you stop breathing during sleep? STOP Results Positive 03/20/24 02:18 QUESTION #5 FULL TEXT : Do you snore loudly (louder than talking or can be h eard through closed doors)? Tobacco Use History Tobacco Use History - instructor psychiatric aide: Tobacco Use History - instructor psychiatric aide Tobacco Use Smoking Status Former smoker 03/20/24 04:32 Hx Tobacco Use Yes 03/20/24 02:18 Years Smoking Packs Smoked per Day Smoking Cessation Date was Yes - quit smoking within 15 03/20/24 02:18 within the last 15 years years Hx Smoking Cessation Date Hx Smoking Cessation Counseling Patient quit smoking 6 months ago. Hematologic Medial History Hematologic Hx - instructor psychiatric aide: Hematologic Medical Hx - hair colorist Hx of Blood Transfusion No 03/20/24 02:18 Hx of Transfusion in last 3 No 03/20/24 02:18 Months Date of Last Transfusion (if within last 3 months) Ever experience any problems No 03/20/24 02:18 with transfusion(s)? Specify any problems Hx of Preganancy in last 3 N/A 03/20/24 02:18 Months Nurse Filling Out Transfusion EYOUNG 03/20/24 02:18 & Questions: Date: 03/20/24 03/20/24 02:18 Time: 02:19 03/20/24 02:18 Patient unable to answer at this time (ie. confused, unrespo /Reproduction History /Reproductive History - instructor psychiatric aide: /Reproductive Hx- instructor psychiatric aide Hx Now No 03/31/24 12:12 Gestational Age (in weeks): EDC: Hx Hx Para Hx Section SAB Active Medications Active Medications: Current Medications Generic Name Dose Route Start Last Admin Trade Name Freq PRN Reason Stop Dose Admin Acetaminophen 1,000 mg 03/21/24 09:24 03/21/24 11:48 Acetaminophen 500 Mg Tablet PO 1,000 mg Q8H PRN PRN Administration Pain Score 1-10 Albuterol Sulfate 2.5 mg 03/23/24 13:08 04/02/24 12:00 Albuterol 2.5 Mg/3 Ml Vial.Neb. INHALATION 2.5 mg Q2H PRN PRN Administration Wheezing/SOB Ascorbic Acid 500 mg 03/20/24 10:00 04/05/24 09:07 Ascorbic Acid 500 Mg Tablet PO 500 mg DAILY LYNN Administration Aspirin 81 mg 03/20/24 08:00 04/05/24 09:07 Aspirin E.C. 81 Mg Tablet PO 81 mg DAILYCM LYNN Administration Atorvastatin Calcium 10 mg 03/20/24 22:00 04/05/24 21:12 Atorvastatin Calcium 10 Mg Tablet PO 10 mg QHS LYNN Administration Calamine/Phenol 1 applic 03/24/24 06:00 04/06/24 05:29 Menthol/Lanolin/Calamine/Znox 113 Gm Tube TOPICAL 1 applic TID LYNN Administration Protocol Cholecalciferol 125 mcg 03/20/24 10:00 04/05/24 09:07 Cholecalciferol (Vit D3) 125 Mcg Capsule (5,000 Units) PO 125 mcg DAILY LYNN Administration Enoxaparin Sodium 40 mg 03/25/24 06:00 04/06/24 05:29 Enoxaparin 40 Mg/0.4 Ml Syringe SC Not Given DAILY@0600 LYNN Furosemide 20 mg 03/23/24 10:00 04/05/24 09:07 Furosemide 20 Mg Tablet PO 20 mg DAILY LYNN Administration Protocol Glucagon 1 mg 03/31/24 10:16 Glucagon 1 Mg/Ml Syringe IM X1 PRN Hypoglycemia Protocol Guaifenesin 1,200 mg 03/20/24 10:00 04/05/24 21:13 Guaifenesin 1,200 Mg Tablet PO 1,200 mg BID LYNN Administration Sodium Chloride 250 mls @ 15 mls/hr 03/20/24 01:59 04/04/24 08:12 IV Infused .[id number] PRN Infusion Additional IVPB Infusion Sodium Chloride 250 mls @ 15 mls/hr 03/20/24 01:59 04/05/24 13:26 IV Infused .[id number] PRN Infusion Saline Flush Cefazolin Sodium 2 gm/ Sodium 110 mls @ 150 mls/hr 03/22/24 14:00 04/06/24 06:13 Chloride IV Infused Q8 LYNN Infusion Vancomycin IV-PHARMACY TO DOSE 500 mls @ 250 mls/hr 03/22/24 13:46 1 each/ Sodium Chloride IV X1 PRN Rx to Dose Protocol Dextrose 250 mls @ 0 mls/hr 03/31/24 10:16 Dextrose 10%-Water IV .Q0M PRN HYPOGLYCEMIA Protocol As Directed Vancomycin HCl 500 mg in 100 mls @ 100 mls/hr 04/03/24 00:00 04/06/24 01:44 IV Infused Q12H LYNN Infusion Sodium Chloride 1,000 mls @ 15 mls/hr 04/06/24 11:00 04/06/24 11:13 IV 15 mls/hr .Q48H LYNN Administration Sodium Chloride 1,000 mls @ 15 mls/hr 04/06/24 11:15 IV .Q48H LYNN Insulin Human Lispro 5 unit 03/20/24 08:00 04/05/24 17:56 Insulin Lispro 100 Unit/Ml Insuln.Pen SC 5 u TIDCM LYNN Administration Insulin Human NPH 15 units 03/21/24 12:00 04/05/24 17:56 Insulin Nph Human 100 Units/Ml Pen SC 15 u BIDLS LYNN Administration Losartan Potassium 25 mg 03/23/24 10:00 04/05/24 09:07 Losartan Potassium 25 Mg Tablet PO 25 mg DAILY LYNN Administration Protocol Metoprolol Tartrate 25 mg 03/23/24 10:00 04/05/24 09:07 Metoprolol Tartrate 25 Mg Tablet PO 25 mg DAILY LYNN Administration Protocol Metronidazole 500 mg 03/22/24 14:00 04/06/24 05:29 Metronidazole 500 Mg Tablet PO 500 mg TID LYNN Administration Ondansetron HCl 4 mg 03/21/24 09:24 04/02/24 08:19 Ondansetron 4 Mg/2 Ml Vial IV 4 mg Q6H PRN PRN Administration NAUSEA Pantoprazole Sodium 40 mg 03/23/24 22:00 04/05/24 21:13 Pantoprazole Sodium 40 Mg Tablet PO 40 mg BID LYNN Administration Sodium Chloride 10 - 40 ml 03/20/24 01:59 04/05/24 15:04 0.9% Saline Lock 10 Ml Syringe IV 10 ml UD PRN Administration SALINE FLUSH Vancomycin Protocol 1 lab 04/06/24 09:30 Vancomycin Trough/Random Due MC 04/06/24 13:30 DAILY LYNN PFSH Medical History Old myocardial infarct Peripheral vascular occlusive disease Obesity PUD (peptic ulcer disease) Obstructive sleep apnea Nicotine dependence Left bundle branch block (LBBB) Chronic systolic (congestive) heart failure Natalya gangrene Essential (primary) hypertension Hyperlipidemia Type 2 diabetes mellitus Atherosclerosis of coronary artery without angina pectoris Ischemic cardiomyopathy Paroxysmal ventricular tachycardia Home Medications ?Medication ?Instructions ?Recorded ?Last Taken ?Type aspirin 81 mg tablet,delayed 81 mg PO DAILY 11/03/19 Unknown History release (Adult Aspirin Regimen) insulin NPH isoph U-100 human 100 25 unit subcut BID blood sugar 03/14/23 Unknown History unit/mL subcutaneous suspension insulin regular human 100 unit/mL 8 unit subcut TID 03/14/23 Unknown History injection solution atorvastatin 10 mg tablet 10 mg PO QHS #30 tabs 03/17/23 Unknown Rx carvedilol 3.125 mg tablet 3.125 mg PO BID #60 tabs 03/17/23 Unknown Rx lisinopril 2.5 mg tablet 2.5 mg PO DAILY #30 tabs 03/17/23 Unknown Rx ascorbic acid (vitamin C) 500 mg 500 mg PO DAILY 01/13/24 Unknown History tablet,extended release (C Complex) cholecalciferol (vitamin D3) 125 125 mcg PO DAILY 01/13/24 Unknown History mcg (5,000 unit) tablet (Vitamin D3) furosemide 20 mg tablet (Lasix) 20 mg PO DAILY 01/13/24 Unknown History hydralazine 10 mg tablet 10 mg PO TID 01/13/24 Unknown History losartan 25 mg tablet (Cozaar) 25 mg PO DAILY 01/13/24 Unknown History metoprolol tartrate 25 mg tablet 25 mg PO DAILY 01/13/24 Unknown History Allergy/AdvReac Type Severity Reaction Status Date / Time spironolactone AdvReac hyperkalemi Verified 03/19/24 21:21 a Family History Mother Heart disease 50 CVA (cerebral vascular accident) Father Heart disease 60 Diabetes CVA (cerebral vascular accident) Hypertension Sister Heart disease 48 Diabetes Grandfather CVA (cerebral vascular accident) Hypertension Grandmother CVA (cerebral vascular accident) Surgical History Hx of foot surgery History of left heart catheterization (09/25/15) History of right heart catheterization (02/2016) History of nasal septoplasty H/O coronary artery bypass surgery (03/19/16) History of ileostomy History of incision and drainage Biventricular ICD (implantable cardioverter-defibrillator) in place (08/16/16) Social History Smoking Status: Former smoker alcohol intake: never substance use type: does not use caffeine: Yes (monster 1 per day) Type: carbonated beverages Number of servings: 3 Review of Systems (Anesthesia) ROS Narrative System reviewed and no additional complaints, except as documented.
[2024-04-06 11:36] LABS: Anion Gap 7 (5-15); BUN 14 mg/dL (7-18); BUN/Creat Ratio 16.2 RATIO (10-20); Calcium,Total 8.6 mg/dL (8.5-10.1); Chloride 111 mmol/L (98-107); Creatinine, Serum 0.86 mg/dL (0.70-1.30); EST Glomerular Filtration Rate 101 mL/min (>60); Est Glom Filt Rate - Afr Amer 122 mL/min (>60); Estimated Creatinine Clearance 116.77 ml/min; Glucose 95 mg/dL (74-106); Potassium 3.9 mmol/L (3.5-5.1); Sodium Level 139 mmol/L (136-145)
[2024-04-06 11:42] LABS: Vancomycin, Trough Level 12.5 ug/mL (5.0-15.0)
--- NOTE | 2024-04-06 12:03 | PCM.RX.CS ---
Consult Antibiotic Management Pharmacy has been consulted to manage selected antibiotic: Vancomycin Type of Intervention Type of Consult: Follow-up Suspected Infection Suspected Infection: Osteomyelitis and Pneumonia Labs Labs: Sodium 139 mmol/L (136-145) 04/06/24 10:00 Potassium 3.9 mmol/L (3.5-5.1) 04/06/24 10:00 Chloride 111 mmol/L (98-107) H 04/06/24 10:00 Carbon Dioxide 21.0 mmol/L (21.0-32.0) 04/06/24 10:00 Anion Gap 7 (5-15) 04/06/24 10:00 BUN 14 mg/dL (7-18) 04/06/24 10:00 Creatinine 0.86 mg/dL (0.70-1.30) 04/06/24 10:00 Est GFR (MDRD) Af Amer 122 mL/min (>60) 04/06/24 10:00 Est GFR (MDRD) Non-Af 101 mL/min (>60) 04/06/24 10:00 BUN/Creatinine Ratio 16.2 RATIO (10-20) 04/06/24 10:00 Glucose 95 mg/dL (74-106) 04/06/24 10:00 Vancomycin Trough 12.5 ug/mL (5.0-15.0) 04/06/24 11:00 Random Vancomycin 15.9 ug/mL (0.0-15.0) H 03/24/24 06:06 Microbiology Microbiology: Microbiology 03/22/24 13:17 Blood Culture (Wb) - Anticubital Right Blood Culture - Final No growth in 5 days. 03/22/24 13:05 Wound - Heel, Left Gram Stain - Final 03/22/24 13:05 Wound - Heel, Left Wound Culture - Final Staphylococcus aureus Coag Negative Staph 03/20/24 02:00 Blood Culture (Wb) - Right Hand Blood Culture - Final Staphylococcus aureus 03/22/24 13:10 Stool Stool Occult Blood (ELINA) - Final 03/19/24 22:55 Blood Culture (Wb) - Left Forearm Bacteria Detection (PCR) - Final Staphylococcus aureus 03/19/24 22:55 Blood Culture (Wb) - Left Forearm Blood Culture - Final Staphylococcus aureus 03/19/24 23:00 Urine, Clean Catch Legionella Antigen - Final 03/19/24 23:00 Urine, Clean Catch Streptococcus pneumoniae Antigen (M - Final 03/20/24 00:40 Stool Stool Occult Blood (ELINA) - Final 03/19/24 23:05 Mucosa - Nose SARS-CoV-2, Influenza & RSV (PCR) - Final Goal Trough Goal Trough: 15-20 mcg/mL Pharmacy Plan for Drug Dosing Pharmacy Plan for Drug Dosing: VANCOMYCIN LEVEL RECEIVED Current Vancomycin Dose: 500mg q12h (at 00,12) Number of Doses Received: x7 of current dose Vancomycin Level: 12.5 Hours Since Last Dose: 11 hours since last dose at 0005 on 04/06/24 Renal Function: SrCr 0.86 Renal Function Trend: SrCr improving, was 1 on 04/05/24 Lab/Micro: Vancomycin Plan/Comments: resulted trough of 12.5 is below the ordered goal trough range of 15-20. recommend increasing dose of Vancomycin to 750mg q12h and checking a trough prior to the 4th dose Pending Level: 04/08/24 at 0030 Pharmacy Service will continue to monitor and adjust dosing as required. Follow-Up Labs Follow-Up Labs: Trough: Vancomycin (04/08/24 at 0030)
--- NOTE | 2024-04-06 12:47 | PCM.PN.HOSP ---
Reason for Visit Reason for Visit: Diagnoses Sepsis, unspecified organism (03/20/24) Methicillin susceptible Staphylococcus aureus infection as the cause of diseases classified elsewhere (03/20/24) Type 2 diabetes mellitus with diabetic polyneuropathy (03/20/24) Type 2 diabetes mellitus with foot ulcer (03/20/24) Acidosis, unspecified (03/20/24) Nicotine dependence, unspecified, uncomplicated (03/20/24) Nicotine dependence, cigarettes, in remission (03/20/24) Atherosclerotic heart disease of [place] coronary artery without angina pectoris (03/20/24) Heart disease, unspecified (03/20/24) Atherosclerosis of [place] arteries of other extremities with ulceration (03/20/24) Pneumonia, unspecified organism (03/20/24) Non-pressure chronic ulcer of other part of unspecified foot with unspecified severity (03/20/24) Non-pressure chronic ulcer of other part of left foot with fat layer exposed (03/20/24) 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 of bone (03/20/24) Osteomyelitis, unspecified (03/20/24) Other abnormalities of breathing (03/20/24) Severe sepsis without septic shock (03/20/24) Bacteremia (03/20/24) Encounter for preprocedural cardiovascular examination (03/20/24) senior living (current) use of insulin (03/20/24) Presence of aortocoronary bypass graft (03/20/24) Presence of automatic (implantable) cardiac defibrillator (03/20/24) Objective Data Objective Data Vital Signs: Vital Signs Temp Pulse Resp BP Pulse Ox O2 Del Method O2 Flow Rate 97.9 F 89 16 129/99 H 99 Room Air 2 04/06/24 11:28 04/06/24 11:28 04/06/24 11:28 04/06/24 11:28 04/06/24 11:28 04/06/24 11:28 04/06/24 11:28 FiO2 2 04/06/24 11:28 Oxygen Flow Rate (L/min) 2 Oxygen Delivery Method Room Air Weight: 197 lb 12.074 oz Body Mass Index (BMI) 29.2 Intake & Output: Intake and Output for Last 24 Hours 04/04/24 04/05/24 04/06/24 23:59 23:59 23:59 Intake Total 1802.50 / 1802.50 1637.25 / 1637.25 210 / 210 Output Total 850 / 850 1400 / 1400 350 / 350 Balance 952.50 / 952.50 237.25 / 237.25 -140 / -140 Lab / Micro Data 04/06/24 10:00 04/06/24 10:00 Labs: Laboratory Results - last 24 hr 03/31/24 08:26: POC Glucose 45 L 03/31/24 08:28: POC Glucose 46 L 04/05/24 16:26: POC Glucose 136 H 04/06/24 10:00: WBC 6.8, RBC 4.04 L, Hgb 11.6 L, Hct 38.0 L, MCV 94.1 H, MCH 28.7, MCHC 30.5 L, RDW Std Deviation 67.6 H, RDW Coeff of Fariba 20.3 H, Plt Count 291, MPV 9.2, Immature Gran % (Auto) 0.300, Neut % (Auto) 66.8, Lymph % (Auto) 23.6, Larue % (Auto) 6.9, Eos % (Auto) 1.2, Baso % (Auto) 1.2 H, Absolute Neuts (auto) 4.5, Absolute Lymphs (auto) 1.60, Nucleated RBC % 0, Differential Comment SCANNED, Sodium 139, Potassium 3.9, Chloride 111 H, Carbon Dioxide 21.0, Anion Gap 7, BUN 14, Creatinine 0.86, Estim Creat Clear Calc 116.77, Est GFR (MDRD) Af Amer 122, Est GFR (MDRD) Non-Af 101, BUN/Creatinine Ratio 16.2, Glucose 95, Calcium 8.6 04/06/24 11:00: Vancomycin Trough 12.5 Micro: Microbiology 03/22/24 13:17 Blood Culture (Wb) - Anticubital Right Blood Culture - Final No growth in 5 days. 03/22/24 13:05 Wound - Heel, Left Gram Stain - Final 03/22/24 13:05 Wound - Heel, Left Wound Culture - Final Staphylococcus aureus Coag Negative Staph 03/20/24 02:00 Blood Culture (Wb) - Right Hand Blood Culture - Final Staphylococcus aureus 03/22/24 13:10 Stool Stool Occult Blood (ELINA) - Final 08/16/24 22:55 Blood Culture (Wb) - Left Forearm Bacteria Detection (PCR) - Final Staphylococcus aureus 03/19/24 22:55 Blood Culture (Wb) - Left Forearm Blood Culture - Final Staphylococcus aureus 03/19/24 23:00 Urine, Clean Catch Legionella Antigen - Final 03/19/24 23:00 Urine, Clean Catch Streptococcus pneumoniae Antigen (M - Final 03/20/24 00:40 Stool Stool Occult Blood (ELINA) - Final 03/19/24 23:05 Mucosa - Nose SARS-CoV-2, Influenza & RSV (PCR) - Final Physical Exam Narrative Seen and examined. Plan for left BKA today. Discussed with the plastic surgeon yesterday. N.p.o. past midnight. Physical exam General: Alert, Oriented x3, Cooperative HEENT: Atraumatic, PERRLA, EOMI, Normocephalic Oral: No Gingival or Mucosal Lesions/ Ulcerations Neck: Supple, No JVD, Negative Carotid Bruits Chest wall/Lungs: Air entry diminished in bilateral lung bases. No crepitation/rhonchi Cardiovascular: Regular rate, Regular Rhythm, Normal S1, Normal S2, No M/G/R. Decreased bilateral popliteal pulsation left more than right. Bilateral PAD Abdomen: Bowel Sounds Present, Soft, Non Tender, Non-Distended : No dysuria. No renal angle tenderness. No suprapubic tenderness. Extremities: No edema, poor circulation. Skin: Left diabetic foot ulcer on heel, nonhealing. Chronic right partial great toe amputation Musculoskeletal: Muscle strength 4/5 at major joints of knees and hips. ROM restricted. Moderate bilateral calf and thigh muscles atrophy Neurological: Cranial nerves II-XII grossly intact, loss of sensation in both legs. Psych/Mental Status: Flat affect. Assessment & Plan Assessment/Plan (1) MSSA bacteremia: (2) Pneumonia: QUALIFIERS: Pneumonia type: due to unspecified organism Laterality: right Lung location: lower lobe of lung Qualified Code(s): J18.9 - Pneumonia, unspecified organism (3) Non-pressure chronic ulcer of other part of left foot with fat layer exposed: PLAN: Plan #1. Acute Hypoxia secondary to Acute RLL Pneumonia presumed Staphylococcus aureus with concurrent Staphylococcus aureus bacteremia and also left diabetic foot ulcer TTE without vegetations, follow-up 03/23/24 GUERLINE with EF 15%, trivial MVI, no definitive vegetation seen, 03/22/2024 blood cultures negative. 03/25/2024 PICC line successful. 04/05: Shortness of breath is much better. 04/06: Patient is a mouth breather but lungs are clear. #2. 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 Patient is bilateral PAD and vascular surgeon was consulted. Patient had abdominal aortogram and left lower extremity selective angiography on 03/31. Right ICA with diffuse atherosclerosis and moderate stenosis. Right UMBRELLA FINISHER patent. Right profundofemoral artery was diseased with irregular atherosclerosis. Left common and external iliac artery widely patent with no significant occlusive stenosis. Left profunda vessel and then atherosclerosis with collateralization. Left SFA widely patent. Left proximal popliteal artery mild focal stenosis less than 50%. Patient has PICC line on 03/25. On baby aspirin metoprolol, low-dose lisinopril and statin. 04/05: Wound culture shows Staph aureus 3+, MSSA. Coagulase-negative staph 2+. IV cefazolin and Flagyl. Discussed with the plastic surgeon Dr. Stafford. Plan for taking him for left BKA. N.p.o. past midnight 04/06: Plan for left BKA. ID informed. Currently on IV cefazolin,, metronidazole. Patient has not gotten vancomycin recently. #3. Acute normocytic anemia, worsening, appears new chronicity with history of prior PUD of note: Admission hemoglobin 9.3, prior to this hemoglobin 01/13/2024 had been 13.4 which appears his baseline primarily, most recent hemoglobin between 11 to 12 g. Diagnostic iron panel obtained with iron 27, TIBC 97, iron saturation 27.8, ferritin 1417 more consistent with AOCD, guaiac obtained 03/20/2024 noted to be negative at that time, place on PPI. Patient on baby aspirin. On PPI. Had 2 units of previously transfusion. 04/05: H&H 11.8/39%. Platelet count 341,000. Type and crossmatch ordered by plastic surgeon. Probably will not need PRBC transfusion. #4. Hyperbilirubinemia, Transaminitis, acute on chronic: Unclear specific etiology, 03/19/2024 T. bili 1.10, AST/LT 53/61, alk phos 232->03/22/2024 CMP with total bilirubin 1.40, D bilirubin 0.32, AST/LT 166/126, alk phos 145-->03/23/24 T. bili 0.70, AST/LT 103/132, alk phos 202--> 03/28/24 total bilirubin 0.50, AST/LT 21/11, alk phos 117, liver ultrasound with normal appearing liver and gallbladder, hepatitis panel nonreactive. #5. Petechial rash, unclear etiology: Patient with onset over the last 48 hours petechial rash to the hands, upper thighs as well as some irritation in the antecubital fossa although suspect this is in part secondary to tight blood pressure assessments in that region, possibly related to medication including antibiotic therapy, nonpainful, nonblanching and lessening in appearance 03/24/2024 compared to prior. Per review with infectious disease felt not typical of a drug rash with continued stable renal function and platelets, pending ANCA labs. 03/26/2024 extremity started to improve and repeat evaluation 03/27/24 again resolving, low suspicion for vasculitis given this but unclear etiology still. #6. PSVT: 03/25/2024 overnight patient with episodes of short bursts of VT , BP on the lower normal side thus unable to initiate any increase in metoprolol regimen at this time but once improves will consider, at that time additional labs included magnesium 2.1, potassium 3.9. Cardiology has been consulted therefore if any concerns arise will re-involve them. #7. Hypokalemia: Admission K+ 2.9, magnesium level requested, supplementation given, 03/28/24 potassium 3.7. 9/2: Hypokalemia resolved. #8. Hypocalcemia, improved with corrected: Calcium 6.4, previous albumin significantly low however this is from 03/19/2024 and 1.8 at that time, corrected 8.16, supplemented with calcium gluconate, 03/28/24 calcium 8.2, again corrected elevated above this. #9. HFrEF/Ischemic Cardiomyopathy: s/p biventricular AICD [facility], 03/21/2024 echocardiogram pending as noted above, prior ECHO 12/04/23 with LV normal size, LV systolic function severely decreased, EF 25?5%, regional wall motion abnormalities present, grade 1 LV diastolic dysfunction, RV not well-visualized, on limited views right ventricle grossly normal in size and systolic function, no significant valvular abnormalities. As noted planned 2 u PRBC administration, monitor for overload, will administer 20 mg IV x 1. Will cautiously continue baby aspirin, metoprolol, low-dose losartan, Lasix and hydralazine with BP parameters given initial presentation with lower normal BP. Case management consulted for assistance with medication cost. Cardiology evaluation 03/24/2024 with cardiac clearance for progression to OR for vascular intervention potential as well as planned left lower extremity BKA. #10. CAD: Status post CABG x 3, given guaiac stool negative, cautiously continue baby aspirin, metoprolol, low-dose losartan. #11. Diabetes mellitus type II with chronic neuropathy: Hold oral home regimen, continue home insulin regimen as well as ISS scheduled with meals, ADA diet, accu checks w/ ISS. 03/23/2024 hgbA1c 6.1%. Encourage medication compliance. #12. Hypertension: Patient from records has been noncompliant with hypertensive regimen reporting that he does not believe he needs it although he is on some of this regimen secondary to underlying heart failure and CAD, will continue low-dose metoprolol and losartan as well as low-dose Lasix as BP allows but has been on the low end. Holding oral home hydralazine regimen. #13. Hyperlipidemia: We will continue patient on statin therapy. #14. GERD with history of peptic ulcer disease: PPI. #15. Tobacco Abuse: Encouraged cessation, inpatient consultation per RT, NR if desired. #16. JAIDEN: Noncompliant with PAP therapy, using oxygen q HS instead. DVT: Lovenox Charges/Coding Visit Charges Inpatient E&M: 72288 Subs Hosp L2
--- NOTE | 2024-04-06 13:33 | PCM.POST.ANE ---
Anesthesia: Postop Eval I Current Vital Signs Temperature: 96.6 F Pulse Rate: 98 Blood Pressure: 138/78 Respiratory Rate: 24 Pulse Ox: 100 Oxygen Delivery Method: Non-Rebreather Oxygen Flow Rate (L/min): 15 Assessment Airway patent: Yes Spontaneous unlabored respirations: No Mental status: Awake and Apprehensive nausea: No Vomiting: No Anesthesia Complication: No Fluid Hydration Crystalloid volume administer (ml): 200 Total IV fluid infused: 200 Progress Note Anesthesia document: Postop Eval 1 completed: Yes
--- NOTE | 2024-04-06 13:44 | POSTOPAN2_ITS ---
Anesthesia Postop Eval I Sum Postop Eval Completion status Anesthesia document: Postop Eval 1 completed: Yes Anesthesia Postop Eval I Summary Anesthesia Postop Eval I Summary: Anesthesia Postop Eval I: Assessment Summary Airway patent Yes 04/06/24 13:34 FERMENTING CELLAR [email or web address] Spontaneous unlabored No 04/06/24 13:34 FERMENTING CELLAR [email or web address] respirations Mental status Awake,Apprehensive 04/06/24 13:34 FERMENTING CELLAR [email or web address] nausea No 04/06/24 13:34 FERMENTING CELLAR [email or web address] Vomiting No 04/06/24 13:34 FERMENTING CELLAR [email or web address] Anesthesia Postop Eval I: Fluid Summary Crystalloid volume administer 200 04/06/24 13:34 FERMENTING CELLAR [email or web address] (ml) Colloids volume administered ( ml) Blood Product volume administered (ml) Total IV fluid infused 200 04/06/24 13:34 FERMENTING CELLAR [email or web address] Anesthesia Postop Eval I: Summary Notes Anesthesia Complication No 04/06/24 13:34 FERMENTING CELLAR [email or web address] Anesthesia Complication Comment: Post-operative progress note Anesthesia: Postop Eval II Evaluation Mental status: Awake Pain Level: 0 nausea: No Vomiting: No
--- NOTE | 2024-04-06 13:44 | PCM.POSTANE2 ---
Anesthesia Postop Eval I Sum Postop Eval Completion status Anesthesia document: Postop Eval 1 completed: Yes Anesthesia Postop Eval I Summary Anesthesia Postop Eval I Summary: Anesthesia Postop Eval I: Assessment Summary Airway patent Yes 04/06/24 13:34 [email or web address] Spontaneous unlabored No 04/06/24 13:34 [email or web address] respirations Mental status Awake,Apprehensive 04/06/24 13:34 [email or web address] nausea No 04/06/24 13:34 [email or web address] [email or web address] Vomiting No 04/06/24 13:34 [email or web address] [email or web address] Anesthesia Postop Eval I: Fluid Summary Crystalloid volume administer 200 04/06/24 13:34 [email or web address] (ml) Colloids volume administered ( ml) Blood Product volume administered (ml) Total IV fluid infused 200 04/06/24 13:34 [email or web address] [email or web address] Anesthesia Postop Eval I: Summary Notes Anesthesia Complication No 04/06/24 13:34 [email or web address] Anesthesia Complication Comment: Post-operative progress note Anesthesia: Postop Eval II Evaluation Mental status: Awake Pain Level: 0 nausea: No Vomiting: No
[2024-04-06] MEDS: 0.9% Normal Saline (250mL Bag) 250 ML 15 ML IV (14:23)
[2024-04-06] MEDS: Vancomycin HCl 750 MG in 0.9% Normal Saline (250mL Bag) 250 ML 250 MG IV (14:29)
[2024-04-06] MEDS: 0.9% Saline Lock 10 ML Syringe IV (14:29)
[2024-04-06] MEDS: Alteplase 2 MG/2 ML Vial IV (14:56)
[2024-04-06 14:58] LABS: Troponin-I HS 30 pg/mL (3.0-78.0)
[2024-04-06 15:09] LABS: D-Dimer Quantitative (DVT/PE) 2.08 FEU/ug/m (0.27-0.49)
--- NOTE | 2024-04-06 15:15 | CT_ITS ---
STUDY: CTA CHEST REASON FOR EXAM: Male, 48 years old. Aspiration pneumonia, hypoxia RADIATION DOSAGE (If Supplied By Facility): CTDIvol = ( 18.73 ) mGy, DLP = ( 504.63 ) mGycm TECHNIQUE: The examination was performed with the intravenous administration of 100mL Isovue-370. Post-processing of the angiographic images was performed, with multiplanar reformation and 3D reconstruction. Individualized dose optimization techniques were used for this CT. COMPARISON: None. FINDINGS: Breathing motion artifact and limited opacification of the distal subsegmental branches to the lower lobes preclude adequate evaluation of the pulmonary arteries in the bilateral lower lobes. No large or central filling defects identified. Normal thoracic aorta and visualized great vessels. There is no demonstrated aortic dissection. Borderline cardiomegaly. Small pericardial effusion. Prior cardiac surgery. Mediastinal and right hilar adenopathy. Scattered bilateral groundglass opacities with peripheral septal prominence. Loculated right pleural effusion, smaller left pleural effusion. Normal chest wall structures. No acute or aggressive osseous abnormalities. No acute findings in the upper abdomen. Reflux of contrast into the hepatic veins. CT/CTA Chest W/WO Contrast IMPRESSION: CTA examination limited by breathing motion artifact and inadequate distal vessel opacification. No large or central pulmonary emboli identified. PE in the subsegmental branches to the bilateral lower lobes cannot be reliably excluded. Borderline cardiomegaly with pulmonary changes of probable pulmonary edema, infection should also be considered including atypical or viral pneumonia. Evidence of increased right heart pressures. Electronically Signed: Zen Davila MD at 17:24 EDT ,
[2024-04-06] MEDS: Losartan Potassium 25 MG Tablet PO (15:16)
[2024-04-06] MEDS: Furosemide 20 MG Tablet PO (15:17)
[2024-04-06] MEDS: Metoprolol Tartrate 25 MG Tablet PO (15:17)
[2024-04-06] MEDS: 0.9% Normal Saline (1000mL) 1,000 ML 50 ML IV (16:39)
[2024-04-06 17:14] LABS: Bedside Glucose 102 mg/dL (74-106)
[2024-04-06] MEDS: Lactobacillis Acidophilus 1 CAP PO ×2 (17:26→21:45)
[2024-04-06] MEDS: Furosemide 20 MG/2 ML VIAL IV (18:58)
[2024-04-06] MEDS: Pantoprazole Sodium 40 MG Tablet PO (21:45)
[2024-04-06] MEDS: guaiFENesin 1,200 MG Tablet 1200 MG PO (21:45)
[2024-04-06] MEDS: Atorvastatin Calcium 10 MG Tablet PO (21:45)
[2024-04-07] VITALS (15 sets, daily range): BP systolic 106–128; BP diastolic 64–94; PULSE 88–100; RESP 11–33; TEMP 36.3–36.6; O2SAT 93–100; BMI 29.5
[2024-04-07] MEDS: Vancomycin HCl 750 MG in 0.9% Normal Saline (250mL Bag) 250 ML 250 MG IV ×2 (00:15→12:03)
[2024-04-07] MEDS: Menthol/Lanolin/Calamine/Znox 113 GM Tube 1 APPLIC TOPICAL ×3 (05:09→22:02)
[2024-04-07] MEDS: Cefazolin 2 GM in 0.9% Normal Saline (100mL Bag) 100 ML IV ×3 (05:09→19:51)
[2024-04-07] MEDS: metroNIDAZOLE 500 MG Tablet PO ×3 (05:09→22:02)
[2024-04-07 05:15] LABS: Absolute Lymphocyte Count 1.97 X10^3/uL (0.83-4.51); Absolute Neutrophil Count 4.2 X10^3/uL (2.0-7.7); Basophil# 0.12 X10^3/uL; Basophil% 1.7 % (0-1); Eosinophil# 0.17 X10^3/uL; Eosinophils% 2.4 % (0-5); Hematocrit 38.2 % (40-54); Hemoglobin 11.4 g/dL (13.0-16.5); Lymphocyte # 1.97 X10^3/ul (0.83-4.51); Lymphocyte % 28.3 % (19-41); Mean Corp Hgb Conc 29.8 g/dL (32-36); Mean Corpuscular Hgb 28.5 pg (27.0-32.0); Mean Corpuscular Volume 95.5 fL (80-94); Mean Platelet Vol. 9.3 fl (6.2-12.0); Monocyte# 0.54 X10^3/uL; Monocyte% 7.8 % (0-10); NRBC Flagged by Analyzer 0 % (0-5); Neutrophil # 4.15 X10^3/uL (2.7-7.7); Neutrophil % 59.7 % (47-70); POSITIVE MORPHOLOGY YES; Platelet Count 336 K/mm3 (150-450); RBC Distribution Width CV 20.5 % (11.6-14.6)
[2024-04-07 05:35] LABS: Differential Indicated SCAN CRITERIA MET
[2024-04-07 06:14] LABS: Anion Gap 8 (5-15); BUN 21 mg/dL (7-18); Calcium,Total 8.6 mg/dL (8.5-10.1); Chloride 110 mmol/L (98-107); Creatinine, Serum 0.92 mg/dL (0.70-1.30); EST Glomerular Filtration Rate 94 mL/min (>60); Est Glom Filt Rate - Afr Amer 114 mL/min (>60); Estimated Creatinine Clearance 109.16 ml/min; Glucose 129 mg/dL (74-106); Potassium 4.6 mmol/L (3.5-5.1); Sodium Level 143 mmol/L (136-145)
--- NOTE | 2024-04-07 08:25 | PCM.PN.HOSP ---
Reason for Visit Reason for Visit: Diagnoses Sepsis, unspecified organism (03/20/24) Methicillin susceptible Staphylococcus aureus infection as the cause of diseases classified elsewhere (03/20/24) Type 2 diabetes mellitus with diabetic polyneuropathy (03/20/24) Type 2 diabetes mellitus with foot ulcer (03/20/24) Acidosis, unspecified (03/20/24) Nicotine dependence, unspecified, uncomplicated (03/20/24) Nicotine dependence, cigarettes, in remission (03/20/24) Atherosclerotic heart disease of [place] coronary artery without angina pectoris (03/20/24) Heart disease, unspecified (03/20/24) Atherosclerosis of [place] arteries of other extremities with ulceration (03/20/24) Pneumonia, unspecified organism (03/20/24) Non-pressure chronic ulcer of other part of unspecified foot with unspecified severity (03/20/24) Non-pressure chronic ulcer of other part of left foot with fat layer exposed (03/20/24) 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 of bone (03/20/24) Osteomyelitis, unspecified (03/20/24) Other abnormalities of breathing (03/20/24) Severe sepsis without septic shock (03/20/24) Bacteremia (03/20/24) Encounter for preprocedural cardiovascular examination (03/20/24) detention (current) use of insulin (03/20/24) Presence of aortocoronary bypass graft (03/20/24) Presence of automatic (implantable) cardiac defibrillator (03/20/24) Objective Data Objective Data Vital Signs: Vital Signs Temp Pulse Resp BP Pulse Ox O2 Del Method O2 Flow Rate 97.8 F 90 24 H 121/87 H 99 Room Air 2 04/07/24 08:00 04/07/24 08:00 04/07/24 08:00 04/07/24 08:00 04/07/24 08:00 04/07/24 08:00 04/07/24 06:39 FiO2 2 04/06/24 11:28 Oxygen Flow Rate (L/min) 2 Oxygen Delivery Method Room Air Weight: 199 lb 8.293 oz Body Mass Index (BMI) 29.5 Intake & Output: Intake and Output for Last 24 Hours 04/05/24 04/06/24 04/07/24 23:59 23:59 23:59 Intake Total 1637.25 / 1637.25 1764.5 / 1764.5 375 / 375 Output Total 1400 / 1400 350 / 1300 1900 / 1900 Balance 237.25 / 237.25 1414.5 / 464.5 -1525 / -1525 Lab / Micro Data 04/07/24 05:00 04/07/24 05:00 Labs: Laboratory Results - last 24 hr 04/06/24 10:00: WBC 6.8, RBC 4.04 L, Hgb 11.6 L, Hct 38.0 L, MCV 94.1 H, MCH 28.7, MCHC 30.5 L, RDW Std Deviation 67.6 H, RDW Coeff of Fariba 20.3 H, Plt Count 291, MPV 9.2, Immature Gran % (Auto) 0.300, Neut % (Auto) 66.8, Lymph % (Auto) 23.6, [place] % (Auto) 6.9, Eos % (Auto) 1.2, Baso % (Auto) 1.2 H, Absolute Neuts (auto) 4.5, Absolute Lymphs (auto) 1.60, Nucleated RBC % 0, Differential Comment SCANNED, Sodium 139, Potassium 3.9, Chloride 111 H, Carbon Dioxide 21.0, Anion Gap 7, BUN 14, Creatinine 0.86, Estim Creat Clear Calc 116.77, Est GFR (MDRD) Af Amer 122, Est GFR (MDRD) Non-Af 101, BUN/Creatinine Ratio 16.2, Glucose 95, Calcium 8.6 04/06/24 11:00: Vancomycin Trough 12.5 04/06/24 14:30: D-Dimer Quant (PE/DVT) 2.08 H*, Troponin I High Sens 30 04/06/24 16:49: POC Glucose 102 04/07/24 05:00: WBC 7.0, RBC 4.00 L, Hgb 11.4 L, Hct 38.2 L, MCV 95.5 H, MCH 28.5, MCHC 29.8 L, RDW Std Deviation 70.0 H, RDW Coeff of Fariba 20.5 H, Plt Count 336, MPV 9.3, Immature Gran % (Auto) 0.100, Neut % (Auto) 59.7, Lymph % (Auto) 28.3, [place] % (Auto) 7.8, Eos % (Auto) 2.4, Baso % (Auto) 1.7 H, Absolute Neuts (auto) 4.2, Absolute Lymphs (auto) 1.97, Nucleated RBC % 0, Sodium 143, Potassium 4.6, Chloride 110 H, Carbon Dioxide 25.0, Anion Gap 8, BUN 21 H, Creatinine 0.92, Estim Creat Clear Calc 109.16, Est GFR (MDRD) Af Amer 114, Est GFR (MDRD) Non-Af 94, BUN/Creatinine Ratio 23.0 H, Glucose 129 H, Calcium 8.6 Micro: Microbiology 03/22/24 13:17 Blood Culture (Wb) - Anticubital Right Blood Culture - Final No growth in 5 days. 03/22/24 13:05 Wound - Heel, Left Gram Stain - Final 03/22/24 13:05 Wound - Heel, Left Wound Culture - Final Staphylococcus aureus Coag Negative Staph 03/20/24 02:00 Blood Culture (Wb) - Right Hand Blood Culture - Final Staphylococcus aureus 03/22/24 13:10 Stool Stool Occult Blood (ELINA) - Final 03/19/24 22:55 Blood Culture (Wb) - Left Forearm Bacteria Detection (PCR) - Final Staphylococcus aureus 03/19/24 22:55 Blood Culture (Wb) - Left Forearm Blood Culture - Final Staphylococcus aureus 03/19/24 23:00 Urine, Clean Catch Legionella Antigen - Final 03/19/24 23:00 Urine, Clean Catch Streptococcus pneumoniae Antigen (M - Final 03/20/24 00:40 Stool Stool Occult Blood (ELINA) - Final 03/19/24 23:05 Mucosa - Nose SARS-CoV-2, Influenza & RSV (PCR) - Final Radiography Diagnostic Testing: Radiology Impression Chest CTA 04/06/24 15:15 IMPRESSION: CTA examination limited by breathing motion artifact and inadequate distal vessel opacification. No large or central pulmonary emboli identified. PE in the subsegmental branches to the bilateral lower lobes cannot be reliably excluded. Borderline cardiomegaly with pulmonary changes of probable pulmonary edema, infection should also be considered including atypical or viral pneumonia. Evidence of increased right heart pressures. Electronically Signed: Zen Davila MD at 17:24 EDT , Physical Exam Narrative Seen and examined. On 04/06, schedule left BKA was canceled because of requiring high oxygen for induction. Currently patient on 99% on room air. CTPA was done yesterday. Discussed with the plastic surgeon yesterday. Physical exam General: Alert, Oriented x3, Cooperative HEENT: Atraumatic, PERRLA, EOMI, Normocephalic Oral: No Gingival or Mucosal Lesions/ Ulcerations Neck: Supple, No JVD, Negative Carotid Bruits Chest wall/Lungs: Air entry diminished in bilateral lung bases. Bilateral lower pleural effusion. Tachypneic sometimes. No crepitation/rhonchi Cardiovascular: Sinus rhythm rhythm, Normal S1, Normal S2, No M/G/R. Decreased bilateral popliteal pulsation left more than right. Bilateral PAD Abdomen: Bowel Sounds Present, Soft, Non Tender, Non-Distended : No dysuria. No renal angle tenderness. No suprapubic tenderness. Extremities: No edema, poor circulation. Skin: Left diabetic foot ulcer on heel, nonhealing. Chronic right partial great toe amputation Musculoskeletal: Muscle strength 4/5 at major joints of knees and hips. ROM restricted. Moderate bilateral calf and thigh muscles atrophy Neurological: Cranial nerves II-XII grossly intact, loss of sensation in both legs. Psych/Mental Status: Flat affect. Assessment & Plan Assessment/Plan (1) MSSA bacteremia: (2) Pneumonia: QUALIFIERS: Pneumonia type: due to unspecified organism Laterality: right Lung location: lower lobe of lung Qualified Code(s): J18.9 - Pneumonia, unspecified organism (3) Non-pressure chronic ulcer of other part of left foot with fat layer exposed: PLAN: Plan #1. Acute Hypoxia secondary to Acute RLL Pneumonia presumed Staphylococcus aureus with concurrent Staphylococcus aureus bacteremia and also left diabetic foot ulcer TTE without vegetations, follow-up 03/23/24 GUERLINE with EF 15%, trivial MVI, no definitive vegetation seen, 03/22/2024 blood cultures negative. 03/25/2024 PICC line successful. 04/05: Shortness of breath is much better. 04/06: Patient is a mouth breather but lungs are clear. 04/07: Patient intermittently gets tachypneic but currently on room air. Was requiring high amount of oxygen for induction prior to left BKA yesterday. #2. 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 Patient is bilateral PAD and vascular surgeon was consulted. Patient had abdominal aortogram and left lower extremity selective angiography on 03/31. Right ICA with diffuse atherosclerosis and moderate stenosis. Right ENGLISH LECTURER patent. Right profundofemoral artery was diseased with irregular atherosclerosis. Left common and external iliac artery widely patent with no significant occlusive stenosis. Left profunda vessel and then atherosclerosis with collateralization. Left SFA widely patent. Left proximal popliteal artery mild focal stenosis less than 50%. Patient has PICC line on 03/25. On baby aspirin metoprolol, low-dose lisinopril and statin. 04/05: Wound culture shows Staph aureus 3+, MSSA. Coagulase-negative staph 2+. IV cefazolin and Flagyl. Discussed with the plastic surgeon Dr. Stafford. Plan for taking him for left BKA. N.p.o. past midnight 04/06: Plan for left BKA. ID informed. Currently on IV cefazolin,, metronidazole. Patient has not gotten vancomycin recently. 04/07: Yesterday, left BKA was canceled because patient requiring high amount of oxygen. He was hypoxic even on 50 to 60% oxygen required 100% nonrebreather mask and transferred to ICU. Discussed with anesthesiologist Dr. Harrell and he did not want to intubate the patient for elective surgery to avoid unnecessary risk of ventilator. Patient also has EF low 15%, global hypokinesis with evidence of diastolic dysfunction normal RV size and systolic function. Mild MR, mild TR, severe pulmonary hypertension, PASP 80 mmHg. Twelve-lead EKG was done which shows sinus rhythm with chronic left bundle branch block, PVCs nonspecific ST-T changes due to LBBB no significant change from previous EKG of [address] Harrell wanted to transfer to tertiary care but will be difficult as it is elective surgery. Troponin normal. D-dimer elevated. CT angiogram was done. CT angiogram was individually reviewed and concentric motion artifact but no central or large pulmonary emboli. Borderline cardiomegaly with probable pulmonary edema. Evidence of increased right heart pressure. Clinical situation was discussed with extracorporeal technician Dr. Nicole, vascular surgeon Dr. Langford and plastic surgeon Dr. Sarkis Rawls. Currently patient is PCU status. #3. Acute normocytic anemia, worsening, appears new chronicity with history of prior PUD of note: Admission hemoglobin 9.3, prior to this hemoglobin 01/13/2024 had been 13.4 which appears his baseline primarily, most recent hemoglobin between 11 to 12 g. Diagnostic iron panel obtained with iron 27, TIBC 97, iron saturation 27.8, ferritin 1417 more consistent with AOCD, guaiac obtained 03/20/2024 noted to be negative at that time, place on PPI. Patient on baby aspirin. On PPI. Had 2 units of previously transfusion. 04/05: H&H 11.8/39%. Platelet count 341,000. Type and crossmatch ordered by plastic surgeon. Probably will not need PRBC transfusion. 04/07: H&H stable 11.4/38.2%. #4. Hyperbilirubinemia, Transaminitis, acute on chronic: Unclear specific etiology, 03/19/2024 T. bili 1.10, AST/LT 53/61, alk phos 232->03/22/2024 CMP with total bilirubin 1.40, D bilirubin 0.32, AST/LT 166/126, alk phos 145-->03/23/24 T. bili 0.70, AST/LT 103/132, alk phos 202--> 03/28/24 total bilirubin 0.50, AST/LT 21/11, alk phos 117, liver ultrasound with normal appearing liver and gallbladder, hepatitis panel nonreactive. #5. Petechial rash, unclear etiology: Patient with onset over the last 48 hours petechial rash to the hands, upper thighs as well as some irritation in the antecubital fossa although suspect this is in part secondary to tight blood pressure assessments in that region, possibly related to medication including antibiotic therapy, nonpainful, nonblanching and lessening in appearance 03/24/2024 compared to prior. Per review with infectious disease felt not typical of a drug rash with continued stable renal function and platelets, pending ANCA labs. 03/26/2024 extremity started to improve and repeat evaluation 03/27/24 again resolving, low suspicion for vasculitis given this but unclear etiology still. #6. PSVT: 03/25/2024 overnight patient with episodes of short bursts of VT , BP on the lower normal side thus unable to initiate any increase in metoprolol regimen at this time but once improves will consider, at that time additional labs included magnesium 2.1, potassium 3.9. Cardiology has been consulted therefore if any concerns arise will re-involve them. #7. Hypokalemia: Admission K+ 2.9, magnesium level requested, supplementation given, 03/28/24 potassium 3.7. 9/2: Hypokalemia resolved. #8. Hypocalcemia, improved with corrected: Calcium 6.4, previous albumin significantly low however this is from 03/19/2024 and 1.8 at that time, corrected 8.16, supplemented with calcium gluconate, 03/28/24 calcium 8.2, again corrected elevated above this. #9. HFrEF/Ischemic Cardiomyopathy: s/p biventricular AICD [facility], 03/21/2024 echocardiogram pending as noted above, prior ECHO 12/04/23 with LV normal size, LV systolic function severely decreased, EF 25?5%, regional wall motion abnormalities present, grade 1 LV diastolic dysfunction, RV not well-visualized, on limited views right ventricle grossly normal in size and systolic function, no significant valvular abnormalities. As noted planned 2 u PRBC administration, monitor for overload, will administer 20 mg IV x 1. Will cautiously continue baby aspirin, metoprolol, low-dose losartan, Lasix and hydralazine with BP parameters given initial presentation with lower normal BP. Case management consulted for assistance with medication cost. Cardiology evaluation 03/24/2024 with cardiac clearance for progression to OR for vascular intervention potential as well as planned left lower extremity BKA. #10. CAD: Status post CABG x 3, given guaiac stool negative, cautiously continue baby aspirin, metoprolol, low-dose losartan. #11. Diabetes mellitus type II with chronic neuropathy: Hold oral home regimen, continue home insulin regimen as well as ISS scheduled with meals, ADA diet, accu checks w/ ISS. 03/23/2024 hgbA1c 6.1%. Encourage medication compliance. #12. Hypertension: Patient from records has been noncompliant with hypertensive regimen reporting that he does not believe he needs it although he is on some of this regimen secondary to underlying heart failure and CAD, will continue low-dose metoprolol and losartan as well as low-dose Lasix as BP allows but has been on the low end. Holding oral home hydralazine regimen. #13. Hyperlipidemia: We will continue patient on statin therapy. #14. GERD with history of peptic ulcer disease: PPI. #15. Tobacco Abuse: Encouraged cessation, inpatient consultation per RT, NR if desired. #16. JAIDEN: Noncompliant with PAP therapy, using oxygen q HS instead. DVT: Lovenox Clinical Impression(s) from Imaging Studies Chest X-Ray 03/19/24 23:25 IMPRESSION: 1. Postop changes of prior CABG. 2. Borderline cardiomegaly without evidence of rosalio congestive failure. 3. Diffuse interstitial infiltrate/pneumonia at the RIGHT lung base. Sequelae of an atypical viral pneumonia is a consideration. No consolidation or effusion. Electronically Signed: Cedric Mendoza MD at 23:46 EDT , Chest X-Ray 03/20/24 06:15 IMPRESSION: Mild patchy airspace opacities in the right lower lobe which are improved when compared with the prior exam. Electronically Signed: Jim Do MD at 7:38 EDT , Echocardiogram 03/21/24 16:47 Interpretation Summary The estimated ejection fraction is 15 %. There is evidence of diastolic dysfunction. There is severe global hypokinesis of the left ventricle. The left atrium is moderately enlarged. The right atrium is mildly enlarged. Mild (1+) mitral valve insufficiency. Ordering Physician: Yosef Santillan Performed By: Vijay Wright RCS Lower Extremity CT 03/22/24 12:59 IMPRESSION: Cortical disruption of the calcaneus is consistent with osteomyelitis. Fragmentation with extension into the subtalar joint question prior fracture versus fragmentation related to infection. Ill-defined lucency in the adjacent talus suggests secondary involvement. MRI may be helpful for further assessment. Electronically Signed: Ayleen Jeff MD at 20:06 EDT , ADDENDUM: 03/22/24 2220 IMPRESSION: undefined ADDENDUM: 03/23/24 1721 IMPRESSION: undefined Foot X-Ray 03/22/24 14:05 IMPRESSION: Findings consistent with hindfoot skin ulceration and adjacent osteomyelitis of the posterior calcaneus. Electronically Signed: Zen Davila MD at 18:22 EDT , Liver Ultrasound 03/23/24 06:00 IMPRESSION: Normal right upper quadrant ultrasound examination. Electronically Signed: Mazin Arnett MD at 16:00 EDT , ADDENDUM: 03/24/24 1236 IMPRESSION: Hepatomegaly. Fatty infiltration of the liver. Multiple gallstones with diffuse gallbladder wall thickening. Moderate amount of right pleural effusion. Electronically Signed: Mazin Arnett MD at 12:29 EDT , Transesophageal Echocardiogram 03/23/24 08:00 Interpretation Summary The estimated ejection fraction is 15 %. Trivial mitral valve insufficiency. No definite vegetations seen Ordering Physician: Sarkis Durham Referring Physician: Moe Odonnell Performed By: Maryan Rojas, RDCS, RVT Chest CTA 04/06/24 15:15 IMPRESSION: CTA examination limited by breathing motion artifact and inadequate distal vessel opacification. No large or central pulmonary emboli identified. PE in the subsegmental branches to the bilateral lower lobes cannot be reliably excluded. Borderline cardiomegaly with pulmonary changes of probable pulmonary edema, infection should also be considered including atypical or viral pneumonia. Evidence of increased right heart pressures. Electronically Signed: Zen Davila MD at 17:24 EDT , Charges/Coding Visit Charges Inpatient E&M: 21290 Subs Hosp L2
--- NOTE | 2024-04-07 09:20 | CASEMGMT ---
If pt were to be transferred to a tertiary facility, the pt will need to be accepted under self pay due to pending [facility] application. Transfer options include but are not limited to: [facility], [facility], [facility], [place], [facility], [facility], [facility], [facility], [facility]), and .
[2024-04-07] MEDS: Aspirin E.C. 81 MG Tablet PO (09:45)
[2024-04-07] MEDS: Lactobacillis Acidophilus 1 CAP PO ×4 (09:45→22:02)
[2024-04-07] MEDS: Cholecalciferol (Vit D3) 125 MCG CAPSULE (5,000 UNITS) PO (09:45)
[2024-04-07] MEDS: Metoprolol Tartrate 25 MG Tablet PO (09:46)
[2024-04-07] MEDS: Losartan Potassium 25 MG Tablet PO (09:46)
[2024-04-07] MEDS: Ascorbic Acid 500 MG Tablet PO (09:46)
[2024-04-07] MEDS: Furosemide 20 MG/2 ML VIAL IV (09:46)
[2024-04-07] MEDS: Pantoprazole Sodium 40 MG Tablet PO ×2 (09:48→22:02)
--- NOTE | 2024-04-07 11:57 | CHAPLAIN ---
Type of Pastoral Visit ___ Initial Visit _x__ Follow-up Visit ___ On-call Visit ___ General Patient Visit ___ Spiritual Assessment ___ Family Conference ___ Bereavement ___ Rapid Response ___ Code Blue ___ Other (describe below) Pastoral Care Referral From _x__ Patient ___ Family ___ Nurse ___ Physician ___ Physical Optics Teacher ___ Mailing Jogger ___ Other (describe below) Sacrament/Intervention ___ Active listening ___ Anointing ___ Yazidi ___ Bereavement ___ Communion ___ Adrianna exploration ___ ___ Life review _x__ Prayer ___ Reconciliation ___ Sacrament of Sick _x__ Supportive presence ___ Wedding ___ Other (describe below) Pastoral Comments patient is awake in bed; pt is reminded of previous visit and pt states I am about the same as last week; explored what feelings or needs that the patient has; pt does not comment on needs other than just waiting and I guess I'm okay; pt declines other interventions but agrees that prayer would be fine; pt then states he is going to close my eyes and rest now;
[2024-04-07 12:01] LABS: Bedside Glucose 119 mg/dL (74-106)
[2024-04-07] MEDS: Insulin NPH Human 100 UNITS/ML PEN 15 UNITS SC ×2 (12:02→17:03)
--- NOTE | 2024-04-07 12:45 | PCM.PN.SRG ---
Subjective Subjective Patient sitting up in bed. Therapy with him to assist him to get up out of bed. Patient denying any complaints of discomfort or shortness of breath at this time. Discussed that his surgery is currently on hold. Objective Data Objective Data Vital Signs: Vital Signs Temp Pulse Resp BP Pulse Ox O2 Del Method O2 Flow Rate 97.8 F 93 24 H 118/78 99 Room Air 2 04/07/24 08:00 04/07/24 09:46 04/07/24 08:00 04/07/24 09:46 04/07/24 08:00 04/07/24 08:00 04/07/24 06:39 FiO2 2 04/06/24 11:28 Oxygen Flow Rate (L/min) 2 Oxygen Delivery Method Room Air Weight: 199 lb 8.293 oz Body Mass Index (BMI) 29.5 Intake & Output: Intake and Output for Last 24 Hours 04/05/24 04/06/24 04/07/24 23:59 23:59 23:59 Intake Total 1637.25 / 1637.25 1764.5 / 1764.5 375 / 375 Output Total 1400 / 1400 350 / 1300 1900 / 1900 Balance 237.25 / 237.25 1414.5 / 464.5 -1525 / -1525 Lab / Micro Data Attestation: I reviewed the patient's lab results. 04/07/24 05:00 04/07/24 05:00 Labs: Laboratory Results - last 24 hr 04/06/24 14:30: D-Dimer Quant (PE/DVT) 2.08 H*, Troponin I High Sens 30 04/06/24 16:49: POC Glucose 102 04/07/24 05:00: WBC 7.0, RBC 4.00 L, Hgb 11.4 L, Hct 38.2 L, MCV 95.5 H, MCH 28.5, MCHC 29.8 L, RDW Std Deviation 70.0 H, RDW Coeff of Fariba 20.5 H, Plt Count 336, MPV 9.3, Immature Gran % (Auto) 0.100, Neut % (Auto) 59.7, Lymph % (Auto) 28.3, [place] % (Auto) 7.8, Eos % (Auto) 2.4, Baso % (Auto) 1.7 H, Absolute Neuts (auto) 4.2, Absolute Lymphs (auto) 1.97, Nucleated RBC % 0, Sodium 143, Potassium 4.6, Chloride 110 H, Carbon Dioxide 25.0, Anion Gap 8, BUN 21 H, Creatinine 0.92, Estim Creat Clear Calc 109.16, Est GFR (MDRD) Af Amer 114, Est GFR (MDRD) Non-Af 94, BUN/Creatinine Ratio 23.0 H, Glucose 129 H, Calcium 8.6 04/07/24 11:43: POC Glucose 119 H Micro: Microbiology 03/22/24 13:17 Blood Culture (Wb) - Anticubital Right Blood Culture - Final No growth in 5 days. 03/22/24 13:05 Wound - Heel, Left Gram Stain - Final 03/22/24 13:05 Wound - Heel, Left Wound Culture - Final Staphylococcus aureus Coag Negative Staph 03/20/24 02:00 Blood Culture (Wb) - Right Hand Blood Culture - Final Staphylococcus aureus 03/22/24 13:10 Stool Stool Occult Blood (ELINA) - Final 03/19/24 22:55 Blood Culture (Wb) - Left Forearm Bacteria Detection (PCR) - Final Staphylococcus aureus 03/19/24 22:55 Blood Culture (Wb) - Left Forearm Blood Culture - Final Staphylococcus aureus 03/19/24 23:00 Urine, Clean Catch Legionella Antigen - Final 03/19/24 23:00 Urine, Clean Catch Streptococcus pneumoniae Antigen (M - Final 03/20/24 00:40 Stool Stool Occult Blood (ELINA) - Final 03/19/24 23:05 Mucosa - Nose SARS-CoV-2, Influenza & RSV (PCR) - Final Radiography Diagnostic Testing: Radiology Impression Chest CTA 04/06/24 15:15 IMPRESSION: CTA examination limited by breathing motion artifact and inadequate distal vessel opacification. No large or central pulmonary emboli identified. PE in the subsegmental branches to the bilateral lower lobes cannot be reliably excluded. Borderline cardiomegaly with pulmonary changes of probable pulmonary edema, infection should also be considered including atypical or viral pneumonia. Evidence of increased right heart pressures. Electronically Signed: Zen Davila MD at 17:24 EDT , Physical Exam Const alert and no apparent distress General Appearance: cooperative HEENT normocephalic Head and Scalp: atraumatic Eyes General Eye: normal appearance of both eyes Neck full ROM Resp normal respiratory effort Effort and Inspection: able to speak in complete sentences and tachypneic Cardio regular rate Back/Spine normal ROM Extremity Extremity Narrative: Skin Wound Narrative: Left heel ulcer is stable. Minimal amount of maceration surrounding the ulcer. Neuro oriented x3 and moves all extremities Psych thought process normal and cooperative Assessment & Plan Assessment/Plan (1) Osteomyelitis: PLAN: Plan His let heel ulcer is stable. Continue Betadine moistened gauze dressings packed into ulcer topped with ABD and secured with Kerlix. RENÉ wrap to help keep dressing in place. Change dressing twice daily. His surgery for BKA was cancelled yesterday per Anesthesia. Unsure if the plan is to transfer patient to tertiary center for left BKA. Plastics will be here in the periphery if needed. Encouraged patient to stop using nicotine products, as they can impact wound healing. Encouraged Incentive spirometer use. Encouraged patient to get up to chair with assistance. Plan of care discussed with Dr. Rawls. Charges/Coding Visit Charges Inpatient E&M: 21300 Subs Hosp L1
[2024-04-07] MEDS: 0.9% Normal Saline (250mL Bag) 250 ML 15 ML IV (13:22)
[2024-04-07] MEDS: Insulin Lispro 100 UNIT/ML INSULN.PEN SC (17:03)
[2024-04-07 17:24] LABS: Bedside Glucose 173 mg/dL (74-106)
[2024-04-07] MEDS: Atorvastatin Calcium 10 MG Tablet PO (22:02)
[2024-04-07] MEDS: guaiFENesin 1,200 MG Tablet 1200 MG PO (22:02)
[2024-04-08 00:25] VITALS: BP 119/77; PULSE 92; RESP 17; TEMP 36.3; O2SAT 98
--- NOTE | 2024-04-08 07:12 | PCM.DC.SUM ---
Providers Date of Admission: 03/20/24 Date of Discharge: 04/28/24 Primary Care Physician: Dr. Moe Odonnell MD Consultations 03/20/24 02:34 Consult: Onc/Wound/teacher of the visually impaired Routine Comment: Reason for Consult:: LLE ulcer 03/21/24 16:47 Consult: Infectious Disease Routine Consulting Provider: Sarkis Durham Reason for Consult: Positive blood culture, past history of MSSA bacteremia EMERGENT Consult: No MD Notified: Yes Date Notified: 03/22/24 Time Notified: 07:37 Method of Notification: Text 03/22/24 13:44 Consult: Podiatry Routine Consulting Provider: Jc Truong Reason for Consult: MSSA bacteremia, L heel ulcer EMERGENT Consult: No MD Notified: Yes Date Notified: 03/22/24 Time Notified: 13:51 Method of Notification: Text 03/22/24 17:43 Consult: Vascular Surgery Routine Consulting Provider: Jasmeet Gordon Reason for Consult: Osteomylitis EMERGENT Consult: No MD Notified: Yes Date Notified: 03/22/24 Time Notified: 17:51 Method of Notification: Text 03/23/24 08:45 Consult: Plastic Surgery Routine Consulting Provider: Sarkis Rawls Reason for Consult: Consider L BKA d/t calcaneal osteomyelitis EMERGENT Consult: No Notified: Yes Date Notified: 03/23/24 Time Notified: 08:57 Method of Notification: Text 03/23/24 17:36 Consult: Cardiology Routine Consulting Provider: Mook Mendez Reason for Consult: operative clearance EMERGENT Consult: No Notified: Yes Date Notified: 03/23/24 Time Notified: 17:36 Method of Notification: Text 04/06/24 14:04 Consult: Hot Metal Charger / Pulmonary Medicine Routine Consulting Provider: Intensivists/Pulmonary Med Reason for Consult: acute hypoxic resp failure EMERGENT Consult: No MD Notified: Yes Date Notified: 04/06/24 Time Notified: 13:04 Method of Notification: Verbal Reason For Visit: RLL PNA WITH SEPSIS AND RESPIRATORY INSUFFICIENCY Diagnosis Discharge Diagnosis (1) Osteomyelitis: Status: Acute Code(s): M86.9 - Osteomyelitis, unspecified Plan 48-year-old gentleman was admitted with fever, shaking chills, nausea and vomiting and headache related to left diabetic foot infection. Patient also had dark urine and shortness of breath on exertion. #1. Acute Hypoxia secondary to Acute RLL Pneumonia presumed Staphylococcus aureus with concurrent Staphylococcus aureus bacteremia and also left diabetic foot ulcer TTE without vegetations, follow-up 03/23/24 GUERLINE with EF 15%, trivial MVI, no definitive vegetation seen, 03/22/2024 blood cultures negative. 03/25/2024 PICC line successful. 04/05: Shortness of breath is much better. 04/06: Patient is a mouth breather but lungs are clear. 04/07: Patient intermittently gets tachypneic but currently on room air. Was requiring high amount of oxygen for induction prior to left BKA yesterday. 04/08: Last vitals were 119/77, pulse ox 98% on room air. Hypoxia resolved at rest. #2. 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 Patient is bilateral PAD and vascular surgeon was consulted. Patient had abdominal aortogram and left lower extremity selective angiography on 03/31. Right ICA with diffuse atherosclerosis and moderate stenosis. Right CARPENTER REPAIRER patent. Right profundofemoral artery was diseased with irregular atherosclerosis. Left common and external iliac artery widely patent with no significant occlusive stenosis. Left profunda vessel and then atherosclerosis with collateralization. Left SFA widely patent. Left proximal popliteal artery mild focal stenosis less than 50%. Patient has PICC line on 03/25. On baby aspirin metoprolol, low-dose lisinopril and statin. 04/05: Wound culture shows Staph aureus 3+, MSSA. Coagulase-negative staph 2+. IV cefazolin and Flagyl. Discussed with the plastic surgeon Dr. Stafford. Plan for taking him for left BKA. N.p.o. past midnight 04/06: Plan for left BKA. ID informed. Currently on IV cefazolin,, metronidazole. Patient has not gotten vancomycin recently. 04/07: Yesterday, left BKA was canceled because patient requiring high amount of oxygen. He was hypoxic even on 50 to 60% oxygen required 100% nonrebreather mask and transferred to ICU. Discussed with anesthesiologist Dr. Harrell and he did not want to intubate the patient for elective surgery to avoid unnecessary risk of ventilator. Patient also has EF low 15%, global hypokinesis with evidence of diastolic dysfunction normal RV size and systolic function. Mild MR, mild TR, severe pulmonary hypertension, PASP 80 mmHg. Twelve-lead EKG was done which shows sinus rhythm with chronic left bundle branch block, PVCs nonspecific ST-T changes due to LBBB no significant change from previous EKG of [address] Harrell wanted to transfer to tertiary care but will be difficult as it is elective surgery. Troponin normal. D-dimer elevated. CT angiogram was done. CT angiogram was individually reviewed and concentric motion artifact but no central or large pulmonary emboli. Borderline cardiomegaly with probable pulmonary edema. Evidence of increased right heart pressure. Clinical situation was discussed with supervisor roller shop Dr. Nicole, vascular surgeon Dr. Langford and plastic surgeon Dr. Sarkis Rawls. Currently patient is PCU status. #3. Acute normocytic anemia, worsening, appears new chronicity with history of prior PUD of note: Admission hemoglobin 9.3, prior to this hemoglobin 01/13/2024 had been 13.4 which appears his baseline primarily, most recent hemoglobin between 11 to 12 g. Diagnostic iron panel obtained with iron 27, TIBC 97, iron saturation 27.8, ferritin 1417 more consistent with AOCD, guaiac obtained 03/20/2024 noted to be negative at that time, place on PPI. Patient on baby aspirin. On PPI. Had 2 units of previously transfusion. 04/05: H&H 11.8/39%. Platelet count 341,000. Type and crossmatch ordered by plastic surgeon. Probably will not need PRBC transfusion. 04/07: H&H stable 11.4/38.2%. #4. Hyperbilirubinemia, Transaminitis, acute on chronic: Unclear specific etiology, 03/19/2024 T. bili 1.10, AST/LT 53/61, alk phos 232->03/22/2024 CMP with total bilirubin 1.40, D bilirubin 0.32, AST/LT 166/126, alk phos 145-->03/23/24 T. bili 0.70, AST/LT 103/132, alk phos 202--> 03/28/24 total bilirubin 0.50, AST/LT 21/11, alk phos 117, liver ultrasound with normal appearing liver and gallbladder, hepatitis panel nonreactive. #5. Petechial rash, unclear etiology: Patient with onset over the last 48 hours petechial rash to the hands, upper thighs as well as some irritation in the antecubital fossa although suspect this is in part secondary to tight blood pressure assessments in that region, possibly related to medication including antibiotic therapy, nonpainful, nonblanching and lessening in appearance 03/24/2024 compared to prior. Per review with infectious disease felt not typical of a drug rash with continued stable renal function and platelets, pending ANCA labs. 03/26/2024 extremity started to improve and repeat evaluation 03/27/24 again resolving, low suspicion for vasculitis given this but unclear etiology still. #6. PSVT: 03/25/2024 overnight patient with episodes of short bursts of VT , BP on the lower normal side thus unable to initiate any increase in metoprolol regimen at this time but once improves will consider, at that time additional labs included magnesium 2.1, potassium 3.9. Cardiology has been consulted therefore if any concerns arise will re-involve them. #7. Hypokalemia: Admission K+ 2.9, magnesium level requested, supplementation given, 03/28/24 potassium 3.7. 9/2: Hypokalemia resolved. #8. Hypocalcemia, improved with corrected: Calcium 6.4, previous albumin significantly low however this is from 03/19/2024 and 1.8 at that time, corrected 8.16, supplemented with calcium gluconate, 03/28/24 calcium 8.2, again corrected elevated above this. #9. HFrEF/Ischemic Cardiomyopathy: s/p biventricular AICD [facility], 03/21/2024 echocardiogram pending as noted above, prior ECHO 12/04/23 with LV normal size, LV systolic function severely decreased, EF 25?5%, regional wall motion abnormalities present, grade 1 LV diastolic dysfunction, RV not well-visualized, on limited views right ventricle grossly normal in size and systolic function, no significant valvular abnormalities. As noted planned 2 u PRBC administration, monitor for overload, will administer 20 mg IV x 1. Will cautiously continue baby aspirin, metoprolol, low-dose losartan, Lasix and hydralazine with BP parameters given initial presentation with lower normal BP. Case management consulted for assistance with medication cost. Cardiology evaluation 03/24/2024 with cardiac clearance for progression to OR for vascular intervention potential as well as planned left lower extremity BKA. #10. CAD: Status post CABG x 3, given guaiac stool negative, cautiously continue baby aspirin, metoprolol, low-dose losartan. #11. Diabetes mellitus type II with chronic neuropathy: Hold oral home regimen, continue home insulin regimen as well as ISS scheduled with meals, ADA diet, accu checks w/ ISS. 03/23/2024 hgbA1c 6.1%. Encourage medication compliance. #12. Hypertension: Patient from records has been noncompliant with hypertensive regimen reporting that he does not believe he needs it although he is on some of this regimen secondary to underlying heart failure and CAD, will continue low-dose metoprolol and losartan as well as low-dose Lasix as BP allows but has been on the low end. Holding oral home hydralazine regimen. #13. Hyperlipidemia: We will continue patient on statin therapy. #14. GERD with history of peptic ulcer disease: PPI. #15. Tobacco Abuse: Encouraged cessation, inpatient consultation per RT, NR if desired. #16. JAIDEN: Noncompliant with PAP therapy, using oxygen q HS instead. DVT: Argenis I called tertiary care center, [facility] and extend the clinical information. Patient is high risk surgical case in view of severely reduced EF, chronic HFrEF and severe pulmonary hypertension. Earlier, surgery was canceled by anesthesiologist for high surgical risk and advised transfer to tertiary care center admission above. Patient transferred to [facility] of [facility] at 1225 hrs. on 924 Clinical Impression(s) from Imaging Studies Chest X-Ray 03/19/24 23:25 IMPRESSION: 1. Postop changes of prior CABG. 2. Borderline cardiomegaly without evidence of rosalio congestive failure. 3. Diffuse interstitial infiltrate/pneumonia at the RIGHT lung base. Sequelae of an atypical viral pneumonia is a consideration. No consolidation or effusion. Electronically Signed: Cedric Mendoza MD at 23:46 EDT , Chest X-Ray 03/20/24 06:15 IMPRESSION: Mild patchy airspace opacities in the right lower lobe which are improved when compared with the prior exam. Electronically Signed: Jim Do MD at 7:38 EDT , Echocardiogram 03/21/24 16:47 Interpretation Summary The estimated ejection fraction is 15 %. There is evidence of diastolic dysfunction. There is severe global hypokinesis of the left ventricle. The left atrium is moderately enlarged. The right atrium is mildly enlarged. Mild (1+) mitral valve insufficiency. Ordering Physician: Yosef Santillan Performed By: Vijay Wright RCS Lower Extremity CT 03/22/24 12:59 IMPRESSION: Cortical disruption of the calcaneus is consistent with osteomyelitis. Fragmentation with extension into the subtalar joint question prior fracture versus fragmentation related to infection. Ill-defined lucency in the adjacent talus suggests secondary involvement. MRI may be helpful for further assessment. Electronically Signed: Ayleen Jeff MD at 20:06 EDT , ADDENDUM: 03/22/24 2220 IMPRESSION: undefined ADDENDUM: 03/23/24 1721 IMPRESSION: undefined Foot X-Ray 03/22/24 14:05 IMPRESSION: Findings consistent with hindfoot skin ulceration and adjacent osteomyelitis of the posterior calcaneus. Electronically Signed: Zen Davila MD at 18:22 EDT , Liver Ultrasound 03/23/24 06:00 IMPRESSION: Normal right upper quadrant ultrasound examination. Electronically Signed: Mazin Arnett MD at 16:00 EDT , ADDENDUM: 03/24/24 1236 IMPRESSION: Hepatomegaly. Fatty infiltration of the liver. Multiple gallstones with diffuse gallbladder wall thickening. Moderate amount of right pleural effusion. Electronically Signed: Mazin Arnett MD at 12:29 EDT , Transesophageal Echocardiogram 03/23/24 08:00 Interpretation Summary The estimated ejection fraction is 15 %. Trivial mitral valve insufficiency. No definite vegetations seen Ordering Physician: Sarkis Durham Referring Physician: Moe Odonnell Performed By: Maryan Rojas, RONDACS, RVT Chest CTA 04/06/24 15:15 IMPRESSION: CTA examination limited by breathing motion artifact and inadequate distal vessel opacification. No large or central pulmonary emboli identified. PE in the subsegmental branches to the bilateral lower lobes cannot be reliably excluded. Borderline cardiomegaly with pulmonary changes of probable pulmonary edema, infection should also be considered including atypical or viral pneumonia. Evidence of increased right heart pressures. Electronically Signed: Zen Davila MD at 17:24 EDT , Medications at Discharge Home Medications aspirin 81 mg tablet,delayed release (Adult Aspirin Regimen) 81 mg PO DAILY 11/03/19 insulin NPH isoph U-100 human 100 unit/mL subcutaneous suspension 25 unit subcut BID blood sugar 03/14/23 insulin regular human 100 unit/mL injection solution 8 unit subcut TID 03/14/23 atorvastatin 10 mg tablet 10 mg PO QHS #30 tabs 03/17/23 carvedilol 3.125 mg tablet 3.125 mg PO BID #60 tabs 03/17/23 lisinopril 2.5 mg tablet 2.5 mg PO DAILY #30 tabs 03/17/23 ascorbic acid (vitamin C) 500 mg tablet,extended release (C Complex) 500 mg PO DAILY 01/13/24 cholecalciferol (vitamin D3) 125 mcg (5,000 unit) tablet (Vitamin D3) 125 mcg PO DAILY 01/13/24 furosemide 20 mg tablet (Lasix) 20 mg PO DAILY 01/13/24 hydralazine 10 mg tablet 10 mg PO TID 01/13/24 losartan 25 mg tablet (Cozaar) 25 mg PO DAILY 01/13/24 metoprolol tartrate 25 mg tablet 25 mg PO DAILY 01/13/24 Physical Exam Narrative Patient was transferred just past the midnight. Last physical exam: 04/07/2024 Weight / BMI Weight Weight: 199 lb 8.293 oz Body Mass Index (BMI) 29.5 ABG / Lab / Microbiology Data 04/07/24 05:00 04/07/24 05:00 Laboratory: Laboratory Results - last 24 hr 04/07/24 11:43: POC Glucose 119 H 04/07/24 17:02: POC Glucose 173 H Microbiology: Microbiology 03/22/24 13:17 Blood Culture (Wb) - Anticubital Right Blood Culture - Final No growth in 5 days. 03/22/24 13:05 Wound - Heel, Left Gram Stain - Final 03/22/24 13:05 Wound - Heel, Left Wound Culture - Final Staphylococcus aureus Coag Negative Staph 03/20/24 02:00 Blood Culture (Wb) - Right Hand Blood Culture - Final Staphylococcus aureus 03/22/24 13:10 Stool Stool Occult Blood (ELINA) - Final 03/19/24 22:55 Blood Culture (Wb) - Left Forearm Bacteria Detection (PCR) - Final Staphylococcus aureus 03/19/24 22:55 Blood Culture (Wb) - Left Forearm Blood Culture - Final Staphylococcus aureus 03/19/24 23:00 Urine, Clean Catch Legionella Antigen - Final 03/19/24 23:00 Urine, Clean Catch Streptococcus pneumoniae Antigen (M - Final 03/20/24 00:40 Stool Stool Occult Blood (ELINA) - Final 03/19/24 23:05 Mucosa - Nose SARS-CoV-2, Influenza & RSV (PCR) - Final Meaningful Use Info Meaningful Use Meaningful Use Diagnoses (Choose all that apply): None applicable Ischemic Stroke Statin Dosing Therapy Reference: STATIN DOSE THERAPY REFERENCE: * Patients > 75 years receive moderate or high dose statin therapy. * Patients 75 years or YOUNGER should receive HIGH intensity statin dose unless contraindicated. You will be required to document reason for non-treatment if statin daily dose does not meet guidelines. HIGH DOSE STATIN THERAPY DAILY Atorvastatin > than or = to 40 mg Rosuvastatin > than or = to 20 mg Amlodipine + Atorvastatin > than or = to 2.5/40 mg Ezetimibe + Simvastatin 10/80 mg Simvastatin 80mg Discharge Plan Admission Admit Date/Time: 03/20/24 01:24 Primary Reason for Your Visit: Left diabetic foot ulcer Attending Provider: Tyler Lo Primary Care Provider: Moe Odonnell Consulting Providers: Chato Hood; Yosef Santillan; Gricelda Ware; Rocco Ayers; Mook Mendez; Sarkis Durham; Sarkis Rawls; Jc Truong; Jasmeet Gordon Discharge Orders/Prescriptions Prescriptions: No Action aspirin [Adult Aspirin Regimen] 81 mg tablet,delayed release (DR/EC) 81 mg PO DAILY insulin regular human 100 unit/mL solution 8 unit subcut TID insulin NPH isoph U-100 human 100 unit/mL suspension 25 unit subcut BID Patient Comments: per pt takes w/ lunch & dinner carvedilol 3.125 mg tablet 3.125 mg PO BID Qty: 60 3RF Patient Comments: per pt cannot afford to fill any of scripts beside insulin at this time. Rx Instructions: must administer with a meal/food lisinopril 2.5 mg tablet 2.5 mg PO DAILY Qty: 30 3RF atorvastatin 10 mg tablet 10 mg PO QHS Qty: 30 3RF furosemide [Lasix] 20 mg tablet 20 mg PO DAILY hydralazine 10 mg tablet 10 mg PO TID losartan [Cozaar] 25 mg tablet 25 mg PO DAILY metoprolol tartrate 25 mg tablet 25 mg PO DAILY ascorbic acid (vitamin C) [C Complex] 500 mg tablet extended release 500 mg PO DAILY cholecalciferol (vitamin D3) [Vitamin D3] 125 mcg (5,000 unit) tablet 125 mcg PO DAILY Referrals / Follow Up: Moe Odonnell MD [Primary Care Provider] - Disposition Disposition (needs filled in before D/C Order can be placed): Acute Care Hospital Charges/Coding Visit Charges Inpatient E&M: 10110 Disch Hosp >30min
== END 2024-04-08 00:25 | disposition short-term general hospital (02) | DRG 637 ==
LOC: ED 03-20 00:58 → PCU 03-20 02:52 → ICU 04-06 13:56
PROVIDERS: Family Medicine; Internal Medicine; Internal Medicine Infectious Disease; Surgery Plastic and Reconstructive Surgery; Admitting Provider Internal Medicine; Emergency Provider Emergency Medicine; PCP Family Medicine; Visit Provider Internal Medicine
DX: E11.621 Type 2 diabetes mellitus with foot ulcer (principal); J15.211 Pneumonia due to Methicillin susceptible Staphylococcus aureus; R78.81 Bacteremia; I47.10 Supraventricular tachycardia, unspecified; I50.22 Chronic systolic (congestive) heart failure; M86.172 Other acute osteomyelitis, left ankle and foot; M86.672 Other chronic osteomyelitis, left ankle and foot; I27.20 Pulmonary hypertension, unspecified; D63.1 Anemia in chronic kidney disease; E83.51 Hypocalcemia; I11.0 Hypertensive heart disease with heart failure; E11.42 Type 2 diabetes mellitus with diabetic polyneuropathy; I70.25 Atherosclerosis of native arteries of other extremities with ulceration; K76.0 Fatty (change of) liver, not elsewhere classified; L97.524 Non-pressure chronic ulcer of other part of left foot with necrosis of bone; E11.51 Type 2 diabetes mellitus with diabetic peripheral angiopathy without gangrene; Z79.4 Long term (current) use of insulin; G47.33 Obstructive sleep apnea (adult) (pediatric); I25.5 Ischemic cardiomyopathy; I25.10 Atherosclerotic heart disease of native coronary artery without angina pectoris; E78.5 Hyperlipidemia, unspecified; I44.7 Left bundle-branch block, unspecified; E87.6 Hypokalemia; K21.9 Gastro-esophageal reflux disease without esophagitis; E11.69 Type 2 diabetes mellitus with other specified complication; E80.7 Disorder of bilirubin metabolism, unspecified; I25.2 Old myocardial infarction; Z89.422 Acquired absence of other left toe(s); F17.290 Nicotine dependence, other tobacco product, uncomplicated; E66.3 Overweight; R23.3 Spontaneous ecchymoses; Z53.8 Procedure and treatment not carried out for other reasons; Z68.29 Body mass index [BMI] 29.0-29.9, adult; Z59.7 Insufficient social insurance and welfare support; Z95.1 Presence of aortocoronary bypass graft; Z91.141 Patient's other noncompliance with medication regimen due to financial hardship; Z91.198 Patient's noncompliance with other medical treatment and regimen for other reason; Z79.82 Long term (current) use of aspirin; Z79.899 Other long term (current) drug therapy
CPT/HCPCS: 36200; 36245; 36415; 36569; 36600; 71045; 71046; 71275; 73630; 73700; 75625; 75710; 76705; 76937; 80048; 80053; 80076; 80202; 81001; 82274; 82728; 82803; 82962; 83036; 83540; 83550; 83605; 83735; 84100; 84134; 84484; 85014; 85018; 85025; 85379; 85610; 85730; 86256; 86706; 86803; 86850; 86900; 86901; 86920; 86922; 87040; 87070; 87077; 87149; 87186; 87205; 87340; 87449; 87631; 87640; 92610; 93005; 93306; 93312; 93320; 93325; 94640; 94762; 97110; 97162; 97166; 97530; 97535; 97802; 97803; 99152; 99153; 99284; C1760; C1769; C1894; J2997; J7030; J7040; J7050; P9016; Q9957; Q9967; A4216; C8929; J0612; J0696; J1940; J2405

== ENCOUNTER 2025-05-03 22:53 | Inpatient (IN) | payer MEDICARE, MEDICAID, SELFPAY ==
[2025-05-03 22:54] VITALS: BP 131/80; PULSE 91; RESP 18; TEMP 36.7; O2SAT 100
--- NOTE | 2025-05-03 23:15 | EKG12_ITS ---
Test Reason : DYSRHYTHMIA Blood Pressure : */* mmHG Vent. Rate : 89 BPM Atrial Rate : 89 BPM P-R Int : 174 ms QRS Dur : 170 ms QT Int : 428 ms P-R-T Axes : 57 89 -52 degrees QTcB Int : 520 ms Sinus rhythm with Fusion complexes Left bundle branch block Abnormal ECG Confirmed by GUSTAVO SCHULTZ, ELEAZAR ([id number]), general expeditor CLAUDIA PHILIPPE ([id number]) on 05/04/2025 8:25:07 AM Referred By: MINA Confirmed By: ELEAZAR CHEN MD
[2025-05-03 23:43] VITALS: BMI 41.3
[2025-05-03 23:58] VITALS: BP 132/75; PULSE 89; RESP 22; TEMP 36.6; O2SAT 100
[2025-05-04] VITALS (11 sets, daily range): BP systolic 125–145; BP diastolic 69–89; PULSE 85–95; RESP 18–30; TEMP 36.4–36.9; O2SAT 95–100; BMI 38.5
--- NOTE | 2025-05-04 00:44 | CT_ITS ---
PROCEDURE: CTA HEAD AND NECK W/ CONTRAST 05/04/2025 REASON FOR EXAM: TIA TECHNIQUE: Procedure Code: CTCTA.HDNCK Modality: CT Procedure: CTA HEAD AND NECK W/ CONTRAST Multiplanar Sagittal and Coronal images were obtained. CONTRAST: Isovue 370 VOLUME: 100 mL One or more dose reduction techniques were used (e.g., Automated exposure control, adjustment of the mA and/or kV according to patient size, use of iterative reconstruction technique). RADIATION DOSE SUMMARY: CTDlvol: 14.7 mGy DLP: 587 mGycm COMPARISON: None. FINDINGS: Moderate multifocal stenosis of the calcified intracranial left internal carotid artery. Secondary chronic decrease in the size and number of the left middle cerebral artery and its branches. Normal bilateral petrous carotid arteries. Normal right cavernous carotid artery with a normal supraclinoid bifurcation. Normal left cavernous carotid artery with a normal supraclinoid bifurcation. Normal right A1 segments of the anterior cerebral artery. Normal left A1 segments of the anterior cerebral artery. Normal intact anterior communicating artery (ACOM). Normal bilateral A2 segments of the anterior cerebral arteries. Normal right M1 and M2 segments of the middle cerebral arteries, with a normal M1 bifurcation. Normal right posterior communicating artery (PCOM). Normal left posterior communicating artery (PCOM). Normal bilateral vertebral arteries. Normal basilar artery with a normal basilar bifurcation. The visualized bilateral superior cerebellar (SCA) arteries are normal. Normal bilateral P1, P2 and visualized P3 segments of the posterior cerebral arteries. There is no demonstrated aneurysm of the [place] of [place]. Technique: Axial CT angiographic images of the neck. Reformatted coronal and sagittal images. 3D, MIP images. Reconstructed images were reviewed on a different workstation by radiologist. RIGHT CAROTID ARTERIES: 90% stenosis of the origin of the right external carotid artery. 30% stenosis of the origin of the right internal capsule the artery. Normal remaining visualized cervical portion of the right internal carotid artery. LEFT CAROTID ARTERIES: 80% stenosis of the origin of the left external carotid artery. 90% stenosis of the origin of the left internal capsule the artery. VERTEBRAL ARTERIES: 30% stenosis of the origin of the right vertebral artery. Normal remaining bilateral vertebral artery without a hemodynamically significant stenosis. CT/CTA Head AND Neck W/ Contrast IMPRESSION: Atherosclerosis with chronic multifocal high-grade stenosis. Reading Location: [id number]
[2025-05-04 00:56] LABS: Hematocrit 29.2 % (40-54); Hemoglobin 8.9 g/dL (13.0-16.5); Immature Granulocytes Count 0.030 X10^3/uL (0.0-0.0); Mean Corp Hgb Conc 30.5 g/dL (32-36); Mean Corpuscular Volume 88.8 fL (80-94); Mean Platelet Vol. 9.3 fl (6.2-12.0); NRBC Flagged by Analyzer 0 % (0-5); POSITIVE DIFFERENTIAL YES; Platelet Count 396 K/mm3 (150-450); RBC Distribution Width CV 15.6 % (11.6-14.6); RBC Distribution Width SD 50.4 fl (35.1-43.9); Red Blood Count 3.29 M/mm3 (4.6-6.2); White Blood Count 8.5 K/mm3 (4.4-11.0)
[2025-05-04 01:10] LABS: Prothrombin Time (Protime)PT. 17.3 SECONDS (11.7-14.9)
[2025-05-04 01:11] LABS: Partial Thromboplast Time 34.7 Seconds (24.1-36.2)
[2025-05-04 01:21] LABS: Magnesium 2.1 mg/dL (1.5-2.2); Pro- Brain NATRIURETIC PEPTIDE 6438 pg/mL (<=450); Troponin T High Sensitivity 44 ng/L (<=22)
[2025-05-04 01:22] LABS: Anion Gap 14 (5-15); BUN 23 mg/dL (4-19); BUN/Creat Ratio 15.1 RATIO (10-20); Calcium,Total 8.7 mg/dL (7.6-11.0); Carbon Dioxide 19.8 mmol/L (21.0-32.0); Chloride 106 mmol/L (98-108); Estimated Creatinine Clearance 77.81 ml/min (50-250); Glucose 37 mg/dL (70-99); Potassium 4.3 mmol/L (3.3-5.1)
--- NOTE | 2025-05-04 01:33 | RAD_ITS ---
PROCEDURE: CHEST 1 VIEW (PORTABLE) 05/04/2025 REASON FOR EXAM: DYSPNEA TECHNIQUE: Frontal view of the chest. COMPARISON: Chest radiograph on 03/20/2024. CT scan on 04/06/2024. FINDINGS: Unremarkable median sternotomy wires. Mild central pulmonary venous congestion. There is no demonstrated pleural abnormality. Normal heart and pericardium. Normal mediastinum and derrick. Normal visualized pulmonary arteries. Normal visualized aortic arch and descending thoracic aorta. Normal visualized thoracic spine. Normal visualized ribs, clavicles, and shoulders. There is no demonstrated abnormality of the visualized soft tissue structures of the upper abdomen. RAD/Chest 1 View (Portable) IMPRESSION: Mild central pulmonary venous congestion. Reading Location: [facility]
[2025-05-04 02:38] LABS: Troponin T High Sens 2 HR 45 ng/L (<=22)
--- NOTE | 2025-05-04 03:40 | HP.PCM.HOS_ITS ---
HPI - General General Date of Admission: 05/04/25 Date of Service: 05/04/25 Chief Complaint: Slurred speech, R facial droop, possible aphasia, confusion. HPI Narrative The patient is a 49 y/o M w/ PMHx: Morbid obesity, JAIDEN, Former tobacco use, HFrEF/ischemic cardiomyopathy, CAD status post CABG, HTN, HLD, GERD w/ Hx PUD, CKD stage II versus progressed to stage III unclear subtype, Chronic normocytic anemia, Diabetes mellitus type II who presents to the [facility] ED on 05/04/2025 brought in by his secondary to dyspnea as well as nausea and emesis with altered sensorium not taking care of himself with uncertain if he had been taking his medications at all with episode of slurred speech, right facial droop, difficulty expressing himself/confusion per family report starting approximately 2 hours prior to ED arrival although improving prompting eventual ED evaluation to be cautious. In the ED patient completely resolved his neurological reported symptoms per family. Patient has not been following up with any physician nor is he appropriately taking any of his medications. Patient did have glucose 37 and per discussion with ED physician repeat is in the 100 range now. Workup in the ED included T98.1, heart rate 91, BP 131/80, respiratory rate 18, 100% room air with most recent repeat vitals T98.4, heart rate 85, BP 136/73, respiratory rate 28, 97% room air, CBC with WC 8.5, hemoglobin 8.9, MCV 88.8, platelet 396 with lymphopenia, coags with PT 17 with 3 otherwise unremarkable, BMP with carbon oxide 19.8, BUN/Cryan 23/1.50, GFR 57, glucose 37, magnesium 2.1, initial troponin 44 with repeat delta of 45, NT proBNPII 6004 and 38, chest x-ray with pending read upon evaluation however from review notable cardiomegaly but no significant evidence of effusion or congestion, CTA head and neck with pending read upon request evaluation of patient, EKG with sinus rhythm with a left bundle branch block with no acute evidence of ischemia. In the ED patient ministered dextrose amp. [facility] Medical History Osteomyelitis Atherosclerosis of lower extremity with ulceration Old myocardial infarct Peripheral vascular occlusive disease Obesity PUD (peptic ulcer disease) Obstructive sleep apnea Nicotine dependence Left bundle branch block (LBBB) Chronic systolic (congestive) heart failure Natalya gangrene Essential (primary) hypertension Hyperlipidemia Type 2 diabetes mellitus Atherosclerosis of coronary artery without angina pectoris Ischemic cardiomyopathy Paroxysmal ventricular tachycardia Home Medications ?Medication ?Instructions ?Recorded ?Last Taken ?Type aspirin 81 mg tablet,delayed 81 mg PO DAILY 11/03/19 U nknown History release (Adult Aspirin Regimen) insulin NPH isoph U-100 human 100 25 unit subcut BID b lood sugar 03/14/23 Unknown History unit/mL subcutaneous suspension ascorbic acid (vitamin C) 500 mg 500 mg PO DAILY 01/12 Unknown History tablet,extended release (C Complex) cholecalciferol (vitamin D3) 125 125 mcg PO DAILY 01/02 08/27 Unknown History mcg (5,000 unit) tablet (Vitamin D3) furosemide 20 mg tablet (Lasix) 20 mg PO DAILY 4 Unknown History hydralazine 10 mg tablet 10 mg PO TID 01/13/24 Unknow n History losartan 25 mg tablet (Cozaar) 25 mg PO DAILY 01/13/24 Unknown History metoprolol tartrate 25 mg tablet 25 mg PO DAILY Unknown History Allergy/AdvReac Type Severity Reaction Status Date / Time spironolactone AdvReac hyperkalemi Verified 05/03/25 22:54 a Family History Mother Heart disease 50 CVA (cerebral vascular accident) Father Heart disease 60 Diabetes CVA (cerebral vascular accident) Hypertension Sister Heart disease 48 Diabetes Grandfather CVA (cerebral vascular accident) Hypertension Grandmother CVA (cerebral vascular accident) Surgical History Hx of foot surgery History of left heart catheterization (09/25/15) History of right heart catheterization (02/2016) History of nasal septoplasty H/O coronary artery bypass surgery (03/19/16) History of ileostomy History of incision and drainage Biventricular ICD (implantable cardioverter-defibrillator) in place (08/16/16) Social History Smoking Status: Former smoker alcohol intake: never substance use type: does not use caffeine: Yes (monster 1 per day) Type: carbonated beverages Number of servings: 3 ROS ROS Narrative Admission Review of Systems: CONSTITUTIONAL: No weight loss, fever, chills, + weakness or fatigue, disheveled with evidence for self-care. HEENT: Eyes: No visual loss, blurred vision, double vision or yellow sclerae. Ears, Nose, Throat: No hearing loss, sneezing, congestion, runny nose or sore throat. SKIN: No rash or itching, lesions except + various stage ecchymoses, abrasions. CARDIOVASCULAR: No chest pain, chest pressure or chest discomfort, palpitations, edema, orthopnea, syncopal events. RESPIRATORY: + Dyspnea. No marked cough or sputum, wheezing, hemoptysis. GASTROINTESTINAL: + Anorexia, nausea, bout of emesis. No diarrhea, abdominal pain, melena, BRBPR. GENITOURINARY: No dysuria, frequency, urgency or retention. NEUROLOGICAL: + Transient episode of confusion/suspect aphasia, possible right facial droop, slurred speech. No headache, dizziness, syncope, paralysis, ataxia, numbness or tingling in the extremities, focal weakness, change in bowel or bladder control, seizure. MUSCULOSKELETAL: + muscle, back pain, joint pain or stiffness. HEMATOLOGIC: + Chronic anemia, easy bleeding/bruising. LYMPHATICS: No enlarged nodes. No history of splenectomy. PSYCHIATRIC: No history of depression or anxiety. ENDOCRINOLOGIC: No reports of sweating, cold or heat intolerance. No polyuria or polydipsia. ALLERGIES: No history of asthma, hives, eczema or rhinitis. Vital Signs Vital Signs Vital Signs: 05/03/25 22:54 05/03/25 22:54 05/03/25 23:41 Temperature 98.1 F 98.1 F Temperature Source Oral Oral Pulse Rate 91 91 Respiratory Rate 18 18 Respiratory Effort Short of Breath Respiratory Depth Normal Respiratory Pattern Tachypnea Blood Pressure 131/80 H 131/80 H Blood Pressure Mean 97 97 Pulse Ox 100 100 Oxygen Delivery Method Room Air Room Air Room Air 05/03/25 23:58 05/04/25 00:00 05/04/25 01:00 Temperature 98 F 98 F 98.3 F Temperature Source Oral Oral Oral Pulse Rate 89 87 89 Respiratory Rate 22 H 24 H 28 H Respiratory Effort Respiratory Depth Respiratory Pattern Blood Pressure 132/75 H 137/74 H 138/77 H Blood Pressure Mean 94 95 97 Pulse Ox 100 100 100 Oxygen Delivery Method Room Air Room Air Room Air 05/04/25 02:00 05/04/25 03:00 Temperature 97.9 F 98.4 F Temperature Source Oral Oral Pulse Rate 91 85 Respiratory Rate 30 H 28 H Respiratory Effort Respiratory Depth Respiratory Pattern Blood Pressure 143/89 H 136/73 H Blood Pressure Mean 107 94 Pulse Ox 99 97 Oxygen Delivery Method Weight Weight: 271 lb 13.279 oz Body Mass Index (BMI) 41.3 Physical Exam Narrative Physical Examination: General: Awake, alert, oriented x 3 and cooperative, laying on his side in ED bed, notes feeling improved and feels as though he is back to his baseline, extremely disheveled and evident poor self-care. Skin: Normal color, normal turgor, no icterus, no cyanosis except occasional stage ecchymoses, abrasion. HEENT: AT/NC, EOMI, PERRLA, mildly dry MM, poor oral care, no carotid bruits or JVD noted. Lungs: Mildly diminished, greater bases, mildly increased respiratory rate but no distress, no rales, ronchi or wheezing. Heart: Regular rate and rhythm; no gallop, rub audible. Abdomen: Soft, morbidly obese, NTTP, ND, mildly hyperactive BS, no appreciated HSM. Extremities: No cyanosis, no clubbing, no significant distal edema, status post previous BKA with well-appearing stump. Neurological: Patient awake, alert, oriented as noted, cognitive function improved, suspect near baseline intact; pupils equally reactive to light and accommodation, cranial nerves grossly normal, moving all 4 extremities, no focal deficits, strength moderately globally decreased. Psychiatric: Affect appears mildly flat, fatigued, no acute evidence of depressive or anxiety feelings. Results Lab / Micro Data 05/03/25 23:35 05/03/25 23:35 Labs: Laboratory Results - last 24 hr 05/03/25 23:35: WBC 8.5, RBC 3.29 L, Hgb 8.9 L, Hct 29.2 L, MCV 88.8, MCH 27.1, MCHC 30.5 L, RDW Std Deviation 50.4 H, RDW Coeff of Fariba 15.6 H, Plt Count 396, MPV 9.3, Immature Gran % (Auto) 0.400, Neut % (Auto) 84.2 H, Lymph % (Auto) 5.8 L, Ross % (Auto) 8.1, Eos % (Auto) 0.6, Baso % (Auto) 0.9, Absolute Neuts (auto) 7.1, Absolute Lymphs (auto) 0.49 L, Nucleated RBC % 0, PT 17.3 H, INR 1.4, APTT 34.7, Sodium 140, Potassium 4.3, Chloride 106, Carbon Dioxide 19.8 L, Anion Gap 14, BUN 23 H, Creatinine 1.50 H, Estim Creat Clear Calc 77.81, Est GFR (MDRD) Non-Af 57 L, BUN/Creatinine Ratio 15.1, Glucose 37 L*, Calcium 8.7, Magnesium 2.1, Troponin T High Sens 44 H, NT pro BNP II 6438 H 05/04/25 01:50: Troponin T Hi Sens 2 Hr 45 H Assessment & Plan Assessment/Plan (1) TIA (transient ischemic attack): PLAN: Plan The patient is a 49 y/o M w/ PMHx: Morbid obesity, JAIDEN, Former tobacco use, HFrEF/ischemic cardiomyopathy, CAD status post CABG, HTN, HLD, GERD w/ Hx PUD, CKD stage II versus progressed to stage III unclear subtype, Chronic normocytic anemia, Diabetes mellitus type II who presents to the [facility] ED on 05/04/2025 brought in by his secondary to dyspnea as well as nausea and emesis with altered sensorium not taking care of himself with uncertain if he had been taking his medications at all with episode of slurred speech, right facial droop, difficulty expressing himself/confusion per family report starting approximately 2 hours prior to ED arrival although improving prompting eventual ED evaluation to be cautious. #1. Slurred speech, altered sensorium/suspect aphasia based on family description, transient right facial droop, concerning for TIA/CVA however also possibly secondary to #2, #3: As long as a CTA head and neck is not marked and requires transfer with plan to admit to the PCU, will obtain MRI Brain as patient had his AICD removed previously and never followed up to have it replaced, most recent echo 1 year prior thus will request repeat ECHO, PT/OT/Speech/Nutrition evaluation per protocol. Will allow permissive HTN, maintain on asa, maintain on fall and aspiration precaution. Mag, TSH, FLP, HgbA1c requested. Will request neurology evaluation. Continue to closely monitor blood sugar as certainly hypoglycemia could be contributing concurrently. Patient does have tachypnea in the ED thus to be cautious given his history will obtain ABG and also ammonia level to be certain. #2. Possible DULCE MARIA on CKD stage II based on previous GFR trending versus acute renal insufficiency versus Progressed Chronic Kidney Disease Stage III, having advanced as no labs recently obtained: Admission BUN/Cr 23/1.50, GFR 57, baseline renal function primarily 0.8-1.0 however these labs are remote, last noted 04/27 creatinine 0.92, repeat BMP in AM to assist in further elucidating, will judiciously hydrate, holding any nephrotoxic medication in the interim to be certain. #3. Diabetes mellitus type II with acute hyperglycemia: Hold oral home regimen, given presentation with hyperglycemia will temporarily hold insulin regimen as well, will plan to continue ADA diet unless further hypoglycemia episodes then will broaden, will continue to closely monitor and obtain accu checks w/ ISS. #4. Possibly acute on chronic normocytic anemia: Admission hemoglobin 8.9, MCV 88.8, baseline previously primarily 10-11 however last labs are 1 year previous thus unclear if its drop since then, we will plan repeat CBC in the a.m. and if it further drops we will investigate further otherwise this may be his new baseline. #5. HFrEF/ischemic cardiomyopathy: Status post AICD however per records this was removed because of possible erosion/infection and never replaced, most recent echocardiogram noted 03/23/2024 with EF 15%, transmitral valve insufficiency with no vegetations identified at that time. Given current presentation continuing aspirin, not on statin therapy. Attempted to clarify is not currently listed, temporally holding hypertensive regimen given permissive hypertension and very judiciously hydrating given unclear renal function baseline at this time. #6. CAD: Status post CABG 2015, continue aspirin therapy, not on statin currently per list but clarified to be certain, temporally holding all hypertensive regimen for permissive hypertension given possible DULCE MARIA as noted. Add back once appropriate. #7. Hypertension: Given presentation will maintain permissive hypertension, add back once clinically appropriate, will have as needed agents per stroke protocol in the interim. #8. Hyperlipidemia: Per current list does not appear to be on statin therapy, clarified to be certain, FLP in AM. #9. GERD with PUD: Per current list does not appear to be on any PPI, clarified to be certain. #10. Former tobacco use: Encourage continued tobacco cessation. #11. Morbid Obesity: Weight loss and lifestyle changes encouraged. #12. JAIDEN: CPAP nightly. #13. DVT prophylaxis: Lovenox. #14. CODE status: Patient does not have healthcare power of health care attorney or living will in place but notes he would want his ex- to be his medical decision- maker if necessary. Discussed CODE status at length including difference between FULL code, DNR-CCA and DNR-CC status. Following discussions about the differences in these status, requested Full Code status. Advanced Care Planning Face to Face Time: 16 minutes. Charges/Coding Visit Charges Inpatient E&M: 90115 Init Hosp L3 Procedures Hospitalists Procedures: 51132 Advncd Care Plan 30 Min
--- NOTE | 2025-05-04 04:08 | EX.ED.DYSGE1 ---
HPI History of Present Illness Chief Complaint: Shortness of Breath Informant: patient and family Narrative Narrative: Patient is a 49-year-old male with history of insulin-dependent type 2 diabetes coronary artery disease with previous ID and CABG as well as hypertension and hyperlipidemia. Patient states he does not do well following up with physicians regarding his chronic medical issues. He states he does not even check his blood sugar but simply takes 8 units of insulin 3 times a day. Reportedly few hours prior to arrival he had increased shortness of breath and nausea. Patient reports there was also changes concerning for stroke with facial droop slurred speech and aphasia. They state the symptoms lasted 2 to 3 hours but then spontaneous resolved prior to arrival in the ER. Patient states that he did not take any medication to help improve his symptoms and he states there was no associated chest pain with them either. [facility] Medical History Osteomyelitis Atherosclerosis of lower extremity with ulceration Old myocardial infarct Peripheral vascular occlusive disease Obesity PUD (peptic ulcer disease) Obstructive sleep apnea Nicotine dependence Left bundle branch block (LBBB) Chronic systolic (congestive) heart failure Natalya gangrene Essential (primary) hypertension Hyperlipidemia Type 2 diabetes mellitus Atherosclerosis of coronary artery without angina pectoris Ischemic cardiomyopathy Paroxysmal ventricular tachycardia Home Medications ?Medication ?Instructions ?Recorded ?Last Taken ?Type aspirin 81 mg tablet,delayed 81 mg PO DAILY 11/03/19 Unknown History release (Adult Aspirin Regimen) insulin NPH isoph U-100 human 100 25 unit subcut BID blood sugar 03/14/23 Unknown History unit/mL subcutaneous suspension ascorbic acid (vitamin C) 500 mg 500 mg PO DAILY 01/13/24 Unknown History tablet,extended release (C Complex) cholecalciferol (vitamin D3) 125 125 mcg PO DAILY 01/13/24 Unknown History mcg (5,000 unit) tablet (Vitamin D3) furosemide 20 mg tablet (Lasix) 20 mg PO DAILY 01/13/24 Unknown History hydralazine 10 mg tablet 10 mg PO TID 01/13/24 Unknown History losartan 25 mg tablet (Cozaar) 25 mg PO DAILY 01/13/24 Unknown History metoprolol tartrate 25 mg tablet 25 mg PO DAILY 01/13/24 Unknown History Allergy/AdvReac Type Severity Reaction Status Date / Time spironolactone AdvReac hyperkalemi Verified 05/03/25 22:54 a Family History Mother Heart disease 50 CVA (cerebral vascular accident) Father Heart disease 60 Diabetes CVA (cerebral vascular accident) Hypertension Sister Heart disease 48 Diabetes Grandfather CVA (cerebral vascular accident) Hypertension Grandmother CVA (cerebral vascular accident) Surgical History Hx of foot surgery History of left heart catheterization (09/25/15) History of right heart catheterization (02/2016) History of nasal septoplasty H/O coronary artery bypass surgery (03/19/16) History of ileostomy History of incision and drainage Biventricular ICD (implantable cardioverter-defibrillator) in place (08/16/16) Social History Smoking Status: Former smoker alcohol intake: never substance use type: does not use caffeine: Yes (monster 1 per day) Type: carbonated beverages Number of servings: 3 ROS ROS ED Constitutional Constitutional ED: Denies chills or fever(s) Eyes Eyes: Denies change in vision ENT ENT ED: Denies sore throat Cardiovascular Cardiovascular: Denies chest pain, palpitations or racing heartbeat Respiratory/Chest Respiratory/Chest: Reports dyspnea; Denies cough Gastrointestinal Gastrointestinal: Reports nausea and vomiting; Denies abdominal pain or diarrhea Genitourinary Genitourinary ED: Denies dysuria Musculoskeletal Musculoskeletal: Denies myalgias Integumentary Denies rash Neurologic Neurologic: Reports weakness and other Details: Family reports facial droop slurred speech and aphasia. Patient denies any other symptoms at this time ; Denies headache(s) Hematologic/Lymphatic Hematologic/Lymphatic: Denies easy bleeding or easy bruising EXAM Physical Exam Const Vital Signs: 05/03/25 22:54 05/03/25 22:54 05/03/25 23:41 Temperature 98.1 F 98.1 F Temperature Source Oral Oral Pulse Rate 91 91 Respiratory Rate 18 18 Respiratory Effort Short of Breath Respiratory Depth Normal Respiratory Pattern Tachypnea Blood Pressure 131/80 H 131/80 H Blood Pressure Mean 97 97 Pulse Ox 100 100 Oxygen Delivery Method Room Air Room Air Room Air 05/03/25 23:58 05/04/25 00:00 05/04/25 01:00 Temperature 98 F 98 F 98.3 F Temperature Source Oral Oral Oral Pulse Rate 89 87 89 Respiratory Rate 22 H 24 H 28 H Respiratory Effort Respiratory Depth Respiratory Pattern Blood Pressure 132/75 H 137/74 H 138/77 H Blood Pressure Mean 94 95 97 Pulse Ox 100 100 100 Oxygen Delivery Method Room Air Room Air Room Air 05/04/25 02:00 05/04/25 03:00 05/04/25 04:00 Temperature 97.9 F 98.4 F 97.9 F Temperature Source Oral Oral Oral Pulse Rate 91 85 86 Respiratory Rate 30 H 28 H 26 H Respiratory Effort Respiratory Depth Respiratory Pattern Blood Pressure 143/89 H 136/73 H 129/80 H Blood Pressure Mean 107 94 96 Pulse Ox 99 97 100 Oxygen Delivery Method Positive well nourished, well developed and obese General Appearance ED: well developed; Negative for pallor Nutritional Appearance: obese HEENT HEENT Narrative: Normocephalic atraumatic No tongue or lip swelling no oral lesions no airway edema or compromise No secondary findings in the posterior pharynx to suggest infection No tongue or cheek biting to suggest seizure activity Eyes PERRL and EOMs intact bilaterally General Eye ED: Negative for scleral icterus Neck supple and no JVD Neck Narrative: No nuchal rigidity or meningeal signs Resp Resp Narrative: Patient is tachypneic and breath sounds are diminished throughout with crackles in bilateral bases Cardio regular rate and regular rhythm GI normal to inspection, nondistended, normoactive bowel sounds, non-tender, non-distended and no masses GI Narrative: No voluntary guarding or rigidity or pulsatile mass Auscultation: normoactive bowel sounds Palpation: soft Extremity Extremity Narrative: Left below the knee amputation No soft tissue skin changes to suggest infection Neuro oriented x3, CN's II-XII intact bilaterally and no sensory deficits noted Neuro Narrative: GCS of 15 Cranial nerves II through XII are grossly intact without focal neurologic deficit No pronator drift or truncal ataxia Sensorium / Orientation: alert Motor Exam: strength 5/5 throughout Psych Psych Narrative: Patient has a flat affect Skin no rashes or lesions noted and No skin turgor normal Skin Narrative: No overlying soft tissue skin changes to suggest trauma or infection Skin turgor slightly increased General Skin Exam: Negative for jaundice or pallor MDM MDM MDM Narrative Medical decision making narrative: Patient arrived to the ER with stable vitals and reported spontaneous resolution of his shortness of breath nausea vomiting as well as reported neurologic symptoms. Patient could have had a transischemic attack or cardiac dysrhythmia or potential non-STEMI leading to his symptoms. There is also concern for electrolyte abnormality or potential worsening of congestive heart failure. As the patient is also a diabetic and takes insulin but does not check his blood sugar there is concern this could be hypoglycemic event. However the patient had a normal neurologic exam upon arrival to the ER and reported spontaneous resolution of symptoms without eating or drinking which would go against hypoglycemia as the cause of his symptoms despite the value being low upon lab draw in the ER. There was concern that this could be lab error and therefore a fingerstick was obtained which remained low and therefore he was given D10 and his blood sugar improved to approximate 120. A CTA of the head and neck was obtained secondary to the report of neurologic symptoms/TIA and revealed chronic findings without signs of large vessel occlusion. His initial and delta troponin were essentially flat at a value of 44 and 45 and this would go against non-STEMI as a cause of his shortness of breath and nausea/vomiting. At this time based on the patient's neurologic symptoms at home as well as significant cardiovascular disease I do feel he would warrant further workup and monitoring. The case was discussed with the hospitalist who is agreeable to this and therefore he will be admitted for continued evaluation and care. History & Record Review Discussion w/independent historian: Patient and Family Lab Data Attestation: I reviewed the patient's lab results. Labs: Laboratory Results - last 24 hr 05/03/25 05/04/25 23:35 01:50 WBC 8.5 RBC 3.29 L Hgb 8.9 L Hct 29.2 L MCV 88.8 MCH 27.1 MCHC 30.5 L RDW Std Deviation 50.4 H RDW Coeff of Fariba 15.6 H Plt Count 396 MPV 9.3 Immature Gran % (Auto) 0.400 Neut % (Auto) 84.2 H Lymph % (Auto) 5.8 L Bailey % (Auto) 8.1 Eos % (Auto) 0.6 Baso % (Auto) 0.9 Absolute Neuts (auto) 7.1 Absolute Lymphs (auto) 0.49 L Nucleated RBC % 0 PT 17.3 H INR 1.4 APTT 34.7 Sodium 140 Potassium 4.3 Chloride 106 Carbon Dioxide 19.8 L Anion Gap 14 BUN 23 H Creatinine 1.50 H Estim Creat Clear Calc 77.81 Est GFR (MDRD) Non-Af 57 L BUN/Creatinine Ratio 15.1 Glucose 37 L* Calcium 8.7 Magnesium 2.1 2.0 Troponin T High Sens 44 H Troponin T Hi Sens 2 Hr 45 H NT pro BNP II 6438 H Radiography Diagnostic Testing: Clinical Impression(s) from Imaging Studies Head/Neck CTA 05/04/25 00:44 IMPRESSION: Atherosclerosis with chronic multifocal high-grade stenosis. Reading Location: [place] [address] Chest X-Ray 05/04/25 01:33 IMPRESSION: Mild central pulmonary venous congestion. Reading Location: [place] [address] Chest x-ray as interpreted by the emergency medicine physician reveals cardiomegaly with pulmonary vascular congestion but no acute infiltrate or pneumothorax Management Discussion w/another healthcare provider: Hospitalist Discharge Plan Dx/Rx/DC Orders Clinical Impression: Chronic systolic (congestive) heart failure, Left bundle branch block (LBBB), TIA (transient ischemic attack), Essential (primary) hypertension, Hyperlipidemia, Insulin dependent diabetes mellitus, Hypoglycemia, Ischemic cardiomyopathy Disposition Disposition: Acute Care Hospital [facility] Discharge Date/Time: 05/04/25 05:23
[2025-05-04 04:56] LABS: Allen Test Positive; Base Excess -1 mmol/L (-2 to +2); PO2 96 mmHG (75-100); SITE L Radial; SO2 98 % (95-99)
[2025-05-04 05:02] LABS: Magnesium 2.0 mg/dL (1.5-2.2)
--- NOTE | 2025-05-04 05:36 | ECHOCS_ITS ---
Reason For Study Reason For Study: TIA/CVA Procedure This was a 2D Doppler, Color Flow transthoracic echocardiogram. The study was technically difficult. Contrast injection was performed. Exam performed portable in patient room. Left Ventricle Normal LV size. The left ventricular ejection fraction is 15 %. Stage 3 diastolic dysfunction. There is severe global hypokinesis of the left ventricle. Right Ventricle Normal RV size. Normal systolic function. Atria Normal left atrium. Normal right atrium. Mitral Valve Normal mitral valve. Tricuspid Valve Normal tricuspid valve. Aortic Valve Trisinus/trileaflet aortic valve. Pulmonic Valve Normal pulmonic valve. Great Vessels Normal aortic root. The pulmonary artery is normal size. Inferior vena cava collapse with respiration. Pericardium/Pleural No pericardial effusion. Medication Diluted definity 1.5ml given slow IV push to enhance endocardial definition. MMode/2D Measurements & Calculations LVIDd: 5.5 cm IVSd: 1.2 cm LVOT diam: 2.1 cm LVIDs: 5.1 cm LVPWd: 1.1 cm RVDd: 5.0 cm FS: 6.9 % LVOT area: 3.3 cm2 asc Aorta Diam: 3.1 cm LAV(MOD-bp): 62.6 ml LVAd ap4: 51.1 cm2 LAV(MOD-bp) Indexed: 27.1 ml/m2 LVLd ap4: 9.6 cm LAV(MOD-sp2): 62.1 ml EDV(MOD-sp4): 222.4 ml LAV(MOD-sp4): 58.0 ml EDV(sp4-el): 229.9 ml LVAs ap4: 48.7 cm2 LVLs ap4: 9.8 cm ESV(MOD-sp4): 201.4 ml ESV(sp4-el): 205.7 ml EF(MOD-sp4): 9.5 % EF(sp4-el): 10.5 % LVAd ap2: 62.7 cm2 SV(MOD-sp4): 21.0 ml SV(MOD-sp2): 47.0 ml LVLd ap2: 10.1 cm SI(MOD-sp4): 9.1 ml/m2 SI(MOD-sp2): 20.3 ml/m2 EDV(MOD-sp2): 318.6 ml EDV(sp2-el): 329.4 ml LVAs ap2: 57.5 cm2 LVLs ap2: 9.9 cm ESV(MOD-sp2): 271.6 ml ESV(sp2-el): 282.6 ml EF(MOD-sp2): 14.8 % SV(sp4-el): 24.2 ml Ao sinus diam: 3.[address] Junction: 2.6 cm LA dimension(2D): 5.4 cm LA A4 area: 19.8 cm2 RA A4 area: 18.9 cm2 TAPSE: 1.2 cm Time Measurements MV dec time: 0.12 sec Doppler Measurements & Calculations MV E max artemio: 101.4 cm/sec Lat Peak E' Artemio: 7.8 cm/sec Med Peak E' Artemio: 5.3 cm/sec MV A max artemio: 41.8 cm/sec E/E' lat: 13.0 E/E' med: 19.0 MV E/A: 2.4 MV dec slope: 876.2 cm/sec2 Ao V2 max: 107.3 cm/sec LV V1 max: 66.9 cm/sec Ao max P.6 mmHg LV V1 max P.8 mmHg Ao V2 mean: 85.1 cm/sec LV V1 mean P.2 mmHg Ao mean P.0 mmHg LV V1 mean: 53.7 cm/sec Ao V2 VTI: 18.2 cm LV V1 VTI: 12.6 cm AV (velocity ratio): 0.69 SHIVAM(I,D): 2.3 cm2 SHIVAM(V,D): 2.1 cm2 SV(LVOT): 42.0 ml PA V2 max: 99.4 cm/sec TR max artemio: 287.5 cm/sec TR max P.6 mmHg ECHO/Echo Complete W/ Contrast Interpretation Summary Normal LV size. The left ventricular ejection fraction is 15 %. Stage 3 diastolic dysfunction. Contrast injection was performed. Ordering Physician: Gricelda Ware Performed By: Sanam Quiroga RDCS
[2025-05-04] MEDS: 0.9% Normal Saline (1000mL) 1,000 ML 100 ML IV (06:12)
[2025-05-04 07:20] LABS: Hematocrit 27.7 % (40-54); Hemoglobin 8.5 g/dL (13.0-16.5); Immature Granulocytes Count 0.040 X10^3/uL (0.0-0.0); Mean Corp Hgb Conc 30.7 g/dL (32-36); Mean Corpuscular Volume 87.4 fL (80-94); Mean Platelet Vol. 8.8 fl (6.2-12.0); NRBC Flagged by Analyzer 0 % (0-5); POSITIVE DIFFERENTIAL YES; Platelet Count 328 K/mm3 (150-450); RBC Distribution Width CV 15.6 % (11.6-14.6); RBC Distribution Width SD 49.9 fl (35.1-43.9); Red Blood Count 3.17 M/mm3 (4.6-6.2); White Blood Count 8.6 K/mm3 (4.4-11.0)
[2025-05-04 08:08] LABS: AST(SGOT) 28 U/L (<=37); Alanine Aminotransfer ALT/SGPT 11 U/L (<=46); Albumin, Serum 3.5 g/dL (3.5-5.0); Alkaline Phosphatase 106 U/L (40-129); Anion Gap 13 (5-15); BUN 22 mg/dL (4-19); BUN/Creat Ratio 16.0 RATIO (10-20); Calcium,Total 8.5 mg/dL (7.6-11.0); Carbon Dioxide 18.4 mmol/L (21.0-32.0); Chloride 107 mmol/L (98-108); Estimated Creatinine Clearance 89.26 ml/min (50-250); Globulin 3.2 g/dL (2.2-4.2); Glucose 84 mg/dL (70-99); Potassium 4.5 mmol/L (3.3-5.1)
[2025-05-04 08:50] LABS: Ammonia 35.2 umol/L (16-60)
--- NOTE | 2025-05-04 09:59 | PN.HOSP_ITS ---
Reason for Visit Chief Complaint: Slurred speech, R facial droop, possible aphasia, confusion. Subjective Subjective Patient is a 49-year-old gentleman who was brought to the hospital by the on account of progressive shortness of breath. Patient was also reported to have experienced slurred speech. Imaging studies obtained on admission did show central pulmonary venous congestion.. Admitted to a monitored bed as a case of possible TIA and congestive heart failure Objective Data Objective Data Vital Signs: Vital Signs Temp Pulse Resp BP Pulse Ox O2 Del Method 97.5 F L 95 18 145/82 H 100 Room Air 05/04/25 05:36 05/04/25 05:36 05/04/25 05:36 05/04/25 05:36 05/04/25 05:36 05/04/25 06:18 Oxygen Delivery Method Room Air Weight: 122 kg Body Mass Index (BMI) 38.5 Intake & Output: Intake and Output for Last 24 Hours 05/02/25 05/03/25 05/04/25 23:59 23:59 23:59 Output Total 200 / 200 Balance -200 / -200 Lab / Micro Data 05/04/25 07:07 05/04/25 07:07 Labs: Laboratory Results - last 24 hr 05/03/25 23:35: WBC 8.5, RBC 3.29 L, Hgb 8.9 L, Hct 29.2 L, MCV 88.8, MCH 27.1, MCHC 30.5 L, RDW Std Deviation 50.4 H, RDW Coeff of Fariba 15.6 H, Plt Count 396, MPV 9.3, Immature Gran % (Auto) 0.400, Neut % (Auto) 84.2 H, Lymph % (Auto) 5.8 L, Burke % (Auto) 8.1, Eos % (Auto) 0.6, Baso % (Auto) 0.9, Absolute Neuts (auto) 7.1, Absolute Lymphs (auto) 0.49 L, Nucleated RBC % 0, PT 17.3 H, INR 1.4, APTT 34.7, Sodium 140, Potassium 4.3, Chloride 106, Carbon Dioxide 19.8 L, Anion Gap 14, BUN 23 H, Creatinine 1.50 H, Estim Creat Clear Calc 77.81, Est GFR (MDRD) Non-Af 57 L, BUN/Creatinine Ratio 15.1, Glucose 37 L*, Calcium 8.7, Magnesium 2.1, Troponin T High Sens 44 H, NT pro BNP II 6438 H 05/04/25 01:50: Magnesium 2.0, Troponin T Hi Sens 2 Hr 45 H 05/04/25 04:47: POC Glucose 69 L 05/04/25 05:38: POC Glucose 62 L 05/04/25 06:07: POC Glucose 74 05/04/25 07:07: WBC 8.6, RBC 3.17 L, Hgb 8.5 L, Hct 27.7 L, MCV 87.4, MCH 26.8 L , MCHC 30.7 L, RDW Std Deviation 49.9 H, RDW Coeff of Fariba 15.6 H, Plt Count 328, MPV 8.8, Immature Gran % (Auto) 0.500, Neut % (Auto) 81.5 H, Lymph % (Auto) 6.8 L, Burke % (Auto) 9.7, Eos % (Auto) 0.6, Baso % (Auto) 0.9, Absolute Neuts (auto) 7.0, Absolute Lymphs (auto) 0.58 L, Nucleated RBC % 0, Sodium 138, Potassium 4.5, Chloride 107, Carbon Dioxide 18.4 L, Anion Gap 13, BUN 22 H, Creatinine 1.34 H, Estim Creat Clear Calc 89.26, Est GFR (MDRD) Non-Af 66, BUN/Creatinine Ratio 16.0, Glucose 84, Hemoglobin A1c Cancelled, Calcium 8.5, Total Bilirubin 1.24, AST 28, ALT 11, Alkaline Phosphatase 106, Total Protein 6.7, Albumin 3.5, Globulin 3.2, Albumin/Globulin Ratio 1.1, TSH 2.330 05/04/25 08:17: Ammonia 35.2 ABG Data ABG results: ABG 05/04/25 04:52 Specimen Type ART Sample Site L Radial pH 7.48 H Bicarbonate Actual 22.1 Total CO2 23 Base Excess -1 O2 Saturation 98 ABG pCO2 29.5 L ABG pO2 96 Zachariah Test Positive O2 Delivery Device Room Air Vent Mode Not entered Radiography Diagnostic Testing: Radiology Impression Head/Neck CTA 05/04/25 00:44 IMPRESSION: Atherosclerosis with chronic multifocal high-grade stenosis. [facility] Chest [facility]-Ray 05/04/25 01:33 IMPRESSION: Mild central pulmonary venous congestion. [facility] Physical Exam Narrative GENERAL: cooperative HEENT: Atraumatic; normocephalic EYES; Anicteric, Normal Conjunctiva NECK; supple, normal thyroid, RESPIRATORY: Diminished to auscultation CARDIOVASCULAR: Regular S1 S2, GI: soft, normoactive bowel sounds, : No Renal angle tenderness; EXTREMITIES: No edema, no clubbing, MUSCULOSKELETAL: no muscle wasting NEURO: Awake; no lateralizing signs. SKIN: No Rash PSYCH; Flat affect Assessment & Plan Assessment/Plan (1) Hypoglycemia: (2) TIA (transient ischemic attack): (3) CHF exacerbation: QUALIFIERS: Heart failure type: systolic Qualified Code(s): I 50.23 - Acute on chronic systolic (congestive) heart failure PLAN: Plan Patient is a 49-year-old gentleman who was brought to the hospital by the on account of progressive shortness of breath. Patient was also reported to have experienced slurred speech. Imaging studies obtained on admission did show central pulmonary venous congestion.. Admitted to a monitored bed as a case of possible TIA and congestive heart failure 1. Acute on chronic congestive heart failure with reduced ejection fraction ? Patient admitted to monitored bed manage with strict input and output, daily weight low-sodium diet as well as diuretic therapy with furosemide. Echo from 03/23/2024 demonstrated EF of 15%. Repeat echo ordered for EF assessment. 2. Transient ischemic attack ? Patient presented with slurred speech and subjective left facial droop initial head CT was negative. An MRI could not be obtained in view of patient having An AICD in place 3. Diabetes mellitus type 2 ? Patient presented with complications including hypoglycemia patient blood glucose was apparently in the 30s. Patient long-acting insulin held given dextrose subsequently monitoring with Accu-Cheks every 4 hours 4. Peripheral arterial disease ? With previous history of Left BKA 5. Coronary artery disease ? With previous CABG and subsequent ischemic cardiomyopathy 6. Ischemic cardiomyopathy ? Status post AICD placement 7. Hypertension ? Blood pressure controlled, home medications continued with dose adjustment as needed 8. Dyslipidemia ?Patient is on statin therapy, continued at home dose 9. Tobacco dependence ? Counseled on cessation, offered nicotine patch for tobacco cravings 10. Class II obesity with BMI of 38.6 ? Complicating care weight loss advised 11. Obstructive sleep apnea ? Consistent use of PAP therapy encouraged 12. Anemia ? Secondary to chronic disorder monitoring H&H and transfuse if patient becomes symptomatic or hemoglobin falls below 7 13. Acute kidney injury ? Patient baseline creatinine from 04/07/2024 was 0.92 creatinine on admission was 1.50 do expect improvement in kidney function with diuresis 14. DVT prophylaxis ? On enoxaparin Time spent in the patient's overall evaluation,decision-making process, review of diagnostic data, adjustment of management, discussion with other providers, nursing nursing and ancillary staff involved in patient's care documentation 45 Minutes Charges/Coding Multi Select Codes Visit Charges Visit Charges: 25089 PROLNG IP/OBS E/M EA 15 MIN (22505, [id number], [id number]) NIHSS NIHSS Nursing Documentation NIHSS Nursing Documentation: NIHSS: Ischemic Stroke/TIA Start: 05/04/25 05:36 Text: For PCU Patients: NIH and Neuro Check every 4 Status: Active hours, PRN and with change in RN caregiver. Freq: [id number] Protocol: Activity Type Activity Date Activity User E-sign Co-sign Detail Recorded Client Recorded Date Recorded By Document 05/04/25 05:56 MB [id number] 05/04/25 05:59 MB 05/04/25 05:56 NIH Stroke Scale [NIHSS] A score of 0 is normal or asymptomatic . Total possible score is 42. Inpatient: RN or Physician to activate a stroke alert for onset of new stroke symptoms or with NIHSS increase >/= 3 points. Following change in neurological status, NIHSS will be performed per physician order or more frequently PRN. -1a. Level of Consciousness 0 - Alert; keenly responsive -1b. LOC Questions 0 - Answers BOTH questions correctly -1c. LOC Commands 0 - Performs BOTH tasks correctly -2. Best Gaze 0 - Normal -3. Visual 0 - No visual loss -4. Facial Palsy 0 - Normal symmetrical movements -5a. Left Arm 0 - No drift; arm holds 90 ( or 45) degrees for full 10 seconds -5b. Right Arm 0 - No drift; arm holds 90 ( or 45) degrees for full 10 seconds -6a. Left Leg 0 - No drift; leg holds 30- degree position for full 5 seconds -6b. Right Leg 0 - No drift; leg holds 30- degree position for full 5 seconds -7. Limb Ataxia 0 - Absent -8. Sensory 0 - Normal; no sensory loss -9. Best Language 0 - No aphasia; normal -10. Dysarthria 0 - Normal -11. Extinction and Inattention 0 - No abnormality -Total 0 Query Text:A score of 0 is normal or asymptomatic. Total possible score is 42 . ED: Notify Physician for NIHSS increase by > / = 3 points. Inpatient: RN or Physician to activate a stroke alert for NIHSS increase of > / = 3 points. Coma Scale [Assess] -Eye Opening Spontaneous -Motor Obeys Commands -Verbal Oriented [Total] -Coma Scale Total 15
[2025-05-04] MEDS: Aspirin E.C. 81 MG Tablet PO (10:37)
--- NOTE | 2025-05-04 13:05 | CASEMGMT ---
SALIMA MARTINES Assessment Face to Face with patient for initial transition planning/care coordination assessment. SALIMA MARTINES introduced self and role at [facility], pt voices understanding. Pt is A&Ox4 and is resting comfortably in bed and is calm. Care providers, pharmacy, and demographics verified. Admitting dx: TIA PCP: [facility] Specialists: Denies Preferred Pharmacy: [facility] Insurance: MCR A/B, LIN/[employer]. Pt states that he does not have a CM through his insurance Prescription Benefit: Yes LNOK: [place] (W) Living Arrangements: Pt lives with his and 2 sons (Ages 10 and 17) in a mobile home with 3 steps to enter ADLs/IADLs: Indep. PT states that they do not recommend any additional therapy Transportation: DME: [facility], [facility]. Pt states that he does not have a BGM or supplies to check his BS levels and states that he would be receptive to an Rx. Pt states that he does not have a scale to weigh himself regarding his CHF. Encouraged the pt to purchase one. HHC/SNF:Hx at [facility]. Denies hx of HH Pt?s goal: Home Plan: Home with family with BGM and supplies rx. Follow echo results. At this time, the pt states that he feels safe returning home with his family once he is medically ready and denies the need for any HHC or any additional therapy or resources. Report given to PUBLICITY CONSULTANT CM. Semaj Humphrey RN, CM
--- NOTE | 2025-05-04 13:51 | NEURO.CONS ---
Assessment and Plan: Neuro Assessment/Plan Telestroke (Audio/video) Attending Consult Note - 05/04/2025 49 y/o man with h/o morbid obesity, JAIDEN, Former tobacco use, HFrEF/ischemic cardiomyopathy, CAD status post CABG, HTN, HLD, GERD w/ Hx PUD, CKD stage II versus progressed to stage III unclear subtype, Chronic normocytic anemia, Diabetes mellitus type II p/w dyspnea as well as nausea and emesis with altered sensorium along with medication non-compliance. There was a reported episode of slurred speech, right facial droop, difficulty expressing himself/confusion per family report starting approximately 2 hours prior to ED arrival although improving prompting eventual ED evaluation to be cautious. In the ED patient completely resolved. CTD head- no acute intracranial process. CTA- LICA high grade stenosis. Also found to have low BG of 37. This AM, patient reports feeling better. NIHSS-0 with left BKA, sitting comfortably in a chair. Diagnosis: Symptomatic LICA Plan: Add plavix to ASA along with statin. Unable to obtain MRI due to AICD. Follow up lipid profile and A1c along with TTE. Given significant LICA stenosis, consult vascular surgery for possible revascularization. OT/PT/[facility]. Control of vascular risk factors. Sign off for now. Please call back for any questions. I personally attended this patient and spent a total time of 71 minutes evaluating this patient including clinical assessment, review of chart, medical history imaging, and determining appropriate treatment and workup. HPI Consult Data Date of Consult: 05/05/25 HPI Narrative HPI Narrative: 49 y/o man with h/o morbid obesity, JAIDEN, Former tobacco use, HFrEF/ischemic cardiomyopathy, CAD status post CABG, HTN, HLD, GERD w/ Hx PUD, CKD stage II versus progressed to stage III unclear subtype, Chronic normocytic anemia, Diabetes mellitus type II p/w dyspnea as well as nausea and emesis with altered sensorium along with medication non-compliance. There was a reported episode of slurred speech, right facial droop, difficulty expressing himself/confusion per family report starting approximately 2 hours prior to ED arrival although improving prompting eventual ED evaluation to be cautious. In the ED patient completely resolved. CTD head- no acute intracranial process. CTA- LICA high grade stenosis. Also found to have low BG of 37. This AM, patient reports feeling better. NIHSS-0 with left BKA, sitting comfortably in a chair. [facility] Medical History Osteomyelitis Atherosclerosis of lower extremity with ulceration Old myocardial infarct Peripheral vascular occlusive disease Obesity PUD (peptic ulcer disease) Obstructive sleep apnea Nicotine dependence Left bundle branch block (LBBB) Chronic systolic (congestive) heart failure Natalya gangrene Essential (primary) hypertension Hyperlipidemia Type 2 diabetes mellitus Atherosclerosis of coronary artery without angina pectoris Ischemic cardiomyopathy Paroxysmal ventricular tachycardia Home Medications ?Medication ?Instructions ?Recorded ?Last Taken ?Type aspirin 81 mg tablet,delayed 81 mg PO DAILY 11/03/19 05/03/25 History release (Adult Aspirin Regimen) hydralazine 10 mg tablet 10 mg PO TID 01/13/24 05/03/25 History losartan 25 mg tablet (Cozaar) 25 mg PO DAILY 01/13/24 05/03/25 History metoprolol tartrate 25 mg tablet 25 mg PO DAILY 01/13/24 05/03/25 History Allergy/AdvReac Type Severity Reaction Status Date / Time spironolactone AdvReac hyperkalemi Verified 05/03/25 22:54 a Family History Mother Heart disease 50 CVA (cerebral vascular accident) Father Heart disease 60 Diabetes CVA (cerebral vascular accident) Hypertension Sister Heart disease 48 Diabetes Grandfather CVA (cerebral vascular accident) Hypertension Grandmother CVA (cerebral vascular accident) Surgical History Hx of foot surgery History of left heart catheterization (09/25/15) History of right heart catheterization (02/2016) History of nasal septoplasty H/O coronary artery bypass surgery (03/19/16) History of ileostomy History of incision and drainage Biventricular ICD (implantable cardioverter-defibrillator) in place (08/16/16) Social History Smoking Status: Current every day smoker tobacco type: cigarettes alcohol intake: never substance use type: does not use caffeine: Yes (monster 1 per day) Type: carbonated beverages Number of servings: 3 Vital Signs Vital Signs Vital Signs: 05/03/25 22:54 05/03/25 22:54 05/03/25 23:41 Temperature 98.1 F 98.1 F Temperature Source Oral Oral Pulse Rate 91 91 Respiratory Rate 18 18 Respiratory Effort Short of Breath Respiratory Depth Normal Respiratory Pattern Tachypnea Blood Pressure 131/80 H 131/80 H Blood Pressure Mean 97 97 Pulse Ox 100 100 Oxygen Delivery Method Room Air Room Air Room Air 05/03/25 23:58 05/04/25 00:00 05/04/25 01:00 Temperature 98 F 98 F 98.3 F Temperature Source Oral Oral Oral Pulse Rate 89 87 89 Respiratory Rate 22 H 24 H 28 H Respiratory Effort Respiratory Depth Respiratory Pattern Blood Pressure 132/75 H 137/74 H 138/77 H Blood Pressure Mean 94 95 97 Pulse Ox 100 100 100 Oxygen Delivery Method Room Air Room Air Room Air 05/04/25 02:00 05/04/25 03:00 05/04/25 04:00 Temperature 97.9 F 98.4 F 97.9 F Temperature Source Oral Oral Oral Pulse Rate 91 85 86 Respiratory Rate 30 H 28 H 26 H Respiratory Effort Respiratory Depth Respiratory Pattern Blood Pressure 143/89 H 136/73 H 129/80 H Blood Pressure Mean 107 94 96 Pulse Ox 99 97 100 Oxygen Delivery Method 05/04/25 04:53 05/04/25 05:36 05/04/25 06:18 Temperature 97.7 F L 97.5 F L Temperature Source Oral Pulse Rate 88 95 Respiratory Rate 28 H 18 Respiratory Effort Normal Short of Breath Respiratory Depth Respiratory Pattern Blood Pressure 141/77 H 145/82 H Blood Pressure Mean 98 103 Pulse Ox 95 100 Oxygen Delivery Method Room Air Room Air 05/04/25 11:00 Temperature 97.9 F Temperature Source Oral Pulse Rate 89 Respiratory Rate 18 Respiratory Effort Respiratory Depth Respiratory Pattern Blood Pressure 128/80 H Blood Pressure Mean 96 Pulse Ox 98 Oxygen Delivery Method Weight Weight: 122 kg Body Mass Index (BMI) 38.5 EEG Results Procedure Details EEG Procedure Details: HARRISON GARCIA is a 49 year old M with a past medical history of , who presents for evaluation of Electroencephalogram on DATE at TIME Physical Exam Narrative General: The patient appears nutritionally appropriate, well-groomed, and appears comfortable in no acute distress. Mental Status:? The patient?s mental status was normal including orientation.? Language was intact.? Cranial nerves:? Visual donahue full, and extra-ocular motion was intact. Symmetric face. Motor: Normal strength in all extremities. Sensation: Intact to touch in all extremities.? Coordination:? Bilateral finger to nose was normal.? There was no dysmetria. Gait:? deferred. Lab / Micro Data 05/05/25 05:07 05/05/25 05:07 Labs: Laboratory Results - last 24 hr 05/03/25 23:35: WBC 8.5, RBC 3.29 L, Hgb 8.9 L, Hct 29.2 L, MCV 88.8, MCH 27.1, MCHC 30.5 L, RDW Std Deviation 50.4 H, RDW Coeff of Fariba 15.6 H, Plt Count 396, MPV 9.3, Immature Gran % (Auto) 0.400, Neut % (Auto) 84.2 H, Lymph % (Auto) 5.8 L, [place] % (Auto) 8.1, Eos % (Auto) 0.6, Baso % (Auto) 0.9, Absolute Neuts (auto) 7.1, Absolute Lymphs (auto) 0.49 L, Nucleated RBC % 0, PT 17.3 H, INR 1.4, APTT 34.7, Sodium 140, Potassium 4.3, Chloride 106, Carbon Dioxide 19.8 L, Anion Gap 14, BUN 23 H, Creatinine 1.50 H, Estim Creat Clear Calc 77.81, Est GFR (MDRD) Non-Af 57 L, BUN/Creatinine Ratio 15.1, Glucose 37 L*, Calcium 8.7, Magnesium 2.1, Troponin T High Sens 44 H, NT pro BNP II 6438 H 05/04/25 01:50: Magnesium 2.0, Troponin T Hi Sens 2 Hr 45 H 05/04/25 04:47: POC Glucose 69 L 05/04/25 05:38: POC Glucose 62 L 05/04/25 06:07: POC Glucose 74 05/04/25 07:07: WBC 8.6, RBC 3.17 L, Hgb 8.5 L, Hct 27.7 L, MCV 87.4, MCH 26.8 L, MCHC 30.7 L, RDW Std Deviation 49.9 H, RDW Coeff of Fariba 15.6 H, Plt Count 328, MPV 8.8, Immature Gran % (Auto) 0.500, Neut % (Auto) 81.5 H, Lymph % (Auto) 6.8 L, [place] % (Auto) 9.7, Eos % (Auto) 0.6, Baso % (Auto) 0.9, Absolute Neuts (auto) 7.0, Absolute Lymphs (auto) 0.58 L, Nucleated RBC % 0, Sodium 138, Potassium 4.5, Chloride 107, Carbon Dioxide 18.4 L, Anion Gap 13, BUN 22 H, Creatinine 1.34 H, Estim Creat Clear Calc 89.26, Est GFR (MDRD) Non-Af 66, BUN/Creatinine Ratio 16.0, Glucose 84, Hemoglobin A1c Cancelled, Calcium 8.5, Total Bilirubin 1.24, AST 28, ALT 11, Alkaline Phosphatase 106, Total Protein 6.7, Albumin 3.5, Globulin 3.2, Albumin/Globulin Ratio 1.1, TSH 2.330 05/04/25 08:17: Ammonia 35.2 05/04/25 11:27: POC Glucose 78 ABG Data ABG results: ABG 05/04/25 04:52 Specimen Type ART Sample Site L Radial pH 7.48 H Bicarbonate Actual 22.1 Total CO2 23 Base Excess -1 O2 Saturation 98 ABG pCO2 29.5 L ABG pO2 96 Zachariah Test Positive O2 Delivery Device Room Air Vent Mode Not entered Imaging Radiology Impression Head/Neck CTA 05/04/25 00:44 IMPRESSION: Atherosclerosis with chronic multifocal high-grade stenosis. Reading Location: [place] [address] Chest X-Ray 05/04/25 01:33 IMPRESSION: Mild central pulmonary venous congestion. Reading Location: [place] [address] Active Medications Active Medications Active Medications: Current Medications Generic Name Dose Route Start Last Admin Trade Name Freq PRN Reason Stop Dose Admin Acetaminophen 650 mg 05/04/25 05:36 Acetaminophen 325 Mg Tablet PO Q4H PRN PRN Fever, pain 1-05/13 Al Hydroxide/Mg Hydroxide 30 ml 05/04/25 05:36 Mag Hydrox/Al Hydrox/Simeth 30 Ml Udc PO Q6H PRN PRN Gastric Burning Albuterol Sulfate 2.5 mg 05/04/25 05:36 Albuterol 2.5 Mg/3 Ml Vial.Neb. INHALATION Q2H PRN PRN Dyspnea, wheezing Aspirin 81 mg 05/04/25 08:00 05/04/25 10:37 Aspirin E.C. 81 Mg Tablet PO 81 mg BREAKFAST LYNN Administration Atorvastatin Calcium 80 mg 05/04/25 22:00 Atorvastatin Calcium 80 Mg Tablet PO QHS LYNN Calamine/Phenol 1 applic 05/04/25 10:00 05/04/25 13:41 Menthol/Lanolin/Calamine/Znox 113 Gm Tube TOPICAL 1 applic 4X/DAY LYNN Administration Protocol Enoxaparin Sodium 40 mg 05/04/25 10:00 05/04/25 10:37 Enoxaparin 40 Mg/0.4 Ml Syringe SC 40 mg BID LYNN Administration Furosemide 40 mg 05/04/25 10:10 05/04/25 13:41 Furosemide 40 Mg/4 Ml Vial IV 40 mg Q8 LYNN Administration Glucagon 1 mg 05/04/25 05:36 Glucagon 1 Mg/Ml Syringe IM X1 PRN HYPOGLYCEMIA Protocol Guaifenesin 20 ml 05/04/25 05:36 Guaifenesin 10 Ml Udc (200mg/10ml) PO Q4H PRN PRN COUGH Hydralazine HCl 5 mg 05/04/25 05:36 Hydralazine 20 Mg/Ml Vial IV 05/05/25 05:36 Q30M PRN maintain BP parameters with HR <60 Sodium Chloride 1,000 mls @ 100 mls/hr 05/04/25 05:36 05/04/25 06:12 IV 05/04/25 15:35 100 mls/hr .Q10H LYNN Administration Dextrose 250 mls @ 0 mls/hr 05/04/25 05:36 Dextrose 10%-Water IV .Q0M PRN HYPOGLYCEMIA Protocol As Directed Sodium Chloride 250 mls @ 15 mls/hr 05/04/25 05:50 IV .[id number] PRN Saline Flush Sodium Chloride 250 mls @ 15 mls/hr 05/04/25 05:50 IV .[id number] PRN Additional IVPB Infusion Insulin Human Lispro 0 unit 05/04/25 07:00 05/04/25 11:42 Insulin Lispro 100 Unit/Ml Insuln.Pen SC Not Given ACHS LYNN Protocol Labetalol HCl 10 - 20 mg 10/01/25 05:36 Labetalol 20 Mg/4 Ml Vial IV 05/05/25 05:36 Q10M PRN PRN maintain BP parameters with HR >/=60 Melatonin 3 mg 05/04/25 05:36 Melatonin 3 Mg Tablet PO QHS PRN PRN INSOMNIA Nitroglycerin 0.4 mg 05/04/25 05:36 Nitroglycerin (Inpatient Use) 0.4 Mg Tab.Subl SL Q5M PRN CARDIAC/CHEST PAIN Ondansetron HCl 4 mg 05/04/25 05:36 Ondansetron 4 Mg/2 Ml Vial IV Q8H PRN PRN NAUSEA/VOMITING Senna/Docusate Sodium 2 tablet 05/04/25 05:36 Senna/Docusate Sodium 1 Tablet PO BID PRN PRN Constipation Sodium Chloride 2 - 6 ml 05/04/25 05:50 0.9% Saline Lock 10 Ml Syringe IV UD PRN Pediatric Saline Flush NIHSS NIHSS Nursing Documentation NIHSS Nursing Documentation: NIHSS: Ischemic Stroke/TIA Start: 05/04/25 05:36 Text: For PCU Patients: NIH and Neuro Check every 4 Status: Active hours, PRN and with change in RN caregiver. Freq: [id number] Protocol: Activity Type Activity Date Activity User E-sign Co-sign Detail Recorded Client Recorded Date Recorded By Document 05/04/25 10:00 BARBRA [id number] 05/04/25 10:33 BARBRA 05/04/25 10:00 NIH Stroke Scale [NIHSS] A score of 0 is normal or asymptomatic . Total possible score is 42. Inpatient: RN or Physician to activate a stroke alert for onset of new stroke symptoms or with NIHSS increase >/= 3 points. Following change in neurological status, NIHSS will be performed per physician order or more frequently PRN. -1a. Level of Consciousness 0 - Alert; keenly responsive -1b. LOC Questions 0 - Answers BOTH questions correctly -1c. LOC Commands 0 - Performs BOTH tasks correctly -2. Best Gaze 0 - Normal -3. Visual 0 - No visual loss -4. Facial Palsy 0 - Normal symmetrical movements -5a. Left Arm 0 - No drift; arm holds 90 ( or 45) degrees for full 10 seconds -5b. Right Arm 0 - No drift; arm holds 90 ( or 45) degrees for full 10 seconds -6a. Left Leg 0 - No drift; leg holds 30- degree position for full 5 seconds -6b. Right Leg 0 - No drift; leg holds 30- degree position for full 5 seconds -7. Limb Ataxia 0 - Absent -8. Sensory 0 - Normal; no sensory loss -9. Best Language 0 - No aphasia; normal -10. Dysarthria 0 - Normal -11. Extinction and Inattention 0 - No abnormality -Total 0 Query Text:A score of 0 is normal or asymptomatic. Total possible score is 42 . ED: Notify Physician for NIHSS increase by > / = 3 points. Inpatient: RN or Physician to activate a stroke alert for NIHSS increase of > / = 3 points. Coma Scale [Assess] -Eye Opening Spontaneous -Motor Obeys Commands -Verbal Oriented [Total] -Coma Scale Total 15
--- NOTE | 2025-05-04 16:03 | CASEMGMT ---
Social Work SW completed a PHQ9 with the patient and he scored a 0. L. MAITE Stephen
--- NOTE | 2025-05-04 18:45 | EX.PCM.CON.S ---
Assessment & Plan Assessment/Plan (1) Left carotid stenosis: PLAN: Plan Head/Neck CTA images reviewed with Dr. Gordon; he has severe L ICA stenosis which is at threshold for surgical intervention; also notable that he has significant intracranial vascular disease as well. I discussed these findings with patient; discussed options including CEA and carotid stent. Discussed that given his significant cardiac history he is likely to be high risk for general anesthesia in which case a transfemoral carotid stent may be his best option for carotid intervention though he has an elevated risk of subsequent stent thrombosis due to his intracranial disease as well. We discussed that given his significant medical comorbidities he may be best served at a tertiary care center; he indicated he would much prefer to remain local in [place] if possible. Will await updated echo results to assist with risk stratification. Whether here or at tertiary care center, appropriate to coordinate intervention on an outpatient basis and to maximize medical management in the interim. Recommend DAPT with ASA 81mg daily and Brilinta 90mg BID in addition to high-intensity statin. HPI Consult Data Date of Consult: 05/04/25 HPI Narrative HPI Narrative: HARRISON GARCIA, is a 49 M for who we are consulted regarding carotid stenosis in the setting of possible TIA. Patient reports he presented to the [facility] ER this morning after a couple hours of slurred speech at home; he notes that as he arrived to the ER the slurred speech resolved. He reports to me no other associated symptoms, he specifically denies any weakness, paresthesias/numbness, facial droop, vision loss, lightheadedness, headache, sweating. He reports that he did not eat much yesterday and his glucose was 37 on presentation to the ER, but he notes his symptoms got better before anything was administered in the ER. He reports no episodes of similar symptoms previously, denies any knowledge of prior stroke. He has a history of poor compliance with medications and follow-up in general. He has severe cardiac disease s/p CABG x3 and ischemic cardiomyopathy with reduced EF (15% in 2023) and history of ICD that he reports was removed due to infection and then he never followed up for consult to have a new one placed. He smokes. [facility] Medical History Osteomyelitis Atherosclerosis of lower extremity with ulceration Old myocardial infarct Peripheral vascular occlusive disease Obesity PUD (peptic ulcer disease) Obstructive sleep apnea Nicotine dependence Left bundle branch block (LBBB) Chronic systolic (congestive) heart failure Natalya gangrene Essential (primary) hypertension Hyperlipidemia Type 2 diabetes mellitus Atherosclerosis of coronary artery without angina pectoris Ischemic cardiomyopathy Paroxysmal ventricular tachycardia Home Medications ?Medication ?Instructions ?Recorded ?Last Taken ?Type aspirin 81 mg tablet,delayed 81 mg PO DAILY 11/03/19 05/03/25 History release (Adult Aspirin Regimen) hydralazine 10 mg tablet 10 mg PO TID 01/13/24 05/03/25 History losartan 25 mg tablet (Cozaar) 25 mg PO DAILY 01/13/24 05/03/25 History metoprolol tartrate 25 mg tablet 25 mg PO DAILY 01/13/24 05/03/25 History Allergy/AdvReac Type Severity Reaction Status Date / Time spironolactone AdvReac hyperkalemi Verified 05/03/25 22:54 a Family History Mother Heart disease 50 CVA (cerebral vascular accident) Father Heart disease 60 Diabetes CVA (cerebral vascular accident) Hypertension Sister Heart disease 48 Diabetes Grandfather CVA (cerebral vascular accident) Hypertension Grandmother CVA (cerebral vascular accident) Surgical History Hx of foot surgery History of left heart catheterization (09/25/15) History of right heart catheterization (02/2016) History of nasal septoplasty H/O coronary artery bypass surgery (03/19/16) History of ileostomy History of incision and drainage Biventricular ICD (implantable cardioverter-defibrillator) in place (08/16/16) Social History Smoking Status: Former smoker alcohol intake: never substance use type: does not use caffeine: Yes (monster 1 per day) Type: carbonated beverages Number of servings: 3 Physical Exam Const alert, oriented x3 and no apparent distress General Appearance: comfortable and appears older than stated age HEENT normocephalic, head/scalp atraumatic, hearing grossly normal bilaterally, external ears normal and external nose normal Eyes General Eye: normal appearance of both eyes Neck General: normal visual inspection and trachea midline Resp Effort and Inspection: able to speak in complete sentences; Negative for labored, grunting or stridor Cardio regular rate and regular rhythm Extremity Extremity Narrative: s/p L BKA Neuro oriented x3, CN's II-XII intact bilaterally and moves all extremities Speech: speech normal Psych mental status grossly normal Appearance: grossly normal Speech: normal speech Lab / Micro Data 05/04/25 07:07 05/04/25 07:07 Labs: Laboratory Results - last 24 hr 05/03/25 23:35: WBC 8.5, RBC 3.29 L, Hgb 8.9 L, Hct 29.2 L, MCV 88.8, MCH 27.1, MCHC 30.5 L, RDW Std Deviation 50.4 H, RDW Coeff of Fariba 15.6 H, Plt Count 396, MPV 9.3, Immature Gran % (Auto) 0.400, Neut % (Auto) 84.2 H, Lymph % (Auto) 5.8 L, [place] % (Auto) 8.1, Eos % (Auto) 0.6, Baso % (Auto) 0.9, Absolute Neuts (auto) 7.1, Absolute Lymphs (auto) 0.49 L, Nucleated RBC % 0, PT 17.3 H, INR 1.4, APTT 34.7, Sodium 140, Potassium 4.3, Chloride 106, Carbon Dioxide 19.8 L, Anion Gap 14, BUN 23 H, Creatinine 1.50 H, Estim Creat Clear Calc 77.81, Est GFR (MDRD) Non-Af 57 L, BUN/Creatinine Ratio 15.1, Glucose 37 L*, Calcium 8.7, Magnesium 2.1, Troponin T High Sens 44 H, NT pro BNP II 6438 H 05/04/25 01:41: POC Glucose 32 L* 05/04/25 01:50: Magnesium 2.0, Troponin T Hi Sens 2 Hr 45 H 05/04/25 02:15: POC Glucose 120 H 05/04/25 04:47: POC Glucose 69 L 05/04/25 05:38: POC Glucose 62 L 05/04/25 06:07: POC Glucose 74 05/04/25 07:07: WBC 8.6, RBC 3.17 L, Hgb 8.5 L, Hct 27.7 L, MCV 87.4, MCH 26.8 L, MCHC 30.7 L, RDW Std Deviation 49.9 H, RDW Coeff of Fariba 15.6 H, Plt Count 328, MPV 8.8, Immature Gran % (Auto) 0.500, Neut % (Auto) 81.5 H, Lymph % (Auto) 6.8 L, [place] % (Auto) 9.7, Eos % (Auto) 0.6, Baso % (Auto) 0.9, Absolute Neuts (auto) 7.0, Absolute Lymphs (auto) 0.58 L, Nucleated RBC % 0, Sodium 138, Potassium 4.5, Chloride 107, Carbon Dioxide 18.4 L, Anion Gap 13, BUN 22 H, Creatinine 1.34 H, Estim Creat Clear Calc 89.26, Est GFR (MDRD) Non-Af 66, BUN/Creatinine Ratio 16.0, Glucose 84, Hemoglobin A1c Cancelled, Calcium 8.5, Total Bilirubin 1.24, AST 28, ALT 11, Alkaline Phosphatase 106, Total Protein 6.7, Albumin 3.5, Globulin 3.2, Albumin/Globulin Ratio 1.1, TSH 2.330 05/04/25 08:17: Ammonia 35.2 05/04/25 11:27: POC Glucose 78 05/04/25 17:52: POC Glucose 117 H ABG Data ABG results: ABG 05/04/25 04:52 Specimen Type ART Sample Site L Radial pH 7.48 H Bicarbonate Actual 22.1 Total CO2 23 Base Excess -1 O2 Saturation 98 ABG pCO2 29.5 L ABG pO2 96 Zachariah Test Positive O2 Delivery Device Room Air Vent Mode Not entered Imaging Radiology Impression Head/Neck CTA 05/04/25 00:44 IMPRESSION: Atherosclerosis with chronic multifocal high-grade stenosis. [facility] 05/04/25 01:33 IMPRESSION: Mild central pulmonary venous congestion. Reading [facility] Charges/Coding Visit Charges Inpatient E&M: 91648 Init Hosp L1
[2025-05-05 03:48] VITALS: BP 117/62; PULSE 91; RESP 18; TEMP 36.1; O2SAT 95
[2025-05-05 04:09] VITALS: BMI 38.8
[2025-05-05 05:22] VITALS: BP 104/71
[2025-05-05] MEDS: 0.9% Saline Lock 10 ML Syringe IV ×2 (05:24→22:09)
[2025-05-05 05:55] LABS: Hematocrit 26.3 % (40-54); Hemoglobin 8.0 g/dL (13.0-16.5); Immature Granulocytes Count 0.020 X10^3/uL (0.0-0.0); Mean Corp Hgb Conc 30.4 g/dL (32-36); Mean Corpuscular Volume 87.4 fL (80-94); Mean Platelet Vol. 9.1 fl (6.2-12.0); NRBC Flagged by Analyzer 0 % (0-5); Platelet Count 349 K/mm3 (150-450); RBC Distribution Width CV 15.7 % (11.6-14.6); RBC Distribution Width SD 49.6 fl (35.1-43.9); Red Blood Count 3.01 M/mm3 (4.6-6.2); White Blood Count 6.7 K/mm3 (4.4-11.0)
[2025-05-05 06:14] LABS: Anion Gap 13 (5-15); BUN 21 mg/dL (4-19); BUN/Creat Ratio 13.5 RATIO (10-20); Calcium,Total 8.5 mg/dL (7.6-11.0); Carbon Dioxide 22.3 mmol/L (21.0-32.0); Chloride 105 mmol/L (98-108); Cholesterol 103 mg/dL (<=200); Estimated Creatinine Clearance 75.93 ml/min (50-250); Glucose 125 mg/dL (70-99); Low Density Lipoprotein Calc. 67 mg/dL; Magnesium 2.0 mg/dL (1.5-2.2); Potassium 4.0 mmol/L (3.3-5.1); Triglycerides 70 mg/dL; Very Low Density Lipoprotein 14 mg/dL (5-40); cholesterol:hdl ratio screen 4.68
[2025-05-05 08:17] VITALS: O2SAT 95
[2025-05-05 09:45] VITALS: BP 111/57; PULSE 83; RESP 18; TEMP 36.6; O2SAT 100
[2025-05-05] MEDS: Aspirin E.C. 81 MG Tablet PO (10:02)
--- NOTE | 2025-05-05 12:10 | PCM.PN.HOSP ---
Reason for Visit Chief Complaint: Slurred speech, R facial droop, possible aphasia, confusion. Subjective Subjective Patient seen had a significant response to diuretic therapy with negative fluid balance of 5 L over the past 24 hours. Objective Data Objective Data Vital Signs: Vital Signs Temp Pulse Resp BP Pulse Ox O2 Del Method 97.9 F 83 18 111/57 L 100 Room Air 05/05/25 09:45 05/05/25 09:45 05/05/25 09:45 05/05/25 09:45 05/05/25 09:45 05/05/25 09:52 Oxygen Delivery Method Room Air Weight: 122.7 kg Body Mass Index (BMI) 38.8 Intake & Output: Intake and Output for Last 24 Hours 05/03/25 05/04/25 05/05/25 23:59 23:59 23:59 Intake Total 1000 / 1000 480 / 480 Output Total 2750 / 2750 4050 / 4050 Balance -1750 / -1750 -3570 / -3570 Lab / Micro Data 05/05/25 05:07 05/05/25 05:07 Labs: Laboratory Results - last 24 hr 05/04/25 01:41: POC Glucose 32 L* 05/04/25 02:15: POC Glucose 120 H 05/04/25 07:07: Miscellaneous Test COMMENT 05/04/25 17:52: POC Glucose 117 H 05/04/25 22:29: POC Glucose 136 H 05/05/25 05:07: WBC 6.7, RBC 3.01 L, Hgb 8.0 L, Hct 26.3 L, MCV 87.4, MCH 26.6 L, MCHC 30.4 L, RDW Std Deviation 49.6 H, RDW Coeff of Fariba 15.7 H, Plt Count 349, MPV 9.1, Immature Gran % (Auto) 0.300, Neut % (Auto) 69.8, Lymph % (Auto) 11.7 L, [place] % (Auto) 14.2 H, Eos % (Auto) 2.5, Baso % (Auto) 1.5 H, Absolute Neuts (auto) 4.7, Absolute Lymphs (auto) 0.78 L, Nucleated RBC % 0, Sodium 140, Potassium 4.0, Chloride 105, Carbon Dioxide 22.3, Anion Gap 13, BUN 21 H, Creatinine 1.58 H, Estim Creat Clear Calc 75.93, Est GFR (MDRD) Non-Af 54 L, BUN/Creatinine Ratio 13.5, Glucose 125 H, Calcium 8.5, Phosphorus 3.4, Magnesium 2.0, Triglycerides 70, Cholesterol 103, LDL Cholesterol, Calc 67, VLDL Cholesterol 14, HDL Cholesterol 22 L, Cholesterol/HDL Ratio 4.68 05/05/25 06:29: POC Glucose 126 H 05/05/25 11:29: POC Glucose 197 H Radiography Diagnostic Testing: Radiology Impression Echocardiogram 05/04/25 05:36 Interpretation Summary Normal LV size. The left ventricular ejection fraction is 15 %. Stage 3 diastolic dysfunction. Contrast injection was performed. Ordering Physician: Gricelda Ware Performed By: Sanam Quiroga RDCS Physical Exam Narrative GENERAL: cooperative HEENT: Atraumatic; normocephalic EYES; Anicteric, Normal Conjunctiva NECK; supple, normal thyroid, RESPIRATORY: Diminished to auscultation CARDIOVASCULAR: Regular S1 S2, GI: soft, normoactive bowel sounds, : No Renal angle tenderness; EXTREMITIES: No edema, no clubbing, MUSCULOSKELETAL: no muscle wasting NEURO: Awake; no lateralizing signs. SKIN: No Rash PSYCH; Flat affect Assessment & Plan Assessment/Plan (1) Hypoglycemia: (2) TIA (transient ischemic attack): (3) CHF exacerbation: QUALIFIERS: Heart failure type: systolic Qualified Code(s): I50.23 - Acute on chronic systolic (congestive) heart failure PLAN: Plan Patient is a 49-year-old gentleman who was brought to the hospital by the on account of progressive shortness of breath. Patient was also reported to have experienced slurred speech. Imaging studies obtained on admission did show central pulmonary venous congestion.. Admitted to a monitored bed as a case of possible TIA and congestive heart failure 1. Acute on chronic congestive heart failure with reduced ejection fraction ? Patient admitted to monitored bed manage with strict input and output, daily weight low-sodium diet as well as diuretic therapy with furosemide. Echo from 03/23/2024 demonstrated EF of 15%. Repeat echo ordered for EF assessment. ? 05/05/2025; patient responding to diuretic therapy with negative fluid balance of 5 L over the past 24 hours 2. Transient ischemic attack ? Patient presented with slurred speech and subjective left facial droop initial head CT was negative. An MRI could not be obtained in view of patient having An AICD in place ? Case was [facility] with [facility] teleneurologyRecommendation was made to consult vascular surgery regarding the significant stenosis involving the left external and internal carotid artery (80% stenosis of the origin of the left external carotid artery. 90% stenosis of the origin of the left internal carotid artery.) consult subsequently placed to vascular surgery 3. Diabetes mellitus type 2 ? Patient presented with complications including hypoglycemia patient blood glucose was apparently in the 30s. Patient long-acting insulin held given dextrose subsequently monitoring with Accu-Cheks every 4 hours 4. Peripheral arterial disease ? With previous history of Left BKA 5. Coronary artery disease ? With previous CABG and subsequent ischemic cardiomyopathy 6. Ischemic cardiomyopathy ? Status post AICD placement 7. Hypertension ? Blood pressure controlled, home medications continued with dose adjustment as needed 8. Dyslipidemia ?Patient is on statin therapy, continued at home dose 9. Tobacco dependence ? Counseled on cessation, offered nicotine patch for tobacco cravings 10. Class II obesity with BMI of 38.6 ? Complicating care weight loss advised 11. Obstructive sleep apnea ? Consistent use of PAP therapy encouraged 12. Anemia ? Secondary to chronic disorder monitoring H&H and transfuse if patient becomes symptomatic or hemoglobin falls below 7 ? 05/05/2025; patient hemoglobin down to 8.0 from 8.5 will continue with monitoring 13. Acute kidney injury ? Patient baseline creatinine from 04/07/2024 was 0.92 creatinine on admission was 1.50 do expect improvement in kidney function with diuresis ? 05/05/2025; patient kidney function actually did worsen with diuresis did decrease the dose of patient furosemide 14. DVT prophylaxis ? On enoxaparin Time spent in the patient's overall evaluation,decision-making process, review of diagnostic data, adjustment of management, discussion with other providers, nursing nursing and ancillary staff involved in patient's care documentation 40 Minutes Charges/Coding Visit Charges Inpatient E&M: 05398 Subs Hosp L2 NIHSS NIHSS Nursing Documentation NIHSS Nursing Documentation: NIHSS: Ischemic Stroke/TIA Start: 05/04/25 05:36 Text: For PCU Patients: NIH and Neuro Check every 12 Status: Active hours, PRN and with change in RN caregiver. Freq: Q12H Protocol: Activity Type Activity Date Activity User E-sign Co-sign Detail Recorded Client Recorded Date Recorded By Document 05/05/25 10:00 [email or web address] [id number] 05/05/25 10:00 [email or web address] 05/05/25 10:00 NIH Stroke Scale [NIHSS] A score of 0 is normal or asymptomatic . Total possible score is 42. Inpatient: RN or Physician to activate a stroke alert for onset of new stroke symptoms or with NIHSS increase >/= 3 points. Following change in neurological status, NIHSS will be performed per physician order or more frequently PRN. -1a. Level of Consciousness 0 - Alert; keenly responsive -1b. LOC Questions 0 - Answers BOTH questions correctly -1c. LOC Commands 0 - Performs BOTH tasks correctly -2. Best Gaze 0 - Normal -3. Visual 0 - No visual loss -4. Facial Palsy 0 - Normal symmetrical movements -5a. Left Arm 0 - No drift; arm holds 90 ( or 45) degrees for full 10 seconds -5b. Right Arm 0 - No drift; arm holds 90 ( or 45) degrees for full 10 seconds -6a. Left Leg 0 - No drift; leg holds 30- degree position for full 5 seconds -6b. Right Leg 0 - No drift; leg holds 30- degree position for full 5 seconds -7. Limb Ataxia 0 - Absent -8. Sensory 0 - Normal; no sensory loss -9. Best Language 0 - No aphasia; normal -10. Dysarthria 0 - Normal -11. Extinction and Inattention 0 - No abnormality -Total 0 Query Text:A score of 0 is normal or asymptomatic. Total possible score is 42 . ED: Notify Physician for NIHSS increase by > / = 3 points. Inpatient: RN or Physician to activate a stroke alert for NIHSS increase of > / = 3 points. Coma Scale [Assess] -Eye Opening Spontaneous -Motor Obeys Commands -Verbal Oriented [Total] -Coma Scale Total 15
[2025-05-05 15:37] VITALS: BMI 38.8
--- NOTE | 2025-05-05 17:47 | CASEMGMT ---
Addendum entered by Dixie Dyer 05/06/25 16:04: Discussed palliative care w/pt, as EF is 15%. Information provided & questions answered. Pt states he may be interested, but does not want to make a decision at this time, stating he wants to talk w/his ex- about it 1st. He was made aware if he decides he would like a referral, to discuss this with his PCP. He voices understanding. Original Note: SALIMA MARTINES NOTE: Script for glucometer received from Dr Goldsmith, provided to patient, and instructed on use. Pt voices appreciation. Osiel SYKES RN CM
[2025-05-05 22:25] VITALS: BP 117/67; PULSE 92; RESP 18; TEMP 36.5; O2SAT 95
[2025-05-05 23:09] VITALS: BMI 38.8
[2025-05-06 04:55] VITALS: BMI 38.5
[2025-05-06 04:59] LABS: Hematocrit 24.4 % (40-54); Hemoglobin 7.5 g/dL (13.0-16.5); Immature Granulocytes Count 0.030 X10^3/uL (0.0-0.0); Mean Corp Hgb Conc 30.7 g/dL (32-36); Mean Corpuscular Volume 86.5 fL (80-94); Mean Platelet Vol. 9.2 fl (6.2-12.0); NRBC Flagged by Analyzer 0.3 % (0-5); Platelet Count 335 K/mm3 (150-450); RBC Distribution Width CV 15.4 % (11.6-14.6); RBC Distribution Width SD 48.7 fl (35.1-43.9); Red Blood Count 2.82 M/mm3 (4.6-6.2); White Blood Count 7.6 K/mm3 (4.4-11.0)
[2025-05-06 05:15] VITALS: BP 105/58; PULSE 85; RESP 16; TEMP 36.9; O2SAT 97
[2025-05-06 05:27] LABS: Anion Gap 12 (5-15); BUN 20 mg/dL (4-19); BUN/Creat Ratio 14.5 RATIO (10-20); Calcium,Total 8.1 mg/dL (7.6-11.0); Carbon Dioxide 22.4 mmol/L (21.0-32.0); Chloride 101 mmol/L (98-108); Estimated Creatinine Clearance 87.95 ml/min (50-250); Glucose 178 mg/dL (70-99); Potassium 3.7 mmol/L (3.3-5.1)
--- NOTE | 2025-05-06 06:31 | PCM.PN.SRG ---
Subjective Subjective Patient resting comfortably in bedside chair on my exam. He reports no concerns. Objective Data Objective Data Vital Signs: Vital Signs Temp Pulse Resp BP Pulse Ox O2 Del Method 98.4 F 85 16 105/58 L 97 Room Air 05/06/25 05:15 05/06/25 05:15 05/06/25 05:15 05/06/25 05:15 05/06/25 05:15 05/06/25 05:18 Oxygen Delivery Method Room Air Weight: 268 lb 15.423 oz Body Mass Index (BMI) 38.5 Intake & Output: Intake and Output for Last 24 Hours 05/04/25 05/05/25 05/06/25 23:59 23:59 23:59 Intake Total 1000 / 1000 1000 / 1000 400 / 400 Output Total 2750 / 2750 4950 / 4950 1300 / 1300 Balance -1750 / -1750 -3950 / -3950 -900 / -900 Lab / Micro Data 05/06/25 04:48 05/06/25 04:48 Labs: Laboratory Results - last 24 hr 05/04/25 07:07: Miscellaneous Test COMMENT 05/05/25 05:07: Phosphorus 3.4 05/05/25 06:29: POC Glucose 126 H 05/05/25 11:29: POC Glucose 197 H 05/05/25 16:37: POC Glucose 178 H 05/05/25 22:01: POC Glucose 192 H 05/06/25 04:48: WBC 7.6, RBC 2.82 L, Hgb 7.5 L, Hct 24.4 L, MCV 86.5, MCH 26.6 L, MCHC 30.7 L, RDW Std Deviation 48.7 H, RDW Coeff of Fariba 15.4 H, Plt Count 335, MPV 9.2, Immature Gran % (Auto) 0.400, Neut % (Auto) 74.1 H, Lymph % (Auto) 10.2 L, [place] % (Auto) 10.4 H, Eos % (Auto) 3.8, Baso % (Auto) 1.1 H, Absolute Neuts (auto) 5.6, Absolute Lymphs (auto) 0.77 L, Nucleated RBC % 0.3, Sodium 135, Potassium 3.7, Chloride 101, Carbon Dioxide 22.4, Anion Gap 12, BUN 20 H, Creatinine 1.36 H, Estim Creat Clear Calc 87.95, Est GFR (MDRD) Non-Af 65, BUN/Creatinine Ratio 14.5, Glucose 178 H, Calcium 8.1 Physical Exam Const alert, oriented x3 and no apparent distress General Appearance: comfortable and appears older than stated age HEENT normocephalic, head/scalp atraumatic, hearing grossly normal bilaterally, external ears normal and external nose normal Eyes General Eye: normal appearance of both eyes Neck General: normal visual inspection and trachea midline Resp Effort and Inspection: able to speak in complete sentences; Negative for labored, grunting or stridor Cardio regular rate and regular rhythm Extremity Extremity Narrative: s/p L BKA Neuro oriented x3, CN's II-XII intact bilaterally and moves all extremities Speech: speech normal Psych mental status grossly normal Appearance: grossly normal Speech: normal speech Assessment & Plan Assessment/Plan (1) Left carotid stenosis: PLAN: Plan Updated echo demonstrated EF 15%; at this time, given his significant comorbidities as well as his significant intracranial atherosclerotic disease recommend outpatient referral to tertiary care center for surgical consultation with vascular/neurointerventional. This was discussed with patient and he is agreeable to referral to [facility]; will coordinate outpatient referral through our office. Continue to recommend DAPT and high-intensity statin for medical management. Charges/Coding Visit Charges Inpatient E&M: 80980 Subs Hosp L1
--- NOTE | 2025-05-06 07:29 | PCM.PN.HOSP ---
Reason for Visit Chief Complaint: Slurred speech, R facial droop, possible aphasia, confusion. Subjective Subjective Patient seen plan is for patient to be assessed for possible discharge case was discussed with vascular surgery patient will be referred for outpatient intervention of his left bilateral carotid artery stenosis Objective Data Objective Data Vital Signs: Vital Signs Temp Pulse Resp BP Pulse Ox O2 Del Method 98.4 F 85 16 105/58 L 97 Room Air 05/06/25 05:15 05/06/25 05:15 05/06/25 05:15 05/06/25 05:15 05/06/25 05:15 05/06/25 05:18 Oxygen Delivery Method Room Air Weight: 122 kg Body Mass Index (BMI) 38.5 Intake & Output: Intake and Output for Last 24 Hours 05/04/25 05/05/25 05/06/25 23:59 23:59 23:59 Intake Total 1000 / 1000 1000 / 1000 400 / 400 Output Total 2750 / 2750 4950 / 4950 1300 / 1300 Balance -1750 / -1750 -3950 / -3950 -900 / -900 Lab / Micro Data 05/06/25 04:48 05/06/25 04:48 Labs: Laboratory Results - last 24 hr 05/04/25 07:07: Miscellaneous Test COMMENT 05/05/25 11:29: POC Glucose 197 H 05/05/25 16:37: POC Glucose 178 H 05/05/25 22:01: POC Glucose 192 H 05/06/25 04:48: WBC 7.6, RBC 2.82 L, Hgb 7.5 L, Hct 24.4 L, MCV 86.5, MCH 26.6 L, MCHC 30.7 L, RDW Std Deviation 48.7 H, RDW Coeff of Fariba 15.4 H, Plt Count 335, MPV 9.2, Immature Gran % (Auto) 0.400, Neut % (Auto) 74.1 H, Lymph % (Auto) 10.2 L, [place] % (Auto) 10.4 H, Eos % (Auto) 3.8, Baso % (Auto) 1.1 H, Absolute Neuts (auto) 5.6, Absolute Lymphs (auto) 0.77 L, Nucleated RBC % 0.3, Sodium 135, Potassium 3.7, Chloride 101, Carbon Dioxide 22.4, Anion Gap 12, BUN 20 H, Creatinine 1.36 H, Estim Creat Clear Calc 87.95, Est GFR (MDRD) Non-Af 65, BUN/Creatinine Ratio 14.5, Glucose 178 H, Calcium 8.1 05/06/25 06:20: POC Glucose 174 H Physical Exam Narrative GENERAL: cooperative HEENT: Atraumatic; normocephalic EYES; Anicteric, Normal Conjunctiva NECK; supple, normal thyroid, RESPIRATORY: Diminished to auscultation CARDIOVASCULAR: Regular S1 S2, GI: soft, normoactive bowel sounds, : No Renal angle tenderness; EXTREMITIES: No edema, no clubbing, MUSCULOSKELETAL: no muscle wasting NEURO: Awake; no lateralizing signs. SKIN: No Rash PSYCH; Flat affect Assessment & Plan Assessment/Plan (1) Hypoglycemia: (2) TIA (transient ischemic attack): (3) CHF exacerbation: QUALIFIERS: Heart failure type: systolic Qualified Code(s): I50.23 - Acute on chronic systolic (congestive) heart failure PLAN: Plan Patient is a 49-year-old gentleman who was brought to the hospital by the on account of progressive shortness of breath. Patient was also reported to have experienced slurred speech. Imaging studies obtained on admission did show central pulmonary venous congestion.. Admitted to a monitored bed as a case of possible TIA and congestive heart failure 1. Acute on chronic congestive heart failure with reduced ejection fraction ? Patient admitted to monitored bed manage with strict input and output, daily weight low-sodium diet as well as diuretic therapy with furosemide. Echo from 03/23/2024 demonstrated EF of 15%. Repeat echo ordered for EF assessment. ? 05/05/2025; patient responding to diuretic therapy with negative fluid balance of 5 L over the past 24 hours ? 05/06/2025; repeat echo demonstrated Normal LV size. The left ventricular ejection fraction is 15 %.Stage 3 diastolic dysfunction. 2. Transient ischemic attack ? Patient presented with slurred speech and subjective left facial droop initial head CT was negative. An MRI could not be obtained in view of patient having An AICD in place ? Case was discussed with [facility] teleneurologyRecommendation was made to consult vascular surgery regarding the significant stenosis involving the left external and internal carotid artery (80% stenosis of the origin of the left external carotid artery. 90% stenosis of the origin of the left internal carotid artery.) consult subsequently placed to vascular surgery ? 05/06/2025; case discussed with vascular surgery plan is for patient to be referred to [facility] for intervention 3. Diabetes mellitus type 2 ? Patient presented with complications including hypoglycemia patient blood glucose was apparently in the 30s. Patient long-acting insulin held given dextrose subsequently monitoring with Accu-Cheks every 4 hours 4. Peripheral arterial disease ? With previous history of Left BKA 5. Coronary artery disease ? With previous CABG and subsequent ischemic cardiomyopathy 6. Ischemic cardiomyopathy ? Status post AICD placement 7. Hypertension ? Blood pressure controlled, home medications continued with dose adjustment as needed 8. Dyslipidemia ?Patient is on statin therapy, continued at home dose 9. Tobacco dependence ? Counseled on cessation, offered nicotine patch for tobacco cravings 10. Class II obesity with BMI of 38.6 ? Complicating care weight loss advised 11. Obstructive sleep apnea ? Consistent use of PAP therapy encouraged 12. Anemia ? Secondary to chronic disorder monitoring H&H and transfuse if patient becomes symptomatic or hemoglobin falls below 7 ? 05/05/2025; patient hemoglobin down to 8.0 from 8.5 will continue with monitoring 13. Acute kidney injury ? Patient baseline creatinine from 04/07/2024 was 0.92 creatinine on admission was 1.50 do expect improvement in kidney function with diuresis ? 05/05/2025; patient kidney function actually did worsen with diuresis did decrease the dose of patient furosemide 14. DVT prophylaxis ? On enoxaparin Time spent in the patient's overall evaluation,decision-making process, review of diagnostic data, adjustment of management, discussion with other providers, nursing nursing and ancillary staff involved in patient's care documentation 38 Minutes Charges/Coding Visit Charges Inpatient E&M: 09559 Subs Hosp L2 NIHSS NIHSS Nursing Documentation NIHSS Nursing Documentation: NIHSS: Ischemic Stroke/TIA Start: 05/04/25 05:36 Text: For PCU Patients: NIH and Neuro Check every 12 Status: Active hours, PRN and with change in RN caregiver. Freq: Q12H Protocol: Activity Type Activity Date Activity User E-sign Co-sign Detail Recorded Client Recorded Date Recorded By Document 05/05/25 22:25 MG [id number] 05/05/25 22:45 MG 05/05/25 22:25 NIH Stroke Scale [NIHSS] A score of 0 is normal or asymptomatic . Total possible score is 42. Inpatient: RN or Physician to activate a stroke alert for onset of new stroke symptoms or with NIHSS increase >/= 3 points. Following change in neurological status, NIHSS will be performed per physician order or more frequently PRN. -1a. Level of Consciousness 0 - Alert; keenly responsive -1b. LOC Questions 0 - Answers BOTH questions correctly -1c. LOC Commands 0 - Performs BOTH tasks correctly -2. Best Gaze 0 - Normal -3. Visual 0 - No visual loss -4. Facial Palsy 0 - Normal symmetrical movements -5a. Left Arm 0 - No drift; arm holds 90 ( or 45) degrees for full 10 seconds -5b. Right Arm 0 - No drift; arm holds 90 ( or 45) degrees for full 10 seconds -6a. Left Leg 0 - No drift; leg holds 30- degree position for full 5 seconds -6b. Right Leg 0 - No drift; leg holds 30- degree position for full 5 seconds -7. Limb Ataxia 0 - Absent -8. Sensory 0 - Normal; no sensory loss -9. Best Language 0 - No aphasia; normal -10. Dysarthria 0 - Normal -11. Extinction and Inattention 0 - No abnormality -Total 0 Query Text:A score of 0 is normal or asymptomatic. Total possible score is 42 . ED: Notify Physician for NIHSS increase by > / = 3 points. Inpatient: RN or Physician to activate a stroke alert for NIHSS increase of > / = 3 points. Coma Scale [Assess] -Eye Opening Spontaneous -Motor Obeys Commands -Verbal Oriented [Total] -Coma Scale Total 15
--- NOTE | 2025-05-06 10:19 | DS.PCM_ITS ---
Providers Date of Admission: 05/04/25 Date of Discharge: 05/06/25 Primary Care Physician: Dr. Moe Odonnell MD Consultations 05/04/25 05:36 Consult: Tele-Neurology Routine Consulting Provider: [facility] Reason for Consult: Acute Ischemic Stroke/TIA EMERGENT Consult: No Notified: Yes Date Notified: 05/04/25 Time Notified: 06:37 Method of Notification: Answering Service Nursing Unit Staff Notify [facility] of Tele-Neurology Consult: Yes 05/04/25 14:28 Consult: Vascular Surgery Routine Consulting Provider: Jasmeet Gordon Reason for Consult: symptomatic LICA stenosis EMERGENT Consult: No Notified: Yes Date Notified: 05/04/25 Time Notified: 14:29 Method of Notification: Office notified Reason For Visit: TIA Diagnosis Discharge Diagnosis (1) Hypoglycemia: Status: Acute Code(s): E16.2 - Hypoglycemia, unspecified (2) TIA (transient ischemic attack): Status: Acute Code(s): G45.9 - Transient cerebral ischemic attack, unspecified (3) CHF exacerbation: Status: Chronic Code(s): I50.9 - Heart failure, unspecified Qualifiers: Heart failure type: systolic Qualified Code(s): I50.23 - Acute on chronic systolic (congestive) heart failure Plan Patient is a 49-year-old gentleman who was brought to the hospital by the on account of progressive shortness of breath. Patient was also reported to have experienced slurred speech. Imaging studies obtained on admission did show central pulmonary venous congestion.. Admitted to a monitored bed as a case of possible TIA and congestive heart failure 1. Acute on chronic congestive heart failure with reduced ejection fraction ? Patient admitted to monitored bed manage with strict input and output, daily weight low-sodium diet as well as diuretic therapy with furosemide. Echo from 03/23/2024 demonstrated EF of 15%. Repeat echo ordered for EF assessment. ? 05/05/2025; patient responding to diuretic therapy with negative fluid balance of 5 L over the past 24 hours ? 05/06/2025; repeat echo demonstrated Normal LV size. The left ventricular ejection fraction is 15 %.Stage 3 diastolic dysfunction. 2. Transient ischemic attack ? Patient presented with slurred speech and subjective left facial droop initial head CT was negative. An MRI could not be obtained in view of patient having An AICD in place ? Case [facility] teleneurologyRecommendation was made to consult vascular surgery regarding the significant stenosis involving the left external and internal carotid artery (80% stenosis of the origin of the left external carotid artery. 90% stenosis of the origin of the left internal carotid artery.) consult subsequently placed to vascular surgery ? 05/06/2025; case discussed with vascular surgery plan is for patient to be referred to [facility] for intervention 3. Diabetes mellitus type 2 ? Patient presented with complications including hypoglycemia patient blood glucose was apparently in the 30s. Patient long-acting insulin held given dextrose subsequently monitoring with Accu-Cheks every 4 hours 4. Peripheral arterial disease ? With previous history of Left BKA 5. Coronary artery disease ? With previous CABG and subsequent ischemic cardiomyopathy 6. Ischemic cardiomyopathy ? Status post AICD placement 7. Hypertension ? Blood pressure controlled, home medications continued with dose adjustment as needed 8. Dyslipidemia ?Patient is on statin therapy, continued at home dose 9. Tobacco dependence ? Counseled on cessation, offered nicotine patch for tobacco cravings 10. Class II obesity with BMI of 38.6 ? Complicating care weight loss advised 11. Obstructive sleep apnea ? Consistent use of PAP therapy encouraged 12. Anemia ? Secondary to chronic disorder monitoring H&H and transfuse if patient becomes symptomatic or hemoglobin falls below 7 ? 05/05/2025; patient hemoglobin down to 8.0 from 8.5 will continue with monitoring 13. Acute kidney injury ? Patient baseline creatinine from 04/07/2024 was 0.92 creatinine on admission was 1.50 do expect improvement in kidney function with diuresis ? 05/05/2025; patient kidney function actually did worsen with diuresis did decrease the dose of patient furosemide 14. DVT prophylaxis ? On enoxaparin Time spent in the patient's overall evaluation,decision-making process, review of diagnostic data, adjustment of management, discussion with other providers, nursing nursing and ancillary staff involved in patient's care documentation 38 Minutes Medications at Discharge Home Medications aspirin 81 mg tablet,delayed release (Adult Aspirin Regimen) 81 mg PO DAILY 11/03/19 hydralazine 10 mg tablet 10 mg PO TID 01/13/24 losartan 25 mg tablet (Cozaar) 25 mg PO DAILY 01/13/24 metoprolol tartrate 25 mg tablet 25 mg PO DAILY 01/13/24 atorvastatin 80 mg tablet 80 mg PO QHS #60 tabs 05/06/25 furosemide 40 mg tablet (Lasix) 40 mg PO BID #120 tabs 05/06/25 Physical Exam Narrative GENERAL: cooperative HEENT: Atraumatic; normocephalic EYES; Anicteric, Normal Conjunctiva NECK; supple, normal thyroid, RESPIRATORY: Diminished to auscultation CARDIOVASCULAR: Regular S1 S2, GI: soft, normoactive bowel sounds, : No Renal angle tenderness; EXTREMITIES: No edema, no clubbing, MUSCULOSKELETAL: no muscle wasting NEURO: Awake; no lateralizing signs. SKIN: No Rash PSYCH; Flat affect Weight / BMI Weight Weight: 122 kg Body Mass Index (BMI) 38.5 ABG / Lab / Microbiology Data 05/06/25 04:48 05/06/25 04:48 Laboratory: Laboratory Results - last 24 hr 05/04/25 07:07: Miscellaneous Test COMMENT 05/05/25 11:29: POC Glucose 197 H 05/05/25 16:37: POC Glucose 178 H 05/05/25 22:01: POC Glucose 192 H 05/06/25 04:48: WBC 7.6, RBC 2.82 L, Hgb 7.5 L, Hct 24.4 L, MCV 86.5, MCH 26.6 L , MCHC 30.7 L, RDW Std Deviation 48.7 H, RDW Coeff of Fariba 15.4 H, Plt Count 335, MPV 9.2, Immature Gran % (Auto) 0.400, Neut % (Auto) 74.1 H, Lymph % (Auto) 10.2 L, [place] % (Auto) 10.4 H, Eos % (Auto) 3.8, Baso % (Auto) 1.1 H, Absolute Neuts (auto) 5.6, Absolute Lymphs (auto) 0.77 L, Nucleated RBC % 0.3, Sodium 135, Potassium 3.7, Chloride 101, Carbon Dioxide 22.4, Anion Gap 12, BUN 20 H, C reatinine 1.36 H, Estim Creat Clear Calc 87.95, Est GFR (MDRD) Non-Af 65, BUN/Creatinine Ratio 14.5, Glucose 178 H, Calcium 8.1 05/06/25 06:20: POC Glucose 174 H D/C Instructions Discharge Activity: Return to Normal Activity Call your doctor if you observe: Fever of 101 or Higher, Shortness of breath, Fainting spells and Chest pain DC O2, CPAP, BIPAP Needs Home O2 Discharge instructions: No Meaningful Use Info Meaningful Use Meaningful Use Diagnoses (Choose all that apply): CHF CHF RENÉ/ARB ordered at discharge?: Yes Documented LVEF (%): 15 Discharge Plan Admission Admit Date/Time: 05/04/25 10:15 Attending Provider: Chato Goldsmith Primary Care Provider: Moe Odonnell Consulting Providers: Dominik Bullock; Jesenia Crane; Harriet Delatorre; Bety Lagunas; Naina Andrews; Samir Hsu; Amalia Evangelista; Girma Pñia; Mac Vigil; Willi Bowles; Ashlyn Yeh; Freida Gandara; Cisco Carreno; Salena Minor; Kathy Young; Kwadwo Hutchinson; Gordo Nicole; Ashley Charles; Benjy Dowd; Denice Pineda; Nish Mendoza; Gricelda Ware; Jasmeet Gordon Discharge Orders/Prescriptions Prescriptions: New atorvastatin 80 mg Tablet 80 mg PO QHS Qty: 60 0RF furosemide [Lasix] 40 mg tablet 40 mg PO BID Qty: 120 0RF Continued aspirin [Adult Aspirin Regimen] 81 mg tablet,delayed release (DR/EC) 81 mg PO DAILY hydralazine 10 mg tablet 10 mg PO TID losartan [Cozaar] 25 mg tablet 25 mg PO DAILY metoprolol tartrate 25 mg tablet 25 mg PO DAILY Referrals / Follow Up: Jasmeet Gordon MD [Med Staff - Active Staff, Vascular Surgery] - In 1 Week Moe Odonnell MD [Primary Care Provider, Medical] Disposition Disposition (needs filled in before D/C Order can be placed): Home, Self Care Charges/Coding Visit Charges Inpatient E&M: 08280 Disch Hosp >30min
[2025-05-06] MEDS: Aspirin E.C. 81 MG Tablet PO (10:20)
[2025-05-06] MEDS: 0.9% Saline Lock 10 ML Syringe IV (10:21)
[2025-05-06 10:36] VITALS: BP 113/68; PULSE 89; RESP 18; TEMP 36.4; O2SAT 98
--- NOTE | 2025-05-06 14:10 | PHA.DC.MC.R ---
Pharmacy [facility] Counseling Pharmacy Service has performed discharge medication reconciliation and counseling for this patient. New prescriptions were sent to the [facility], patient requested medications to be transferred to [facility]. This [facility] called [facility] and spoke to Hope, she will call [facility] for the transfer. Nurse updated. 1. ATORVASTATIN 80MG PO QHS 2. FUROSEMIDE 40MG PO BID The patient's discharge medication list was reviewed for discrepancies and discrepancies were resolved. The patient was counseled on the following discharge medications and changes in medications for homegoing were reviewed. The Reason for Use, instructions for use, and potential side effects were reviewed for all new medications. The patient's questions regarding all of their medications were answered. The patient was able to verbally demonstrate an understanding of their discharge medications. Medications at Discharge Home Medications aspirin 81 mg tablet,delayed release (Adult Aspirin Regimen) 81 mg PO DAILY 11/03/19 hydralazine 10 mg tablet 10 mg PO TID 01/13/24 losartan 25 mg tablet (Cozaar) 25 mg PO DAILY 01/13/24 metoprolol tartrate 25 mg tablet 25 mg PO DAILY 01/13/24 atorvastatin 80 mg tablet 80 mg PO QHS #60 tabs 05/06/25 furosemide 40 mg tablet (Lasix) 40 mg PO BID #120 tabs 05/06/25
--- NOTE | 2025-05-06 15:10 | CASEMGMT ---
RN CM NOTE: Jeetilinta has been e-scribed to [facility] pharmacy. Call placed to the pharmacy, co-pay is $1.60. Osiel SYKES RN CM
== END 2025-05-06 15:49 | disposition home or self-care (01) | DRG 291 ==
LOC: ED 05-04 04:09 → PCU 05-04 04:27
PROVIDERS: Admitting Provider Family Medicine; Emergency Provider Emergency Medicine; PCP Family Medicine; Visit Provider Internal Medicine
DX: I13.0 Hypertensive heart and chronic kidney disease with heart failure and stage 1 through stage 4 chronic kidney disease, or unspecified chronic kidney disease (principal); I50.23 Acute on chronic systolic (congestive) heart failure; Z68.41 Body mass index [BMI] 40.0-44.9, adult; G45.9 Transient cerebral ischemic attack, unspecified; N17.9 Acute kidney failure, unspecified; D63.8 Anemia in other chronic diseases classified elsewhere; Z95.1 Presence of aortocoronary bypass graft; E11.51 Type 2 diabetes mellitus with diabetic peripheral angiopathy without gangrene; Z89.512 Acquired absence of left leg below knee; N18.2 Chronic kidney disease, stage 2 (mild); E66.01 Morbid (severe) obesity due to excess calories; I25.5 Ischemic cardiomyopathy; I65.23 Occlusion and stenosis of bilateral carotid arteries; I25.2 Old myocardial infarction; E78.5 Hyperlipidemia, unspecified; G47.33 Obstructive sleep apnea (adult) (pediatric); K21.9 Gastro-esophageal reflux disease without esophagitis; Z79.4 Long term (current) use of insulin; I25.10 Atherosclerotic heart disease of native coronary artery without angina pectoris; E11.65 Type 2 diabetes mellitus with hyperglycemia; E11.22 Type 2 diabetes mellitus with diabetic chronic kidney disease; Z79.82 Long term (current) use of aspirin; Z79.899 Other long term (current) drug therapy; Z95.810 Presence of automatic (implantable) cardiac defibrillator; Z87.891 Personal history of nicotine dependence
CPT/HCPCS: 36415; 36600; 70496; 70498; 71045; 80048; 80053; 80061; 82140; 82803; 82962; 83735; 83880; 84100; 84443; 84484; 85025; 85610; 85730; 92610; 93005; 93306; 94668; 94762; 97162; 97166; 97802; 99283; Q9957; A4216; C8929; J1938